=== PATIENT | female | born 1955 | race Caucasian/White ===

== ENCOUNTER 2018-12-04 18:38 | Inpatient (IN) | payer OTHER ==
--- OUTSIDE RECORDS SUMMARY | 2018-12-04 18:40 | XMS REPORT ---
:1955 Author Organization [facility] Address [address] [place] [address] Care Team Providers Name Role Phone MARCKHOI Lee Unavailable Unavailable Problems This patient has no known problems. Allergies, Adverse Reactions, Alerts This patient has no known allergies or adverse reactions. Medications This patient has no known medications. Results Test Description Test Time Test Comments Text Results Atomic Results Result Comments URINE CULTURE 2017-06-29 11:48:00 Test Item Value Reference Range Comments Isolate 1 (test code=ISO1) Escherichia coli CONFIRMATORY TEST FOR THIS ORGANISM INDICATES UNUSUAL RESISTANCE. EXTENDEDSPECTRUM BETA-LACTAMASE PRODUCTION. INFECTIOUS DISEASE CONSULT SUGGESTED piperacillin/tazobactam (test ug/mL code=tzp) cefazolin (test code=cz) ug/mL ceftazidime (test code=agustin) ug/mL ceftriaxone1 (test code=ctr) ug/mL cefepime (test code=fep) ug/mL aztreonam (test code=azm) ug/mL ertapenem (test code=etp) ug/mL meropenem (test code=mem) ug/mL gentamicin (test code=gm) ug/mL tobramycin (test code=tob) ug/mL levofloxacin (test code=lev) ug/mL nitrofurantoin (test code=ftn) ug/mL trimethoprim/sulfamethoxazole ug/mL (test code=sxt) URINALYSIS WITH [id number] 13:54:00 Test Item Value Reference Range Comments COLOR (test code=COLU) ORANGE YELLOW CLARITY (test code=CLA) CLOUDY CLEAR GLUCOSE UR (test code=UA GLUCOSE) NEGATIVE NEGATIVE BILI UR (test code=BILE) NEGATIVE NEGATIVE KETONES UR (test code=CRISTEL) NEGATIVE NEGATIVE SP GRAVITY (test code=SPGR) 1.014 1.005-1.030 PH UR (test code=PH) 7.0 4.5-8.0 PROTEIN UR (test code=PU) TRACE NEGATIVE UROBIL UR (test code=UROQ) 1.0 EU/dL 0.2-1.0 NITRITE UR (test code=NITRITE) POSITIVE NEGATIVE BLOOD UR (test code=UA BLOOD) NEGATIVE NEGATIVE LEUK ES UR (test code=LEUK) 2+ NEGATIVE WBC UR (test code=UWBC) 15 /HPF 0-5 RBC UR (test code=URBC) 0 /HPF 0-2 EPITH UR (test code=UEPC) FEW /LPF FEW BACTERIA UR (test code=UBACT) FEW /HPF NONE CAST UR (test code=CAST) /LPF NONE CRYSTAL UR (test code=CRYU) / LPF NONE MUCUS UR (test code=MUC) / HPF NONE AMORPH UR (test code=SIDDHARTHA) / HPF NONE TRICH UR (test code=UTRICH) /HPF NONE YEAST UR (test code=UY) /HPF NONE SPERM UR (test code=USPERM) /HPF NONE
--- OUTSIDE RECORDS SUMMARY | 2018-12-04 18:41 | XMS REPORT ---
:1955 Author Organization [employer] Care Team Providers Name Role Phone Bryson Johnson Provider Role Unavailable Allergies, Adverse Reactions, Alerts Substance Reaction Event Type penicillin Info Not Available Drug Allergy Codeine Sulfate Info Not Available Drug Allergy Problems Problem Type Condition Code Onset Dates Condition Status Assessment Primary osteoarthritis, unspecified M19.91 Active site Assessment Rheumatoid arthritis involving M06.9 Active multiple sites, unspecified rheumatoid factor presence Assessment Insomnia G47.00 Active Problem Chronic back pain M54.9 Active Assessment Overactive bladder N32.81 Active Problem Obstructive sleep apnea G47.33 Active Assessment GERD (gastroesophageal reflux K21.9 Active disease) Problem Lung nodule R91.1 Active Problem Allergic rhinitis, seasonal J30.2 Active Problem Restless leg syndrome G25.81 Active Problem Recurrent UTI N39.0 Active Problem Rheumatoid arthritis involving M06.9 Active multiple sites, unspecified rheumatoid factor presence Assessment Hyperlipidemia E78.5 Active Assessment Depression F32.9 Active Problem Incontinence in female R32 Active Assessment COPD (chronic obstructive pulmonary J44.9 Active disease) Problem Nicotine dependence F17.200 Active Problem H/O TIA (transient ischemic attack) Z86.73 Active and stroke Problem Overactive bladder N32.81 Active Problem Primary osteoarthritis, unspecified M19.91 Active site Problem Depression F32.9 Active Problem Insomnia G47.00 Active Assessment Benign essential HTN I10 Active Problem Osteopenia M85.80 Active Problem COPD (chronic obstructive pulmonary J44.9 Active disease) Problem Hyperlipidemia E78.5 Active Problem GERD (gastroesophageal reflux K21.9 Active disease) Problem Benign essential HTN I10 Active Medications Medication Code Code Instructions Start End Status Dosage System Date Date VESIcare [facility] 66664722026 10 MG Orally March Inactive 1 tablet Once a day 2017 Probiotic [facility] 40097697055 - Orally Active not defined Nasonex [facility] 77904872750 50 MCG/ACT Active 2 sprays Nasally Once a in each day nostril Estrace [facility] 99890997671 0.1 MG/GM December Active as Vaginal twice 2017 directed weekly Folic Acid [facility] 75278450678 1 MG Orally Active 1 tablet Once a day Breo Ellipta [facility] 40221261642 100-25 MCG/INH Active 1 puff Inhalation Once a day Keppra [facility] 26605190936 500 MG Orally Active 1 tablet Twice a day Methotrexate [facility] 67571781234 2.5 MG Orally Active not defined Citalopram [facility] 81722982907 40MG Active TAKE ONE Hydrobromide TABLET BY MOUTH ONCE DAILY Zyprexa [facility] 10213395566 10 MG Orally Active 1 tablet Once a day Citalopram [facility] 98672985776 40MG Active TAKE ONE Hydrobromide TABLET BY MOUTH ONCE DAILY Simvastatin [facility] 68582676197 40 MG Orally Active 1 tablet Once a day in the evening Klor-Con M20 [facility] 00113070127 20 MEQ Orally Active 1 tablet Once a day with food Aggrenox [facility] 41406717668 25-200 MG Active 1 capsule Orally Twice a day Myrbetriq [facility] 63521049107 25MG Active TAKE ONE TABLET BY MOUTH ONCE DAILY Combivent [facility] 94234721936 20MCG /100 MCG Active 1 puff Respimat Oral Inhalation 4 times daily, not to exceed 6 in 24 hrs Belsomra [facility] 80157518288 10 MG Orally Active 1 tablet Once a day at bedtime as needed Claritin [facility] 32601080196 10 MG Orally Active 1 tablet Once a day Multivitamins [facility] 04140512107 - Orally Active not defined Dexilant [facility] 24690228336 60MG [address] Active TAKE 1 CAPSULE BY MOUTH ONCE DAILY Results No Known Results Summary Purpose eClinicalWorks Submission
--- OUTSIDE RECORDS SUMMARY | 2018-12-04 18:41 | XMS REPORT ---
:1955 Author Organization [employer] Care Team Providers Name Role Phone CarlZuri Provider Role Unavailable Allergies, Adverse Reactions, Alerts Substance Reaction Event Type penicillin Info Not Available Drug Allergy Codeine Sulfate Info Not Available Drug Allergy Problems Problem Type Condition Code Onset Dates Condition Status Problem Lung nodule R91.1 Active Problem Allergic rhinitis, seasonal J30.2 Active Problem Restless leg syndrome G25.81 Active Problem Recurrent UTI N39.0 Active Assessment Incontinence in female R32 Active Problem Rheumatoid arthritis involving M06.9 Active multiple sites, unspecified rheumatoid factor presence Problem Incontinence in female R32 Active Problem Nicotine dependence F17.200 Active Problem H/O TIA (transient ischemic attack) Z86.73 Active and stroke Problem Overactive bladder N32.81 Active Problem Primary osteoarthritis, unspecified M19.91 Active site Problem Depression F32.9 Active Problem Insomnia G47.00 Active Assessment Recurrent UTI N39.0 Active Problem Osteopenia M85.80 Active Problem COPD (chronic obstructive pulmonary J44.9 Active disease) Problem Hyperlipidemia E78.5 Active Problem GERD (gastroesophageal reflux K21.9 Active disease) Problem Chronic back pain M54.9 Active Problem Benign essential HTN I10 Active Problem Obstructive sleep apnea G47.33 Active Medications Medication Code Code Instructions Start End Status Dosage System Date Date Multivitamins [facility] 23426097785 - Orally Active not defined Simvastatin ND 60333752929 40 MG Orally Active 1 tablet in Once a day the evening Estrace ND 24401117735 0.1 MG/GM December Active as directed Vaginal twice 2017 weekly Folic Acid ND 47289091832 1 MG Orally Active 1 tablet Once a day Aggrenox ND 59817076763 25-200 MG Active 1 capsule Orally Twice a day Belsomra ND 23324177112 10 MG Orally Active 1 tablet at Once a day bedtime as needed Klor-Con M20 [facility] 34529722382 20 MEQ Orally Active 1 tablet Once a day with food Dexilant [facility] 04873442392 60MG [address] Active TAKE ONE CAPSULE BY MOUTH ONCE DAILY VESIcare [facility] 30772229054 10 MG Orally Active 1 tablet Once a day Breo Ellipta [facility] 02920804870 100-25 MCG/INH Active 1 puff Inhalation Once a day Methotrexate [facility] 05136666680 2.5 MG Orally Active not defined Keppra [facility] 46751699821 500 MG Orally Active 1 tablet Twice a day Probiotic [facility] 76858848175 - Orally Active not defined Combivent [facility] 74553832592 20MCG /100 MCG Active 1 puff Respimat Oral Inhalation 4 times daily, not to exceed 6 in 24 hrs Citalopram [facility] 51622074419 40MG Active TAKE ONE Hydrobromide TABLET BY MOUTH ONCE DAILY Nasonex [facility] 16225978446 50 MCG/ACT Active 2 sprays in Nasally Once a each day nostril Claritin [facility] 45926641041 10 MG Orally Active 1 tablet Once a day Zyprexa [facility] 28648823138 10 MG Orally Active 1 tablet Once a day Results Name Result Date Reference Range Unit Abnormality Flag URINALYSIS AUTO W/O SCOPE (99682) ----KELLEN neg 20180123 ----NIT neg 20180123 ----PROTEIN neg 20180123 ----pH 6.0 20180123 ----GLUCOSE neg 20180123 ----KETONES neg 20180123 ----SPECIFIC GRAVITY <=1.005 20180123 ----BLO neg 20180123 PVR ----PVR 20 20180123 Summary Purpose eClinicalWorks Submission
--- OUTSIDE RECORDS SUMMARY | 2018-12-04 18:41 | XMS REPORT ---
:1955 Author Organization [employer] Care Team Providers Name Role Phone Alex Bryson Provider Role Unavailable Allergies No Known Allergies Problems Problem Type Condition Code Onset Dates Condition Status Problem Lung nodule R91.1 Active Problem Allergic rhinitis, seasonal J30.2 Active Problem Restless leg syndrome G25.81 Active Problem Recurrent UTI N39.0 Active Assessment Depression F32.9 Active Problem Rheumatoid arthritis involving M06.9 Active multiple sites, unspecified rheumatoid factor presence Assessment COPD (chronic obstructive pulmonary J44.9 Active disease) Problem Incontinence in female R32 Active Problem Nicotine dependence F17.200 Active Problem H/O TIA (transient ischemic attack) Z86.73 Active and stroke Problem Overactive bladder N32.81 Active Problem Primary osteoarthritis, unspecified M19.91 Active site Problem Depression F32.9 Active Problem Insomnia G47.00 Active Problem Osteopenia M85.80 Active Problem COPD (chronic obstructive pulmonary J44.9 Active disease) Problem Hyperlipidemia E78.5 Active Problem GERD (gastroesophageal reflux K21.9 Active disease) Problem Chronic back pain M54.9 Active Problem Benign essential HTN I10 Active Problem Obstructive sleep apnea G47.33 Active Medications Medication Code Code Instructions Start End Status Dosage System Date Date Citalopram [facility] 38877520516 40MG orally once Active TAKE ONE Hydrobromide daily TABLET BY MOUTH ONCE DAILY Zyprexa [facility] 35450438275 10 MG Orally Active 1 tablet Once a day Myrbetriq ND 33040639980 25MG orally once Active TAKE ONE daily TABLET BY MOUTH ONCE DAILY Breo Ellipta ND 53700859149 100-25 MCG/INH Active 1 puff Inhalation Once a day Klor-Con M20 ND 62193423273 20 MEQ Orally Active 1 tablet Once a day with food Results No Known Results Summary Purpose eClinicalWorks Submission
--- OUTSIDE RECORDS SUMMARY | 2018-12-04 18:41 | XMS REPORT ---
:1955 Author Organization [employer] Care Team Providers Name Role Phone Bryson Johnson Provider Role Unavailable Allergies No Known Allergies Problems Problem Type Condition Code Onset Dates Condition Status Assessment Recurrent UTI N39.0 Active Assessment Primary osteoarthritis, unspecified M19.91 Active site Assessment Rheumatoid arthritis involving M06.9 Active multiple sites, unspecified rheumatoid factor presence Problem Hyperlipidemia E78.5 Active Assessment Insomnia G47.00 Active Problem Chronic back pain M54.9 Active Assessment GERD (gastroesophageal reflux K21.9 Active disease) Problem Obstructive sleep apnea G47.33 Active Problem Restless leg syndrome G25.81 Active Problem Lung nodule R91.1 Active Problem Overactive bladder N32.81 Active Problem Primary osteoarthritis, unspecified M19.91 Active site Assessment Hyperlipidemia E78.5 Active Assessment Depression F32.9 Active Problem Recurrent UTI N39.0 Active Assessment COPD (chronic obstructive pulmonary J44.9 Active disease) Problem H/O TIA (transient ischemic attack) Z86.73 Active and stroke Problem Allergic rhinitis, seasonal J30.2 Active Problem Rheumatoid arthritis involving M06.9 Active multiple sites, unspecified rheumatoid factor presence Problem Nicotine dependence F17.200 Active Problem Osteopenia M85.80 Active Problem Depression F32.9 Active Assessment Benign essential HTN I10 Active Assessment Overactive bladder N32.81 Active Problem Benign essential HTN I10 Active Problem COPD (chronic obstructive pulmonary J44.9 Active disease) Problem Insomnia G47.00 Active Problem GERD (gastroesophageal reflux K21.9 Active disease) Medications Medication Code Code Instructions Start End Status Dosage System Date Date Aggrenox [facility] 45968248677 25-200 MG Active 1 capsule Orally Twice a day Breo Ellipta [facility] 28171826829 100-25 MCG/INH Active 1 puff Inhalation Once a day Keppra [facility] 41075207590 500 MG Orally Active 1 tablet Twice a day Zyprexa [facility] 41632086132 10 MG Orally Active 1 tablet Once a day VESIcare [facility] 30714880098 10 MG Orally Active 1 tablet Once a day Claritin [facility] 93682098085 10 MG Orally Active 1 tablet Once a day Multivitamins [facility] 93524050043 - Orally Active not defined Probiotic [facility] 16785453501 - Orally Active not defined Methotrexate [facility] 43517284716 2.5 MG Orally Active not defined Folic Acid [facility] 10268227977 1 MG Orally Active 1 tablet Once a day Klor-Con M20 [facility] 93400668117 20 MEQ Orally Active 1 tablet Once a day with food Nasonex [facility] 78471447676 50 MCG/ACT Active 2 sprays Nasally Once a in each day nostril Belsomra [facility] 29929136984 10 MG Orally Active 1 tablet Once a day at bedtime as needed Combivent [facility] 40671314853 20MCG /100 MCG Active 1 puff Respimat Oral Inhalation 4 times daily, not to exceed 6 in 24 hrs Simvastatin [facility] 27888568228 40 MG Orally Active 1 tablet Once a day in the evening Citalopram [facility] 50478848754 40MG Active TAKE ONE Hydrobromide TABLET BY MOUTH ONCE DAILY Results No Known Results Summary Purpose eClinicalWorks Submission
--- OUTSIDE RECORDS SUMMARY | 2018-12-04 18:41 | XMS REPORT ---
:1955 Author Organization [employer] Care Team Providers Name Role Phone Zuri Henry Provider Role Unavailable Allergies No Known Allergies Problems Problem Type Condition Code Onset Dates Condition Status Problem Lung nodule R91.1 Active Problem Allergic rhinitis, seasonal J30.2 Active Problem Restless leg syndrome G25.81 Active Problem Recurrent UTI N39.0 Active Assessment Recurrent UTI N39.0 Active Problem Rheumatoid arthritis involving M06.9 Active multiple sites, unspecified rheumatoid factor presence Assessment Incontinence in female R32 Active Problem Incontinence in female R32 Active Problem [...] sleep apnea G47.33 Active Medications Medication Code System Code Instructions Start Date End Date Status Dosage Multivitamins NDC 0 Active not defined Results Name Result Date Reference Range Unit Abnormality Flag URINALYSIS AUTO W/O SCOPE (11829) ----KELLEN neg [id number] ----NIT neg [id number] ----PROTEIN neg [id number] ----pH 6.0 20180501 ----BLO neg [id number] ----GLUCOSE neg [id number] ----BILIRUBIN neg [id number] ----KETONES neg [id number] ----SPECIFIC GRAVITY <=1.005 20180501 Summary Purpose eClinicalWorks Submission
--- OUTSIDE RECORDS SUMMARY | 2018-12-04 18:41 | XMS REPORT ---
:1955 Author Organization [employer] Care Team Providers Name Role Phone Carl Zuri Provider Role Unavailable Allergies, Adverse Reactions, Alerts [...] multiple sites, unspecified rheumatoid factor presence Assessment Yeast dermatitis B37.2 Active Problem Incontinence in female R32 Active [...] Medications Medication Code Code Instructions Start End Date Status Dosage System Date Nasonex [facility] 34033937671 50 MCG/ACT Active 2 sprays Nasally Once a in each day nostril Klor-Con M20 [facility] 34805276076 20 MEQ Orally Active 1 tablet Once a day with food Belsomra [facility] 08295175654 10 MG Orally Active 1 tablet Once a day at bedtime as needed Methotrexate ND 49277295202 2.5 MG Orally Active not defined Keppra [facility] 51185834134 500 MG Orally Active 1 tablet Twice a day VESIcare ND 91184232342 10 MG Orally Active 1 tablet Once a day Multivitamins [facility] 15055654801 - Orally Active not defined Estrace [facility] 08866883134 0.1 MG/GM December Active as Vaginal twice 2017 directed weekly Zyprexa [facility] 36830503642 10 MG Orally Active 1 tablet Once a day Breo Ellipta [facility] 00483238595 100-25 MCG/INH Active 1 puff Inhalation Once a day Combivent [facility] 93961622590 20MCG /100 MCG Active 1 puff Respimat Oral Inhalation 4 times daily, not to exceed 6 in 24 hrs Probiotic [facility] 79136381447 - Orally Active not defined Aggrenox [facility] 78556596222 25-200 MG Active 1 capsule Orally Twice a day Folic Acid [facility] 21283544085 1 MG Orally Active 1 tablet Once a day Bactrim DS [facility] 47570563145 800-160 MG December Active 1 tablet Orally Twice a 2017 day Claritin [facility] 15982912924 10 MG Orally Active 1 tablet Once a day Simvastatin [facility] 17190373635 40 MG Orally Active 1 tablet Once a day in the evening Citalopram [facility] 70153916325 40MG Active TAKE ONE Hydrobromide TABLET BY MOUTH ONCE DAILY Results Name Result Date Reference Range Unit Abnormality Flag URINALYSIS AUTO W/O SCOPE (33912) ----KELLEN 2+ 20171227 ----NIT neg 20171227 ----PROTEIN neg 20171227 ----pH 7.0 20171227 ----GLUCOSE neg 20171227 ----KETONES neg 20171227 ----SPECIFIC GRAVITY 1.010 20171227 ----BLO trace 20171227 PVR ----PVR 260 [id number] Summary Purpose eClinicalWorks Submission
--- OUTSIDE RECORDS SUMMARY | 2018-12-04 18:42 | XMS REPORT ---
:1955 Author Organization [employer] Care Team Providers Name Role Phone Bryson Johnson Provider Role Unavailable Allergies No Known Allergies Problems Problem Type Condition Code Onset Dates Condition Status Problem Restless leg syndrome G25.81 Active Problem H/O TIA (transient ischemic attack) Z86.73 Active and stroke Problem Allergic rhinitis, seasonal J30.2 Active Problem Incontinence in female R32 Active Problem Recurrent UTI N39.0 Active Problem Odynophagia R13.10 Active Problem Primary osteoarthritis, unspecified M19.91 Active site Problem Nicotine dependence F17.200 Active Problem Rheumatoid arthritis involving M06.9 Active multiple sites, unspecified rheumatoid factor presence Problem Overactive bladder N32.81 Active Problem Insomnia G47.00 Active Problem GERD (gastroesophageal reflux K21.9 Active disease) Problem Osteopenia M85.80 Active Problem Depression F32.9 Active Problem Hyperlipidemia E78.5 Active Problem Chronic back pain M54.9 Active Problem Benign essential HTN I10 Active Problem Obstructive sleep apnea G47.33 Active Problem COPD (chronic obstructive pulmonary J44.9 Active disease) Problem Lung nodule R91.1 Active Medications No Known Medications Results No Known Results Summary Purpose eClinicalWorks Submission
--- OUTSIDE RECORDS SUMMARY | 2018-12-04 18:42 | XMS REPORT ---
:1955 Author Organization e[employer]Works Care Team Providers Name Role Phone Alex Bryson Provider Role Unavailable Allergies No Known Allergies Problems Problem Type Condition Code Onset Dates Condition Status Assessment Screening for osteoporosis Z13.820 Active Assessment Nicotine dependence F17.200 Active Assessment Primary osteoarthritis, unspecified M19.91 Active site Assessment Rheumatoid arthritis involving M06.9 Active multiple sites, unspecified rheumatoid factor presence Assessment Insomnia G47.00 Active Assessment Overactive bladder N32.81 Active Problem Chronic back pain M54.9 Active Assessment GERD (gastroesophageal reflux K21.9 Active disease) Problem Obstructive sleep apnea G47.33 Active Assessment COPD (chronic obstructive pulmonary J44.9 Active disease) Problem Lung nodule R91.1 Active Problem Allergic rhinitis, seasonal J30.2 Active Problem Restless leg syndrome G25.81 Active Problem Recurrent UTI N39.0 Active Problem Rheumatoid arthritis involving M06.9 Active multiple sites, unspecified rheumatoid factor presence Assessment Benign essential HTN I10 Active Assessment Hyperlipidemia E78.5 Active Problem Incontinence in female R32 Active Assessment Depression F32.9 Active Problem Nicotine dependence F17.200 Active Problem [...] Start End Date Status Dosage System Date Zyprexa [facility] 77388375910 10 MG Orally Active 1 tablet Once a day Probiotic [facility] 19513847281 - Orally Active not defined Keppra [facility] 63323311261 500 MG Orally Active 1 tablet Twice a day Dexilant [place] 46591268296 60MG DR Active TAKE 1 CAPSULE BY MOUTH ONCE DAILY Estrace [facility] 13240288630 0.1 MG/GM December Active as Vaginal twice 2017 directed weekly Combivent [facility] 85213369165 20MCG /100 MCG Active 1 puff Respimat Oral Inhalation 4 times daily, not to exceed 6 in 24 hrs Dexilant [facility] 80189823136 60 MG Active TAKE 1 CAPSULE BY MOUTH ONCE DAILY Multivitamins [facility] 70181796162 - Orally Active not defined Breo Ellipta [facility] 85886113281 100-25 MCG/INH Active 1 puff Inhalation Once a day Myrbetriq [facility] 47560108837 25MG Orally January Active take one Once a day 2018 tablet by mouth once daily Folic Acid [facility] 92588733049 1 MG Orally Active 1 tablet Once a day Methotrexate [facility] 48410646216 2.5 MG Orally Active not defined Simvastatin [facility] 53633013940 40 MG Orally Active 1 tablet Once a day in the evening Citalopram [facility] 73578805611 40MG orally Active TAKE ONE Hydrobromide once daily TABLET BY MOUTH ONCE DAILY Aggrenox [facility] 65242500856 25-200 MG Active 1 capsule Orally Twice a day Belsomra [facility] 06632635103 10 MG Orally Active 1 tablet Once a day at bedtime as needed Klor-Con M20 [facility] 07018368308 20 MEQ Orally Active 1 tablet Once a day with food Citalopram [facility] 69871489955 40MG Active TAKE ONE Hydrobromide TABLET BY MOUTH ONCE DAILY Claritin [facility] 13702704648 10 MG Orally Active 1 tablet Once a day Nasonex [facility] 91744728088 50 MCG/ACT Active 2 sprays Nasally Once a in each day nostril Myrbetriq [facility] 06236276930 25MG orally Active TAKE ONE once daily TABLET BY MOUTH ONCE DAILY Results No Known Results Summary Purpose eClinicalWorks Submission
--- OUTSIDE RECORDS SUMMARY | 2018-12-04 18:42 | XMS REPORT ---
:1955 Author Organization [employer] Care Team Providers Name Role Phone Alex Bryson Provider Role Unavailable Allergies No Known Allergies Problems Problem Type Condition Code Onset Dates Condition Status Problem Allergic rhinitis, seasonal J30.2 Active Problem Nicotine dependence F17.200 Active Problem H/O TIA (transient ischemic attack) Z86.73 Active and stroke Problem Osteoporosis, unspecified M81.0 Active osteoporosis type, unspecified pathological fracture presence Problem Osteopenia M85.80 Active Problem Incontinence in female R32 Active Problem Odynophagia R13.10 Active Problem Overactive bladder N32.81 Active Problem Primary osteoarthritis, unspecified M19.91 Active site Problem Recurrent UTI N39.0 Active Problem Rheumatoid arthritis involving M06.9 Active multiple sites, unspecified rheumatoid factor presence Problem GERD (gastroesophageal reflux K21.9 Active disease) Problem Benign essential HTN I10 Active Problem Depression F32.9 Active Problem Insomnia G47.00 Active Problem Chronic back pain M54.9 Active Problem Obstructive sleep apnea G47.33 Active Problem COPD (chronic obstructive pulmonary J44.9 Active disease) Problem Lung nodule R91.1 Active Problem Hyperlipidemia E78.5 Active Problem Restless leg syndrome G25.81 Active Medications Medication Code Code Instructions Start End Status Dosage System Date Date Chlorthalidone [facility] 57469950620 25 MG Orally Nov 11, Active 0.5 tablet Once a day 2019 in the morning Results No Known Results Summary Purpose [employer] Submission
--- OUTSIDE RECORDS SUMMARY | 2018-12-04 18:42 | XMS REPORT ---
:1955 Author Organization [employer] Care Team Providers Name Role Phone Zuri Henry Provider Role Unavailable Allergies, Adverse Reactions, Alerts [...] Problem Incontinence in female R32 Active Assessment Recurrent UTI N39.0 Active Problem Odynophagia R13.10 Active Problem Overactive [...] Active disease) Problem Lung nodule R91.1 Active Assessment Incontinence in female R32 Active Problem Hyperlipidemia E78.5 Active Problem Restless leg syndrome G25.81 Active Medications Medication Code Code Instructions Start End Date Status Dosage System Date [facility] 50618381165 10 MG Orally Active 1 tablet Once a day at bedtime as needed Multivitamins ND 89264293245 - Orally Active not defined Estrace ND 05470392502 0.1 MG/GM December Active as Vaginal twice 2017 directed weekly Klor-Con M20 [facility] 46488925465 20 MEQ Orally Active 1 tablet Once a day with food Calcium + D3 ND 63814902822 600-800 MG-UNIT Oct 14, Oct 09, Active 1 tablet Orally Twice a 2019 2020 with a day meal Aggrenox ND 50800443787 25-200 MG Active 1 capsule Orally Twice a day Citalopram [facility] 60013925641 40MG Active TAKE ONE Hydrobromide TABLET BY MOUTH ONCE DAILY Nasonex [facility] 95763442515 50 MCG/ACT Active 2 sprays Nasally Once a in each day nostril Combivent [facility] 41294586530 20MCG /100 MCG Active 1 puff Respimat Oral Inhalation 4 times daily, not to exceed 6 in 24 hrs Simvastatin [facility] 71190726422 40 MG Orally Active 1 tablet Once a day in the evening Folic Acid [facility] 15208332029 1 MG Orally Active 1 tablet Once a day Myrbetriq [facility] 75665387241 25MG Orally April 12, Active take one Once a day 2018 tablet by mouth once daily Zyprexa [facility] 99602373487 10 MG Orally Active 1 tablet Once a day Keppra [facility] 61412747213 500 MG Orally Active 1 tablet Twice a day Alendronate [facility] 86102140237 70 MG Orally Aug 01January Active 1 tablet Sodium Once weekly 2017 Breo Ellipta [facility] 24655401545 100-25 MCG/INH Active 1 puff Inhalation Once a day Claritin [facility] 50011223029 10 MG Orally Active 1 tablet Once a day Probiotic [facility] 77024334922 - Orally Active not defined Dexilant [facility] 78596596361 60 MG Active TAKE 1 CAPSULE BY MOUTH ONCE DAILY Results No Known Results Summary Purpose [employer]ClinicalWorks Submission
--- OUTSIDE RECORDS SUMMARY | 2018-12-04 18:42 | XMS REPORT ---
:1955 [facility] Team Providers Name Role Phone Bryson Johnson Provider Role Unavailable Allergies No Known Allergies Problems Problem Type Condition Code Onset Dates Condition Status Assessment Osteoporosis, unspecified M81.0 Active osteoporosis type, unspecified pathological fracture presence Assessment Primary osteoarthritis, unspecified M19.91 Active site Assessment Nicotine dependence F17.200 Active Assessment Rheumatoid arthritis involving M06.9 Active multiple sites, unspecified rheumatoid factor presence Assessment Insomnia G47.00 Active Assessment Overactive bladder N32.81 Active Assessment GERD (gastroesophageal reflux K21.9 Active disease) Assessment COPD (chronic obstructive pulmonary J44.9 Active disease) Problem Lung nodule R91.1 Active Assessment Depression F32.9 Active Problem Restless leg syndrome G25.81 Active Assessment Hyperlipidemia E78.5 Active Problem Allergic rhinitis, seasonal J30.2 Active Problem Nicotine dependence F17.200 Active Problem H/O TIA (transient ischemic attack) Z86.73 Active and stroke Problem Osteoporosis, unspecified M81.0 Active osteoporosis type, unspecified pathological fracture presence Problem Incontinence in female R32 Active Problem Osteopenia M85.80 Active Problem Odynophagia R13.10 Active Assessment Benign essential HTN I10 Active Problem Overactive bladder N32.81 Active Problem [...] J44.9 Active disease) Problem Hyperlipidemia E78.5 Active Medications Medication Code Code Instructions Start End Status Dosage System Date Date Aggrenox [facility] 73936673930 25-200 MG Active 1 capsule Orally Twice a day Alendronate [facility] 37639405537 70 MG Orally Aug 01January Active 1 tablet Sodium Once weekly 2017 Keppra [facility] 20036245180 500 MG Orally Active 1 tablet Twice a day Klor-Con M20 [facility] 59915097512 20 MEQ Orally Active 1 tablet Once a day with food Myrbetriq ND 10374112697 25MG Orally April Active take one Once a day , tablet by 2019 mouth once daily Claritin ND 63699320993 10 MG Orally Active 1 tablet Once a day Calcium + D3 [facility] 46128007471 600-800 MG-UNIT Oct 14, Oct 09, Active 1 tablet Orally Twice a 2018 2019 with a day meal Citalopram [facility] 55334494877 40MG Active TAKE ONE Hydrobromide TABLET BY MOUTH ONCE DAILY Simvastatin ND 62955089412 40 MG Orally Active 1 tablet Once a day in the evening Belsomra [facility] 27906515815 10 MG Orally Active 1 tablet Once a day at bedtime as needed Zyprexa [facility] 74476539765 10 MG Orally Active 1 tablet Once a day Combivent [facility] 15724384188 20MCG /100 MCG Active 1 puff Respimat Oral Inhalation 4 times daily, not to exceed 6 in 24 hrs Estrace [facility] 33328383469 0.1 MG/GM December Active as Vaginal twice 23, directed weekly 2017 Folic Acid [facility] 61641076534 1 MG Orally Active 1 tablet Once a day Methotrexate ND 92618000135 2.5 MG Orally Inactive not defined Nasonex [facility] 54345771499 50 MCG/ACT Active 2 sprays Nasally Once a in each day nostril Dexilant [facility] 13689405127 60 MG Active TAKE 1 CAPSULE BY MOUTH ONCE DAILY Probiotic [facility] 44686610066 - Orally Active not defined Multivitamins [facility] 29515907013 - Orally Active not defined Breo Ellipta [facility] 04425467169 100-25 MCG/INH Active 1 puff Inhalation Once a day Results No Known Results Summary Purpose eClinicalWorks Submission
--- NOTE | 2018-12-04 21:04 | RAD REPORT ---
EXAM DESCRIPTION: US - Extrem Venous W Compress Micah - 12/04/2018 8:46 pm CLINICAL HISTORY: Leg pain and swell COMPARISON: None. TECHNIQUE: Real-time sonographic evaluation of the bilateral lower extremity common femoral, superfi cial femoral, popliteal and posterior tibial veins was performed. FINDINGS: Normal compressibility, flow augmentation, phasic flow and spontaneous flow are identified in the left and right lower extremity common femoral, superficial femoral, popliteal and posterior t ibial veins. No intraluminal filling defects seen. IMPRESSION: No DVT in either lower extremity.
--- NOTE | 2018-12-04 21:08 | RAD REPORT ---
EXAM DESCRIPTION: RAD - Chest Single View - 12/04/2018 8:52 pm CLINICAL HISTORY: COPD, shortness of breath COMPARISON: October 2017 TECHNIQUE: AP portable chest image was obtained 7 hours . FINDINGS: No acute lung parenchymal process. Interstitial markings are similar to comparison. Heart and vasculature are normal. No measurable pleural effusion and no pneumothorax. No acute bone finding s seen. Old trauma changes noted to the anterior right third and fourth ribs. No acute aortic finding s suspected. IMPRESSION: No acute cardiopulmonary process. No suspicious change from comparison.
[2018-12-04] MEDS ORDERED: MORPHINE 2 MG/ML SYR ONE ×2 (21:30→23:26)
[2018-12-04] MEDS ORDERED: ONDANSETRON 4 MG/2 ML VIAL ONE (21:30)
[2018-12-04 22:12] LABS: Absolute Lymphocytes (CBC) 1.4 K/uL (0.7-4.9); Absolute Monocytes 1.4 K/uL (0.1-1.3); Absolute Neutrophil 15.1 K/uL (1.8-8.0); Basophils % 0.4 % (0-1.3); Eosinophils % 0.2 % (0-4.4); Hematocrit 39.7 % (36.0-45.0); MPV 8.7 fL (7.6-11.3); Monocytes % 7.5 % (3.3-12.3); RBC Red Blood Cell Count 3.92 M/uL (3.86-4.86)
[2018-12-04 22:13] LABS: Protime INR 1.04
[2018-12-04 22:40] LABS: ALT/SGPT 32 U/L (12-78); AST/SGOT 109 U/L (15-37); Albumin 1.9 g/dL (3.4-5.0); Alkaline Phosphatase 151 U/L (45-117); BUN Blood Urea Nitrogen 13 mg/dL (7-18); Bicarbonate 34 mmol/L (21-32); Bilirubin Direct 0.9 mg/dL (0-0.2); Bilirubin Total 1.4 mg/dL (0.2-1.0); Glucose Level 72 mg/dL (74-106); NT PRO-BNP 3052 pg/mL (<125); Protein, Total 5.5 g/dL (6.4-8.2); Sodium Level 123 mmol/L (136-145); Troponin (Emerg Dept Use Only) 0.12 ng/mL (0.0-0.045)
[2018-12-04 22:42] LABS: Potassium 2.2 mmol/L (3.5-5.1)
[2018-12-04] MEDS ORDERED: POTASSIUM 25 MEQ EFFERV TAB ONE (23:26)
[2018-12-04] MEDS ORDERED: NA CHLORIDE 0.9% 500 ML ONE (23:26)
[2018-12-04 23:35] LABS: ALT/SGPT 30 U/L (12-78); AST/SGOT 102 U/L (15-37); Albumin 1.7 g/dL (3.4-5.0); Alkaline Phosphatase 143 U/L (45-117); BUN Blood Urea Nitrogen 13 mg/dL (7-18); Bicarbonate 35 mmol/L (21-32); Bilirubin Total 1.2 mg/dL (0.2-1.0); Glucose Level 76 mg/dL (74-106); Protein, Total 5.2 g/dL (6.4-8.2); Sodium Level 125 mmol/L (136-145)
[2018-12-04 23:41] LABS: Potassium 2.2 mmol/L (3.5-5.1)
--- NOTE | 2018-12-05 01:06 | EDPHYS ---
Physician Documentation [facility] Name: Jennifer Dietrich Age: 63 yrs Sex: Female : 1955 Arrival Date: 12/04/2018 Time: 18:47 Bed 30 Private MD: ED Physician Jason Rosales HPI: 12/04 23:43 This 63 yrs old Female presents to ER via EMS with complaints of Diarrhea. wa 23:43 The patient presents to the emergency department with diarrhea, several episodes, wa on-going x 1 week. c/o neck pain today. also LE pain. denies abd pain or SOB. admits to leg swelling. per son, pt has been generally weak for about 1 week. denies cough or SOB. Onset: The symptoms/episode began/occurred 1 week(s) ago. Possible causes: unknown, saw MALKA Lucero on 11/24/18. states told tests negative. The symptoms are aggravated by nothing. The symptoms are alleviated by nothing. Associated signs and symptoms: Pertinent positives: diarrhea, Pertinent negatives: abdominal pain, dysuria, fever, GI bleeding, hematuria, nausea, vomiting. Severity of symptoms: At their worst the symptoms were moderate in the emergency department the symptoms are unchanged. The patient has experienced similar episodes in the past. The patient has been recently seen by a physician:. 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 - Social history:: Smoking status: Patient uses tobacco products, smokes one-half pack cigarettes per day. - Ebola Screening: : Patient negative for fever greater than or equal to 101.5 degrees Fahrenheit, and additional compatible Ebola Virus Disease symptoms Patient denies exposure to infectious person Patient denies travel to an Ebola-affected area in the 21 days before illness onset. - Family history:: not pertinent. - Hospitalizations: : No recent hospitalization is reported. ROS: 23:47 Constitutional: Negative for fever, chills, and weight loss, Eyes: Negative for injury, wa pain, redness, and discharge, ENT: Negative for injury, pain, and discharge, Cardiovascular: Negative for chest pain, palpitations, and edema, Respiratory: Negative for shortness of breath, cough, wheezing, and pleuritic chest pain, Back: Negative for injury and pain, : Negative for injury, bleeding, discharge, and swelling, Skin: Negative for injury, rash, and discoloration, Neuro: Negative for headache, weakness, numbness, tingling, and seizure, Psych: Negative for depression, anxiety, suicide ideation, homicidal ideation, and hallucinations. 23:47 Neck: Positive for pain with movement, pain at rest. 23:47 Abdomen/GI: Positive for diarrhea, Negative for abdominal pain, vomiting. 23:47 MS/extremity: Positive for pain, swelling, tenderness, of the both legs. Exam: 23:48 Constitutional: This is a well developed, well nourished patient who is awake, alert, wa and in no acute distress. Head/Face: Normocephalic, atraumatic. Eyes: Pupils equal round and reactive to light, extra-ocular motions intact. Lids and lashes normal. Conjunctiva and sclera are non-icteric and not injected. Cornea within normal limits. Periorbital areas with no swelling, redness, or edema. ENT: Nares patent. No nasal discharge, no septal abnormalities noted. Tympanic membranes are normal and external auditory canals are clear. Oropharynx with no redness, swelling, or masses, exudates, or evidence of obstruction, uvula midline. Mucous membranes moist. Chest/axilla: Normal chest wall appearance and motion. Nontender with no deformity. No lesions are appreciated. Cardiovascular: Regular rate and rhythm with a normal S1 and S2. No gallops, murmurs, or rubs. Normal PMI, no JVD. No pulse deficits. Respiratory: Lungs have equal breath sounds bilaterally, clear to auscultation and percussion. No rales, rhonchi or wheezes noted. No increased work of breathing, no retractions or nasal flaring. Abdomen/GI: Soft, non-tender, with normal bowel sounds. No distension or tympany. No guarding or rebound. No evidence of tenderness throughout. Back: No spinal tenderness. No costovertebral tenderness. Full range of motion. Skin: Warm, dry with normal turgor. Normal color with no rashes, no lesions, and no evidence of cellulitis. Neuro: Awake and alert, GCS 15, oriented to person, place, time, and situation. Cranial nerves II-XII grossly intact. Motor strength 5/5 in all extremities. Sensory grossly intact. Cerebellar exam normal. Normal gait. Psych: Awake, alert, with orientation to person, place and time. Behavior, mood, and affect are within normal limits. 23:48 Neck: External neck: tenderness, that is moderate, diffusely. 23:48 Abdomen/GI: Inspection: abdomen appears normal, Bowel sounds: normal, Palpation: abdomen is soft and non-tender, in all quadrants. 23:48 Musculoskeletal/extremity: Extremities: 2+ pitting edema. diffusely tender to palp. Vital Signs: 18:56 BP 112 / 57; Pulse 99; Resp 21; Temp 99(O); Weight 68.04 kg (R); rv 19:50 BP 107 / 74; Pulse 96; Resp 19; Pulse Ox 95% on R/A; ca1 20:45 BP 92 / 59; Pulse 97; Resp 19; Pulse Ox 95% on R/A; ca1 21:50 BP 100 / 64; Pulse 98; Resp 19; Pulse Ox 95% on R/A; ca1 22:55 BP 103 / 67; Pulse 94; Resp 19; Pulse Ox 95% on R/A; ca1 / 00:05 BP 102 / 65; Pulse 93; Resp 18; Pulse Ox 95% on R/A; ca1 00:30 BP 108 / 75; Pulse 95; Resp 19 S; Pulse Ox 96% on R/A; rv 01:00 BP 104 / 80; Pulse 89; Resp 21; Pulse Ox 95% on R/A; rv 02:00 BP 115 / 68; Pulse 96; Resp 23 S; Pulse Ox 96% on R/A; rv MDM: 12/04 19:19 Patient medically screened. tn 23:50 Differential diagnosis: will CT c-spine. r/o DVT. r/o c-diff. work up. reassess. tn 12/05 00:55 Data reviewed: vital signs, nurses notes, lab test result(s), EKG, radiologic studies. tn Test interpretation: by ED physician or midlevel provider: EKG interp by me. HR 96. non-specific ST-T changes. prolonged QT. sinus. nml axis. 00:56 Test interpretation: by ED physician or midlevel provider: abnml labs include: tn hyponatremia. hypochloremia. hypokalemia. hypocalcemia. hypoalbuminemia. elevated wbc 18.0. elevated troponin 0.12. elevated BNP 3052. . 00:59 Test interpretation: by ED physician or midlevel provider: CXR: negative. doppler tn bilateral LE: no DVT. . ED course: severely abnml labs. possible 3rd spacing. etiology unknown. diarrhea? will admit for further care. stool studies pending. 01:02 Response to treatment: the patient's symptoms have mildly improved after treatment. tn Physician consultation: Denis Ballesteros MD. Admission orders: after a detailed discussion of the patient's condition and case, the admit orders are written by ar. 01:02 ED course: po kcl given. will admit. abx given empirically. will await stool studies. tn 12/04 20:03 Order name: Basic Metabolic Panel; Complete Time: 22:53 tn 12/04 20:03 Order name: CBC with Diff; Complete Time: 22:54 tn 12/04 20:03 Order name: LFT's; Complete Time: 22:54 tn 12/04 20:03 Order name: Magnesium; Complete Time: 22:54 tn 12/04 20:03 Order name: NT PRO-BNP; Complete Time: 22:54 tn 12/04 20:03 Order name: PT-INR; Complete Time: 22:54 tn 12/04 20:03 Order name: Troponin (emerg Dept Use Only); Complete Time: 22:54 tn 12/04 20:05 Order name: Stool Culture tn 12/04 20:05 Order name: Ova And Parasites tn 12/04 20:05 Order name: Fecal Leukocyte Stain tn 12/04 20:05 Order name: CDIFF tn 12/04 20:05 Order name: Stool Culture [facility] 12/04 20:05 Order name: Ova and Parasites [facility] 12/04 22:57 Order name: CMP; Complete Time: 00:37 tn 12/05 01:06 Order name: Urine Microscopic Only tn 12/05 01:36 Order name: NT PRO-BNP [facility] 12/05 01:36 Order name: Thyroid Stimulating Hormone EDFL 12/05 01:36 Order name: Urinalysis EDFL 12/05 01:36 Order name: CBC with Automated Diff [facility] 12/05 01:36 Order name: CBC with Automated Diff EDFL 12/05 01:36 Order name: CBC with Automated Diff EDMS 12/05 01:36 Order name: Comprehensive Metabolic Panel EDMS 12/05 01:37 Order name: Comprehensive Metabolic Panel EDMS 12/05 01:37 Order name: Comprehensive Metabolic Panel EDMS 12/05 01:37 Order name: Magnesium EDMS 12/05 01:37 Order name: Magnesium EDMS 12/05 01:37 Order name: Magnesium EDMS 12/05 01:37 Order name: Phosphorus EDMS 12/05 01:37 Order name: Phosphorus EDMS 12/04 20:02 Order name: CT C Spine 12/04 20:03 Order name: XRAY Chest (1 view); Complete Time: 21:39 12/04 20:03 Order name: EKG; Complete Time: 20:04 12/04 20:03 Order name: Cardiac monitoring; Complete Time: 20:50 12/04 20:03 Order name: EKG - Nurse/Tech; Complete Time: 21:01 tn 12/04 20:03 Order name: IV Saline Lock; Complete Time: 20:49 tn 12/04 20:03 Order name: Labs collected and sent; Complete Time: 20:49 12/04 20:03 Order name: O2 Sat Monitoring; Complete Time: 20:49 tn 12/04 20:04 Order name: US Extremity Venous W Compression Micah; Complete Time: 22:54 tn 12/04 20:58 Order name: Misc. Order: re-collect all labs please; Complete Time: 21:28 [facility] 12/05 01:06 Order name: Urine Dipstick-Ancillary (obtain specimen); Complete Time: 02:25 tn 12/05 01:36 Order name: Regular EDMS 12/05 01:37 Order name: Phosphorus EDMS 12/05 01:37 Order name: Troponin I EDMS 12/05 01:37 Order name: Troponin I EDMS 12/05 01:43 Order name: Glucose, Ancillary Testing EDMS Administered Medications: 12/04 20:55 Drug: Zofran 4 mg Route: IVP; Site: left antecubital; ca1 23:36 Follow up: Response: No adverse reaction; Nausea is decreased ca1 20:55 Drug: morphine 2 mg Route: IVP; Site: left antecubital; ca1 23:36 Follow up: Response: No adverse reaction; Pain is unchanged, physician notified ca1 23:05 Drug: Potassium Effervescent Tablet 50 mEq Route: PO; ca1 12/05 01:36 Follow up: Response: No adverse reaction rv 12/04 23:05 Drug: NS 0.9% 500 ml Route: IV; Rate: bolus; Site: left antecubital; ca1 12/05 02:21 Follow up: IV Status: Completed infusion rv 12/04 23:07 Drug: morphine 2 mg Route: IVP; Site: left antecubital; ca1 12/05 01:36 Follow up: Response: Pain is decreased rv 01:15 Drug: LevaQUIN 500 mg Volume: 100 ml; Route: IVPB; Infused Over: 60 mins; Site: left rv antecubital; 02:22 Follow up: IV Status: Infusion continued upon admission rv Disposition: 12/05/18 01:05 Hospitalization ordered by Denis Ballesteros for Inpatient Admission. Preliminary diagnosis are Acute Diarrhea, Lower Extremity edema, hypokalemia, hyponatremia, hypochloremia, hypocalcemia. - Bed requested for Telemetry/MedSurg (Inpatient). - Status is Inpatient Admission. rv - Condition is Fair. - Problem is new. - Symptoms have improved. UTI on Admission? No Signatures: Dispatcher [employer] EDFL Kaity Nayak RN RN Jason Rosales MD MD wa [place], MyKena mw2 Matt Cabral RN RN AcAlessia nelson RN RN ca1 Corrections: (The following items were deleted from the chart) 12/04 20:06 20:05 Occult Blood+PA.LAB.BRZ ordered. [facility] 12/05 01:14 01:05 Hospitalization Ordered by Denis Ballesteros MD for Inpatient Admission. Preliminary mw diagnosis is Acute Diarrhea; Lower Extremity edema; hypokalemia; hyponatremia; hypochloremia; hypocalcemia. Bed requested for Telemetry/MedSurg (Inpatient). Status is Inpatient Admission. Condition is Fair. Problem is new. Symptoms have improved. UTI on Admission? No. homero 02:25 01:14 12/05/2018 01:05 Hospitalization Ordered by Denis Ballesteros MD for Inpatient rv Admission. Preliminary diagnosis is Acute Diarrhea; Lower Extremity edema; hypokalemia; hyponatremia; hypochloremia; hypocalcemia. Bed requested for Telemetry/MedSurg (Inpatient). Status is Inpatient Admission. Condition is Fair. Problem is new. Symptoms have improved. UTI on Admission? No. mw
--- NOTE | 2018-12-05 01:06 | ER ---
Nurse's Notes [facility] Name: Jennifer Dietrich Age: 63 yrs Sex: Female : 1955 Arrival Date: 12/04/2018 Time: 18:47 Bed 30 Private MD: Diagnosis: Acute Diarrhea;Lower Extremity edema;hypokalemia;hyponatremia;hypochloremia;hypocalcemia Presentation: 12/04 18:52 Presenting complaint: EMS states: PATIENT COMPLAINS OF NECK PAIN. HER SON TOLD US THAT rv SHE'S BEEN WEAK FOR A WEEK NOW AND DECREASED IN APPETITE. SHE ALSO HAVE A LOOSE STOOL. Transition of care: patient was not received from another setting of care. Onset of symptoms was December 04, 2018 at 18:00. 18:52 Method Of Arrival: EMS: [facility] rv 18:52 Acuity: EULALIO 3 rv 19:00 Risk Assessment: Do you want to hurt yourself or someone else? Patient reports no ca1 desire to harm self or others. 19:00 Initial Sepsis Screen: Does the patient meet any 2 criteria? No. Patient's initial ca1 sepsis screen is negative. Does the patient have a suspected source of infection? Yes: Skin breakdown/wound. Care prior to arrival: IV initiated. 20 GA, in the left antecubital area. Triage Assessment: 18:55 General: Appears in no apparent distress. uncomfortable, Behavior is calm, cooperative. rv Pain: Complains of pain in NECK. EENT: No signs and/or symptoms were reported regarding the EENT system. Neuro: Level of Consciousness is awake, alert, obeys commands, Oriented to person, place, time, situation. Cardiovascular: Capillary refill < 3 seconds. Respiratory: Airway is patent. GI: No signs and/or symptoms were reported involving the gastrointestinal system. : No signs and/or symptoms were reported regarding the genitourinary system. Derm: Bruising that is dark purple, on UPPER EXTREMITIES. 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 - Social history:: Smoking status: Patient uses tobacco products, smokes one-half pack cigarettes per day. - Ebola Screening: : Patient negative for fever greater than or equal to 101.5 degrees Fahrenheit, and additional compatible Ebola Virus Disease symptoms Patient denies exposure to infectious person Patient denies travel to an Ebola-affected area in the 21 days before illness onset. - Family history:: not pertinent. - Hospitalizations: : No recent hospitalization is reported. Screenin:00 Abuse screen: Denies threats or abuse. Denies injuries from another. Nutritional ca1 screening: No deficits noted. Tuberculosis screening: No symptoms or risk factors identified. Fall Risk No fall in past 12 months (0 pts). IV access (20 points). Ambulatory Aid- Crutches/Cane/Walker (15 pts). Assessment: 19:00 General: Appears in no apparent distress. uncomfortable, ill, unkempt, Behavior is ca1 calm, cooperative, appropriate for age. Pain: Complains of pain in left sternocleidomastoid Pain currently is 10 out of 10 on a pain scale. Neuro: Level of Consciousness is awake, alert, obeys commands, Oriented to person, place, time, situation. Cardiovascular: Heart tones S1 S2 present Capillary refill < 3 seconds Patient's skin is warm and dry. Respiratory: Airway is patent Respiratory effort is even, unlabored, Respiratory pattern is regular, symmetrical, Breath sounds are clear bilaterally. GI: Abdomen is flat, non-distended, Bowel sounds present X 4 quads. Abd is soft and non tender X 4 quads. Reports diarrhea, for several weeks. : No signs and/or symptoms were reported regarding the genitourinary system. EENT: No signs and/or symptoms were reported regarding the EENT system. Derm: Skin is fragile, is thin, with poor turgor Skin is pink, warm \T\ dry. Bruising that is dark purple, on right arm. Musculoskeletal: Capillary refill < 3 seconds, Swelling present in right foot and left foot. 20:00 Reassessment: Patient appears in no apparent distress at this time. Patient and/or ca1 family updated on plan of care and expected duration. Pain level reassessed. Patient is alert, oriented x 3, equal unlabored respirations, skin warm/dry/pink. 21:00 Reassessment: Patient appears in no apparent distress at this time. Patient and/or ca1 family updated on plan of care and expected duration. Pain level reassessed. Patient is alert, oriented x 3, equal unlabored respirations, skin warm/dry/pink. Collected stool specimen. Changed patient's diapers and bed sheets. Pt tolerated well. 22:00 Reassessment: Patient appears in no apparent distress at this time. Patient and/or ca1 family updated on plan of care and expected duration. Pain level reassessed. Patient is alert, oriented x 3, equal unlabored respirations, skin warm/dry/pink. 23:00 Reassessment: Patient appears in no apparent distress at this time. Patient and/or ca1 family updated on plan of care and expected duration. Pain level reassessed. Patient is alert, oriented x 3, equal unlabored respirations, skin warm/dry/pink. 12/05 00:05 Reassessment: Patient appears in no apparent distress at this time. Patient and/or ca1 family updated on plan of care and expected duration. Pain level reassessed. Patient is alert, oriented x 3, equal unlabored respirations, skin warm/dry/pink. Vital Signs: 12/04 18:56 BP 112 / 57; Pulse 99; Resp 21; Temp 99(O); Weight 68.04 kg (R); rv 19:50 BP 107 / 74; Pulse 96; Resp 19; Pulse Ox 95% on R/A; ca1 20:45 BP 92 / 59; Pulse 97; Resp 19; Pulse Ox 95% on R/A; ca1 21:50 BP 100 / 64; Pulse 98; Resp 19; Pulse Ox 95% on R/A; ca1 22:55 BP 103 / 67; Pulse 94; Resp 19; Pulse Ox 95% on R/A; ca1 03 00:05 BP 102 / 65; Pulse 93; Resp 18; Pulse Ox 95% on R/A; ca1 00:30 BP 108 / 75; Pulse 95; Resp 19 S; Pulse Ox 96% on R/A; rv 01:00 BP 104 / 80; Pulse 89; Resp 21; Pulse Ox 95% on R/A; rv 02:00 BP 115 / 68; Pulse 96; Resp 23 S; Pulse Ox 96% on R/A; rv ED Course: 12/04 18:47 Patient arrived in ED. rv 18:54 Triage completed. rv 18:55 Arm band placed on right wrist. ca1 19:00 Patient has correct armband on for positive identification. Placed in gown. Bed in low ca1 position. Call light in reach. Side rails up X2. potline monitor on. Pulse ox on. NIBP on. Warm blanket given. 19:00 Maintain EMS IV. Dressing intact. Good blood return noted. Site clean \T\ dry. Gauge \T\ ca 1 site: g 20 at LAC. 19:19 Jason Rsoales MD is Attending Physician. wa 20:30 Radiology exam delayed due to US in room doing an exam at this time. vm2 20:31 Sunshine Gutierrez, RN is Primary Nurse. aj1 20:45 US Extremity Venous W Compression Micah In Process Unspecified. EDMS 20:[address] vm2 20:53 XRAY Chest (1 view) In Process Unspecified. EDMS 21:12 CT C Spine In Process Unspecified. EDMS 21:12 CT completed. Patient tolerated procedure well. Patient moved back from CT. vm2 22:42 Notified ED physician of a critical lab result(s). potassium 2.2, cl 80, ca 6.8. fc 22:48 Primary Nurse role handed off by Sunshine Gutierrez, RN ca1 22:48 Alessia Byrnes, ANDRES is Primary Nurse. ca1 23:36 Ova and Parasites Sent. ca1 12/05 01:04 Denis Ballesteros MD is Hospitalizing Provider. wa 02:24 No provider procedures requiring assistance completed. Patient admitted, IV remains in rv place. intact. 02:26 Urine Microscopic Only Sent. rv Administered Medications: 12/04 20:55 Drug: Zofran 4 mg Route: IVP; Site: left antecubital; ca1 23:36 Follow up: Response: No adverse reaction; Nausea is decreased ca1 20:55 Drug: morphine 2 mg Route: IVP; Site: left antecubital; ca1 23:36 Follow up: Response: No adverse reaction; Pain is unchanged, physician notified ca1 23:05 Drug: Potassium Effervescent Tablet 50 mEq Route: PO; ca1 12/05 01:36 Follow up: Response: No adverse reaction rv 12/04 23:05 Drug: NS 0.9% 500 ml Route: IV; Rate: bolus; Site: left antecubital; ca1 12/05 02:21 Follow up: IV Status: Completed infusion rv 12/04 23:07 Drug: morphine 2 mg Route: IVP; Site: left antecubital; ca1 12/05 01:36 Follow up: Response: Pain is decreased rv 01:15 Drug: LevaQUIN 500 mg Volume: 100 ml; Route: IVPB; Infused Over: 60 mins; Site: left rv antecubital; 02:22 Follow up: IV Status: Infusion continued upon admission rv Outcome: 01:05 Decision to Hospitalize by Provider. nv 02:24 Admitted to Tele accompanied by tech, via stretcher, room 4173, with chart, Report rv called to DYA CAMPOS 02:24 Condition: stable 02:24 Instructed on the need for admit, Demonstrated understanding of instructions. 02:25 Patient left the ED. rv Signatures: Dispatcher [employer] EDMS Sunshine Gutierrez RN RN 1 Danna Cabrera RN RN Noemy Rosa [facility] Jason Rosales MD MD wa Vicente, Ronaldo, RN RN rv Alessia Byrnes RN RN ca1 Corrections: (The following items were deleted from the chart) 12/04 20:31 20:09 Patient moved to [place] [id number] 23:00 22:50 BP 103 / 67; Pulse 94bpm; Resp 19bpm; Pulse Ox 95% RA; ca1 ca1 12/05 00:48 12/04 23:00 Reassessment: Patient appears in no apparent distress at this time. Patient ca1 and/or family updated on plan of care and expected duration. Pain level reassessed. Patient is alert, oriented x 3, equal unlabored respirations, skin warm/dry/pink. ca1
[2018-12-05] MEDS ORDERED: Levofloxacin500mg IV 500 MG/100 ML BAG IV ONE (01:26)
[2018-12-05] MEDS ORDERED: ONDANSETRON 4 MG/2 ML VIAL IV PRN (01:30)
[2018-12-05] MEDS ORDERED: POTASSIUM 25 MEQ EFFERV TAB PO ONE (01:30)
[2018-12-05 03:01] LABS: Urine Bacteria LOADED /HPF (<20)
[2018-12-05 03:02] LABS: Urine RBC <5 /HPF (NONE SEEN)
[2018-12-05 03:03] LABS: Urine Culture Reflex Order REFLEXED
[2018-12-05 03:04] LABS: Urine Blood 1+ (NEG); Urine Glucose NEGATIVE (NEG); Urine Protein NEGATIVE (NEG); Urine Specific Gravity 1.015 (1.005-1.030)
[2018-12-05] MEDS: KCL 20 MEQ/100 mL IVPB 20 MEQ/100 ML BAG IV SCH ×3 (03:17→06:00)
[2018-12-05] MEDS: NA CHLORIDE 0.9% 1,000 ML IV SCH ×3 (03:17→21:26)
[2018-12-05 04:48] VITALS: BMI 25.0
[2018-12-05] MEDS: MORPHINE 2 MG/ML SYR IV PRN ×3 (05:35→21:23)
[2018-12-05 06:20] LABS: Absolute Monocytes 1.4 K/uL (0.1-1.3); Absolute Neutrophil 11.8 K/uL (1.8-8.0); Basophils % 0.2 % (0-1.3); Eosinophils % 0.2 % (0-4.4); Hematocrit 33.4 % (36.0-45.0); Lymphocytes % 13.3 % (15.3-44.8); MPV 8.9 fL (7.6-11.3); RBC Red Blood Cell Count 3.41 M/uL (3.86-4.86)
[2018-12-05 06:49] LABS: Thyroid Stimulating Hormone 1.08 uIU/mL (0.360-3.740)
--- NOTE | 2018-12-05 06:52 | EKG ---
Test Date: 2018-12-04 Test Time: 20:56:19 Deli Department Manager: RAÚL MEASUREMENT RESULTS: Intervals: Rate: 96 ID: [id number] QRSD: 86 QT: 462 QTc: 583 [place]: P: 78 ID: [id number] QRS: 66 T: 72 INTERPRETIVE STATEMENTS: Normal sinus rhythm Right atrial enlargement Nonspecific T wave abnormality Prolonged QT Abnormal ECG Compared to ECG 11/01/2017 12:58:41 Atrial abnormality now present T-wave abnormality now present ST (T wave) deviation no longer present Possible ischemia no longer present Electronically Signed On 12-05-18 06:50:50 LABORATORY CLERK by Bartolome Wilder
[2018-12-05 06:57] LABS: ALT/SGPT 31 U/L (12-78); AST/SGOT 104 U/L (15-37); Albumin 1.5 g/dL (3.4-5.0); Alkaline Phosphatase 140 U/L (45-117); BUN Blood Urea Nitrogen 9 mg/dL (7-18); Bicarbonate 39 mmol/L (21-32); Bilirubin Total 0.9 mg/dL (0.2-1.0); Glucose Level 83 mg/dL (74-106); Magnesium 1.8 mg/dL (1.8-2.4); Phosphorus 1.2 mg/dL (2.5-4.9); Potassium 4.1 mmol/L (3.5-5.1); Protein, Total 4.7 g/dL (6.4-8.2); Sodium Level 125 mmol/L (136-145)
--- NOTE | 2018-12-05 07:25 | P.HP ---
Certification for Inpatient Patient admitted to: Inpatient With expected LOS: >2 Midnights Patient will require the following post-hospital care: None Practitioner: I am a practitioner with admitting privileges, knowledge of patient current condition, hospital course, and medical plan of care. Services: Services provided to patient in accordance with Admission requirements found in Title 42 Section 412.3 of the Code of Federal Regulations Patient History Date of Service: 12/05/18 Reason for admission: Malnourished/severe dehydration History of Present Illness: Patient is a 63-year-old female who came to the hospital with severe dehydration. She has been having diarrhea on and off for 3 weeks. She also has been nauseous and not really eating much at all. Her nutritional indices look to be significantly decreased. She has multiple electrolyte abnormalities interact albumin is very low. She has a leukocytosis as well. She does remember if she has been taking any antibiotics. She says she is really not able to think clearly because over poor nutrition. She will be admitted to the hospital and will start her on IV fluids and replace her electrolytes. Reassess later this afternoon. Allergies codeine [Codeine] Allergy (Verified 04/21/12 07:17) UNKNOWN Penicillins Allergy (Verified 04/21/12 07:17) UNKNOWN tramadol Adverse Reaction (Verified 12/05/18 03:36) Hives/Rash Home Medications: Amitriptyline [Elavil*] 75 mg PO BEDTIME 11/01/17 Citalopram Hydrobromide [Citalopram HBr] 40 mg PO DAILY 11/01/17 Fluticasone/Vilanterol [Breo Ellipta 100-25 Mcg INH] 100 mcg IH DAILY 11/01/17 Levetiracetam [Keppra] 750 mg PO BID 11/01/17 OLANZapine [Zyprexa] 15 mg PO BEDTIME 11/01/17 Alendronate Sodium [Fosamax] 70 mg PO DIRECTED 12/05/18 Calcium Carbonate/Vitamin D3 [Calcium 600-Vit D3 800 Tablet] 1 tab PO DAILY 10/25 Cbd Oil 99%+ 250mg/30ml 3 puff IN QID PRN 12/05/18 Chlorthalidone 12.5 mg PO DAILY 12/05/18 Cholecalciferol (Vitamin D3) [Vitamin D3] 5,000 unit PO DAILY 12/05/18 Clopidogrel Bisulfate [Plavix*] 1 tab PO DAILY 12/05/18 Dexlansoprazole [Dexilant] 60 mg PO DAILY 12/05/18 Dicyclomine HCl 20 mg PO TID 12/05/18 Duloxetine HCl 30 mg PO DAILY 12/05/18 Ibuprofen 400 mg PO TID PRN 12/05/18 Mirabegron [Myrbetriq] 25 mg PO DAILY 12/05/18 Ondansetron HCl 1 tab PO Q6HP PRN 12/05/18 Ropinirole HCl 4 mg PO 1400 12/05/18 Ropinirole HCl 4 mg PO 1800 12/05/18 Ropinirole HCl 6 mg PO DAILY 12/05/18 - Past Medical/Surgical History Has patient received pneumonia vaccine in the past: Yes Diabetic: No -: Hypertension -: COPD -: Tobacco abuse -: Carotid stenosis -: Depression -: Insomnia -: Seizure disorder -: cva -: Cholecystectomy -: Partial hysterectomy -: Tubal ligation -: back fusion Psychosocial/ Personal History: She is . She has 5 children. She is disabled. - Family History Mother Medical History: Lung disease, Cancer Father Medical History: Heart disease - Social History Smoking Status: Current every day smoker Alcohol use: Yes CD- Drugs: No Caffeine use: Yes Place of Residence: Home Review of Systems 10-point ROS is otherwise unremarkable Physical Examination - Vital Signs Temperature: 97.3 F Blood Pressure: 104/62 Pulse: 93 Respirations: 18 Pulse Ox (%): 92 - Physical Exam General: Alert, In no apparent distress, Oriented x3 HEENT: Atraumatic, PERRLA, Mucous membr. moist/pink, EOMI, Sclerae nonicteric Neck: Supple, 2+ carotid pulse no bruit, No LAD, Without JVD or thyroid abnormality Respiratory: Clear to auscultation bilaterally, Normal air movement Cardiovascular: Regular rate/rhythm, Normal S1 S2, No murmurs Gastrointestinal: Normal bowel sounds, Soft and benign, Non-distended, No tenderness Musculoskeletal: No clubbing, No swelling, No tenderness Integumentary: No rashes Neurological: Normal gait, Normal speech, Normal strength at 5/5 x4 extr, Normal tone, Sensation intact, Cranial nerves 3-12 intact, Normal affect Lymphatics: No axilla or inguinal lymphadenopathy - Studies Laboratory Data (last 24 hrs) 12/04/18 23:11: Sodium 125 L, Potassium 2.2 L*, BUN 13, Creatinine 0.47 L, Glucose 76, Total Bilirubin 1.2 H, AST 102 H, ALT 30, Alkaline Phosphatase 143 H 12/04/18 21:59: PT 12.2, INR 1.04 12/04/18 21:59: WBC 18.0 H, Hgb 13.4, Hct 39.7, Plt Count 273 12/04/18 21:59: Sodium 123 L, Potassium 2.2 L*, BUN 13, Creatinine 0.52 L, Glucose 72 L, Magnesium 2.0, Total Bilirubin 1.4 H, AST 109 H, ALT 32, Alkaline Phosphatase 151 H Assessment & Plan - Problems (Diagnosis) (1) Diarrhea Current Visit: No Status: Acute Qualifiers: (2) Nausea and vomiting Current Visit: No Status: Acute Qualifiers: (3) Pre-syncope Current Visit: No Status: Acute (4) COPD (chronic obstructive pulmonary disease) Current Visit: No Status: Chronic (5) Carotid stenosis Current Visit: No Status: Chronic Qualifiers: (6) Depression Current Visit: No Status: Chronic Qualifiers: (7) Hypertension Current Visit: No Status: Chronic Qualifiers: (8) Tobacco abuse Current Visit: No Status: Chronic (9) Hypokalemia Current Visit: Yes Status: Acute (10) Hyponatremia Current Visit: Yes Status: Acute (11) Hypoalbuminemia due to protein-calorie malnutrition Current Visit: Yes Status: Acute - Plan Plan: 1. Supplement electrolytes 2. IV hydration 3. Await stool studies 4. Monitor diet and may need calorie count as well 5. Reassess later this afternoon 6. If persistent diarrhea Alexis will give Imodium. Stool studies pending as mentioned above 7. GI and DVT prophylaxis Discharge Plan: Home Plan to discharge in: Greater than 2 days - Advance Directives Does patient have a Living Will: Yes Does patient have a Durable POA for Healthcare: Yes - Code Status/Comfort Care Code Status Assessed: Yes Code Status: Full Code Critical Care: Yes Time Spent Managing PTS Care (In Minutes): 50
[2018-12-05] MEDS ORDERED: SODIUM PHOSPHATE 30 MM in NA CHLORIDE 0.9% 500 ML IV ONE (08:00)
[2018-12-05] MEDS: CITALOPRAM 10 MG TABLET PO SCH (09:20)
[2018-12-05] MEDS: HYDROCORTISONE SUC 100 MG INJ IV SCH ×2 (09:21→21:19)
[2018-12-05] MEDS: levETIRAcetam 500 MG TAB PO SCH ×2 (09:21→21:18)
[2018-12-05] MEDS: ENOXAPARIN 40 MG/0.4 ML SQ SCH (09:21)
[2018-12-05 11:30] LABS: BUN Blood Urea Nitrogen 8 mg/dL (7-18); Bicarbonate 37 mmol/L (21-32); Glucose Level 86 mg/dL (74-106); Magnesium 1.7 mg/dL (1.8-2.4); Phosphorus 2.5 mg/dL (2.5-4.9); Potassium 3.5 mmol/L (3.5-5.1); Sodium Level 126 mmol/L (136-145)
[2018-12-05] MEDS ORDERED: POTASSIUM CL SA 10 MEQ TAB PO ONE (11:53)
--- NOTE | 2018-12-05 13:12 | RAD REPORT ---
EXAM DESCRIPTION: CT - C Spine Wo Con - 12/04/2018 9:55 pm CLINICAL HISTORY: Neck pain. COMPARISON: None. TECHNIQUE: CT scan of the cervical spine without IV contrast. This exam was performed according to our departmental dose-optimization program, which includes automated exposure control, adjustment of the mA and/or kV according to patient size and/or use of iterative reconstruction technique. FINDINGS: No acute cervical fracture or prevertebral soft tissue swelling is seen. The cervical alig nment is preserved. The disc spaces and facet joints are intact. No advanced canal stenosis is identi fied. IMPRESSION: No acute fracture of the cervical spine. Electronically signed by: Ari Donohue MD 12/04/2018 9:19 PM ENDOSCOPIC TECHNICIAN Due to temporary technical issues with the PACS/Fluency reporting system, reports are being signed by the in house radiologist as a courtesy to ensure prompt reporting. The interpreting radiologist is f ully responsible for the content of the report.
[2018-12-05] MEDS ORDERED: MAGNESIUM SULFATE 1 gm IVPB 1 GM/100 ML BAG IV ONE (14:00)
[2018-12-05] MEDS ORDERED: ROPINIROLE HCL 1 MG TAB PO SCH ×2 (14:00→18:00)
[2018-12-05] MEDS: ROPINIROLE HCL 2 MG TAB PO SCH (17:18)
[2018-12-05] MEDS: OLANZapine 10 MG TABLET PO SCH (21:18)
[2018-12-05] MEDS: AMITRIPTYLINE 25 MG TAB PO SCH (21:18)
[2018-12-05] MEDS: ENSURE HIGH PROTEIN 237 ML CAN PO SCH (21:29)
[2018-12-05] MEDS: ALPRAZOLAM 0.25 MG TABLET PO PRN (22:48)
[2018-12-06] MEDS: PANTOPRAZOLE 40MG TABLET PO SCH (05:32)
[2018-12-06] MEDS: MORPHINE 2 MG/ML SYR IV PRN ×4 (05:46→20:51)
[2018-12-06 05:56] LABS: Absolute Monocytes 0.8 K/uL (0.1-1.3); Absolute Neutrophil 8.7 K/uL (1.8-8.0); Basophils % 0.3 % (0-1.3); Hematocrit 33.5 % (36.0-45.0); Lymphocytes % 9.7 % (15.3-44.8); MPV 8.7 fL (7.6-11.3); Monocytes % 7.5 % (3.3-12.3); RBC Red Blood Cell Count 3.32 M/uL (3.86-4.86)
[2018-12-06 06:11] LABS: ALT/SGPT 35 U/L (12-78); AST/SGOT 81 U/L (15-37); Albumin 1.7 g/dL (3.4-5.0); Alkaline Phosphatase 133 U/L (45-117); BUN Blood Urea Nitrogen 4 mg/dL (7-18); Bicarbonate 36 mmol/L (21-32); Bilirubin Total 0.5 mg/dL (0.2-1.0); Glucose Level 93 mg/dL (74-106); Magnesium 1.9 mg/dL (1.8-2.4); Phosphorus 2.5 mg/dL (2.5-4.9); Potassium 3.4 mmol/L (3.5-5.1); Protein, Total 4.9 g/dL (6.4-8.2); Sodium Level 130 mmol/L (136-145)
[2018-12-06] MEDS ORDERED: ALENDRONATE 70 MG TAB PO SCH (06:30)
[2018-12-06] MEDS ORDERED: POTASSIUM CL SA 10 MEQ TAB PO ONE ×2 (06:33→17:59)
[2018-12-06] MEDS ORDERED: POTASS/SODIUM PHOSPHATE 1 PKT POWD.PACK PO SCH (07:00)
[2018-12-06] MEDS: POTASS/SODIUM PHOSPHATE 1 PKT POWD.PACK PO SCH ×3 (07:01→10:58)
[2018-12-06] MEDS: NA CHLORIDE 0.9% 1,000 ML IV SCH ×3 (08:45→23:59)
[2018-12-06] MEDS: DULOXETINE 30 MG CAP PO SCH (08:45)
[2018-12-06] MEDS: HYDROCORTISONE SUC 100 MG INJ IV SCH ×2 (08:45→20:52)
[2018-12-06] MEDS: levETIRAcetam 500 MG TAB PO SCH ×2 (08:45→20:52)
[2018-12-06] MEDS: CLOPIDOGREL 75 MG TABLET PO SCH (08:46)
[2018-12-06] MEDS: ENOXAPARIN 40 MG/0.4 ML SQ SCH (08:46)
[2018-12-06] MEDS: VITAMIN D 5,000 UNIT CAP PO SCH (08:46)
[2018-12-06] MEDS: CITALOPRAM 10 MG TABLET PO SCH (08:46)
[2018-12-06] MEDS: CALCIUM CARB 500MG/VIT D 200 IU TAB PO SCH (08:46)
[2018-12-06] MEDS: CHLORTHALIDONE 25 MG TAB PO SCH (08:47)
[2018-12-06] MEDS: ENSURE HIGH PROTEIN 237 ML CAN PO SCH ×2 (08:47→20:54)
[2018-12-06] MEDS: MIRABEGRON 25 MG PO SCH (08:48)
[2018-12-06] MEDS: VILANTEROL IH SCH (08:48)
[2018-12-06] MEDS: UMECLIDINIUM IH SCH (08:48)
[2018-12-06] MEDS: ROPINIROLE HCL 2 MG TAB PO SCH ×3 (08:48→17:08)
[2018-12-06] MEDS: FLUTICASONE IH SCH (08:48)
[2018-12-06] MEDS ORDERED: ROPINIROLE HCL 1 MG TAB PO SCH (09:00)
[2018-12-06] MEDS: LOPERAMIDE HCL 2 MG CAPSULE PO PRN ×2 (14:47→20:53)
--- NOTE | 2018-12-06 17:40 | P.PN ---
Subjective Date of Service: 12/06/18 Chief Complaint: Malnourished/severe dehydration Subjective: Improving Patient seen and examined at bedside. No family at bedside. Chart reviewed and case discussed with nursing staff. Reports improvement. Still having some watery diarrhea, nonbloody. 1 episode this morning so far. Abdominal pain resolved. No acute events noted overnight Review of Systems 10-point ROS is otherwise unremarkable Physical Examination - Vital Signs Temperature: 98.0 F Blood Pressure: 111/74 Pulse: 85 Respirations: 18 Pulse Ox (%): 96 - Physical Exam General: Alert, In no apparent distress, Oriented x3, Other (Ill appearing) HEENT: Atraumatic, PERRLA, EOMI Neck: Supple, JVD not distended Respiratory: Clear to auscultation bilaterally, Normal air movement Cardiovascular: Regular rate/rhythm, Normal S1 S2 Gastrointestinal: Normal bowel sounds, No tenderness Musculoskeletal: No tenderness Integumentary: Other (Bruises from IV line/blood draw was noted on right arm) Neurological: Normal speech, Normal tone, Normal affect Lymphatics: No axilla or inguinal lymphadenopathy - Studies Microbiology Data (last 24 hrs): 12/04/18 21:35 Stool Clostridium difficile Toxin Assay - Final 12/04/18 21:35 Stool Fecal Leukocyte Stain - Final Assessment And Plan - Current Problems (Diagnosis) (1) Metabolic alkalosis Current Visit: Yes Status: Acute Comment: Hypokalemic, hypochloremic (2) Hypoalbuminemia due to protein-calorie malnutrition Current Visit: Yes Status: Acute (3) Hyponatremia Current Visit: Yes Status: Acute (4) Diarrhea Current Visit: No Status: Acute Qualifiers: (5) Fatigue Current Visit: No Status: Acute Qualifiers: Fatigue type: unspecified Qualified Code(s): R53.83 - Other fatigue (6) Hypokalemia Current Visit: No Status: Acute (7) Nausea and vomiting Current Visit: No Status: Acute Qualifiers: (8) Carotid stenosis Current Visit: No Status: Chronic Qualifiers: (9) Depression Current Visit: No Status: Chronic Qualifiers: (10) Hypertension Current Visit: No Status: Chronic Qualifiers: (11) Tobacco abuse Current Visit: No Status: Chronic - Plan This is a 63-year-old female with: Diarrhea/nausea/vomiting. C. diff studies negative. Pending cultures If diarrhea continues to get worse, will provide Imodium Hyponatremia Hypokalemic hypochloremic metabolic alkalosis Hypomagnesemia Continue supplementation of electrolytes per protocol. Continue IV hydration Urinary tract infection Preliminary cultures positive for gram-negative rods. Will start Rocephin, pending urine cultures Debility/generalized weakness Physical therapy consulted Patient inquiring regarding skilled/rehab. Will consult social work Carotid stenosis Patient on Plavix for carotid stenosis. We will go ahead and restart home medications as tolerated Chronic obstructive pulmonary disease Essential hypertension They will go ahead and restart home medications Depression Stable. Denies any homicidal/suicidal ideations at this time. Continue home medications Hypoalbuminemia due to malnutrition Can provide with high protein shakes. May need dietary/nutrition consult Tobacco abuse Counseled DVT prophylaxis: Plavix GI prophylaxis: None Diet: Regular Disposition: Pending symptomatic improvement.
[2018-12-06] MEDS: OLANZapine 10 MG TABLET PO SCH (20:51)
[2018-12-06] MEDS: AMITRIPTYLINE 25 MG TAB PO SCH (20:53)
[2018-12-07] MEDS: NA CHLORIDE 0.9% 1,000 ML IV SCH ×2 (04:00→14:15)
[2018-12-07] MEDS: PANTOPRAZOLE 40MG TABLET PO SCH (05:14)
[2018-12-07] MEDS: MORPHINE 2 MG/ML SYR IV PRN ×2 (05:23→11:27)
[2018-12-07 06:17] LABS: BUN Blood Urea Nitrogen 3 mg/dL (7-18); Bicarbonate 36 mmol/L (21-32); Glucose Level 94 mg/dL (74-106); Potassium 3.8 mmol/L (3.5-5.1); Sodium Level 137 mmol/L (136-145)
[2018-12-07] MEDS: POTASS/SODIUM PHOSPHATE 1 PKT POWD.PACK PO SCH ×3 (06:49→09:57)
[2018-12-07] MEDS ORDERED: POTASSIUM CL SA 10 MEQ TAB PO ONE (07:00)
[2018-12-07] MEDS: levETIRAcetam 500 MG TAB PO SCH ×2 (08:48→21:53)
[2018-12-07] MEDS: CITALOPRAM 10 MG TABLET PO SCH (08:49)
[2018-12-07] MEDS: CHLORTHALIDONE 25 MG TAB PO SCH (08:49)
[2018-12-07] MEDS: HYDROCORTISONE SUC 100 MG INJ IV SCH ×2 (08:49→21:53)
[2018-12-07] MEDS: VITAMIN D 5,000 UNIT CAP PO SCH (08:49)
[2018-12-07] MEDS: DULOXETINE 30 MG CAP PO SCH (08:49)
[2018-12-07] MEDS: CLOPIDOGREL 75 MG TABLET PO SCH (08:49)
[2018-12-07] MEDS: CALCIUM CARB 500MG/VIT D 200 IU TAB PO SCH (08:49)
[2018-12-07] MEDS: ENSURE HIGH PROTEIN 237 ML CAN PO SCH ×2 (08:50→21:55)
[2018-12-07] MEDS: FLUTICASONE IH SCH (08:50)
[2018-12-07] MEDS: VILANTEROL IH SCH (08:50)
[2018-12-07] MEDS: UMECLIDINIUM IH SCH (08:50)
[2018-12-07] MEDS: ROPINIROLE HCL 2 MG TAB PO SCH ×3 (08:50→17:04)
[2018-12-07] MEDS: MIRABEGRON 25 MG PO SCH (08:50)
--- NOTE | 2018-12-07 12:42 | P.PN ---
Subjective Date of Service: 12/07/18 Chief Complaint: Malnourished/severe dehydration Subjective: No C/O voiced, Improving Patient seen and examined at bedside. No family at bedside. Chart reviewed and case discussed with nursing staff. Reports improvement. No episodes of diarrhea this morning Abdominal pain resolved. No acute events noted overnight Review of Systems 10-point ROS is otherwise unremarkable Physical Examination - Vital Signs Temperature: 97.9 F Blood Pressure: 133/64 Pulse: 79 Respirations: 16 Pulse Ox (%): 98 - Physical Exam General: Alert, In no apparent distress, Oriented x3 HEENT: Atraumatic, PERRLA, EOMI Neck: Supple, JVD not distended Respiratory: Clear to auscultation bilaterally, Normal air movement Cardiovascular: Regular rate/rhythm, Normal S1 S2 Gastrointestinal: Normal bowel sounds, No tenderness Musculoskeletal: No tenderness Integumentary: No rashes Neurological: Normal speech, Normal tone, Normal affect Lymphatics: No axilla or inguinal lymphadenopathy - Studies Microbiology Data (last 24 hrs): 12/04/18 21:35 Stool Culture & Sensitivity - Final 12/05/18 02:10 Clean Catch Urine Harrod Count - Final >100,000 CFU/ML. 12/05/18 02:10 Clean Catch Urine - Final Escherichia Coli Esbl Assessment And Plan - Current Problems (Diagnosis) (1) Metabolic alkalosis Current Visit: Yes Status: Acute Comment: Hypokalemic, hypochloremic (2) Hypoalbuminemia due to protein-calorie malnutrition Current Visit: Yes Status: Acute (3) Hyponatremia Current Visit: Yes Status: Acute (4) Diarrhea Current Visit: No Status: Acute Qualifiers: (5) Fatigue Current Visit: No Status: Acute Qualifiers: Fatigue type: unspecified Qualified Code(s): R53.83 - Other fatigue (6) Hypokalemia Current Visit: No Status: Acute (7) Nausea and vomiting Current Visit: No Status: Acute Qualifiers: (8) Carotid stenosis Current Visit: No Status: Chronic Qualifiers: (9) Depression Current Visit: No Status: Chronic Qualifiers: (10) Hypertension Current Visit: No Status: Chronic Qualifiers: (11) Tobacco abuse Current Visit: No Status: Chronic (12) ESBL (extended spectrum beta-lactamase) producing bacteria infection Current Visit: Yes Status: Acute (13) UTI (urinary tract infection) Current Visit: Yes Status: Acute Qualifiers: Urinary tract infection type: acute cystitis Hematuria presence: without hematuria Qualified Code(s): N30.00 - Acute cystitis without hematuria - Plan This is a 63-year-old female with: Diarrhea/nausea/vomiting. C. diff studies negative. Pending cultures Diarrhea resolved with Imodium. Hyponatremia, resolved Hypokalemic hypochloremic metabolic alkalosis, improved Hypomagnesemia, resolved Continue supplementation of electrolytes per protocol. Continue IV hydration Urinary tract infection with extended spectrum beta lactamase resistant E. Coli Discontinue Rocephin. Start meropenem 1 g PICC line placement Social work consult for set up for IV antibiotics long-term Debility/generalized weakness Physical therapy consulted Carotid stenosis Patient on Plavix for carotid stenosis. We will go ahead and restart home medications as tolerated Chronic obstructive pulmonary disease Essential hypertension They will go ahead and restart home medications Depression Stable. Denies any homicidal/suicidal ideations at this time. Continue home medications Hypoalbuminemia due to malnutrition Can provide with high protein shakes. May need dietary/nutrition consult Tobacco abuse Counseled DVT prophylaxis: Plavix GI prophylaxis: None Diet: Regular Disposition: Pending symptomatic improvement. PICC line placement, IV antibiotics set up
[2018-12-07] MEDS ORDERED: Meropenem 1000 MG/VIAL IV SCH (17:00)
[2018-12-07] MEDS: Meropenem 1,000 MG in NA CHLORIDE 0.9% 100 ML IV SCH (17:03)
--- NOTE | 2018-12-07 19:48 | RAD REPORT ---
EXAM DESCRIPTION: RAD - Chest Single View - 12/07/2018 7:07 pm CLINICAL HISTORY: PICC line placement COMPARISON: December 04 FINDINGS: Portable chest was obtained following placement of a right upper extremity PICC line. The catheter tip is in the mid SVC.
[2018-12-07] MEDS: AMITRIPTYLINE 25 MG TAB PO SCH (21:53)
[2018-12-07] MEDS: OLANZapine 10 MG TABLET PO SCH (21:54)
[2018-12-07] MEDS ORDERED: WATER FOR INJ,STERILE 10 ML ONE (22:21)
[2018-12-08] MEDS: Meropenem 1,000 MG in NA CHLORIDE 0.9% 100 ML IV SCH ×3 (00:52→17:25)
[2018-12-08] MEDS: NA CHLORIDE 0.9% 1,000 ML IV SCH (00:52)
[2018-12-08] MEDS: MORPHINE 2 MG/ML SYR IV PRN (00:53)
[2018-12-08] MEDS: PANTOPRAZOLE 40MG TABLET PO SCH (05:57)
[2018-12-08 06:52] LABS: BUN Blood Urea Nitrogen 3 mg/dL (7-18); Bicarbonate 31 mmol/L (21-32); Glucose Level 92 mg/dL (74-106); Phosphorus 2.4 mg/dL (2.5-4.9); Sodium Level 140 mmol/L (136-145)
--- NOTE | 2018-12-08 07:31 | P.PN ---
Date of Service: 12/08/18 Lab reported a calcium of 6.9. Using the albumin from day before yesterday of 1.7, the corrected calcium is 8.7. At this time will not supplement. May need to check ionized calcium if this is a concern clinically.
[2018-12-08] MEDS: HYDROCORTISONE SUC 100 MG INJ IV SCH (09:00)
[2018-12-08] MEDS: CALCIUM CARB 500MG/VIT D 200 IU TAB PO SCH ×2 (09:00→21:55)
[2018-12-08] MEDS ORDERED: KCL 20 MEQ/100 mL IVPB 20 MEQ/100 ML BAG IV SCH (10:00)
[2018-12-08] MEDS: POTASS/SODIUM PHOSPHATE 1 PKT POWD.PACK PO SCH ×3 (10:14→14:54)
[2018-12-08] MEDS: CHLORTHALIDONE 25 MG TAB PO SCH (10:18)
[2018-12-08] MEDS: UMECLIDINIUM IH SCH (10:23)
[2018-12-08] MEDS: FLUTICASONE IH SCH (10:23)
[2018-12-08] MEDS: VILANTEROL IH SCH (10:23)
[2018-12-08] MEDS: MIRABEGRON 25 MG PO SCH (10:25)
[2018-12-08] MEDS: ROPINIROLE HCL 2 MG TAB PO SCH ×3 (10:25→17:29)
[2018-12-08] MEDS: VITAMIN D 5,000 UNIT CAP PO SCH (10:26)
[2018-12-08] MEDS: levETIRAcetam 500 MG TAB PO SCH ×2 (10:28→21:55)
[2018-12-08] MEDS: DULOXETINE 30 MG CAP PO SCH (10:28)
[2018-12-08] MEDS: CLOPIDOGREL 75 MG TABLET PO SCH (10:28)
[2018-12-08] MEDS: CITALOPRAM 10 MG TABLET PO SCH (10:29)
[2018-12-08] MEDS: ENSURE HIGH PROTEIN 237 ML CAN PO SCH ×2 (12:28→21:56)
[2018-12-08] MEDS: HYDROCODONE/APAP 7.5/325 MG TAB PO PRN (12:29)
--- NOTE | 2018-12-08 16:44 | P.PN ---
Subjective Date of Service: 12/08/18 Primary Care Provider: Unknown Chief Complaint: Malnourished/severe dehydration Subjective: Improving (No more diarrhea. Abdominal pain resolved.) Physical Examination - Vital Signs Temperature: 99.2 F Blood Pressure: 122/74 Pulse: 66 Respirations: 18 Pulse Ox (%): 96 - Physical Exam General: Alert, In no apparent distress, Oriented x3, Cooperative HEENT: Atraumatic Neck: Supple Respiratory: Clear to auscultation bilaterally, Normal air movement Cardiovascular: Normal pulses, Regular rate/rhythm Gastrointestinal: Normal bowel sounds, Soft and benign, Non-distended, No tenderness, No masses, No rebound, No guarding Musculoskeletal: No erythema, No tenderness, No warmth Integumentary: No erythema, No warmth, No cyanosis Neurological: Normal speech, Normal strength at 5/5 x4 extr, Normal tone, Normal affect - Studies Medications List Reviewed: Yes Assessment & Plan Discharge Plan: Other (assisted facility) Plan to discharge in: 24 Hours Physician Review Additional Text: Impression: UTI, urine culture positive for E coli Diarrhea, nausea and vomiting complicated with hyponatremia, hypokalemia and metabolic alkalosis Depression Hypertension Tobacco abuse Carotid stenosis Seizure disorder COPD Plan: UTI, urine culture positive for E coli: Patient now with a PICC line in place. Continue IV meropenem. Plan of care discussed. Patient agrees with skilled placement for 7 days. Social work to help in this process. Anticipate discharge to skilled facility to continue IV antibiotic therapy in the next 24- 48 hr. Diarrhea, nausea and vomiting complicated with hyponatremia, hypokalemia and metabolic alkalosis: This has significantly improved. Encourage ambulation. Continue physical therapy. Continue oral intake. C diff negative Depression: Continue home medication. Hypertension: Continue medication. Tobacco abuse: Tobacco cessation addressed in detail. Patient may require nicotine patch. Carotid stenosis: Continue medication. Seizure disorder: Continue medication. COPD: Continue with medication. Maintain sats above 90%. Wean off oxygen Time Spent Managing Pts Care (In Minutes): 55
[2018-12-08] MEDS: FUROSEMIDE 40 MG TABLET PO SCH (17:28)
[2018-12-08] MEDS: ENOXAPARIN 30 MG/0.3 ML SQ SCH (17:28)
[2018-12-08] MEDS: KCL 20 MEQ/100 mL IVPB 20 MEQ/100 ML BAG IV SCH ×2 (19:04→21:55)
[2018-12-08] MEDS: OLANZapine 10 MG TABLET PO SCH (21:54)
[2018-12-08] MEDS: AMITRIPTYLINE 25 MG TAB PO SCH (21:55)
[2018-12-08] MEDS: ALPRAZOLAM 0.25 MG TABLET PO PRN (21:55)
[2018-12-09] MEDS: Meropenem 1,000 MG in NA CHLORIDE 0.9% 100 ML IV SCH ×3 (01:55→16:02)
[2018-12-09] MEDS ORDERED: NA CHLORIDE 0.9% 100 ML ONE (02:01)
[2018-12-09] MEDS: PANTOPRAZOLE 40MG TABLET PO SCH (06:00)
[2018-12-09 06:33] LABS: BUN Blood Urea Nitrogen 3 mg/dL (7-18); Bicarbonate 36 mmol/L (21-32); Glucose Level 71 mg/dL (74-106); Phosphorus 4.2 mg/dL (2.5-4.9); Potassium 3.2 mmol/L (3.5-5.1); Sodium Level 138 mmol/L (136-145)
[2018-12-09] MEDS: KCL 20 MEQ/100 mL IVPB 20 MEQ/100 ML BAG IV SCH ×2 (08:44→13:00)
[2018-12-09] MEDS: MIRABEGRON 25 MG PO SCH (08:44)
[2018-12-09] MEDS: ROPINIROLE HCL 2 MG TAB PO SCH ×3 (08:44→17:26)
[2018-12-09] MEDS: levETIRAcetam 500 MG TAB PO SCH ×2 (08:45→20:59)
[2018-12-09] MEDS: FUROSEMIDE 40 MG TABLET PO SCH ×2 (08:45→17:00)
[2018-12-09] MEDS: CITALOPRAM 10 MG TABLET PO SCH (08:45)
[2018-12-09] MEDS: CLOPIDOGREL 75 MG TABLET PO SCH (08:45)
[2018-12-09] MEDS: DULOXETINE 30 MG CAP PO SCH (08:45)
[2018-12-09] MEDS: VITAMIN D 5,000 UNIT CAP PO SCH (08:45)
[2018-12-09] MEDS: CALCIUM CARB 500MG/VIT D 200 IU TAB PO SCH ×2 (08:45→20:58)
[2018-12-09] MEDS: VILANTEROL IH SCH (08:46)
[2018-12-09] MEDS: UMECLIDINIUM IH SCH (08:46)
[2018-12-09] MEDS: FLUTICASONE IH SCH (08:46)
[2018-12-09] MEDS: ENSURE HIGH PROTEIN 237 ML CAN PO SCH ×2 (09:00→21:00)
--- NOTE | 2018-12-09 13:23 | P.DS ---
Admission Date: 12/05/18 Discharge Date: 12/09/18 Primary Care Provider: Unknown Disposition: TRANSFER TO SNF - MEDICAL Reason for Admission: Malnourished/severe dehydration Consultations: none Procedures: CT scan: COMPARISON: October 2017 TECHNIQUE: AP portable chest image was obtained 2047 hours . FINDINGS: No acute lung parenchymal process. Interstitial markings are similar to comparison. Heart and vasculature are normal. No measurable pleural effusion and no pneumothorax. No acute bone findings seen. Old trauma changes noted to the anterior right third and fourth ribs. No acute aortic findings suspected. IMPRESSION: No acute cardiopulmonary process. No suspicious change from comparison. Venous doppler: COMPARISON: None. TECHNIQUE: Real-time sonographic evaluation of the bilateral lower extremity common femoral, superficial femoral, popliteal and posterior tibial veins was performed. FINDINGS: Normal compressibility, flow augmentation, phasic flow and spontaneous flow are identified in the left and right lower extremity common femoral, superficial femoral, popliteal and posterior tibial veins. No intraluminal filling defects seen. IMPRESSION: No DVT in either lower extremity. Medical Problem List: UTI with urine culture positive for E coli-ESBL Diarrhea, nausea and vomiting complicated with hyponatremia, hypokalemia and metabolic alkalosis Bipolar disorder Hypertension Tobacco abuse Carotid stenosis Seizure disorder COPD Moderate protein malnutrition Urinary incontinence GERD Brief History of Present Illness: 63-year-old female presented to ER with nausea, vomiting and diarrhea. Patient is severely dehydrated. Patient admitted for further treatment and evaluation. Hospital Course: Patient presented with diarrhea, nausea and vomiting complicated with hyponatremia, hypokalemia and metabolic alkalosis. Patient was given IV fluids. Diarrhea resolved. C. diff culture negative. Electrolytes improved. Patient found to have a UTI. Urine culture positive for E. coli-ESBL. Patient required IV antibiotic therapy-meropenem. PICC line was placed. Patient agreed to skilled placement for 7 days treatment. At discharge patient be transferred to skilled facility to continue IV meropenem 1000 mg IV twice daily for a total 7 days. Recommend to recheck lab-BMP in 1 week to monitor progress. Recommend to recheck urine culture in 1 week to monitor resolution at that time if negative PICC line and antibiotics can be stopped. Patient with Bipolar disorder. Patient continue with her medications-Elavil 75 mg at bedtime, Celexa 40 mg daily, Cymbalta 30 mg daily, and Zyprexa 10 mg at bedtime. Patient with hypertension. Patient proceed on chlorthalidone. Blood pressures remained stable off medication. Will discontinue chlorthalidone due to hypokalemia. Recommend to monitor blood pressure closely. Recommend to maintain blood pressures below 140/90. If BPs remain elevated patient may require medication. This can be further addressed at the [facility]. Patient with carotid stenosis. Patient continue with Plavix 75 mg daily. Patient with seizure disorder. Patient will continue with her medication Keppra 750 mg 1 pill twice daily. Patient also takes Requip 6 mg every day, 4 mg every 1400,1800. Patient with COPD. Patient will continue with Breo 1 puff daily. Patient may continue with pro air 2 puffs 3 times a day as needed for shortness of breath. Patient with urinary incontinence. Patient will continue with Myrbetriq 25 mg daily.. Patient with moderate protein malnutrition. Patient will continue with Ensure twice daily. Encourage oral intake noted. Vital Signs/Physical Exam: Temp Pulse Resp BP Pulse Ox 97.2 F 103 H 20 96/55 L 97 12/09/18 12:00 12/09/18 12:00 12/09/18 12:00 12/09/18 12:00 12/09/18 12:00 General: Alert, In no apparent distress, Oriented x3, Cooperative HEENT: Atraumatic Neck: Supple Respiratory: Clear to auscultation bilaterally, Normal air movement Cardiovascular: Normal pulses, Regular rate/rhythm Gastrointestinal: Normal bowel sounds, Soft and benign, Non-distended, No masses , No rebound, No guarding Musculoskeletal: No erythema, No tenderness, No warmth Integumentary: No tenderness/swelling, No erythema, No warmth, No cyanosis Neurological: Normal speech, Normal strength at 5/5 x4 extr, Normal affect Laboratory Data at Discharge: WBC 10.5 K/uL (4.3-10.9) D 12/06/18 05:16 Hgb 11.7 g/dL (12.0-15.0) L 12/06/18 05:16 Hct 33.5 % (36.0-45.0) L 12/06/18 05:16 Plt Count 290 K/uL (152-406) 12/06/18 05:16 PT 12.2 SECONDS (9.5-12.5) 12/04/18 21:59 INR 1.04 12/04/18 21:59 Sodium 138 mmol/L (136-145) 12/09/18 06:01 Potassium 3.2 mmol/L (3.5-5.1) L 12/09/18 06:01 BUN 3 mg/dL (7-18) L 12/09/18 06:01 Creatinine 0.30 mg/dL (0.55-1.3) L 12/09/18 06:01 Glucose 71 mg/dL (74-106) L 12/09/18 06:01 Phosphorus 4.2 mg/dL (2.5-4.9) D 12/09/18 06:01 Magnesium 1.9 mg/dL (1.8-2.4) 12/06/18 05:16 Total Bilirubin 0.5 mg/dL (0.2-1.0) 12/06/18 05:16 AST 81 U/L (15-37) H 12/06/18 05:16 ALT 35 U/L (12-78) 12/06/18 05:16 Alkaline Phosphatase 133 U/L (45-117) H 12/06/18 05:16 Troponin I 0.07 ng/mL (0.0-0.045) H 12/05/18 13:40 Home Medications: Amitriptyline [Elavil*] 75 mg PO BEDTIME 11/01/17 Citalopram Hydrobromide [Citalopram HBr] 40 mg PO DAILY 11/01/17 Fluticasone/Vilanterol [Breo Ellipta 100-25 Mcg INH] 100 mcg IH DAILY 11/01/17 Levetiracetam [Keppra] 750 mg PO BID 11/01/17 OLANZapine [Zyprexa] 15 mg PO BEDTIME 11/01/17 Alendronate Sodium [Fosamax] 70 mg PO DIRECTED 12/05/18 Calcium Carbonate/Vitamin D3 [Calcium 600-Vit D3 800 Tablet] 1 tab PO DAILY 10/25 Cbd Oil 99%+ 250mg/30ml 3 puff IN QID PRN 12/05/18 Cholecalciferol (Vitamin D3) [Vitamin D3] 5,000 unit PO DAILY 12/05/18 Clopidogrel Bisulfate [Plavix*] 1 tab PO DAILY 12/05/18 Dexlansoprazole [Dexilant] 60 mg PO DAILY 12/05/18 Dicyclomine HCl 20 mg PO TID 12/05/18 Duloxetine HCl 30 mg PO DAILY 12/05/18 Mirabegron [Myrbetriq] 25 mg PO DAILY 12/05/18 Ondansetron HCl 1 tab PO Q6HP PRN 12/05/18 Ropinirole HCl 4 mg PO 1400 12/05/18 Ropinirole HCl 4 mg PO 1800 12/05/18 Ropinirole HCl 6 mg PO DAILY 12/05/18 Ensure High Protein 237 ml PO BID #60 can 12/09/18 New Medications: Ensure High Protein 237 ml PO BID #60 can Patient Discharge Instructions: 1. Patient will go to skilled facility continue IV antibiotic therapy. 2. Patient presented with diarrhea, nausea and vomiting complicated with hyponatremia, hypokalemia and metabolic alkalosis. Patient was given IV fluids. Diarrhea resolved. C. diff culture negative. Electrolytes improved. Patient found to have a UTI. Urine culture positive for E. coli-ESBL. Patient required IV antibiotic therapy-meropenem. PICC line was placed. Patient agreed to skilled placement for 7 days treatment. At discharge patient be transferred to skilled facility to continue IV meropenem 1000 mg IV twice daily for a total 7 days. Recommend to recheck lab-BMP in 1 week to monitor progress. Recommend to recheck urine culture in 1 week to monitor resolution at that time if negative PICC line and antibiotics can be stopped. 3. Patient with Bipolar disorder. Patient continue with her medications-Elavil 75 mg at bedtime, Celexa 40 mg daily, Cymbalta 30 mg daily, and Zyprexa 10 mg at bedtime. 4. Patient with hypertension. Patient proceed on chlorthalidone. Blood pressures remained stable off medication. Will discontinue chlorthalidone due to hypokalemia. Recommend to monitor blood pressure closely. Recommend to maintain blood pressures below 140/90. If BPs remain elevated patient may require medication. This can be further addressed at the [facility]. 5. Patient with carotid stenosis. Patient continue with Plavix 75 mg daily. 6. Patient with seizure disorder. Patient will continue with her medication Keppra 750 mg 1 pill twice daily. 7. Patient also takes Requip 6 mg every day, 4 mg every 1400,1800. 8. Patient with COPD. Patient will continue with Breo 1 puff daily. Patient may continue with pro air 2 puffs 3 times a day as needed for shortness of breath. 9. Patient with urinary incontinence. Patient will continue with Myrbetriq 25 mg daily.. 10. Patient with moderate protein malnutrition. Patient will continue with Ensure twice daily. Encourage oral intake noted. Diet: AHA Activity: Fall precautions Time spent managing pt's care (in minutes): 55
[2018-12-09] MEDS ORDERED: NA CHLORIDE 0.9% 250 ML IV ONE (13:48)
[2018-12-09] MEDS: NACHLORIDE 0.45% 1,000 ML with POTASSIUM CL 10 MEQ IV SCH ×2 (16:02)
[2018-12-09] MEDS: ENOXAPARIN 30 MG/0.3 ML SQ SCH (16:02)
[2018-12-09] MEDS: HYDROCODONE/APAP 7.5/325 MG TAB PO PRN (17:33)
[2018-12-09] MEDS: AMITRIPTYLINE 25 MG TAB PO SCH (20:58)
[2018-12-09] MEDS: OLANZapine 10 MG TABLET PO SCH (20:59)
[2018-12-10] MEDS: Meropenem 1,000 MG in NA CHLORIDE 0.9% 100 ML IV SCH ×3 (00:37→17:50)
[2018-12-10] MEDS: NACHLORIDE 0.45% 1,000 ML with POTASSIUM CL 10 MEQ IV SCH ×2 (00:41)
[2018-12-10] MEDS ORDERED: POTASSIUM 25 MEQ EFFERV TAB PO ONE (01:01)
[2018-12-10 05:30] LABS: BUN Blood Urea Nitrogen 5 mg/dL (7-18); Bicarbonate 36 mmol/L (21-32); Glucose Level 65 mg/dL (74-106); Potassium 4.4 mmol/L (3.5-5.1); Sodium Level 135 mmol/L (136-145)
[2018-12-10] MEDS: PANTOPRAZOLE 40MG TABLET PO SCH (05:42)
[2018-12-10 05:52] LABS: Magnesium 1.2 mg/dL (1.8-2.4)
[2018-12-10] MEDS ORDERED: Magnesium Sulfate 2gm IVPB 2 G/50 ML BAG IV ONE (05:54)
--- NOTE | 2018-12-10 08:43 | ECHO ---
HEIGHT: 5 ft 5 in WEIGHT: 150 lb 0 oz DATE OF STUDY: 12/09/[address]: Elvis Boston DO 2-DIMENSIONAL: YES M.MODE: YES DOPPLER: YES COLOR FLOW: YES TDS: YES PORTABLE: NO DEFINITY: NO BUBBLE STUDY: NO DIAGNOSIS: CONGESTIVE HEART FAILURE EVALUATION CARDIAC HISTORY: CATHERIZATION: NO SURGERY: NO PROSTHETIC VALVE: NO PACEMAKER: NO MEASUREMENTS (cm) DIASTOLIC (NORMALS) SYSTOLIC (NORMALS) IVSd 1.0 (0.6-1.2) LA Diam 3.0 (1.9-4.0) LVEF 65-69% LVIDd 3.6 (3.5-5.7) LVIDs 2.7 (2.0-3.5) %FS 25% LVPWd 1.1 (0.6-1.2) Ao Diam 2.5 (2.0-3.7) 2 DIMENSIONAL ASSESSMENT: RIGHT ATRIUM: NORMAL LEFT ATRIUM: NORMAL RIGHT VENTRICLE: NORMAL LEFT VENTRICLE: NORMAL TRICUSPID VALVE: NORMAL MITRAL VALVE: NORMAL PULMONIC VALVE: NORMAL AORTIC VALVE: NORMAL PERICARDIAL EFFUSION: NONE AORTIC ROOT: NORMAL LEFT VENTRICULAR WALL MOTION: NORMAL. DOPPLER/COLOR FLOW: NORMAL. COMMENTS: TECHNICALLY DIFFICULT STUDY. NORMAL LEFT VENTRICULAR SIZE AND FUNCTION. NO WALL MOTION ABNORMALITY. NO EFFUSION. TECHNOLOGIST: FUNMILAYO ROBISON
[2018-12-10 08:59] VITALS: O2SAT 94
[2018-12-10] MEDS: ROPINIROLE HCL 2 MG TAB PO SCH ×2 (10:15→14:50)
[2018-12-10] MEDS: VILANTEROL IH SCH (10:16)
[2018-12-10] MEDS: MIRABEGRON 25 MG PO SCH (10:16)
[2018-12-10] MEDS: FLUTICASONE IH SCH (10:16)
[2018-12-10] MEDS: UMECLIDINIUM IH SCH (10:16)
[2018-12-10] MEDS: levETIRAcetam 500 MG TAB PO SCH ×2 (10:17→21:36)
[2018-12-10] MEDS: FUROSEMIDE 40 MG TABLET PO SCH (10:18)
[2018-12-10] MEDS: ENSURE HIGH PROTEIN 237 ML CAN PO SCH ×2 (10:18→21:00)
[2018-12-10] MEDS: CITALOPRAM 10 MG TABLET PO SCH (10:18)
[2018-12-10] MEDS: VITAMIN D 5,000 UNIT CAP PO SCH (10:19)
[2018-12-10] MEDS: DULOXETINE 30 MG CAP PO SCH (10:19)
[2018-12-10] MEDS: CLOPIDOGREL 75 MG TABLET PO SCH (10:20)
[2018-12-10] MEDS: CALCIUM CARB 500MG/VIT D 200 IU TAB PO SCH ×2 (10:20→21:37)
[2018-12-10] MEDS ORDERED: NA CHLORIDE 0.9% 250 ML IV ONE ×3 (12:12→13:31)
[2018-12-10] MEDS: ACETAMINOPHEN 500 MG TAB PO PRN ×2 (13:41→21:36)
[2018-12-10] MEDS ORDERED: MAGNESIUM SULFATE 1 gm IVPB 1 GM/100 ML BAG IV ONE (15:00)
[2018-12-10] MEDS: ENOXAPARIN 30 MG/0.3 ML SQ SCH (17:50)
[2018-12-10] MEDS ORDERED: ROPINIROLE HCL 1 MG TAB PO SCH (18:00)
[2018-12-10] MEDS: OLANZapine 10 MG TABLET PO SCH (21:36)
[2018-12-10] MEDS: AMITRIPTYLINE 25 MG TAB PO SCH (21:36)
[2018-12-10 23:46] VITALS: BP 126/58; TEMP 98.3
[2018-12-11] MEDS ORDERED: ROPINIROLE HCL 1 MG TAB PO SCH ×2 (09:00→14:00)
== END 2018-12-11 00:25 | DRG 690 ==
LOC: ER 18:38 → ERHOLD 12-05 02:20 → 4TH 12-05 02:23
PROVIDERS: ADMIT Hospitalist; ATTEND Family Medicine
PROC: 02HV33Z Insertion of Infusion Device into Superior Vena Cava, Percutaneous Approach (ICD-10-PCS; principal; 2018-12-07)
PROC: B548ZZA Ultrasonography of Superior Vena Cava, Guidance (ICD-10-PCS; 2018-12-07)
DX: N30.00 Acute cystitis without hematuria (principal); E87.1 Hypo-osmolality and hyponatremia; E87.3 Alkalosis; E44.0 Moderate protein-calorie malnutrition; B96.20 Unspecified Escherichia coli [E. coli] as the cause of diseases classified elsewhere; Z16.12 Extended spectrum beta lactamase (ESBL) resistance; E86.0 Dehydration; E87.6 Hypokalemia; F31.9 Bipolar disorder, unspecified; F17.210 Nicotine dependence, cigarettes, uncomplicated; I65.29 Occlusion and stenosis of unspecified carotid artery; G40.909 Epilepsy, unspecified, not intractable, without status epilepticus; J44.9 Chronic obstructive pulmonary disease, unspecified; I10 Essential (primary) hypertension; R32 Unspecified urinary incontinence; K21.9 Gastro-esophageal reflux disease without esophagitis; Z88.5 Allergy status to narcotic agent; Z88.0 Allergy status to penicillin; E87.8 Other disorders of electrolyte and fluid balance, not elsewhere classified; E83.51 Hypocalcemia
CPT/HCPCS: 36415; 71045; 72125; 80048; 80053; 80076; 81003; 81015; 82330; 82962; 83735; 83880; 84100; 84132; 84443; 84484; 85025; 85610; 87045; 87046; 87077; 87086; 87088; 87177; 87186; 87209; 87493; 89055; 93005; 93306; 93970; 96361; 96365; 96375; 97116; 97163; 97530; 99285; J1650; J1720; J2270; J2405; J3475; J7030

== ENCOUNTER 2019-08-08 10:57 | Emergency (ER) | payer OTHER ==
[2019-08-08] MEDS ORDERED: LEVALBUTEROL 1.25 MG/3 ML NEB ONE (11:52)
--- NOTE | 2019-08-08 13:31 | ER ---
Nurse's Notes [facility] Name: Jennifer Dietrich Age: 63 yrs Sex: Female : 1955 Arrival Date: 08/08/2019 Time: 10:59 Bed 18 Private MD: Diagnosis: Acute upper respiratory infection, unspecified;Acute pharyngitis Presentation: 08/08 11:33 Presenting complaint: Patient states: felt hot last night, throat is scratchy, dry iw cough and productive cough, body aches, symptoms started last night. Transition of care: patient was not received from another setting of care. Onset of symptoms was August 07, 2019. Risk Assessment: Do you want to hurt yourself or someone else? Patient reports no desire to harm self or others. Initial Sepsis Screen: Does the patient meet any 2 criteria? No. Patient's initial sepsis screen is negative. Does the patient have a suspected source of infection? No. Patient's initial sepsis screen is negative. Care prior to arrival: None. 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 - Social history:: Smoking status: Patient uses tobacco products, smokes one-half pack cigarettes per day. - Ebola Screening: : Patient negative for fever greater than or equal to 101.5 degrees Fahrenheit, and additional compatible Ebola Virus Disease symptoms Patient denies exposure to infectious person Patient denies travel to an Ebola-affected area in the 21 days before illness onset No symptoms or risks identified at this time. Screenin:59 Abuse screen: Denies threats or abuse. Nutritional screening: No deficits noted. em Tuberculosis screening: No symptoms or risk factors identified. Fall Risk None identified. Assessment: 11:50 General: Appears in no apparent distress. uncomfortable, Behavior is calm, cooperative, em Denies fever. Pain: Denies pain. Neuro: Level of Consciousness is awake, alert, obeys commands, Oriented to person, place, time, situation, Appropriate for age Reports generalized weakness . Cardiovascular: Capillary refill < 3 seconds Patient's skin is warm and dry. Respiratory: Reports shortness of breath on exertion cough that is non-productive, pain with cough Airway is patent Respiratory effort is even, unlabored, Breath sounds with wheezes bilaterally. Onset: The symptoms/episode began/occurred 2 days. GI: Abdomen is flat, Patient currently denies nausea, vomiting. EENT: Nares are clear Oral mucosa is moist. Throat is clear is pink. Derm: Skin is intact, is healthy with good turgor, Skin is pink, warm \T\ dry. Musculoskeletal: Capillary refill < 3 seconds, Range of motion: intact in all extremities. 12:56 Reassessment: Patient appears in no apparent distress at this time. Patient and/or em family updated on plan of care and expected duration. Pain level reassessed. Patient is alert, oriented x 3, equal unlabored respirations, skin warm/dry/pink. pending chest x-ray. Vital Signs: 11:40 BP 182 / 84; Pulse 92; Resp 18; Temp 98.1(O); Pulse Ox 96% on R/A; Weight 79.83 kg; iw Height 5 ft. 5 in. (165.10 cm); Pain 7/10; 12:56 BP 143 / 56; Pulse 95; Resp 22; Pulse Ox 93% on R/A; em 11:40 Body Mass Index 29.29 (79.83 kg, 165.10 cm) iw ED Course: 10:59 Patient arrived in ED. as 11:21 João Veliz PA is PHCP. [facility] 11:21 Malick Patel MD is Attending Physician. [facility] 11:22 João Hooker LVN is Primary Nurse. em 11:36 Triage completed. iw 11:39 Arm band placed on. iw 11:55 Flu and/or RSV swab sent to lab. Strep swab sent to lab. em 11:56 Patient has correct armband on for positive identification. Placed in gown. Bed in low mh5 position. Call light in reach. Side rails up X 1. Warm blanket given. Pulse ox on. NIBP on. 12:47 Chest Pa And Lat (2 Views) XRAY In Process Unspecified. EDMS 13:39 No provider procedures requiring assistance completed. Patient did not have IV access em during this emergency room visit. Administered Medications: 11:57 Drug: Xopenex (3) 1.25 mg Route: Inhalation; em 12:15 Follow up: Response: No adverse reaction; Marked relief of symptoms; Wheezing diminishedem Outcome: 13:31 Discharge ordered by . jmm 13:39 Discharged to home ambulatory. em 13:39 Condition: good 13:39 Discharge instructions given to patient, Instructed on discharge instructions, follow up and referral plans. medication usage, Demonstrated understanding of instructions, follow-up care, medications, Prescriptions given X 3. 13:48 Patient left the ED. em Signatures: Dispatcher [employer] EDMS João Veliz PA PA jmm Munoz, Edgar, LAMINATE FLOOR INSTALLER LAMINATE FLOOR INSTALLER Marsha Giordano Irene, RN RN Ni Talbot [facility]
--- NOTE | 2019-08-08 13:31 | EDPHYS ---
Physician Documentation [facility] Name: Jennifer Dietrich Age: 63 yrs Sex: Female : 1955 Arrival Date: 08/08/2019 Time: 10:59 Bed 18 Private MD: ED Physician Malick Patel HPI: 08/08 11:48 This 63 yrs old Female presents to ER via Ambulatory with complaints of Sore jmm Throat, Weakness. 11:48 The patient presents with sore throat. Onset: The symptoms/episode began/occurred jmm gradually, 1 day(s) ago. Modifying factors: The symptoms are alleviated by nothing, the symptoms are aggravated by nothing. Associated signs and symptoms: Pertinent positives: cough, fever. This is a 63 year old female with a history of COPD, htn that presents to the ED with complaints of sore throat cough, congestion beginning yesterday. . 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 - Social history:: Smoking status: Patient uses tobacco products, smokes one-half pack cigarettes per day. - Ebola Screening: : Patient negative for fever greater than or equal to 101.5 degrees Fahrenheit, and additional compatible Ebola Virus Disease symptoms Patient denies exposure to infectious person Patient denies travel to an Ebola-affected area in the 21 days before illness onset No symptoms or risks identified at this time. ROS: 11:48 Constitutional: Positive for body aches, fever. jmm 11:48 ENT: Positive for sore throat. 11:48 Respiratory: Positive for cough. 11:48 All other systems are negative. Exam: 11:48 Constitutional: This is a well developed, well nourished patient who is awake, alert, jmm and in no acute distress. Head/Face: atraumatic. Eyes: EOMI, no conjunctival erythema appreciated 11:48 Neck: Trachea midline, Supple Chest/axilla: Normal chest wall appearance and motion. Cardiovascular: Regular rate and rhythm. No edema appreciated Respiratory: Normal respirations, no respiratory distress appreciated Abdomen/GI: Non distended, soft Back: Normal ROM Skin: General appearance color normal MS/ Extremity: Moves all extremities, no obvious deformities appreciated, no edema noted to the lower extremities Neuro: Awake and alert, normal gait Psych: Behavior is normal, Mood is normal, Patient is cooperative and pleasant 11:48 ENT: TM's: erythema, that is mild, bilaterally, Posterior pharynx: erythema, that is mild. Vital Signs: 11:40 BP 182 / 84; Pulse 92; Resp 18; Temp 98.1(O); Pulse Ox 96% on R/A; Weight 79.83 kg; iw Height 5 ft. 5 in. (165.10 cm); Pain 7/10; 12:56 BP 143 / 56; Pulse 95; Resp 22; Pulse Ox 93% on R/A; em 11:40 Body Mass Index 29.29 (79.83 kg, 165.10 cm) iw MDM: 11:48 Patient medically screened. [facility] 13:29 Data reviewed: vital signs, nurses notes. Counseling: I had a detailed discussion with [facility] the patient and/or guardian regarding: the historical points, exam findings, and any diagnostic results supporting the discharge/admit diagnosis, lab results, radiology results, the need for outpatient follow up, to return to the emergency department if symptoms worsen or persist or if there are any questions or concerns that arise at home. ED course: Patient is alert and non toxic in appearance in the ED. Patient advised to follow up with pcp and otherwise given strict return precautions. Patient understood and agrees with the plan of care. . 08/08 11:50 Order name: Flu; Complete Time: 12:24 [facility] 08/08 11:50 Order name: Strep; Complete Time: 12:24 [facility] 08/08 12:14 Order name: Chest Pa And Lat (2 Views) XRAY [facility] 08/08 12:18 Order name: Throat Culture [facility] Administered Medications: 11:57 Drug: Xopenex (3) 1.25 mg Route: Inhalation; em 12:15 Follow up: Response: No adverse reaction; Marked relief of symptoms; Wheezing diminishedem Disposition: 15:29 Co-signature as Attending Physician, Malick Patel MD. rn Disposition: 08/08/19 13:31 Discharged to Home. Impression: Acute upper respiratory infection, unspecified, Acute pharyngitis. - Condition is Stable. - Discharge Instructions: Upper Respiratory Infection, Adult. - Prescriptions for Prednisone 20 mg Oral Tablet - take 3 tablet by ORAL route once daily for 5 days; 15 tablet. Zithromax Z- Lafonso 250 mg Oral Tablet - take 1 tablet by ORAL route as directed for 5 days Day 1 - take two (2) tablets one time. Day 2, 3, 4 , 5 take one (1) tablet once daily.; 6 tablet. Albuterol Sulfate 90 mcg/actuation - inhale 1-2 puff by INHALATION route every 4-6 hours; 1 Inhaler. - Medication Reconciliation Form, Thank You Letter, Antibiotic Education, Prescription Opioid Use form. - Follow up: Private Physician; When: 2 - 3 days; Reason: Recheck today's complaints, Continuance of care, Re-evaluation by your physician. Signatures: Dispatcher [employer] EDMS João Veliz PA PA [facility] João Hooker, BATCH PLANT OPERATOR BATCH PLANT OPERATOR em Misti Cabezas RN RN iw Nieto, Roman, MD MD barn hand: (The following items were deleted from the chart) 13:48 13:31 08/08/2019 13:31 Discharged to Home. Impression: Acute upper respiratory em infection, unspecified; Acute pharyngitis. Condition is Stable. Forms are Medication Reconciliation Form, Thank You Letter, Antibiotic Education, Prescription Opioid Use. Follow up: Private Physician; When: 2 - 3 days; Reason: Recheck today's complaints, Continuance of care, Re-evaluation by your physician. [facility]
[2019-08-08 13:54] VITALS: TEMP 98.1
[2019-08-08 13:55] VITALS: BP 143/56; O2SAT 93
--- NOTE | 2019-08-08 15:32 | RAD REPORT ---
EXAM DESCRIPTION: Davy Salinas (2 Views)08/08/2019 12:46 pm CLINICAL HISTORY: Cough COMPARISON: December 2018 FINDINGS: The lungs appear clear of acute infiltrate. The heart is normal size IMPRESSION: No acute abnormalities displayed
== END 2019-08-08 13:48 | disposition home or self-care (01) ==
LOC: ER 10:57
DX: J06.9 Acute upper respiratory infection, unspecified (principal); J02.9 Acute pharyngitis, unspecified; Z88.6 Allergy status to analgesic agent; Z88.0 Allergy status to penicillin; I10 Essential (primary) hypertension; J44.9 Chronic obstructive pulmonary disease, unspecified; Z86.73 Personal history of transient ischemic attack (TIA), and cerebral infarction without residual deficits; F17.210 Nicotine dependence, cigarettes, uncomplicated
CPT/HCPCS: 71046; 87070; 87081; 87804; 99284

== ENCOUNTER 2020-01-15 13:28 | Inpatient (IN) | payer OTHER ==
--- OUTSIDE RECORDS SUMMARY | 2020-01-15 13:33 | XMS REPORT ---
:1955 Author Organization [facility] t Address [address] [place] [address] Care Team Providers Name Role Phone OEI Unavailable Unavailable Payers Payer Name Policy Type Policy Number Effective Date Expiration D ate Problems This patient has no known problems. Allergies, Adverse Reactions, Alerts Allergy Name Allergy Status Severity Reaction(s) Onset Inactive Treat ing Comments Type Date Date Clinician Penicillins DA Active MO 2019-11 00:00:0 0 codeine DA Active SV 2019-11 00:00:0 0 hydrocodone DA Active 2019-11 00:00:0 0 Medications This patient has no known medications. Encounters Start End Encounter Admission Attending Care Care Encounter Date/Time Date/Time Type Type Clinicians Facility Department ID 2019-01-28 2019-01-28 Outpatient [facility] [id number] 08:34:00 08:34:00 Results Test Description Test Time Test Comments Text Results Atomic Results Result Comments GLUCOSE BEDSIDE TESTING 2019-12-07 12:40:00 Test Item Value Reference Range Comments GLUCOSE BEDSIDE TESTING (test code = GLUBED) 76 mg/dL 70- 110 GLUCOSE BEDSIDE [id number] 07:47:00 Test Item Value Reference Range Comments GLUCOSE BEDSIDE TESTING (test code = GLUBED) 91 mg/dL 70- 110 GLUCOSE BEDSIDE [id number] 20:53:00 Test Item Value Reference Range Comments GLUCOSE BEDSIDE TESTING (test code = GLUBED) 106 mg/dL 70- 110 GLUCOSE BEDSIDE [id number] 16:40:00 Test Item Value Reference Range Comments GLUCOSE BEDSIDE TESTING (test code = GLUBED) 122 mg/dL 70- 110 GLUCOSE BEDSIDE [id number] 12:16:00 Test Item Value Reference Range Comments GLUCOSE BEDSIDE TESTING (test code = GLUBED) 77 mg/dL 70- 110 GLUCOSE BEDSIDE [id number] 08:08:00 Test Item Value Reference Range Comments GLUCOSE BEDSIDE TESTING (test code = GLUBED) 88 mg/dL 70- 110 CBC W/AUTO [id number] 06:44:00 Test Item Value Reference Range Comments WHITE BLOOD CELL (test code = WBC) 8.0 K/mm3 3.5-11.0 RED BLOOD CELL (test code = RBC) 4.55 M/mm3 4.70-6.10 HEMOGLOBIN (test code = HGB) 13.9 G/DL 10.4-14.9 HEMATOCRIT (test code = HCT) 41.2 % 31.5-44.1 MEAN CELL VOLUME (test code = MCV) 90.5 Fl 84.5-98.6 MEAN CELL HGB (test code = MCH) 30.5 pg 27.0-34.2 MEAN CELL HGB CONCETRATION (test code = MCHC) 33.7 G/DL 31 .5-34.0 RED CELL DISTRIBUTION WIDTH (test code = RDW) 13.8 SD 11 .5-14.5 PLATELET COUNT (test code = PLT) 288.0 K/mm3 150-450 MEAN PLATELET VOLUME (test code = MPV) 8.80 fL 7.0-10.5 NEUTROPHIL % (test code = NT%) 62.3 % 40-76 LYMPHOCYTE % (test code = LY%) 22.5 % 20.5-51.1 MONOCYTE % (test code = MO%) 13.2 % 1.7-9.3 EOSINOPHIL % (test code = EO%) 1.5 % 0.0-6.0 BASOPHIL % (test code = BA%) 0.5 % 0.0-2.0 NEUTROPHIL # (test code = NT#) 4.97 K/mm3 1.8-7.6 LYMPHOCYTE # (test code = LY#) 1.8 K/mm3 0.6-3.2 MONOCYTE # (test code = MO#) 1.1 K/mm3 0.3-1.1 EOSINOPHIL # (test code = EO#) 0.1 K/mm3 0.0-0.4 BASOPHIL # (test code = BA#) 0.0 K/mm3 0.0-0.1 MANUAL DIFF REQUIRED (test code = MDIFF) NO DIFF/SCN CRITERI A COMPREHENSIVE METABOLIC [id number] 06:29:00 Test Item Value Reference Range Comments SODIUM (test code = NA) 132 mmol/L 134-147 POTASSIUM (test code = K) 3.8 mmol/L 3.4-5.0 CHLORIDE (test code = CL) 101 mmol/L 100-108 CARBON DIOXIDE (test code = CO2) 27 mmol/L 21-32 ANION GAP (test code = GAP) 4.0 GAP calc 4.0-15.0 GLUCOSE (test code = GLU) 85 MG/DL 70-110 BLOOD UREA NITROGEN (test code = 7 MG/DL 7-18 BUN) GLOMERULAR FILTRATION RATE (test >=60 max estimate estGFR >60 code = GFR) CREATININE (test code = CREAT) 0.5 MG/DL 0.6-1.0 TOTAL PROTEIN (test code = PROT) 6.2 G/DL 6.4-8.2 ALBUMIN (test code = ALB) 2.8 G/DL 3.4-5.0 GLOBULIN (test code = GLOB) 3.4 GM/dL ALBUMIN/GLOBULIN RATIO (test code = 0.8 RATIO 1.2-2.2 A/G) CALCIUM (test code = CA) 8.5 MG/DL 8.5-10.1 BILIRUBIN TOTAL (test code = BILT) 0.90 MG/DL 0.2-1.2 SGOT/AST (test code = AST) 18 Unit/L 15-37 SGPT/ALT (test code = ALT) 21 Unit/L 12-78 ALKALINE PHOSPHATASE TOTAL (test 96 Unit/L 45-117 code = ALKP) [id number] 06:29:00 Test Item Value Reference Range Comments MAGNESIUM (test code = MAG) 2.0 MG/DL 1.8-2.4 COMPREHENSIVE METABOLIC [id number] 06:23:00 Test Item Value Reference Range Comments SODIUM (test code = NA) 132 mmol/L 134-147 POTASSIUM (test code = K) 3.8 mmol/L 3.4-5.0 CHLORIDE (test code = CL) 101 mmol/L 100-108 CARBON DIOXIDE (test code = CO2) 27 mmol/L 21-32 ANION GAP (test code = GAP) 4.0 GAP calc 4.0-15.0 GLUCOSE (test code = GLU) 85 MG/DL 70-110 BLOOD UREA NITROGEN (test code = BUN) 7 MG/DL 7-18 GLOMERULAR FILTRATION RATE (test code = GFR) estGFR >60 CREATININE (test code = CREAT) MG/DL 0.6-1.0 TOTAL PROTEIN (test code = PROT) G/DL 6.4-8.2 ALBUMIN (test code = ALB) G/DL 3.4-5.0 GLOBULIN (test code = GLOB) GM/dL ALBUMIN/GLOBULIN RATIO (test code = A/G) RATIO 1.2-2.2 CALCIUM (test code = CA) 8.5 MG/DL 8.5-10.1 BILIRUBIN TOTAL (test code = BILT) MG/DL 0.2-1.2 SGOT/AST (test code = AST) Unit/L 15-37 SGPT/ALT (test code = ALT) Unit/L 12-78 ALKALINE PHOSPHATASE TOTAL (test code = ALKP) Unit/L 45 -117 [id number] 06:23:00 Test Item Value Reference Range Comments MAGNESIUM (test code = MAG) MG/DL 1.8-2.4 GLUCOSE BEDSIDE [id number] 21:47:00 Test Item Value Reference Range Comments GLUCOSE BEDSIDE TESTING (test code = GLUBED) 96 mg/dL 70- 110 - MRI BRAIN W/O [id number] 17:12:00 FAX: Mariela Carvajal MD Camps: PM St: ADM FAX: Gilles Santos [phone] Name: WAYNE BLANCO [facility] : 1955 Age/S: 64/F [address] Unit #: [id number] Loc: [address] [place] [address] Phys: Gilles Ch MD Acct: [id number] Dis Date: Status: ADM IN PHONE #: [phone] Exam Date: 12/05/2019 2133 FAX #: Reason: stroke EXAMS: CPT: [id number] MRI BRAIN W/O CONTRAST 25885 CLINICAL IN FORMATION: Stroke evaluation. TIA.. Dictation Location: B2 COMPARISON: No prior similar study. Technique: Sagittal, axial and coronal scans were done with T1, T2, FLAIR, gradient , and diffusion weighted imaging. FINDINGS: There is no hydrocephalus, atrophy, midline shift or mass effect. No abnormal extra-axial fluid collection is identified. Diffusion sequence shows subacute ischemia in the left occipital lobe adjacentto but not definitely involving the calcarine region. There is also a small amount of ischemialeft posterior temporal lobe. No hemorrhage or significant brain edema. No midline shift or mass effect. Punctate area of ischemia in the right occipital lobe is noted. The orbits, paranasal sinuses and skull base appear unremarkable. Moderate deep white matter microvascular changes in the centrum semiovale, subcortical regions and brainstem. The sella turcica appears deepened and widened with the pituitary tissue flattened against the sellar floor. Flow-voids are seen in the arteries at the base of the brain and in the dural venous sinuses. IMPRESSION: 1. Acute/subacute ischemia left temporal/occipital lobe in the posterior cerebral artery distribution. Although not directly involving the calcarine region, there is potential for right homonymous hemianopsia to be correlated with clinical findings. 2. Small area of recent ischemia right occipital lobe. 3. No hemorrhage in either area. 4. Mild deep white matter microvascular changes. 5. Deepened and widened sella turcic a may be seen with chronically raised intracranial pressure. Correlation with funduscopic examination may be helpful. 6. Telephone report to [facility] at 5:00 PM 12/05/2019. FOR INTERNAL CODING PURPOSES ONLY RESULT CODE: CVR PAGE 1 Signed Report (CONTINUED) FAX: Mariela Carvajal MD Camps: PM St: ADM FAX: Gilles Santos [phone] Name: WAYNE BLANCO [facility] : 1955 Age/S: 64/[address] Unit #: [id number] Loc: [address] [place] [address] Phys: Gilles Ch MD Acct: [id number] Dis Date: Status: ADM IN PHONE #: [phone] Exam Date: 12/05/2019 1542 FAX #: Reason: stroke EXAMS: CPT:[id number] MRI BRAIN W/O CONTRAST 05279 <Continued> at 1712 Reported and signed by: Lokesh Blake M.D. CC: Mariela Montague MD; Gilles Ch MD Technologist: RT Westley(R)(MR) Transcribed Date/Time/By: 12/05/2019 (171) :[email or web address] Orig Print D/T: S: 12/05/2019 (6174) PAGE 2 Signed ReportGLUCOSE BEDSIDE [id number] 16:47:00 Test Item Value Reference Range Comments GLUCOSE BEDSIDE TESTING (test code = GLUBED) 92 mg/dL 70- 110 GLUCOSE BEDSIDE [id number] 11:40:00 Test Item Value Reference Range Comments GLUCOSE BEDSIDE TESTING (test code = GLUBED) 103 mg/dL 70- 110 GLUCOSE BEDSIDE [id number] 07:58:00 Test Item Value Reference Range Comments GLUCOSE BEDSIDE TESTING (test code = GLUBED) 84 mg/dL 70- 110 GLYCOSYLATED HEMOGLOBIN [id number] 05:46:00 Test Item Value Reference Range Comments GLYCOSYLATED HEMOGLOBIN (HA1C) (test code = 5.3 % A1C 0.0- 5.7 GLYHGB) ESTIMATED AVERAGE GLUCOSE (test code = EAG) 105 MG/DLest COMPREHENSIVE METABOLIC [id number] 05:44:00 Test Item Value Reference Range Comments SODIUM (test code = NA) 131 mmol/L 134-147 POTASSIUM (test code = K) 3.5 mmol/L 3.4-5.0 CHLORIDE (test code = CL) 100 mmol/L 100-108 CARBON DIOXIDE (test code = CO2) 25 mmol/L 21-32 ANION GAP (test code = GAP) 6.0 GAP calc 4.0-15.0 GLUCOSE (test code = GLU) 80 MG/DL 70-110 BLOOD UREA NITROGEN (test code = 6 MG/DL 7-18 BUN) GLOMERULAR FILTRATION RATE (test >=60 max estimate estGFR >60 code = GFR) CREATININE (test code = CREAT) 0.5 MG/DL 0.6-1.0 TOTAL PROTEIN (test code = PROT) 6.2 G/DL 6.4-8.2 ALBUMIN (test code = ALB) 2.9 G/DL 3.4-5.0 GLOBULIN (test code = GLOB) 3.3 GM/dL ALBUMIN/GLOBULIN RATIO (test code = 0.9 RATIO 1.2-2.2 A/G) CALCIUM (test code = CA) 8.5 MG/DL 8.5-10.1 BILIRUBIN TOTAL (test code = BILT) 0.50 MG/DL 0.2-1.2 SGOT/AST (test code = AST) 12 Unit/L 15-37 SGPT/ALT (test code = ALT) 22 Unit/L 12-78 ALKALINE PHOSPHATASE TOTAL (test 98 Unit/L 45-117 code = ALKP) LIPID PROFILE (CORONARY RISK)2019-12-05 05:44:00 Test Item Value Reference Range Comments TRIGLYCERIDES (test code = TRIG) 76 MG/DL 0-150 CHOLESTEROL (test code = CHOL) 141 MG/DL 133-200 CHOLESTEROL/HDL RATIO (test code = CHOLHDL) 3.20 RATIO >0 HDL CHOLESTEROL (test code = HDL) 44 MG/DL 40-59 NON-HDL CHOLESTEROL (test code = NHDL) 97 mg/dL <130 LIPOPROTEIN LDL (test code = LDL) 85 MG/DL 0-129 LDL/HDL (test code = LDL/HDL) 1.93 Ratio 1.48-3.22 Avg COMPREHENSIVE METABOLIC [id number] 05:38:00 Test Item Value Reference Range Comments SODIUM (test code = NA) 131 mmol/L 134-147 POTASSIUM (test code = K) 3.5 mmol/L 3.4-5.0 CHLORIDE (test code = CL) 100 mmol/L 100-108 CARBON DIOXIDE (test code = CO2) 25 mmol/L 21-32 ANION GAP (test code = GAP) 6.0 GAP calc 4.0-15.0 GLUCOSE (test code = GLU) 80 MG/DL 70-110 BLOOD UREA NITROGEN (test code = BUN) 6 MG/DL 7-18 GLOMERULAR FILTRATION RATE (test code = GFR) estGFR >60 CREATININE (test code = CREAT) MG/DL 0.6-1.0 TOTAL PROTEIN (test code = PROT) G/DL 6.4-8.2 ALBUMIN (test code = ALB) G/DL 3.4-5.0 GLOBULIN (test code = GLOB) GM/dL ALBUMIN/GLOBULIN RATIO (test code = A/G) RATIO 1.2-2.2 CALCIUM (test code = CA) 8.5 MG/DL 8.5-10.1 BILIRUBIN TOTAL (test code = BILT) MG/DL 0.2-1.2 SGOT/AST (test code = AST) Unit/L 15-37 SGPT/ALT (test code = ALT) Unit/L 12-78 ALKALINE PHOSPHATASE TOTAL (test code = ALKP) Unit/L 45 -117 LIPID PROFILE (CORONARY RISK)2019-12-05 05:38:00 Test Item Value Reference Range Comments TRIGLYCERIDES (test code = TRIG) MG/DL 0-150 CHOLESTEROL (test code = CHOL) MG/DL 133-200 CHOLESTEROL/HDL RATIO (test code = CHOLHDL) RATIO >0 HDL CHOLESTEROL (test code = HDL) MG/DL 40-59 NON-HDL CHOLESTEROL (test code = NHDL) mg/dL <130 LIPOPROTEIN LDL (test code = LDL) MG/DL 0-129 LDL/HDL (test code = LDL/HDL) Ratio 1.48-3.22 Avg GLUCOSE BEDSIDE [id number] 21:36:00 Test Item Value Reference Range Comments GLUCOSE BEDSIDE TESTING (test code = GLUBED) 92 mg/dL 70- 110 GLUCOSE BEDSIDE [id number] 16:53:00 Test Item Value Reference Range Comments GLUCOSE BEDSIDE TESTING (test code = GLUBED) 100 mg/dL 70- 110 GLUCOSE BEDSIDE [id number] 13:53:00 Test Item Value Reference Range Comments GLUCOSE BEDSIDE TESTING (test code = GLUBED) 116 mg/dL 70- 110 - CT ANGIO [id number] 12:27:00 Name: WAYNE BLANCO : 1955 Age/S: 64 / F [id number] Unit #: [id number] Loc: [place] [address] Phys: Rima Coronel MD Acct: [id number] Dis Date: Status: ADM IN PHONE #: [phone] Exam Date: 12/04/2019 1041 FAX #: Reason: RUFF, expressive aphasia EXAMS: CPT: [id number] CT ANGIO HEAD [address]83 CLINICAL INFORMATION: Headaches. Expressive aphasia. TIA. Dictation location: R 16COMPARISON: No comparison. Technique: Axial scans were done during intravenous contrast administration and viewed in bone and soft tissue windows. Axial and coronal maximum in tensity projection reconstructions were made by computer. Image optimization and dose reduction techniques were used. DLP 1202 mGy-cm. FINDINGS: Anterior circulation: The left common carotid artery is clear from origin to bifurcation. The internal carotid appears nearly completely occluded at its origin estimated at 99%. There is threadlike cephalad flow to the skull base and through the petrous component. Flow widens somewhat in the cavernous component although remains minimal. The supraclinoid is small compared to the right although patent. Bifurcation and the anterior and middle cerebral runoff appears maintained although less robust than compared to the right side. The anterior communicator arteryis moderate-sized and otherwise unremarkable. The right common carotid artery ispatent from origin through bifurcation which is heavily calcified and shows a 50-60% proximal carotid luminal stenosis. The vessel shows a moderate kink with 50% proximal narrowing and distal narrowing thereafter the vessel shows moderate tortuosity cephalad with another kink and a 40-50% stenosis. At the skull base the vessel is patent through the petrous and cavernous sections with supraclinoid, bifurcation, and the anterior and middle cerebral runoff neida ntained. Posterior circulation: Posterior communicating artery is questionably visualized on the right and not definitely seen on the left. The right vertebral artery is dominant. Both are clear through the formation of the basilar with bilateral distal tortuosity in the upper neck. Intradural sections, basilar artery and the basilar bifurcation and posterior cerebral runoff appears maintained IMPRESSION: IMPRESSION: 1. Severe critical stenosis of the left internal carotid artery at PAGE 1 Signed Report (CONTINUED) Name: WAYNE BLANCO [facility] : 1955 Age/S: 64 / F [address] Unit #: [id number] Loc: [place] [address] Phys: Rima Coronel MD Acct: [id number] Dis Date: Status: ADM IN PHONE #: [phone] Exam Date: 12/04/2019 1041 FAX #: Reason: RUFF, expressive aphasia EXAMS: CPT: [id number] CT ANGIO HEAD 15111 <Continued> its origin estimated at 99%. Threadlike flow is seen beyond this point. The left internal carotid recovery is some flow through the anterior communicating artery although the anterior and middle cerebral runoff is less robust 1 compared to the right side. 2. Posterior communicating artery is questionably visualized on the right and not apparent on the left. 3. Right cervical carotid showskinking and 40-50% stenosis. at 1227 Reported and signedby: Lokesh Blake M.D. CC: Rima Coronel MD Technologist:Sherif Porter, RT(R)(CT); Jayy CTDI: DLP: Trnscb Date/Time: 12/04/2019 (1227) [email or web address] Orig Print D/T: S: 12/04/2019 (1230) PAGE 2 Signed Report- CT ANGIO [id number] 12:27:00 Name: WAYNE BLANCO [facility] : 1955 Age/S: 64 / F [address] Unit #: [id number] Loc: [place] [address] Phys: Rima Coronel MD Acct: [id number] Dis Date: Status: ADM IN PHONE #: [phone] Exam Date: 12/04/2019 1044 FAX #: Reason: RUFF, expressive aphasia EXAMS: CPT: [id number] CT ANGIO NECK [address] CLINICAL INFORMATION: Headaches. Expressive aphasia. TIA. Dictation location: R 16COMPARISON: No comparison. Technique: Axial scans were done during intravenous contrast administration and viewed in bone and soft tissue windows. Axial and coronal maximum in tensity projection reconstructions were made by computer. Image optimization and dose reduction techniques were used. DLP 1202 mGy-cm. FINDINGS: Anterior circulation: The left common carotid artery is clear from origin to bifurcation. The internal carotid appears nearly completely occluded at its origin estimated at 99%. There is threadlike cephalad flow to the skull base and through the petrous component. Flow widens somewhat in the cavernous component although remains minimal. The supraclinoid is small compared to the right although patent. Bifurcation and the anterior and middle cerebral runoff appears maintained although less robust than compared to the right side. The anterior communicator arteryis moderate-sized and otherwise unremarkable. The right common carotid artery ispatent from origin through bifurcation which is heavily calcified and shows a 50-60% proximal carotid luminal stenosis. The vessel shows a moderate kink with 50% proximal narrowing and distal narrowing thereafter the vessel shows moderate tortuosity cephalad with another kink and a 40-50% stenosis. At the skull base the vessel is patent through the petrous and cavernous sections with supraclinoid, bifurcation, and the anterior and middle cerebral runoff neida ntained. Posterior circulation: Posterior communicating artery is questionably visualized on the right and not definitely seen on the left. The right vertebral artery is dominant. Both are clear through the formation of the basilar with bilateral distal tortuosity in the upper neck. Intradural sections, basilar artery and the basilar bifurcation and posterior cerebral runoff appears maintained IMPRESSION: IMPRESSION: 1. Severe critical stenosis of the left internal carotid artery at PAGE 1 Signed Report (CONTINUED) Name: [place] : 1955 Age/S: 64 / F [address] Unit #: [id number] Loc: [place] [address] Phys: Rima Coronel MD Acct: [id number] Dis Date: Status: ADM IN PHONE #: [phone] Exam Date: 12/04/2019 1044 FAX #: Reason: RUFF, expressive aphasia EXAMS: CPT: [id number] CT ANGIO NECK [address]449 <Continued> its origin estimated at 99%. Threadlike flow is seen beyond this point. The left internal carotid recovery is some flow through the anterior communicating artery although the anterior and middle cerebral runoff is less robust 1 compared to the right side. 2. Posterior communicating artery is questionably visualized on the right and not apparent on the left. 3. Right cervical carotid showskinking and 40-50% stenosis. at 1227 Reported and signedby: Lokesh Blake M.D. CC: Rima Coronel MD Technologist:Sherif Porter RT(R)(CT); Jayy CTDI: DLP: Trnscb Date/Time: 12/04/2019 (1227) [email or web address] Orig Print D/T: S: 12/04/2019 (7739) PAGE 2 Signed ReportURINE CULTURE 2017-06-29 11:48:00 Test Item Value Reference Range Comments Isolate 1 (test code = Escherichia coli CONFIRMA TORY TEST FOR THIS ISO1) ORGANISM INDICAT ES UNUSUAL RESISTANCE. EXTENDEDSPECTRUM BETA-LACTAMASE P RODUCTION. INFECTIOUS DISEA SE CONSULT SUGGESTED piperacillin/tazobactam ug/mL (test code = tzp) cefazolin (test code = ug/mL cz) ceftazidime (test code = ug/mL agustin) ceftriaxone1 (test code = ug/mL ctr) cefepime (test code = ug/mL fep) aztreonam (test code = ug/mL azm) ertapenem (test code = ug/mL etp) meropenem (test code = ug/mL mem) gentamicin (test code = ug/mL gm) tobramycin (test code = ug/mL tob) levofloxacin (test code = ug/mL lev) nitrofurantoin (test code ug/mL = ftn) trimethoprim/sulfamethoxa ug/mL zole (test code = sxt) URINALYSIS WITH [id number] 13:54:00 Test Item Value Reference Range Comments COLOR (test code = COLU) ORANGE YELLOW CLARITY (test code = CLA) CLOUDY CLEAR GLUCOSE UR (test code = UA GLUCOSE) NEGATIVE NEGATIVE BILI UR (test code = BILE) NEGATIVE NEGATIVE KETONES UR (test code = CRISTEL) NEGATIVE NEGATIVE SP GRAVITY (test code = SPGR) 1.014 1.005-1.030 PH UR (test code = PH) 7.0 4.5-8.0 PROTEIN UR (test code = PU) TRACE NEGATIVE UROBIL UR (test code = UROQ) 1.0 EU/dL 0.2-1.0 NITRITE UR (test code = NITRITE) POSITIVE NEGATIVE BLOOD UR (test code = UA BLOOD) NEGATIVE NEGATIVE LEUK ES UR (test code = LEUK) 2+ NEGATIVE WBC UR (test code = UWBC) 15 /HPF 0-5 RBC UR (test code = URBC) 0 /HPF 0-2 EPITH UR (test code = UEPC) FEW /LPF FEW BACTERIA UR (test code = UBACT) FEW /HPF NONE CAST UR (test code = CAST) /LPF NONE CRYSTAL UR (test code = CRYU) / LPF NONE MUCUS UR (test code = MUC) / HPF NONE AMORPH UR (test code = SIDDHARTHA) / HPF NONE TRICH UR (test code = UTRICH) /HPF NONE YEAST UR (test code = UY) /HPF NONE SPERM UR (test code = USPERM) /HPF NONE
--- OUTSIDE RECORDS SUMMARY | 2020-01-15 13:33 | XMS REPORT ---
:1955 Author Organization [employer] Care Team Providers Name Role Phone Bryson Johnson Provider Role Unavailable Allergies No Known Allergies Problems Problem Type Condition Code Onset Dates Condition Statu s Assessment Chronic back pain M54.9 Active Problem Benign essential HTN I10 Active Problem COPD (chronic obstructive pulmonary J44.9 Active disease) Problem Rheumatoid arthritis involving M06.9 Active multiple sites, unspecified rheumatoid factor presence Problem Primary osteoarthritis, unspecified M19.91 Active site Problem Hyperlipidemia E78.5 Active Problem Overactive bladder N32.81 Active Problem Incontinence in female R32 Activ e Problem Recurrent UTI N39.0 Active Problem Depression with anxiety F41.8 Acti ve Problem Hypomagnesemia E83.42 Active Problem Insomnia G47.00 Active Problem Depression F32.9 Active Problem Type 2 diabetes mellitus without E11.9 Active complication, without long-term current use of insulin Problem Osteopenia M85.80 Active Problem Odynophagia R13.10 Active Problem Osteoporosis, unspecified M81.0 Ac tive osteoporosis type, unspecified pathological fracture presence Problem Parkinson disease G20 Active Problem Malnutrition, unspecified type E46 Active Problem Obstructive sleep apnea G47.33 Acti ve Problem Lung nodule R91.1 Active Problem GERD (gastroesophageal reflux K21.9 Active disease) Problem Chronic back pain M54.9 Active Problem H/O TIA (transient ischemic attack) Z86.73 Active and stroke Problem Nicotine dependence F17.200 Active Problem Restless leg syndrome G25.81 Active Problem Allergic rhinitis, seasonal J30.2 Active Medications No Known Medications Results No Known Results Summary Purpose eClinicalAlephD Submission
--- OUTSIDE RECORDS SUMMARY | 2020-01-15 13:34 | XMS REPORT ---
:1955 Author Organization [employer] Care Team Providers Name Role Phone Bryson Johnson Provider Role Unavailable Allergies No Known Allergies Problems Problem Type Condition Code Onset Dates Condition Statu s Problem Benign essential HTN I10 Active Problem [...]
--- OUTSIDE RECORDS SUMMARY | 2020-01-15 13:34 | XMS REPORT ---
[...] Problem Allergic rhinitis, seasonal J30.2 Active Medications Medication Code Code Instructions Start End Status Dosage System Date Date Duloxetine HCl [facility] 65063394004 30 MG Orally Active 1 capsule Once a day Zyprexa ND 90285826389 10 MG Orally Active 1 table t Once a day Results No Known Results Summary Purpose eClinicalWorks Submission
--- OUTSIDE RECORDS SUMMARY | 2020-01-15 13:34 | XMS REPORT ---
[...] Status Dosage System Date Date Duloxetine HCl [facility] 27312424508 30 MG Orally Active 1 capsule Once a day Results No Known Results Summary Purpose eClinicalWorks Submission
--- OUTSIDE RECORDS SUMMARY | 2020-01-15 13:35 | XMS REPORT ---
:1955 Author Organization [employer]Works Care Team Providers Name Role Phone Danitza Johnsonh Provider Role Unavailable Allergies, Adverse Reactions, Alerts Substance Reaction Event Type penicillin Info Not Available Drug Allergy Codeine Sulfate Info Not Available Drug Allergy Problems Problem Type Condition Code Onset Dates Condition Statu s Assessment COPD (chronic obstructive pulmonary J44.9 Active disease) Assessment GERD (gastroesophageal reflux K21.9 Active disease) Assessment Hyperlipidemia E78.5 Active Assessment Depression F32.9 Active Assessment Parkinson disease G20 Active Assessment Malnutrition, unspecified type E46 Active Assessment Benign essential HTN I10 Active Problem Benign essential HTN I10 Active [...] Insomnia G47.00 Active Problem Depression F32.9 Active Assessment Hypomagnesemia E83.42 Active Problem Type 2 diabetes mellitus without E11.9 Active complication, without long-term current use of insulin Problem Osteopenia M85.80 Active Problem Odynophagia R13.10 Active Problem Osteoporosis, unspecified M81.0 Ac tive osteoporosis type, unspecified pathological fracture presence Problem Parkinson disease G20 Active Problem Malnutrition, unspecified type E46 Active Assessment Insomnia G47.00 Active Problem Obstructive sleep apnea G47.33 Acti ve Assessment Overactive bladder N32.81 Active Problem Lung nodule R91.1 Active Assessment Primary osteoarthritis, unspecified M19.91 Active site Problem GERD (gastroesophageal reflux K21.9 Active disease) Assessment Rheumatoid arthritis involving M06.9 Active multiple sites, unspecified rheumatoid factor presence Problem Chronic back pain M54.9 Active Assessment Osteoporosis, unspecified M81.0 Ac tive osteoporosis type, unspecified pathological fracture presence Problem H/O TIA (transient ischemic attack) Z86.73 Active and stroke Assessment Nicotine dependence F17.200 Active Problem Nicotine dependence F17.200 Active Problem Restless leg syndrome G25.81 Active Problem Allergic rhinitis, seasonal J30.2 Active Medications Medication Code Code Instructions Start End Date Status Dosage System Date Simvastatin [facility] 69943942612 40 MG Orally Active 1 t ablet in Once a day the evening Magnesium [facility] 94687455894 300 MG Orally Active 1 ca psule Once a day with a meal Aggrenox [facility] 75045395206 25-200 MG Active 1 capsule Orally Twice a day Folic Acid [facility] 28718090414 1 MG Orally Active 1 tab let Once a day Ropinirole HCl [facility] 54240929588 2 MG Oral Active GULSHAN E 3 TABLETS BY MOUTH IN THE MORNING THEN TAKE 2 TABLETS BY MOUTH MIDDAY THEN TAKE 2 TABLETS BY MOUTH IN THE EVENING Citalopram [facility] 57486183820 40MG Active TAKE ONE Hydrobromide TABLET BY MOUTH ONCE DAILY Estrace [facility] 20580055667 0.1 MG/GM December Active as directe d Vaginal twice 2017 weekly Myrbetriq [facility] 52167699962 25MG Orally Active take o ne Once a day tablet by mouth once daily Zyprexa [facility] 50133698792 10 MG Orally Active 1 table t Once a day Trimethoprim ND 28533908535 100 mg Orally January Active 1 tablet Once a day 2019 Belsomra [facility] 02323540223 15 MG Orally Active 1 tabl et at Once a day bedtime as needed Duloxetine HCl [facility] 23477407573 30 MG Orally Active 1 capsule Once a day Citalopram [facility] 46756394541 40MG orally Active TAKE ONE Hydrobromide once daily TABLET B Y MOUTH ONCE DAILY Dexilant [facility] 96387606097 60 MG Active TAKE 1 CAPSULE BY MOUTH ONCE DAILY Klor-Con M20 [facility] 53022011076 20 MEQ Orally Active 1 tablet Once a day with food Calcium + D3 [facility] 28409362419 600-800 MG-UNIT Active 1 tablet Orally Twice a with a me Trelegy Ellipta [facility] 25713077513 100-62.5-25 Active 1 puff MCG/INH Inhalation Once a day Premarin [facility] 63319463778 0.625 MG/GM Active as dire cted Vaginal twice weekly Clonazepam [facility] 12554705473 0.5 MG Oral Active (Sche dule IV Drug) TAKE 1 TABLET BY MOUTH TWICE DAILY NEEDED FOR ANXIETY Alendronate [facility] 22012555653 70 MG Orally Active 1 t ablet Sodium Once weekly Keppra [facility] 06006007207 500 MG Orally Active 1 tabl et Twice a day Results No Known Results Summary Purpose [employer]ClinicalWorks Submission
--- OUTSIDE RECORDS SUMMARY | 2020-01-15 13:40 | XMS REPORT ---
:1955 Author Organization [employer] Care Team Providers Name Role Phone Danitza Johnsonh Provider Role Unavailable Allergies, Adverse Reactions, Alerts Substance Reaction Event Type penicillin Info Not Available Drug Allergy Codeine Sulfate Info Not Available Drug Allergy Problems Problem Type Condition Code Onset Dates Condition Statu s Assessment Primary osteoarthritis, unspecified M19.91 Active site Assessment Rheumatoid arthritis involving M06.9 Active multiple sites, unspecified rheumatoid factor presence Assessment Right hip pain M25.551 Active Problem Benign essential HTN I10 Active [...] Start End Date Status Dosage System Date Folic Acid [facility] 57790421569 1 MG Orally Active 1 tab let Once a day Aggrenox [facility] 77897725903 25-200 MG Active 1 capsule Orally Twice a day Trelegy Ellipta [facility] 18783192120 100-62.5-25 Active 1 puff MCG/INH Inhalation Once a day Gabapentin ND 11500036601 300 MG Orally Active 1 c apsule Once a day Dexilant [facility] 41733028416 60 MG Active TAKE 1 CAPSULE BY MOUTH ONCE DAILY Alendronate [facility] 52646661714 70 MG Orally Active 1 t ablet Sodium Once weekly Klor-Con M20 [facility] 04180092303 20 MEQ Orally Active 1 tablet Once a day with food Clonazepam [facility] 80094596641 1 MG Oral Once Active (S chedule a day IV Drug) TAKE 1 TABLET BY MOUTH TWICE DAILY NEEDED FOR ANXIETY Simvastatin [facility] 07838437760 40 MG Orally Active 1 t ablet Once a day in the evening Olanzapine [facility] 56454631455 10 MG Active TAKE 1 TABLET BY MOUTH ONCE DAILY FOR 90 DAYS Magnesium [facility] 22961484436 300 MG Orally Active 1 ca psule Once a day with a meal Trimethoprim [facility] 07899738862 100 mg Orally Karen Active 1 tablet Once a day 2019 Calcium + D3 [facility] 58642052005 600-800 MG-UNIT Active 1 tablet Orally Twice a with a day meal Ropinirole HCl [facility] 97781523568 2 MG Oral Active GULSHAN E 3 TABLETS BY MOUTH IN THE MORNING THEN TAKE 2 TABLETS BY MOUTH MIDDAY THEN TAKE 2 TABLETS BY MOUTH IN THE EVENING Duloxetine HCl [facility] 00640722684 30 MG Orally Active 1 capsule Once a day Levetiracetam [facility] 20610338155 500 MG Orally Active 1 tablet Twice a day Belsomra [facility] 77000390864 15 MG Orally Active 1 tabl et Once a day at bedtime as needed Zyprexa [facility] 83734190695 10 MG Orally Active 1 table t Once a day Citalopram [facility] 27326200783 40MG orally Active TAKE ONE Hydrobromide once daily TABLET B Y MOUTH ONCE DAILY Results No Known Results Summary Purpose [employer]ClinicalWorks Submission
--- OUTSIDE RECORDS SUMMARY | 2020-01-15 13:41 | XMS REPORT ---
:1955 Author Organization [employer]Works Care Team Providers Name Role Phone Danitza Johnsonh Provider Role Unavailable Allergies, Adverse Reactions, Alerts Substance Reaction Event Type penicillin Info Not Available Drug Allergy Codeine Sulfate Info Not Available Drug Allergy Problems Problem Type Condition Code Onset Dates Condition Statu s Assessment Stenosis of left carotid artery I65.22 Active Assessment Benign essential HTN I10 Active Assessment Cerebrovascular accident (CVA) due I63.432 Active to embolism of left posterior cerebral artery Assessment Hemiplegia of right dominant side I69.951 Active as late effect of cerebrovascular disease, unspecified cerebrovascular disease type, unspecified hemiplegia type Assessment Hypomagnesemia E83.42 Active Problem Benign essential HTN I10 Active Assessment Osteoporosis, unspecified M81.0 Ac tive osteoporosis type, unspecified pathological fracture presence Problem COPD (chronic obstructive pulmonary J44.9 Active disease) Problem Hyperlipidemia E78.5 Active Problem Osteopenia M85.80 Active Problem Depression F32.9 Active Problem Recurrent UTI N39.0 Active Problem Incontinence in female R32 Activ e Problem Insomnia G47.00 Active Problem Osteoporosis, unspecified M81.0 Ac tive osteoporosis type, unspecified pathological fracture presence Problem Malnutrition, unspecified type E46 Active Problem Odynophagia R13.10 Active Problem Hemiplegia of right dominant side I69.951 Active as late effect of cerebrovascular disease, unspecified cerebrovascular disease type, unspecified hemiplegia type Problem Cerebrovascular accident (CVA) due I63.432 Active to embolism of left posterior cerebral artery Problem Obstructive sleep apnea G47.33 Acti ve Problem Chronic back pain M54.9 Active Assessment Overactive bladder N32.81 Active Problem Stenosis of left carotid artery I65.22 Active Problem GERD (gastroesophageal reflux K21.9 Active disease) Assessment Insomnia G47.00 Active Problem Hypomagnesemia E83.42 Active Assessment Rheumatoid arthritis involving M06.9 Active multiple sites, unspecified rheumatoid factor presence Problem Parkinson disease G20 Active Assessment Primary osteoarthritis, unspecified M19.91 Active site Problem Type 2 diabetes mellitus without E11.9 Active complication, without long-term current use of insulin Assessment Nicotine dependence F17.200 Active Problem Depression with anxiety F41.8 Acti ve Assessment Parkinson disease G20 Active Problem Allergic rhinitis, seasonal J30.2 Active Assessment Malnutrition, unspecified type E46 Active Problem Nicotine dependence F17.200 Active Assessment Depression F32.9 Active Problem Lung nodule R91.1 Active Assessment Hyperlipidemia E78.5 Active Problem Restless leg syndrome G25.81 Active Assessment GERD (gastroesophageal reflux K21.9 Active disease) Problem Primary osteoarthritis, unspecified M19.91 Active site Assessment COPD (chronic obstructive pulmonary J44.9 Active disease) Problem Overactive bladder N32.81 Active Problem H/O TIA (transient ischemic attack) Z86.73 Active and stroke Problem Rheumatoid arthritis involving M06.9 Active multiple sites, unspecified rheumatoid factor presence Medications Medication Code Code Instructions Start End Date Status Dosage System Date Ropinirole HCl [facility] 94698599048 2 MG Oral Active GULSHAN E 3 TABLETS BY MOUTH IN THE MORNING THEN TAKE 2 TABLETS BY MOUTH MIDDAY THEN TAKE 2 TABLETS BY MOUTH IN THE EVENING Clonazepam [facility] 97486527961 0.5 MG Oral Active (Sche dule IV Drug) TAKE 1 TABLET BY MOUTH TWICE DAILY NEEDED FOR ANXIETY Myrbetriq [facility] 14709973930 25MG Orally Active take o ne Once a day tablet by mouth once daily Alendronate [facility] 35248862982 70 MG Orally Active 1 t ablet Sodium Once weekly Citalopram [facility] 96922952124 40MG Orally Active 1 tab let Hydrobromide Once a day Dicyclomine HCl [facility] 31847210911 20 MG Orally Active 1 tablet Three times a day Spironolactone-H [facility] 41689011555 25-25 MG Orally Act daren 1 tablet CTZ Once a day Trelegy Ellipta [facility] 25164976213 100-62.5-25 Active 1 puff MCG/INH Inhalation Once a day Simvastatin ND 00595921360 40 MG Orally Active 1 t ablet Once a day in the evening Duloxetine HCl [facility] 73415517643 30 MG Orally Active 1 capsule Once a day Dexilant [facility] 26835338163 60 MG Active TAKE 1 CAPSULE BY MOUTH ONCE DAILY Olanzapine ND 90738360113 10 MG Orally Active TAKE 1 Once a day TABLET BY MOUTH ONCE DAILY FOR 90 DAYS Solifenacin [facility] 87326848893 5 MG Orally Active 1 ta blet Succinate Once a day Myrbetriq [facility] 24900866601 50 MG Orally Active 1 tab let Once a day Citalopram [facility] 36913546306 40MG Active TAKE ONE Hydrobromide TABLET BY MOUTH ONCE DAILY Zyprexa [facility] 93757494868 10 MG Orally Active 1 table t Once a day Levetiracetam [facility] 29244339012 500 MG Orally Active 1 1/2 Twice a day tablet Calcium + D3 [facility] 20022340390 600-800 MG-UNIT Active 1 tablet Orally Twice a with a day meal Klor-Con M20 [facility] 34407169660 20 MEQ Orally Active 1 tablet Once a day with food Folic Acid [facility] 94761532109 1 MG Orally Active 1 tab let Once a day Aggrenox [facility] 17653645724 25-200 MG Active 1 capsule Orally Twice a day Trimethoprim [facility] 75237942367 100 mg Orally Karen Active 1 tablet Once a day 2019 Magnesium [facility] 46182584657 300 MG Orally Active 1 ca psule Once a day with a meal Belsomra [facility] 75545231261 15 MG Orally Active 1 tabl et Once a day at bedtime as needed Gabapentin [facility] 56652801633 300 MG Orally Active 1 c apsule Once a day Results No Known Results Summary Purpose eClinicalWorks Submission
--- OUTSIDE RECORDS SUMMARY | 2020-01-15 13:41 | XMS REPORT ---
:1955 Author Organization eClinicalWorks Care Team Providers Name Role Phone Bryson Johnson Provider Role Unavailable Allergies No Known Allergies Problems Problem Type Condition Code Onset Dates Condition Statu s Assessment Stenosis of left carotid artery I65.22 Active Assessment Parkinson disease G20 Active Problem Benign essential HTN I10 Active [...] ve Problem Chronic back pain M54.9 Active Problem Stenosis of left carotid artery I65.22 Active Problem GERD (gastroesophageal reflux K21.9 Active disease) Problem Hypomagnesemia E83.42 Active Problem Parkinson disease G20 Active Problem Type 2 diabetes mellitus without E11.9 Active complication, without long-term current use of insulin Problem Depression with anxiety F41.8 Acti ve Problem Allergic rhinitis, seasonal J30.2 Active Problem Nicotine dependence F17.200 Active Problem Lung nodule R91.1 Active Problem Restless leg syndrome G25.81 Active Problem Primary osteoarthritis, unspecified M19.91 Active site Problem Overactive bladder N32.81 Active Problem H/O TIA (transient ischemic attack) Z86.73 Active and stroke Problem Rheumatoid arthritis involving M06.9 Active multiple sites, unspecified rheumatoid factor presence Medications No Known Medications Results No Known Results Summary Purpose [employer] Submission
--- OUTSIDE RECORDS SUMMARY | 2020-01-15 13:41 | XMS REPORT ---
:1955 Author Organization eClinicalWorks Care Team Providers Name Role Phone Bryson Johnson Provider Role Unavailable Allergies No Known Allergies Problems Problem Type Condition Code Onset Dates Condition Statu s Assessment Hyperlipidemia E78.5 Active Problem Benign essential HTN I10 Active [...] Start End Date Status Dosage System Date Dicyclomine HCl ND 36114061814 20 MG Orally Active 1 tablet Three times a day Myrbetriq ND 06824944174 25MG Orally Active take o ne Once a day tablet by mouth once daily Dexilant [facility] 96224386800 60 MG Active TAKE 1 CAPSULE BY MOUTH ONCE DAILY Spironolactone-H [facility] 32740932435 25-25 MG Orally Act daren 1 tablet CTZ Once a day Zyprexa [facility] 47917250106 10 MG Orally Active 1 table t Once a day Magnesium [facility] 03964540932 300 MG Orally Active 1 ca psule Once a day with a meal Trimethoprim [facility] 78984821005 100 mg Orally Karen Active 1 tablet Once a day 2019 Myrbetriq [facility] 32499731472 50 MG Orally Active 1 tab let Once a day Olanzapine ND 78832674860 10 MG Orally Active TAKE 1 Once a day TABLET BY MOUTH ONCE DAILY FOR 90 DAYS Klor-Con M20 [facility] 97670771532 20 MEQ Orally Active 1 tablet Once a day with food Trelegy Ellipta [facility] 57848034421 100-62.5-25 Active 1 puff MCG/INH Inhalation Once a day Citalopram [facility] 31700592949 40MG Active TAKE ONE Hydrobromide TABLET BY MOUTH ONCE DAILY Aggrenox [facility] 36323819952 25-200 MG Active 1 capsule Orally Twice a day Folic Acid [facility] 09860922549 1 MG Orally Active 1 tab let Once a day Solifenacin [facility] 43860757452 5 MG Orally Active 1 ta blet Succinate Once a day Simvastatin [facility] 88477479864 40 MG Orally Active 1 t ablet Once a day in the evening Citalopram [facility] 66183161834 40MG Orally Active 1 tab let Hydrobromide Once a day Gabapentin [facility] 97199865820 300 MG Orally Active 1 c apsule Once a day Levetiracetam [facility] 17804940368 500 MG Orally Active 1 1/2 Twice a day tablet Ropinirole HCl [facility] 98456481024 2 MG Oral Active GULSHAN E 3 TABLETS BY MOUTH IN THE MORNING THEN TAKE 2 TABLETS BY MOUTH MIDDAY THEN TAKE 2 TABLETS BY MOUTH IN THE EVENING Alendronate [facility] 36702376242 70 MG Orally Active 1 t ablet Sodium Once weekly Belsomra [facility] 05312578390 15 MG Orally Active 1 tabl et Once a day at bedtime as needed Clonazepam [facility] 64761557153 0.5 MG Oral Active (Sche dule IV Drug) TAKE 1 TABLET BY MOUTH TWICE DAILY NEEDED FOR ANXIETY Calcium + D3 [facility] 12358493277 600-800 MG-UNIT Active 1 tablet Orally Twice a with a day meal Duloxetine HCl [facility] 36263683006 30 MG Orally Active 1 capsule Once a day Results No Known Results Summary Purpose eClinicalWorks Submission
--- OUTSIDE RECORDS SUMMARY | 2020-01-15 13:42 | XMS REPORT | Summary of Care ---
:1955 Author Organization [facility] Address [address] [place] [address] Care Team Providers Name Role Phone Will Johnson Primary Care Provider Reason for Visit Reason Comments Follow-up cysto/Botox (Routine) Status Reason Specialty Diagnoses / Procedures Referred By Vasyl harterred To Contact Contact Authorized URO-UROLOGY / Diagnoses Botox 200 Units Radha Castrejon Farhan, Bilal, Urology Procedures CONSULT/REFERRAL UROLOGY ND CYSTOURETHROSCOPY INJ CHEMODENERVATION BLADDER PROCEDURE MD [place] [address] [place] [address] [address] [place] [address] [place] [address] Phone: Fax: Encounter Details Date Type Department Care Team Description 12/23/2019 Office Visit [facility] Urology- Micah Castrejon MD Urinary incontinence, mixed (Primary Dx) ; [facility] [address] [facility] Neurogenic bladder [address] [place] [address] [phone] Allergies Active Allergy Reactions Severity Noted Date Comments Codeine Swelling, Rash 06/05/2017 Penicillins Anaphylaxis, Rash 06/05/2017 Tramadol Nausea and/or Vomiting 08/05/2018 documented as of this encounter (statuses as of 12/23/2019) Medications Medication Sig Dispensed Refills Start Date End Date Status alendronate 70 mg 0 08/01/2018 A ctive tablet citalopram 40 mg citalopram 40 mg 0 Active tablet tablet FLUARIX QUAD 0 06/12/2018 Active 4184-6866, PF, 60 mcg (15 mcg x 4)/0.5 mL syringe albuterol-ipratropium Combivent Respimat 0 Active (COMBIVENT RESPIMAT) 20 mcg-100 20-100 mcg/actuation mcg/actuation inhaler solution for inhalation TRELEGY ELLIPTA 0 07/30/2018 Act daren 100-62.5-25 mcg DsDv DEXILANT 60 mg 0 07/09/2018 Acti ve capsule suvorexant (BELSOMRA) Belsomra 10 mg 0 Active 10 mg Tab tablet amitriptyline 50 mg 0 07/11/2018 Active tablet diclofenac 50 mg Take 1 tablet by 90 tablet 0 01/16/2019 Active tablet mouth 3 (three) times daily. rOPINIRole 2 mg TAKE 3 TABLETS BY 210 tablet 3 08/04/2019 Active tablet MOUTH IN THE MORNING, THEN TAKE 2 TABLETS BY MOUTH MIDDAY, THEN TAKE 2 TABLETS BY MOUTH IN THE EVENING aspirin-dipyridamole Take 1 capsule by 60 capsule 1 08/28/2019 Active 25-200 mg per 12 hr mouth 2 (two) capsule times daily. clonazePAM 1 mg Take 1 tablet by 90 tablet 0 10/12/2019 Active tablet mouth 3 (three) times daily. solifenacin 5 mg Take 1 tablet by 30 tablet 0 11/09/2019 Active tabletIndications: mouth daily. Urgency incontinence LEVETIRACETAM 500 mg TAKE 1 & 1/2 (ONE 90 tablet 0 11/23/2019 Active tablet & ONE-HALF) TABLETS BY MOUTH TWICE DAILY mirabegron Myrbetriq 50 mg 0 Act daren (MYRBETRIQ) 50 mg tablet,extended tablet release Hospital, Clinic, or Ordered Dose Route Frequency Start Date End D ate Status Other Facility Administered Medication clostridium 200 Units IM ONCE 12/23/2019 12/23/2019 Ended botulinum toxin (BOTOX) injection 200 UnitsIndications: Neurogenic bladder lidocaine 2% 2 % Infiltration ONCE 12/23/2019 12/23/2019 En ded (XYLOCAINE) 15 mL in NaCl 0.9% (NS) 35 mL documented as of this encounter (statuses as of 12/23/2019) Active Problems No known active problemsdocumented as of this encounter (statuses as of 12/23/2019) Social History Tobacco Use Types Packs/Day Years Used Date Current Every Day Smoker Smokeless Tobacco: Never Used Comments: no smoker x 4 weeks Alcohol Use Drinks/Week oz/Week Comments Yes 1 Standard drinks or equivalent 1.0 Sex Assigned at Date Recorded Not on file Job Start Date Occupation Industry Not on file Not on file Not on file Travel History Travel Start Travel End No recent travel history available. documented as of this encounter Last Filed Vital Signs Vital Sign Reading Time Taken Comments Blood Pressure 176/99 12/23/2019 3:13 PM CDT Pulse 84 12/23/2019 3:13 PM CDT Temperature 36.7 C (98 F) 12/23/2019 3:13 PM CDT Respiratory Rate 18 12/23/2019 3:13 PM CDT Oxygen Saturation 96% 12/23/2019 3:13 PM CDT Inhaled Oxygen Concentration - - Weight 87.9 kg (193 lb 11.2 oz) 12/23/2019 3:13 PM CDT Height 165.1 cm (5' 5") 12/23/2019 3:13 PM CDT Body Mass Index 32.23 12/23/2019 3:13 PM CDT documented in this encounter Progress Notes Radha Castrejon MD - 12/23/2019 2:30 PM CDT Radha Castrejon MD Street 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 REASON FOR REFERRAL/CHIEF COMPLAINT: Mixed urinary incontinence HISTORY OF PRESENT ILLNESS: This is a 64 year old female who was referred to the urology clinic for evaluation of mixed urinary incontinence. The patient has been complaining from DEEJAY for years. UUI>LOPEZ. Has seen Dr. Wilson at [facility] who evaluated her with cystoscopy and CMG which showed multiple DO with leaks, startedat 130 ml. PVR before UDS was 120 ml. Negative stress test. Pdet@max 30 cmH2O. PVR 390 ml. Cysto negative for stone, tumor. She used 1-3 pads per days. She tried vesicare, myrbetriq but failed. A detailed urologic review of systems reveals daytime frequency every 1 hours, has moderate urgency, nocturia x 2-3. The patient reports stress urinary incontinence, moderate urge urinary incontinence, nocturnal incontinence, and requires protection in the form of 1-3 pads / pantyliners. The patient deneis difficulty emptying, the need to strain to void, and a complete sense of emptying. The urinary stream is good. The patient denies a history of catheterization. The patient deneis dysuria and gross hematuria. The patient reports a daily fluid intake of water 6 bottles of 16 oz, tea 4 of 32oz, . The patient reports a history of kidney stones and has surgerymany years ago. She reports normal bowel movements . A gynecologic review of systems reveals: G6, P5 female with normal vaginal deliveries and CS for twin. She deneis a history of obstetric complications. She is not sexually active and has dryness. She has hx of robotic supracervical hysterectomy The patient has hx of major stroke and carotid artery stenosis per patient with right side weakness. 12/23/2019: the patient underwent indtradetrusor Botox injection 200 U. PAST MEDICAL HISTORY: No past medical history on file. PAST SURGICAL HISTORY: No past surgical history on file. MEDICATIONS: Current Outpatient Medications: mirabegron (MYRBETRIQ) 50 mg tablet, Myrbetriq 50 mg tablet,extended release, Disp: , Rfl: LEVETIRACETAM 500 mg tablet, TAKE 1 & 1/2 (ONE & ONE-HALF) TABLETS BY MOUTH TWICE DAILY, Disp: 90 tablet, Rfl: 0 solifenacin 5 mg tablet, Take 1 tablet by mouth daily., Disp: 30 tablet, Rfl: 0 clonazePAM 1 mg tablet, Take 1 tablet by mouth 3 (three) times daily., Disp: 90 tablet, Rfl: 0 aspirin-dipyridamole 25-200 mg per 12 hr capsule, Take 1 capsule by mouth 2 (two) times daily.,Disp: 60 capsule, Rfl: 1 rOPINIRole 2 mg tablet, TAKE 3 TABLETS BY MOUTH IN THE MORNING, THEN TAKE 2 TABLETS BY MOUTH MIDDAY, THEN TAKE 2 TABLETS BY MOUTH IN THE EVENING, Disp: 210 tablet, Rfl: 3 diclofenac 50 mg tablet, Take 1 tablet by mouth 3 (three) times daily., Disp: 90 tablet, Rfl: 0 albuterol-ipratropium (COMBIVENT RESPIMAT) 20-100 mcg/actuation inhaler, Combivent Respimat 20 mcg-100 mcg/actuation solution for inhalation, Disp: , Rfl: alendronate 70 mg tablet, , Disp: , Rfl: amitriptyline 50 mg tablet, , Disp: , Rfl: citalopram 40 mg tablet, citalopram 40 mg tablet, Disp: , Rfl: DEXILANT 60 mg capsule, , Disp: , Rfl: FLUARIX QUAD [id number], PF, 60 mcg (15 mcg x 4)/0.5 mL syringe, , Disp: , Rfl: suvorexant (BELSOMRA) 10 mg Tab, Belsomra 10 mg tablet, Disp: , Rfl: TRELEGY ELLIPTA 100-62.5-25 mcg DsDv, , Disp: , Rfl: Current Facility-Administered Medications: clostridium botulinum toxin (BOTOX) injection 200 Units, 200 Units, Intramuscular, ONCE, Radha Castrejon MD Facility-Administered Medications Ordered in Other Visits: lidocaine 2% (XYLOCAINE) 15 mL in NaCl 0.9% (NS) 35 mL, , Infiltration, ONCE, Radha Castrejon MD ALLERGIES: Allergies Allergen Reactions Codeine Swelling and Rash Pcn [Penicillins] Anaphylaxis and Rash Tramadol Nausea and/or Vomiting FAMILY HISTORY: No family history on file. SOCIAL HISTORY: Social History Socioeconomic History Marital status: Spouse name: Not on file Number of children: Not on file Years of education: Not on file Highest education level: Not on file Occupational History Not on file Social Needs Financial resource strain: Not on file Food insecurity: Worry: Not on file Inability: Not on file Transportation needs: Medical: Not on file Non-medical: Not on file Tobacco Use Smoking status: Current Every Day Smoker Smokeless tobacco: Never Used Tobacco comment: no smoker x 4 weeks Substance and Sexual Activity Alcohol use: Yes Alcohol/week: 1.0 standard drinks Types: 1 Standard drinks or equivalent per week Drug use: No Sexual activity: Not on file Lifestyle Physical activity: Days per week: Not on file Minutes per session: Not on file Stress: Not on file Relationships Social connections: Talks on phone: Not on file Gets together: Not on file Attends church service: Not on file Active member of club or organization: Not on file Attends meetings of clubs or organizations: Not on file Relationship status: Not on file Intimate partner violence: Fear of current or ex partner: Not on file Emotionally abused: Not on file Physically abused: Not on file Forced sexual activity: Not on file Other Topics Concern Not on file Social History Narrative Not on file REVIEW OF SYSTEMS: General: Denies chills, fatigue, fever, hot flashes or weight changes ENT: Denies headaches, nasal congestion, nasal discharge or sore throat Hematological: denies bleeding problems or blood clots Endocrine: denies hot flashes or temperature intolerance Respiratory: denies cough, shortness of breath, or wheezing Cardiovascular: denies chest pain or dyspnea on exertion Gastrointestinal: denies abdominal pain, constipation, diarrhea or nausea/vomiting Genito-Urinary: per HPI Musculoskeletal: denies joint pain, joint stiffness, joint swelling, muscle pain or muscular weakness Neurological: denies dizziness, headaches, numbness/tingling or visual changes Skin: denies rashes, moles or other lesions. PHYSICAL EXAMINATION: BP (!) 176/99 (BP Location: Left arm, Patient Position: Sitting, BP CUFF SIZE: Adult Large) | Pulse84 | Temp 36.7 C (98 F) (Oral) | Resp 18 | Ht 5' 5" (1.651 m) | Wt 193 lb 11.2 oz (87.9 kg)| SpO2 96% | BMI 32.23 kg/m General: Well Developed. No apparent distress. Eyes: Normal conjunctiva. ENT: No external lesions. Neck is supple. No masses. Resp: Normal respiratory effort. CV: No LE edema. GI: Abdomen soft nontender nondistended. Musculoskeletal: Normal gait and station. Normal range of motion. Skin: No rash, lesions, ulcers. Psych: Normal judgement/ insight. Awake and oriented x 3. Genitalia: deferred for the next visit. LABS: Reviewed PVR [address] Rachel: Showed multiple DO with leaks, started at 130 ml. PVR before UDS was 120 ml. Negative stress test. Pdet@max 30 cmH2O. PVR 390 ml. Cysto negative for stone, tumor CT scan: 1. No evidence of renal stone, ureteral stone. 2. Dilated right renal pelvis and mild dilation of the right renal calyces without any obstructing stone. There is abnormal appearance to the renal pelvis. I would recommend further evaluation with CT urogram. 3. Diverticulosis of the colon 4. A 5 mm groundglass nodule in the right lower lobe. Follow-up recommended in 6 months. 5. Old compression fracture of L1 vertebral body with retropulsion of the posterior-superior vertebral body into the spinal canal ASSESSMENT AND PLAN: This is a 64 year old female who was referred to the urology clinic for evaluation of mixed urinary incontinence. Hx of stroke DEEJAY: UUI>LOPEZ: unhappy and bothered using diapers 1-3, failed medical therapy Hx of nephrolithiasis Plan: - Counseled about urinary retention and if unable to urinate > 6 hours to start self CIC - Hold the vesicare 10 mg - RTC in 6 weeks Radha Castrejon MD Radha lew MD - 12/23/2019 2:30 PM CDTProcedure Note Preoperative Diagnosis: OAB Postoperative Diagnosis: Same Procedure Performed: Indtradetrusor Botox Injection Attending Physician: Radha Castrejon MD Drains: None Complications: None Specimens: None Indications For Procedure: This is a 64 year old female who was referred to the urology clinic for evaluation of mixed urinary incontinence. The patient has been complaining from DEEJAY for years. UUI>LOPEZ. Has seen Dr. Wilson at [facility] who evaluated her with cystoscopy and CMG which showed multiple DO with leaks, started at 130 ml. PVR before UDS was 120 ml. Negative stress test. Pdet@max 30 cmH2O. PVR 390 ml. Cysto negative for stone, tumor. She used 1-3 pads per days. She tried vesicare, myrbetriq but failed. A detailed urologic review of systems reveals daytime frequency every 1 hours, has moderate urgency, nocturia x 2-3. The patient reports stress urinary incontinence, moderate urge urinary incontinence, nocturnal incontinence, and requires protection in the form of 1-3 pads / pantyliners. The patient deneis difficulty emptying, the need to strain to void, and a complete sense of emptying. The urinary stream is good. The patient denies a history of catheterization. The patient deneis dysuria and gross hematuria. The patient reports a daily fluid intake of water 6bottles of 16 oz, tea 4 of 32oz, . The patient reports a history of kidney stones and has surgery many years ago. She reports normal bowel movements . A gynecologic review of systems reveals: G6, P5 female with normal vaginal deliveries and CS for twin. She deneis a history of obstetric complications. She is not sexually active and has dryness. She has hx of robotic supracervical hysterectomy The patient has hx of major stroke and carotid artery stenosis per patient with right side weakness. The risks, benefits, and alternatives to transplant stent removal were discussed including bleeding,infection, dysuria, and damage to adjacent structures. she elected to proceed Procedure In Detail: After informed consent, the patient was administered perioperative prophylacticantibiotics. The patient's external genitalia were prepped and draped in the usual fashion. Prior tobeginning our procedure, a preoperative timeout was performed to verify the patient identity, procedure to be performed, and laterality. Once complete, we began the case. The patient was placed on the table in the modified lithotomy position and the gentalia were preppedand draped in a usual manner, 50 cc of lidocaine 2% were placed in the bladder. 200 units of Botox were reconstituted in 10 mL of normal saline. 16-Malawian high definition flexible cystoscope was used to enter the bladder. Bladder was visualized and found to be free of tumors or stones or foreign bodies. There was no evidence of inflammatory changes. The ureteral orifices were identified as well as the bladder neck. Bladder neck injection, anterior wall injection, bladder trigone, and posterior wall were injected. Each injection was 0.5 mL and 1 cm apart. The bladder was drained and the cystoscope was removed. The patient tolerated the procedure well. Radha Castrejon MD documented in this encounter Plan of Treatment Health Maintenance Due Date Last Done Comments HEPATITIS C (HCV) SCREEN 1955 PNEUMOCOCCAL 0-64 YEARS COMBINED SERIES (1 of - 1963 PPSV23) DTaP,Tdap,and Td Vaccines (1 - Tdap) 1968 PAP SMEAR 1978 Breast Cancer Screening (MAMMOGRAM) 1997 COLONOSCOPY 2007 Zoster Recombinant Vaccine (SHINGRIX) (1 of 2) 2007 LUNG CANCER SCREEN: Recommended for age 55-80 with 30 + 08/22/20 12 pack year history INFLUENZA VACCINE (#1) 2019 documented as of this encounter Results Not on filedocumented in this encounter Visit Diagnoses Diagnosis Urinary incontinence, mixed - Primary Mixed incontinence urge and stress (male )(female) Neurogenic bladder Neurogenic bladder, NOS documented in this encounter Administered Medications Medication Order MAR Action Action Date Dose Rate Site clostridium botulinum Given 12/23/2019 4:49 PM 200 Units See Comment toxin (BOTOX) injection CDT 200 Units 200 Units, Intramuscular, ONCE, 1 dose, Sat12/23/19 at 1530, Routine, mathematics faculty member approving Restricted medication: RADHA CASTREJON lidocaine 2% (XYLOCAINE) 15 mL in NaCl 0.9% Given 12/23/2019 4: 50 PM CDT 2 % (NS) 35 mL 2 %, Infiltration, ONCE, 1 dose, Sat12/23/19 at 1700, Routine documented in this encounter Insurance Payer Benefit Plan / Subscriber ID Effective Phone Address [facility] Group [facility] [id number] 2019-Pres [facility] - HEALTHCARE ent Adv HM O MANAGED DUAL COMPLETE MEDICARE HMO [facility] MEDICAID OF xxxxxxxxx 2017-Pres [phone] ca[address] [place] ent [id number] [place] [address] documented as of this encounter
--- OUTSIDE RECORDS SUMMARY | 2020-01-15 13:42 | XMS REPORT | Summary of Care ---
:1955 Author Organization [facility] - Health Address [address] [place] [address] Care Team Providers Name Role Phone Will Johnson Primary Care Provider Encounter Details Date Type Department Care Team Description 12/17/2019 Orders Only [facility] Doctor Unassigned, No [address] [facility] [place] [address] [address] [place] [address] Allergies Active Allergy Reactions Severity Noted Date Comments Codeine Swelling, Rash 06/05/2017 Penicillins Anaphylaxis, Rash 06/05/2017 Tramadol Nausea and/or Vomiting 08/05/2018 documented as of this encounter (statuses as of 12/21/2019) Medications Medication Sig Dispensed Refills Start Date End Date Status alendronate 70 mg 0 08/01/2018 A ctive tablet citalopram 40 mg citalopram 40 mg 0 Active tablet tablet FLUARIX QUAD 0 06/12/2018 Active [id number], PF, 60 mcg (15 mcg x 4)/0.5 [...] & ONE-HALF) TABLETS BY MOUTH TWICE DAILY documented as of this encounter (statuses as of 12/21/2019) Active Problems No known active problemsdocumented as of this encounter (statuses as of 12/21/2019) Social History Tobacco Use Types Packs/Day Years [...] of this encounter Last Filed Vital Signs Not on filedocumented in this encounter Plan of Treatment Date Type Specialty Care Team Description 12/23/2019 Office Visit Urology Damion Castrejon M D [address] [facility] [address] [place], [place] [id number] Health Maintenance Due Date Last Done Comments HEPATITIS C (HCV) SCREEN 1955 PNEUMOCOCCAL 0-64 YEARS COMBINED SERIES (1 of 1 - 1963 PPSV23) DTaP,Tdap,and Td Vaccines (1 - Tdap) 1968 PAP SMEAR 1978 Breast Cancer Screening (MAMMOGRAM) 1997 COLONOSCOPY 2007 Zoster Recombinant Vaccine (SHINGRIX) (1 of 2) 2007 LUNG CANCER SCREEN: Recommended for age 55-80 with 30 + 08/22/20 12 pack year history INFLUENZA VACCINE (#1) 2019 documented as of this encounter Procedures Procedure Name Priority Date/Time Associated Diagnosis Comme nts REFERRAL- Routine 12/17/2019 12:01 AM CDT REQUEST/RESPONSE documented in this encounter Results Not on filedocumented in this encounter Insurance Payer Benefit Plan / Subscriber ID Effective Phone Address T ype Group Dates [facility] [id number] 2019-Pres [facility] - HEALTHCARE ent Adv HM O MANAGED DUAL COMPLETE MEDICARE HMO [facility] MEDICAID OF xxxxxxxxx 2017-Pres [phone] ca[address] [place] ent [id number] [place] [address] documented as of this encounter
--- OUTSIDE RECORDS SUMMARY | 2020-01-15 13:42 | XMS REPORT | Summary of Care ---
:1955 Author Organization [facility] Address [address] [place] [address] Care Team Providers Name Role Phone Will Jhonson Primary Care Provider Reason for Visit Reason Comments Rx Concern/Question Encounter Details Date Type Department Care Team Description 12/17/2019 Telephone [facility] Urology- Micah Castrejon MD Rx Concern/Question [facility] [address] [facility] [address] [facility] [address] [place] [address] [phone] Allergies Active Allergy Reactions Severity Noted Date Comments Codeine Swelling, Rash 06/05/2017 Penicillins Anaphylaxis, Rash 06/05/2017 Tramadol Nausea and/or Vomiting 08/05/2018 documented as of this encounter (statuses as of 12/17/2019) Medications Medication Sig Dispensed Refills Start Date End Date Status alendronate 70 mg 0 08/01/2018 A ctive tablet citalopram 40 mg citalopram 40 mg 0 Active tablet tablet FLUARIX QUAD 0 06/12/2018 Active 7300-3113, PF, 60 mcg (15 mcg x 4)/0.5 [...] as of this encounter (statuses as of 12/17/2019) Active Problems No known active problemsdocumented as of this encounter (statuses as of 12/17/2019) Social History Tobacco Use Types Packs/Day Years [...] Treatment Date Type Specialty Care Team Description 12/18/2019 Office Visit Neurology Frank Frederick MD [address] [place], [place] [address]d. [place], [place] [address] 12/23/2019 Office Visit Urology Damion Castrejon M D [address] [facility] [address] [place] [address] [phone] Health Maintenance Due Date Last Done Comments [...] / Subscriber ID Effective Phone Address T e Group Dates [facility] [id number] 2019-Pres [facility] - HEALTHCARE ent Adv HM O MANAGED DUAL COMPLETE MEDICARE O [facility] MEDICAID OF xxxxxxxxx 2017-Pres [phone] [facility] ent [phone] [place] [address] documented as of this encounter
--- OUTSIDE RECORDS SUMMARY | 2020-01-15 13:42 | XMS REPORT | Summary of Care ---
:1955 Author Organization [facility] Address [address] [place] [address] Care Team Providers Name Role Phone Will Johnson Primary Care Provider Reason for Visit Reason Comments Follow-up cysto/Botox (Routine) Status Reason Specialty Diagnoses / Procedures Referred By Vasyl harterred To Contact Contact Authorized URO-UROLOGY / Diagnoses Botox 200 Units Radha Castrejon Farhan, Bilal, Urology Procedures CONSULT/REFERRAL UROLOGY [place] CYSTOURETHROSCOPY INJ CHEMODENERVATION BLADDER PROCEDURE MD [facility] [address] [place] [address] [place] [address] [address] [place] [address] [place] [address] Phone: Fax: Encounter Details Date Type Department Care Team Description 12/23/2019 Office Visit [facility] Urology- Micah Castrejon MD Urinary incontinence, mixed (Primary Dx) ; [facility] 22[address] [facility] Neurogenic bladder [address] [place] [address] [place] [address] [phone] Allergies Active Allergy Reactions Severity Noted Date Comments Codeine Swelling, Rash 06/05/2017 Penicillins Anaphylaxis, Rash 06/05/2017 Tramadol Nausea and/or Vomiting 08/05/2018 documented as of this encounter (statuses as of 12/23/2019) Medications Medication Sig Dispensed Refills Start Date End Date Status alendronate 70 mg 0 08/01/2018 A ctive tablet citalopram 40 mg citalopram 40 mg 0 Active tablet tablet FLUARIX QUAD 0 06/12/2018 Active 0912-1165, PF, 60 mcg (15 mcg x 4)/0.5 [...] 12/23/2019 2:30 PM CDT Radha Castrejon MD Hospital Television Rental Clerk of Urology Senior Media Buyer of Female Urology, Voiding Dysfunction and Pelvic Reconstruction [facility] Division of Urology Referring Provider: No referring provider defined for this encounter. REASON FOR REFERRAL/CHIEF COMPLAINT: Mixed urinary incontinence HISTORY OF PRESENT ILLNESS: This is a 64 year old female who was referred to the urology clinic for evaluation of mixed urinary incontinence. The patient has been complaining from DEEJAY for years. UUI>LOPEZ. Has seen Dr. Wilson at [place] who evaluated her with cystoscopy and CMG [...] capsule, , Disp: , Rfl: FLUARIX QUAD [id number], PF, 60 mcg (15 mcg x 4)/0.5 [...] file Gets together: Not on file Attends restorationism service: Not on file Active member of [...] years. UUI>LOPEZ. Has seen Dr. Wilson at [place] who evaluated her with cystoscopy and CMG [...] reconstituted in 10 mL of normal saline. 16-Afghan high definition flexible cystoscope was used to [...] ONCE, 1 dose, Sat12/23/19 at 1530, Routine, space studies faculty member approving Restricted medication: RADHA CASTREJON lidocaine 2% (XYLOCAINE) 15 mL in NaCl 0.9% Given 12/23/2019 4: 50 PM CDT 2 % (NS) 35 mL 2 %, Infiltration, ONCE, 1 dose, Sat12/23/19 at 1700, Routine documented in this encounter Insurance Payer Benefit Plan / Subscriber ID Effective Phone Address [facility] [id number] 2019-Pres Medica [facility] - HEALTHCARE ent Adv HM O MANAGED DUAL COMPLETE MEDICARE HMO [facility] MEDICAID OF xxxxxxxxx 2017-Pres [phone] Medi caid [place] ent [id number] [place] [address] documented as of this encounter
--- OUTSIDE RECORDS SUMMARY | 2020-01-15 13:42 | XMS REPORT | Summary of Care ---
:1955 Author Organization [facility] Address [address] [place] [address] Care Team Providers Name Role Phone Will Johnson Primary Care Provider Reason for Visit Reason Comments Follow-up cysto/Botox (Routine) Status Reason Specialty Diagnoses / Procedures Referred By Vasyl harterred To Contact Contact Authorized URO-UROLOGY / Diagnoses Botox 200 Units Radha Castrejon Farhan, Bilal, Urology Procedures CONSULT/REFERRAL UROLOGY [place] CYSTOURETHROSCOPY INJ CHEMODENERVATION BLADDER PROCEDURE MD CHADWICK [address] [place] [address] [place] [address] [address] [place] [address] [place] [address] Phone: Fax: Encounter Details Date Type Department Care Team Description 12/23/2019 Office Visit [facility] Urology- Micah Castrejon MD Urinary incontinence, mixed (Primary Dx) ; [facility] 22[address] [facility] Neurogenic bladder [address] [place] [address] [phone] Allergies Active Allergy Reactions Severity Noted Date Comments Codeine Swelling, Rash 06/05/2017 Penicillins Anaphylaxis, Rash 06/05/2017 Tramadol Nausea and/or Vomiting 08/05/2018 documented as of this encounter (statuses as of 12/23/2019) Medications Medication Sig Dispensed Refills Start Date End Date Status alendronate 70 mg 0 08/01/2018 A ctive tablet citalopram 40 mg citalopram 40 mg 0 Active tablet tablet FLUARIX QUAD 0 06/12/2018 Active 4515-5056, PF, 60 mcg (15 mcg x 4)/0.5 [...] 12/23/2019 2:30 PM CDT Radha Castrejon MD Insurance Licensing Supervisor of Urology Brim Plater of Female Urology, Voiding Dysfunction and Pelvic Reconstruction [facility] Division of Urology Referring Provider: No referring provider defined for this encounter. REASON FOR REFERRAL/CHIEF COMPLAINT: Mixed urinary incontinence HISTORY OF PRESENT ILLNESS: This is a 64 year old female who was referred to the urology clinic for evaluation of mixed urinary incontinence. The patient has been complaining from DEEJAY for years. UUI>LOPEZ. Has seen Dr. Wilson at [place] who evaluated her with cystoscopy and CMG [...] capsule, , Disp: , Rfl: FLUARIX QUAD [id number], PF, 60 mcg (15 mcg x 4)/0.5 [...] file Gets together: Not on file Attends yazidism service: Not on file Active member of [...] years. UUI>LOPEZ. Has seen Dr. Wilson at [place] who evaluated her with cystoscopy and CMG [...] reconstituted in 10 mL of normal saline. 16-Austrian high definition flexible cystoscope was used to [...] ONCE, 1 dose, Sat12/23/19 at 1530, Routine, count team member approving Restricted medication: RADHA CASTREJON lidocaine 2% (XYLOCAINE) 15 mL in NaCl 0.9% Given 12/23/2019 4: 50 PM CDT 2 % (NS) 35 mL 2 %, Infiltration, ONCE, 1 dose, Sat12/23/19 at 1700, Routine documented in this encounter Insurance Payer Benefit Plan / Subscriber ID Effective Phone Address T [facility] Group [facility] [id number] 2019-Pres Medica [facility] - HEALTHCARE ent Adv HM O MANAGED DUAL COMPLETE MEDICARE HMO [facility] MEDICAID OF xxxxxxxxx 2017-Pres [phone] [address] Medi caid [place] ent [id number] [place] [address] documented as of this encounter
--- OUTSIDE RECORDS SUMMARY | 2020-01-15 13:43 | XMS REPORT | Summary of Care ---
:1955 Author Organization [facility] Address [address] [place] [address] Care Team Providers Name Role Phone Will Johnson Primary Care Provider Reason for Visit Reason Comments Follow-up cysto/Botox (Routine) Status Reason Specialty Diagnoses / Procedures Referred By Vasyl harterred To Contact Contact Authorized URO-UROLOGY / Diagnoses Botox 200 Units Radha Castrejon Farhan, Bilal, Urology Procedures CONSULT/REFERRAL UROLOGY [place] CYSTOURETHROSCOPY INJ CHEMODENERVATION BLADDER PROCEDURE MD CHADWICK [address] [place] [address] [place] [address] [address] [place] [address] [place] [address] Phone: Fax: Encounter Details Date Type Department Care Team Description 12/23/2019 Office Visit [facility] Urology- Micah Castrejon MD Urinary incontinence, mixed (Primary Dx) ; [facility] [address] [facility] Neurogenic bladder [address] [place] [address] [phone] Allergies Active Allergy Reactions Severity Noted Date Comments Codeine Swelling, Rash 06/05/2017 Penicillins Anaphylaxis, Rash 06/05/2017 Tramadol Nausea and/or Vomiting 08/05/2018 documented as of this encounter (statuses as of 12/23/2019) Medications Medication Sig Dispensed Refills Start Date End Date Status alendronate 70 mg 0 08/01/2018 A ctive tablet citalopram 40 mg citalopram 40 mg 0 Active tablet tablet FLUARIX QUAD 0 06/12/2018 Active 5110-7547, PF, 60 mcg (15 mcg x 4)/0.5 [...] 12/23/2019 2:30 PM CDT Radha Castrejon MD Category Analyst of Urology Door Assembler of Female Urology, Voiding Dysfunction and Pelvic Reconstruction [facility] Division of Urology Referring Provider: No referring provider defined for this encounter. REASON FOR REFERRAL/CHIEF COMPLAINT: Mixed urinary incontinence HISTORY OF PRESENT ILLNESS: This is a 64 year old female who was referred to the urology clinic for evaluation of mixed urinary incontinence. The patient has been complaining from DEEJAY for years. UUI>LOPEZ. Has seen Dr. Wilson at [place] who evaluated her with cystoscopy and CMG [...] capsule, , Disp: , Rfl: FLUARIX QUAD 2402-2874, PF, 60 mcg (15 mcg x 4)/0.5 [...] file Gets together: Not on file Attends scientology service: Not on file Active member of [...] years. UUI>LOPEZ. Has seen Dr. Wilson at [place] who evaluated her with cystoscopy and CMG [...] reconstituted in 10 mL of normal saline. 16-Jamaican high definition flexible cystoscope was used to [...] ONCE, 1 dose, Sat12/23/19 at 1530, Routine, tank crewmember approving Restricted medication: RADHA CASTREJON lidocaine 2% (XYLOCAINE) 15 mL in NaCl 0.9% Given 12/23/2019 4: 50 PM CDT 2 % (NS) 35 mL 2 %, Infiltration, ONCE, 1 dose, Sat12/23/19 at 1700, Routine documented in this encounter Insurance Payer Benefit Plan / Subscriber ID Effective Phone Address [facility] [id number] 2019-Pres Medica [facility] - HEALTHCARE ent Adv HM O MANAGED DUAL COMPLETE MEDICARE HMO [facility] MEDICAID OF xxxxxxxxx 2017-Pres [phone] [address] Medi caid [place] ent [id number] [place] [address] documented as of this encounter
--- OUTSIDE RECORDS SUMMARY | 2020-01-15 13:43 | XMS REPORT | Summary of Care ---
:1955 Author Organization [facility] Address [address] [place] [address] Care Team Providers Name Role Phone Will Johnson Primary Care Provider Reason for Visit Reason Comments Follow-up cysto/Botox (Routine) Status Reason Specialty Diagnoses / Procedures Referred By Vasyl harterred To Contact Contact Authorized URO-UROLOGY / Diagnoses Botox 200 Units Radha Castrejon Farhan, Bilal, Urology Procedures CONSULT/REFERRAL UROLOGY [place] CYSTOURETHROSCOPY INJ CHEMODENERVATION BLADDER PROCEDURE MD CHADWICK [address] [place] [address] [place] [address] [address] [place] [address] [place] [address] Phone: Fax: Encounter Details Date Type Department Care Team Description 12/23/2019 Office Visit [facility] Urology- Micah Castrejon MD Urinary incontinence, mixed (Primary Dx) ; [facility] 2280 [facility] Neurogenic bladder [address] [place] [address] [place] [address] [phone] Allergies Active Allergy Reactions Severity Noted Date Comments Codeine Swelling, Rash 06/05/2017 Penicillins Anaphylaxis, Rash 06/05/2017 Tramadol Nausea and/or Vomiting 08/05/2018 documented as of this encounter (statuses as of 12/23/2019) Medications Medication Sig Dispensed Refills Start Date End Date Status alendronate 70 mg 0 08/01/2018 A ctive tablet citalopram 40 mg citalopram 40 mg 0 Active tablet tablet FLUARIX QUAD 0 06/12/2018 Active 2103-5455, PF, 60 mcg (15 mcg x 4)/0.5 [...] 50 mg tablet,extended tablet release Hospital, Clinic, Ordered Dose Route Frequency Start Date End Date Status or Other Facility Administered Medication clostridium 200 Units IM ONCE 12/23/2019 Ended botulinum toxin 0 (BOTOX) injection 200 UnitsIndications: Neurogenic bladder lidocaine 2% 2 % Infiltration ONCE 12/23/2019 Dis continued (XYLOCAINE) 15 mL 0 in NaCl 0.9% (NS) 35 mL documented [...] 12/23/2019 2:30 PM CDT Radha Castrejon MD Director Of Sports Medicine of Urology Engineering Mgr of Female Urology, Voiding Dysfunction and Pelvic Reconstruction [facility] Division of Urology Referring Provider: No referring provider defined for this encounter. REASON FOR REFERRAL/CHIEF COMPLAINT: Mixed urinary incontinence HISTORY OF PRESENT ILLNESS: This is a 64 year old female who was referred to the urology clinic for evaluation of mixed urinary incontinence. The patient has been complaining from DEEJAY for years. UUI>LOPEZ. Has seen Dr. Wilson at [place] who evaluated her with cystoscopy and CMG [...] capsule, , Disp: , Rfl: FLUARIX QUAD 7013-4349, PF, 60 mcg (15 mcg x 4)/0.5 [...] file Gets together: Not on file Attends orthodox service: Not on file Active member of [...] years. UUI>LOPEZ. Has seen Dr. Wilson at [place] who evaluated her with cystoscopy and CMG [...] reconstituted in 10 mL of normal saline. 16-Iraqi high definition flexible cystoscope was used to [...] documented in this encounter Plan of Treatment Date Type Specialty Care Team Description 02/03/2020 Office Visit Urology Radha Castrejon M D 22[address] [facility] [address] [place], [place] [id number] Health Maintenance Due Date Last Done Comments [...] ONCE, 1 dose, Sat12/23/19 at 1530, Routine, menhaden fishing crew member approving Restricted medication: RADHA CASTREJON lidocaine 2% (XYLOCAINE) 15 mL in NaCl 0.9% Given 12/23/2019 4: 50 PM CDT 2 % (NS) 35 mL 2 %, Infiltration, ONCE, 1 dose, Sat12/23/19 at 1700, Routine documented in this encounter Insurance Payer Benefit Plan / Subscriber ID Effective Phone Address T e Group [facility] [id number] 2019-Pres [facility] - HEALTHCARE ent Adv HM O MANAGED DUAL COMPLETE MEDICARE O [facility] MEDICAID OF xxxxxxxxx 2017-Pres [phone] [address] Medi caid [place] ent [id number] [place] [address] documented as of this encounter
--- OUTSIDE RECORDS SUMMARY | 2020-01-15 13:44 | XMS REPORT | Summary of Care ---
:1955 Author Organization [facility] Address [address] [place] [address] Care Team Providers Name Role Phone Will Johnson Primary Care Provider Reason for Visit Reason Comments Follow-up cysto/Botox (Routine) Status Reason Specialty Diagnoses / Procedures Referred By Vasyl harterred To Contact Contact Authorized URO-UROLOGY / Diagnoses Botox 200 Units Radha Castrejon Farhan, Bilal, Urology Procedures CONSULT/REFERRAL UROLOGY [place] CYSTOURETHROSCOPY INJ CHEMODENERVATION BLADDER PROCEDURE MD CHADWICK [address] [place] [address] [place] [address] [address] [place] [address] [place] [address] Phone: Fax: Encounter Details Date Type Department Care Team Description 12/23/2019 Office Visit [facility] Urology- Micah Castrejon MD Urinary incontinence, mixed (Primary Dx) ; [facility] 2280 [facility] Neurogenic bladder [address] [place] [address] [place] [address] [phone] Allergies Active Allergy Reactions Severity Noted Date Comments Codeine Swelling, Rash 06/05/2017 Penicillins Anaphylaxis, Rash 06/05/2017 Tramadol Nausea and/or Vomiting 08/05/2018 documented as of this encounter (statuses as of 12/23/2019) Medications Medication Sig Dispensed Refills Start Date End Date Status alendronate 70 mg 0 08/01/2018 A ctive tablet citalopram 40 mg citalopram 40 mg 0 Active tablet tablet FLUARIX QUAD 0 06/12/2018 Active 7326-7284, PF, 60 mcg (15 mcg x 4)/0.5 [...] CDT documented in this encounter Progress Notes Lani Scott RN - 12/23/2019 2:[address] Castrejon's orders set up supplies: cysto pack, cysto tubing, butt pad, lidocaine urojet, 17 degree flexible scope. The risks, benefits and alternatives were discussed. The patient verbalized Understanding of the procedure and wishes to proceed. Informed consent obtained by physician and it is on file. Patient has been identified by name and and will be undergoing a cystoscopy. Timeout performed by Lani Scott RN at 3:25pm prior to prep and draping. The patient tolerated the procedure well and there were no complications. Assisted Dr. Radha Castrejon in Cystoscopy Procedure. Patient tolerated procedure well. Scope was immediately pre-cleaned and taken to SPD at 5:45pm Radha lew MD - 12/23/2019 2:30 PM CDT Radha Castrejon MD Fast Food Attendant of Urology It Administrative Assistant of Female Urology, Voiding Dysfunction and Pelvic Reconstruction [facility] | Division of Urology Referring Provider: No referring provider defined for this encounter. REASON FOR REFERRAL/CHIEF COMPLAINT: Mixed urinary incontinence HISTORY OF PRESENT ILLNESS: This is a 64 year old female who was referred to the urology clinic for evaluation of mixed urinary incontinence. The patient has been complaining from DEEJAY for years. UUI>LOPEZ. Has seen Dr. Wilson at [place] who evaluated her with cystoscopy and CMG [...] capsule, , Disp: , Rfl: FLUARIX QUAD [id number], PF, 60 mcg (15 mcg x 4)/0.5 [...] file Gets together: Not on file Attends roman catholic service: Not on file Active member of [...] years. UUI>LOPEZ. Has seen Dr. Wilson at [place] who evaluated her with cystoscopy and CMG [...] reconstituted in 10 mL of normal saline. 16-Ukrainian high definition flexible cystoscope was used to [...] Visit Urology Radha Castrejon M D 2280 [facility] [address] [place] [address] [phone] Health Maintenance Due Date Last Done Comments [...] ONCE, 1 dose, Sat12/23/19 at 1530, Routine, environmental studies faculty member approving Restricted medication: RADHA CASTREJON lidocaine 2% (XYLOCAINE) 15 mL in NaCl 0.9% Given 12/23/2019 4: 50 PM CDT 2 % (NS) 35 mL 2 %, Infiltration, ONCE, 1 dose, Sat12/23/19 at 1700, Routine documented in this encounter Insurance Payer Benefit Plan / Subscriber ID Effective Phone Address T ype Group Dates [facility] [id number] 2019-Pres Medica re HEALTHCARE - HEALTHCARE ent Adv HM O MANAGED DUAL COMPLETE MEDICARE O [facility] MEDICAID OF xxxxxxxxx 2017-Pres [phone] [address] Medi caid [place] ent [id number] [place] [address] documented as of this encounter
--- OUTSIDE RECORDS SUMMARY | 2020-01-15 13:44 | XMS REPORT ---
:1955 Author Organization [employer] Care Team Providers Name Role Phone Bryson Johnson Provider Role Unavailable Allergies No Known Allergies Problems Problem Type Condition Code Onset Dates Condition Statu s Assessment Stenosis of left carotid artery I65.22 Active Problem Benign essential HTN I10 Active [...]
--- OUTSIDE RECORDS SUMMARY | 2020-01-15 13:44 | XMS REPORT | Summary of Care ---
:1955 Author Organization [facility] Address [address] [place] [address] Care Team Providers Name Role Phone Will Johnson Primary Care Provider Reason for Visit Reason Comments Follow-up cysto/Botox (Routine) Status Reason Specialty Diagnoses / Procedures Referred By Vasyl harterred To Contact Contact Authorized URO-UROLOGY / Diagnoses Botox 200 Units Radha Castrejon Farhan, Bilal, Urology Procedures CONSULT/REFERRAL UROLOGY [place] CYSTOURETHROSCOPY INJ CHEMODENERVATION BLADDER PROCEDURE MD CHADWICK [address] [place] [address] [place] [address] [address] [place] [address] [place] [address] Phone: Fax: Encounter Details Date Type Department Care Team Description 12/23/2019 Office Visit [facility] Urology- Micah Castrejon MD Urinary incontinence, mixed (Primary Dx) ; [facility] 2280 [facility] Neurogenic bladder [address] [place] [address] [place] [address] [phone] Allergies Active Allergy Reactions Severity Noted Date Comments Codeine Swelling, Rash 06/05/2017 Penicillins Anaphylaxis, Rash 06/05/2017 Tramadol Nausea and/or Vomiting 08/05/2018 documented as of this encounter (statuses as of 12/24/2019) Medications Medication Sig Dispensed Refills Start Date End Date Status alendronate 70 mg 0 08/01/2018 A ctive tablet citalopram 40 mg citalopram 40 mg 0 Active tablet tablet FLUARIX QUAD 0 06/12/2018 Active 1635-8671, PF, 60 mcg (15 mcg x 4)/0.5 [...] as of this encounter (statuses as of 12/24/2019) Active Problems No known active problemsdocumented as of this encounter (statuses as of 12/24/2019) Social History Tobacco Use Types Packs/Day Years [...] Lani Scott RN - 12/23/2019 2:30 PM CDTLATE ENTRY FROM OFFICE VISIT 12/23/2019: Received verbal order from provider to teach patient self cathing. Instructed to self cath every 6 hours if not urinated. Repeated back with verbalized understanding. Patient provided with preferred teaching of demonstration on intermittent self catheterization. Shows readiness to learn. Verbal and written instruction provided. Individual is able to read and verbalizes understanding of teaching provided and accurately returns demonstration of skill. Provided patient with supplies and will order more to be sent to patient. Lani Menard RN - 12/23/2019 2:[address] [...] and taken to SPD at 5:45pm Radha Costello MD - 12/23/2019 2:30 PM CDT Radha Castrejon MD Group Director of Urology Attending Pathologist of Female Urology, Voiding Dysfunction and Pelvic Reconstruction [facility] Division of Urology Referring Provider: No referring provider defined for this encounter. REASON FOR REFERRAL/CHIEF COMPLAINT: Mixed urinary incontinence HISTORY OF PRESENT ILLNESS: This is a 64 year old female who was referred to the urology clinic for evaluation of mixed urinary incontinence. The patient has been complaining from DEEJAY for years. UUI>LOPEZ. Has seen Dr. Wilson at [place] who evaluated her with cystoscopy and CMG [...] capsule, , Disp: , Rfl: FLUARIX QUAD [id number], PF, 60 mcg (15 mcg x 4)/0.5 [...] file Gets together: Not on file Attends sikh service: Not on file Active member of [...] years. UUI>LOPEZ. Has seen Dr. Wilson at [place] who evaluated her with cystoscopy and CMG [...] reconstituted in 10 mL of normal saline. 16-Divehi high definition flexible cystoscope was used to [...] Visit Urology Radha Castrejon M D [address] [facility] [address] [place], [place] [id number] Health Maintenance Due Date Last Done Comments [...] ONCE, 1 dose, Sat12/23/19 at 1530, Routine, maintenance team member approving Restricted medication: ADANRADHA HAWTHORNE lidocaine 2% (XYLOCAINE) 15 mL in NaCl 0.9% Given 12/23/2019 4: 50 PM CDT 2 % (NS) 35 mL 2 %, Infiltration, ONCE, 1 dose, Sat12/23/19 at 1700, Routine documented in this encounter Insurance Payer Benefit Plan / Subscriber ID Effective Phone Address T e Group Dates [facility] [id number] 2019-Pres [facility] - HEALTHCARE ent Adv HM O MANAGED DUAL COMPLETE MEDICARE HMO [facility] MEDICAID OF xxxxxxxxx 2017-Pres [phone] [address] Medi caid [place] ent [id number] [place] [address] documented as of this encounter
--- OUTSIDE RECORDS SUMMARY | 2020-01-15 13:45 | XMS REPORT | Summary of Care ---
:1955 Author Organization [facility] - Health Address [address] [place] [address] Care Team Providers Name Role Phone Will Johnson Primary Care Provider Encounter Details Date Type Department Care Team Description 12/25/2019 Orders Only [facility] Doctor Unassigned, No [address] [facility] [place] [address] [address] [place] [address] Allergies Active Allergy Reactions Severity Noted Date Comments Codeine Swelling, Rash 06/05/2017 Penicillins Anaphylaxis, Rash 06/05/2017 Tramadol Nausea and/or Vomiting 08/05/2018 documented as of this encounter (statuses as of 12/28/2019) Medications Medication Sig Dispensed Refills Start Date End Date Status alendronate 70 mg 0 08/01/2018 A ctive tablet citalopram 40 mg citalopram 40 mg 0 Active tablet tablet FLUARIX QUAD 0 06/12/2018 Active 7976-3351, PF, 60 mcg (15 mcg x 4)/0.5 [...] daren (MYRBETRIQ) 50 mg tablet,extended tablet release documented as of this encounter (statuses as of 12/28/2019) Active Problems No known active problemsdocumented as of this encounter (statuses as of 12/28/2019) Social History Tobacco Use Types Packs/Day Years [...] Care Team Description 02/03/2020 Office Visit Urology Damion Castrejon M D [address] [facility] [address] [place] [address] [phone] Health Maintenance Due Date Last Done Comments [...] Name Priority Date/Time Associated Diagnosis Comme nts DME/SUPPLY JUSTIFICATION Routine 12/25/2019 12:01 AM CDT documented in this encounter Results Not on filedocumented in this encounter Insurance Payer Benefit Plan / Subscriber ID Effective Phone Address T e Group Dates [facility] [id number] 2019-Pres Med[facility] HEALTHCARE - HEALTHCARE ent Adv HM O MANAGED DUAL COMPLETE MEDICARE HMO [employer] MEDICAID OF xxxxxxxxx 2017-Pres [phone] [address] [facility] ent [id number] [place] [address] documented as of this encounter
--- OUTSIDE RECORDS SUMMARY | 2020-01-15 13:45 | XMS REPORT | Summary of Care ---
:1955 Author Organization [facility] Address [address] [place] [address] Care Team Providers Name Role Phone Will Johnson Primary Care Provider Reason for Visit Reason Comments Follow-up hfu, stroke Encounter Details Date Type Department Care Team Description 12/18/2019 Office Visit [facility] Frank Frederick Paralysis edward mijares (Primary Dx); Neurology-Neema Maya MD Cerebrovascular disease; [address] [place] [address] Cerebrovas cular accident (CVA) due to thrombosis of left carotid artery [address], [address] [facility] [phone] Allergies Active Allergy Reactions Severity Noted Date Comments Codeine Swelling, Rash 06/05/2017 Penicillins Anaphylaxis, Rash 06/05/2017 Tramadol Nausea and/or Vomiting 08/05/2018 documented as of this encounter (statuses as of 12/28/2019) Medications Medication Sig Dispensed Refills Start Date End Date Status alendronate 70 mg 0 08/01/2018 A ctive tablet citalopram 40 mg citalopram 40 mg 0 Active tablet tablet FLUARIX QUAD 0 06/12/2018 Active 4511-7550, PF, 60 mcg (15 mcg x 4)/0.5 [...] Sign Reading Time Taken Comments Blood Pressure 141/75 12/18/2019 11:49 AM CDT Pulse 90 12/18/2019 11:49 AM CDT Temperature 36.2 C (97.1 F) 12/18/2019 11:49 AM CDT Respiratory Rate 16 12/18/2019 11:49 AM CDT Oxygen Saturation - - Inhaled Oxygen Concentration - - Weight 87.1 kg (192 lb 2 oz) 12/18/2019 11:49 AM CDT Height 165.1 cm (5' 5") 12/18/2019 11:49 AM CDT Body Mass Index 31.97 12/18/2019 11:49 AM CDT documented in this encounter Progress Notes Frank Frederick MD - 12/18/2019 11:20 AM CDT HISTORY OF PRESENT ILLNESS: Jennifer Dietrich is a 64 year old female. Chief complaint: Cerebrovascular disease, parkinsonism,recent stroke. History: The patient was recently hospitalized at an outside institution. She was said to have had astroke. Unfortunately we do not have any of the records from this hospitalization. The symptoms had started off with "a bad headache", and she is status-post a stroke in the past and this also is a wayit had started. She feels like her right side had gotten weaker, there was facial droop, family member with her said that she was not able to be understood. She has mostly recovered except for a littlebit of the weakness on the right side. She did say that her blood pressure medication had been changed. She continues on the Requip dosage, taking 3 of those pills 3 times per day. Testing had been done including carotid ultrasound. She does have a history of a blocked carotid artery which we have known of. This was of the left side. She did not know if there were any other problems with hyponatremia, she has had this issue in the past. Once during the examination I did notice a rhythmical tremor ofjust the left lower extremity. Tests: Testing review from received paperwork. The patient had an acute/subacute ischemia in the left temporal/occipital lobe in the posterior cerebral artery distribution. There was also a small area of recent ischemia of the right occipital lobe. MRA study had revealed severe critical left internal carotid artery stenosis at 99%. Vascular surgery had been consulted but no surgery was recommended. Patient also had had hypertensive urgency. Past Medical History: anemia , bronchial asthma , hypertension , kidney stones , sinus infections, stroke, cerebrovascular diseae. Allergies: Penicillin and Codeine. Family History: Maternal grandfather had a heart and lung disease, mother with lung cancer and father with congestive heart failure. Surgeries: Knee surgery on right, tubal ligation and . 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 She is and she sometimes will drink alcohol. Current Outpatient Medications: mirabegron (MYRBETRIQ) 50 mg tablet, Myrbetriq 50 mg tablet,extended release, Disp: , Rfl: LEVETIRACETAM 500 mg tablet, TAKE 1 & 1/2 (ONE & ONE-HALF) TABLETS BY MOUTH TWICE DAILY, Disp: 90 tablet, Rfl: 0 solifenacin 5 mg tablet, Take 1 tablet by mouth daily., Disp: 30 tablet, Rfl: 0 rOPINIRole 2 mg tablet, TAKE 3 TABLETS BY MOUTH IN THE MORNING, THEN TAKE 2 TABLETS BY MOUTH MIDDAY, THEN TAKE 2 TABLETS BY MOUTH IN THE EVENING, Disp: 210 tablet, Rfl: 3 clonazePAM 1 mg tablet, Take 1 tablet by mouth 3 (three) times daily., Disp: 90 tablet, Rfl: 0 aspirin-dipyridamole 25-200 mg per 12 hr capsule, Take 1 capsule by mouth 2 (two) times daily.,Disp: 60 capsule, Rfl: 1 diclofenac 50 mg tablet, Take 1 tablet [...] capsule, , Disp: , Rfl: FLUARIX QUAD 9247-2459, PF, 60 mcg (15 mcg x 4)/0.5 mL syringe, , Disp: , Rfl: suvorexant (BELSOMRA) 10 mg Tab, Belsomra 10 mg tablet, Disp: , Rfl: TRELEGY ELLIPTA 100-62.5-25 mcg DsDv, , Disp: , Rfl: No family history on file. Social History Socioeconomic History Marital status: Spouse [...] file Gets together: Not on file Attends spiritism service: Not on file Active member of [...] file Social History Narrative Not on file Vital signs: BP (!) 141/75 | Pulse 90 | Temp 36.2 C (97.1 F) (Oral) | Resp 16 | Ht 5' 5" (1.651 m) | Wt 192 lb 2 oz (87.1 kg) | BMI 31.97 kg/m General findings: EOMI/VFFTC/PERRL, no facial asymmetry, CV regular rhythm/rate without murmur, no lung wheeze or rhonchi. The patient is alert and oriented times 3. Cooperative and pleasant during the examination. No new arm or leg weakness present. No new muscle tone changes, either. She is able to get out of a chair and ambulate easier. There was not any muscle tone changes either involving the legs. She was not dragging one leg or the other. No significant tremor noted during this visit. No new reflex asymmetries which are one plus, and light and sharp touch sensation is intact. there was no extinction, either. Once or twice a rhythmical tremor had been noted involving just the left distal lower extremity. Some right carotid bruit also was audible. ASSESSMENT AND RECOMMENDATIONS: ICD-10-CM ICD-9-CM 1. Paralysis agitans G20 332.0 2. Cerebrovascular disease I67.9 437.9 3. Cerebrovascular accident (CVA) due to thrombosis of left carotid artery I63.032 433.11 Impression: She has continued on Aggrenox as her antiplatelet therapy, and also she did not have anyother medication changes made. I am not sure if she's going to need some more detailed imaging studies of the intracerebral vasculature to see if she might need stent placement. Vascular surgery had already seen the patient, and they had declined to do any other testing such as arteriography, and I think that is reasonable. Will continue to see patient and follow-up, I had also discussed with her whether or not the Aggrenox should be changed but she reminded me that when she had been on Plavix that she had excessive bruising. Additionally she is also going to try to stop smoking completely. Creation of the note was aided by utilizing a cut/paste operation of text from a Microsoft Word template created with [employer]. The text was dictated into the template via [employer]. documented in this encounter Plan of Treatment Date Type Specialty Care Team Description 02/03/2020 Office Visit Urology Damion Castrejon M D [address] [facility] [address] [place] [address] [phone] Health Maintenance Due Date Last Done Comments [...] filedocumented in this encounter Visit Diagnoses Diagnosis Paralysis agitans - Primary Cerebrovascular disease Cerebrovascular disease, unspecified Cerebrovascular accident (CVA) due to th rombosis of left carotid artery documented in this encounter Insurance Payer Benefit Plan / Subscriber ID Effective Phone Address T ype Group Dates [facility] [id number] 2019-Pres [facility] HEALTHC[facility] - HEALTHCARE ent Adv HM O MANAGED DUAL COMPLETE MEDICARE O TMHP MEDICAID OF xxxxxxxxx 2017-Pres [phone] Medi caid [place] ent [id number] [place] [address] documented as of this encounter
--- OUTSIDE RECORDS SUMMARY | 2020-01-15 13:45 | XMS REPORT | Summary of Care ---
:1955 Author Organization [facility] Address [address] [place] [address] Care Team Providers Name Role Phone Will Johnson Primary Care Provider Reason for Visit Reason Comments Follow-up hfu, stroke Encounter Details Date Type Department Care Team Description 12/18/2019 Office Visit [facility] Frank Frederick Paralysis edward mijares (Primary Dx); Neurology-Neeam Maya MD Cerebrovascular disease; [address] [place] [address] Cerebrovas cular accident (CVA) due to thrombosis of left carotid artery [address], [address] [place] [phone] Allergies Active Allergy Reactions Severity Noted Date Comments Codeine Swelling, Rash 06/05/2017 Penicillins Anaphylaxis, Rash 06/05/2017 Tramadol Nausea and/or Vomiting 08/05/2018 documented as of this encounter (statuses as of 12/28/2019) Medications Medication Sig Dispensed Refills Start Date End Date Status alendronate 70 mg 0 08/01/2018 A ctive tablet citalopram 40 mg citalopram 40 mg 0 Active tablet tablet FLUARIX QUAD 0 06/12/2018 Active 9113-2616, PF, 60 mcg (15 mcg x 4)/0.5 [...] . 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 She is and [...] capsule, , Disp: , Rfl: FLUARIX QUAD 3196-3234, PF, 60 mcg (15 mcg x 4)/0.5 [...] file Gets together: Not on file Attends baptism service: Not on file Active member of [...] from a Microsoft Word template created with [employer]. The text was dictated into the template via [employer] Naturally Speaking. documented in this encounter Plan of Treatment Date Type Specialty Care Team Description 02/03/2020 Office Visit Urology Damion Castrejon M D [address] [facility] [address] [place] [address] [phone] Health Maintenance Due Date Last Done Comments [...] Effective Phone Address T ype Group Dates [facility] [id number] 2019-Pres Med[facility] HEALTHCARE - HEALTHCARE ent Adv HM O MANAGED DUAL COMPLETE MEDICARE O TMHP MEDICAID OF xxxxxxxxx 2017-Pres [phone] Medi caid [place] ent [id number] [place] [address] documented as of this encounter
--- OUTSIDE RECORDS SUMMARY | 2020-01-15 13:46 | XMS REPORT | Summary of Care ---
:1955 Author Organization [facility] Address [address] [place] [address] Care Team Providers Name Role Phone Will Johnson Primary Care Provider Reason for Visit Reason Comments Refill Request Encounter Details Date Type Department Care Team Description 12/31/2019 Refill [facility] Frank Frederick MD Refill Request Neurology-[address] [address] [address] [place] [address] [facility] [phone] Allergies Active Allergy Reactions Severity Noted Date Comments Codeine Swelling, Rash 06/05/2017 Penicillins Anaphylaxis, Rash 06/05/2017 Tramadol Nausea and/or Vomiting 08/05/2018 documented as of this encounter (statuses as of 01/01/2020) Medications Medication Sig Dispensed Refills Start Date End Date Status alendronate 70 mg 0 08/01/2018 A ctive tablet citalopram 40 mg citalopram 40 0 Active tablet mg tablet FLUARIX QUAD 0 06/12/2018 Active 3694-0500, PF, 60 mcg (15 mcg x 4)/0.5 mL syringe albuterol-ipratropi Combivent 0 Active um (COMBIVENT Respimat 20 RESPIMAT) 20-100 mcg-100 mcg/actuation mcg/actuation inhaler solution for inhalation TRELEGY ELLIPTA 0 07/30/2018 Act daren 100-62.5-25 mcg DsDv DEXILANT 60 mg 0 07/09/2018 Acti ve capsule suvorexant Belsomra 10 mg 0 Acti ve (BELSOMRA) 10 mg tablet Tab amitriptyline 50 mg 0 07/11/2018 Active tablet diclofenac 50 mg Take 1 tablet 90 tablet 0 01/16/2019 Active tablet by mouth 3 (three) times daily. rOPINIRole 2 mg TAKE 3 TABLETS 210 tablet 3 08/04/2019 Active tablet BY MOUTH IN THE MORNING, THEN TAKE 2 TABLETS BY MOUTH MIDDAY, THEN TAKE 2 TABLETS BY MOUTH IN THE EVENING clonazePAM 1 mg Take 1 tablet 90 tablet 0 10/12/2019 Active tablet by mouth 3 (three) times daily. solifenacin 5 mg Take 1 tablet 30 tablet 0 11/09/2019 Active tabletIndications: by mouth daily. Urgency incontinence mirabegron Myrbetriq 50 mg 0 Act daren (MYRBETRIQ) 50 mg tablet,extended tablet release ASPIRIN-DIPYRIDAMOL Take 1 capsule 60 capsule 2 01/01/2020 Active E 25-200 mg per 12 by mouth twice hr capsule daily LEVETIRACETAM 500 TAKE 1 & 1/2 90 tablet 2 01/01/2020 Active mg tablet (ONE & ONE-HALF) TABLETS BY MOUTH TWICE DAILY aspirin-dipyridamol Take 1 capsule 60 capsule 1 08/28/2019 Discontinued e 25-200 mg per 12 by mouth 2 0 hr capsule (two) times daily. LEVETIRACETAM 500 TAKE 1 & 1/2 90 tablet 0 11/23/2019 01/01/20 2 Discontinued mg tablet (ONE & 0 ONE-HALF) TABLETS BY MOUTH TWICE DAILY documented as of this encounter (statuses as of 01/01/2020) Active Problems No known active problemsdocumented as of this encounter (statuses as of 01/01/2020) Social History Tobacco Use Types Packs/Day Years [...] Visit Urology Damion Castrejon M D [address] [facility] [address] [place] [address] [phone] Health Maintenance Due Date Last Done Comments [...] Effective Phone Address T e Group Dates [facility] [id number] 2019-Pres [facility] HEALTHCARE - HEALTHCARE ent Adv HM O MANAGED DUAL COMPLETE MEDICARE HMO [facility] MEDICAID OF xxxxxxxxx 2017-Pres [phone] [facility] ent [id number] [place] [address] documented as of this encounter
--- OUTSIDE RECORDS SUMMARY | 2020-01-15 13:46 | XMS REPORT | Summary of Care ---
:1955 Author Organization [facility] Address [address] [place] [address] Care Team Providers Name Role Phone Will Johnson Primary Care Provider Reason for Referral (Routine) Status Reason Specialty Diagnoses / Referred By Referred To Procedures Contact Contact New Request Neurological Diagnoses Cerebrovascular disease Cerebrovascular accident (CVA) due to thrombosis of left carotid artery Cerebrovascular disease or lesion Frank Frederick, Surgery Procedures CONSULT/REFERRAL NEUROLOGY MD Eusebia Maya MD [address] [place] [address]. [facility] , [address] [place] [address] Phone: Fax: Reason for Visit Reason Comments Referral/consult Encounter Details Date Type Department Care Team Description 12/29/[address] [facility] Frank Frederick, Referr al/consult Neurology-Neema CHADWICK [address] [place] [address], [address] [place] [address]. [address] [place] [phone] Allergies Active Allergy Reactions Severity Noted Date Comments Codeine Swelling, Rash 06/05/2017 Penicillins Anaphylaxis, Rash 06/05/2017 Tramadol Nausea and/or Vomiting 08/05/2018 documented as of this encounter (statuses as of 01/01/2020) Medications Medication Sig Dispensed Refills Start Date End Date Status alendronate 70 mg 0 08/01/2018 A ctive tablet citalopram 40 mg citalopram 40 0 Active tablet mg tablet FLUARIX QUAD 0 06/12/2018 Active 9706-4980, PF, 60 mcg (15 mcg x 4)/0.5 [...] daren (MYRBETRIQ) 50 mg tablet,extended tablet release aspirin-dipyridamol Take 1 capsule 60 capsule 1 [...] Visit Urology Damion Castrejon M D [address] [facility] [address] [place] [address] [phone] Health Maintenance Due Date Last Done Comments [...] filedocumented in this encounter Visit Diagnoses Diagnosis Cerebrovascular disease - Primary Cerebrovascular disease, unspecified Cerebrovascular accident (CVA) due to th rombosis of left carotid artery Cerebrovascular disease or lesion Cerebrovascular disease, unspecified documented in this encounter Insurance Payer Benefit Plan / Subscriber ID Effective Phone Address T ype Group Dates [facility] [id number] 2019-Pres [facility] HE[facility] - HEALTHCARE ent Adv HM O MANAGED DUAL COMPLETE MEDICARE HMO [facility] MEDICAID OF xxxxxxxxx 2017-Pres [phone]i [facility] ent [id number] [place] [address] documented as of this encounter
--- NOTE | 2020-01-15 14:08 | RAD REPORT ---
EXAM DESCRIPTION: RAD - Chest Single View - 01/15/2020 2:01 pm CLINICAL HISTORY: dizziness Chest pain. COMPARISON: Chest Pa And Lat (2 Views) dated 08/08/2019; Chest Single View dated 12/07/2018; Chest Sing le View dated 12/04/2018; Chest Single View dated 11/01/2017 FINDINGS: Portable technique limits examination quality. The lungs are mildly emphysematous but grossly clear. The heart is upper limit of normal in size. No displaced fractures. IMPRESSION: No acute intrathoracic process suspected.
[2020-01-15] MEDS ORDERED: NA CHLORIDE 0.9% 1,000 ML ONE (14:18)
[2020-01-15 14:33] LABS: Absolute Lymphocytes (CBC) 2.1 K/uL (0.7-4.9); Basophils % 0.7 % (0-1.3); Hematocrit 37.9 % (36.0-45.0); Lymphocytes % 24.2 % (15.3-44.8); MPV 6.8 fL (7.6-11.3); RBC Red Blood Cell Count 4.19 M/uL (3.86-4.86)
--- NOTE | 2020-01-15 14:33 | EKG ---
Test Date: 2020-01-15 Test Time: 13:54:08 Railroad Car Inspector: VILLA MEASUREMENT RESULTS: Intervals: Rate: 75 VA: 170 QRSD: 86 QT: 414 QTc: 462 [place]: P: 66 VA: 170 QRS: 55 T: 68 INTERPRETIVE STATEMENTS: Normal sinus rhythm Normal ECG Compared to ECG 12/04/2018 20:56:19 Atrial abnormality no longer present T-wave abnormality no longer present Prolonged QT interval no longer present Electronically Signed On 01-15-20 14:32:42 CDT by Bartolome Wilder
[2020-01-15 14:34] LABS: Protime INR 0.91
[2020-01-15 14:49] LABS: ALT/SGPT 18 U/L (12-78); AST/SGOT 13 U/L (15-37); Albumin 3.3 g/dL (3.4-5.0); Alkaline Phosphatase 82 U/L (45-117); BUN Blood Urea Nitrogen 5 mg/dL (7-18); Bicarbonate 30 mmol/L (21-32); Bilirubin Direct 0.1 mg/dL (0-0.2); Bilirubin Total 0.3 mg/dL (0.2-1.0); Glucose Level 94 mg/dL (74-106); Magnesium 1.9 mg/dL (1.8-2.4); NT PRO-BNP 286 pg/mL (<125); Phosphorus 3.1 mg/dL (2.5-4.9); Potassium 3.4 mmol/L (3.5-5.1); Protein, Total 6.5 g/dL (6.4-8.2); Sodium Level 123 mmol/L (136-145); Troponin (Emerg Dept Use Only) < 0.02 ng/mL (0.0-0.045)
[2020-01-15 14:57] LABS: Folic Acid, (Folate) 8.6 ng/mL (3.1-17.5); Thyroid Stimulating Hormone 0.828 uIU/mL (0.360-3.740)
--- NOTE | 2020-01-15 15:58 | ER ---
Nurse's Notes [facility] Name: Jennifer Dietrich Age: 64 yrs Sex: Female : 1955 Arrival Date: 01/15/2020 Time: 13:31 Bed 5 Private MD: Bryson Johnson Diagnosis: Hypo-osmolality and hyponatremia;Dizziness and giddiness Presentation: 01/14 13:36 Chief complaint: Patient states: "Dr. Johnson said to come here because my sodium and my aa5 chloride are extremely low". pt c/o headache and cramping all over x 1 month ago, reports dizziness x 2 weeks ago. Pt reports she had the blood draw approximately 1 week ago. 13:36 Onset of symptoms was January 15, 2020. aa5 13:36 Acuity: EULALIO 3 aa5 13:36 Method Of Arrival: Ambulatory aa5 13:49 Coronavirus screen: Proceed with normal triage. Patient denies a cough. Patient denies jl7 shortness of breath or difficulty breathing. Patient denies measured and/or subjective temperature greater than 100.4F prior to today's visit. Patient denies travel on a cruise ship or to a country the [facility] currently lists as an affected area. Patient denies contact with known and/or suspected case of COVID-19. Ebola Screen: No symptoms or risks identified at this time. Initial Sepsis Screen: Does the patient meet any 2 criteria? No. Patient's initial sepsis screen is negative. Does the patient have a suspected source of infection? No. Patient's initial sepsis screen is negative. Risk Assessment: Do you want to hurt yourself or someone else? Patient reports no desire to harm self or others. Triage Assessment: 13:40 General: Appears in no apparent distress. uncomfortable, Behavior is calm, cooperative, jl7 appropriate for age. Pain: Complains of pain in RUFF Pain currently is 5 out of 10 on a pain scale. Pain: Complains of pain in back Pain currently is 9 out of 10 on a pain scale. Pain began years ago. Is continuous. Pain: Complains of pain in all over Quality of pain is described as crampy. EENT: Oral mucosa is dry. Neuro: Level of Consciousness is awake, alert, obeys commands, Oriented to person, place, time, situation, Reports dizziness. Cardiovascular: Patient's skin is warm and dry. Respiratory: Airway is patent Respiratory effort is even, unlabored, Respiratory pattern is regular, symmetrical. GI: No signs and/or symptoms were reported involving the gastrointestinal system. : No signs and/or symptoms were reported regarding the genitourinary system. Derm: Skin is pink, warm \\T\\ dry. Musculoskeletal: No signs and/or symptoms reported regarding the musculoskeletal system. 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 - Social history:: Smoking status: Patient reports the use of cigarette tobacco products, smokes one-half pack cigarettes per day. Screenin:54 Abuse screen: Denies threats or abuse. Denies injuries from another. Nutritional jl7 screening: No deficits noted. Tuberculosis screening: No symptoms or risk factors identified. 18:03 Fall Risk No secondary diagnosis (0 pts). IV access (20 points). Ambulatory Aid- vc Crutches/Cane/Walker (15 pts). Mental Status- Overestimates/Forgets Limitations (15 pts.). Total Loyd Fall Scale indicates High Risk Score (45 or more points). Assessment: 13:55 General: See triage assessment. jl7 14:24 Neuro: Level of Consciousness is awake, alert, obeys commands, Oriented to person, ls4 Inspector [employer] Products are equal bilaterally Moves all extremities. Gait is unsteady, uses walker . Reports. Cardiovascular: Reports lightheadedness, Denies chest pain, diaphoresis, nausea, palpitations, shortness of breath, syncope, vomiting, Capillary refill < 3 seconds Clubbing of nail beds is present Patient's skin is warm and dry. Rhythm is. Respiratory: Reports cough that is non-productive, dry, since CHRONIC, PT STATES SHE HAS COPD. GI: Abdomen is round obese, Bowel sounds present X 4 quads. Abd is soft and non tender X 4 quads. : No deficits noted. No signs and/or symptoms were reported regarding the genitourinary system. Derm: Skin is fragile, is thin, BRUISED AND DISCOLORED. Skin is dry, Skin is mottled, Skin temperature is warm. Musculoskeletal: No signs and/or symptoms reported regarding the musculoskeletal system. 15:44 Reassessment: Patient appears in no apparent distress at this time. Patient and/or ls4 family updated on plan of care and expected duration. Pain level reassessed. Patient is alert, oriented x 3, equal unlabored respirations, skin warm/dry/pink. 16:44 Reassessment: Patient appears in no apparent distress at this time. Patient and/or ls4 family updated on plan of care and expected duration. Pain level reassessed. Patient is alert, oriented x 3, equal unlabored respirations, skin warm/dry/pink. 19:53 Reassessment: report called to Julia CAMPOS for room 218. bb Vital Signs: 13:49 BP 124 / 67; Pulse 80; Resp 17; Temp 98.3; Pulse Ox 100% ; Weight 89.36 kg; Height 5 jl7 ft. 5 in. (165.10 cm); Pain 9/10; 14:22 BP 133 / 74; Pulse 69; Resp 14; Temp 98.5(TE); Pulse Ox 100% on R/A; mh5 15:40 BP 147 / 89; Pulse 82; Resp 15; Temp 98.1(TE); Pulse Ox 94% on R/A; mh5 18:00 BP 137 / 78; Pulse 87; Resp 18; Pulse Ox 98% ; vc 19:00 BP 117 / 70; Pulse 77; Resp 17; Temp 97.9(O); Pulse Ox 100% ; vc 13:49 Body Mass Index 32.78 (89.36 kg, 165.10 cm) jl7 ED Course: 13:31 Patient arrived in ED. am2 13:32 Bryson Johnson DO is Private Physician. am2 13:36 Arm band placed on Patient placed in an exam room, on a stretcher. aa5 13:41 [facility]ozina [facility]il[facility]C [facility] snw 13:41 Vicente Muñoz MD is Attending Physician. snw 13:42 Triage completed. aa5 13:49 Luigi Jarrett, RN is Primary Nurse. jl7 13:54 Patient has correct armband on for positive identification. Placed in gown. Bed in low jl7 position. Call light in reach. Side rails up X2. electronic device monitor on. Pulse ox on. NIBP on. Warm blanket given. 13:57 EKG done, by earth moving technician. reviewed by Vicente Muñoz MD. at1 14:00 X-ray completed. Portable x-ray completed in exam room. Patient tolerated procedure mh1 well. 14:02 XRAY Chest (1 view) In Process Unspecified. EDMS 14:03 Report given to ANDRES Dudley. jl7 14:21 Patient has correct armband on for positive identification. Bed in low position. Call 5 light in reach. Side rails up X 1. Warm blanket given. electronic device monitor on. Pulse ox on. NIBP on. 14:21 Initial lab(s) drawn, by ia, sent to lab. Inserted saline lock: 22 gauge in left mh5 antecubital area, using aseptic technique. Blood collected. 14:23 [facility] [place] Test Sent. 5 14:23 Folic Acid,Serum (folate) Sent. 5 14:24 TSH Sent. mh5 14:24 Osmolality, Serum Sent. mh5 14:24 Phosphorus Sent. mh5 14:24 Basic Metabolic Panel Sent. mh5 14:24 CBC with Diff Sent. mh5 14:24 LFT's Sent. mh5 14:24 Magnesium Sent. mh5 14:24 NT PRO-BNP Sent. mh5 14:25 PT-INR Sent. mh5 14:25 Troponin (emerg Dept Use Only) Sent. mh5 14:28 No provider procedures requiring assistance completed. ls4 15:56 Primary Nurse role handed off by Luigi Jarrett RN jl7 15:56 Bryson Johnson DO is Hospitalizing Provider. snw 16:44 Octavia Rdz, ANDRES is Primary Nurse. ls4 20:35 Patient admitted, IV remains in place. vc Administered Medications: Discontinued: NS 0.9% 1000 ml IV at 125 ml/hr continuous 14:16 Drug: NS 0.9% 1000 ml Route: IV; Rate: 125 ml/hr; Site: left antecubital; ls4 Outcome: 15:57 Decision to Hospitalize by Provider. snw 20:35 Admitted to Med/surg accompanied by nurse, accompanied by tech, room 218, with chart. vc 20:35 Condition: good 20:35 Instructed on the need for admit. 20:38 Patient left the ED. mw2 Signatures: Dispatcher [employer] EDMS Rozina Tilley, SPRINKLER HELPER-C SPRINKLER HELPER-Csnw Kaity Avendano 1 Cynthia Gamble, RN RN bb Ara Ambriz RN RN aa5 Loretta Calderón, 8th grade teacher EKG Tat1 Ni Talbot 5 Luigi Jarrett RN RN 7 Loretta De León am2 Genaro aKur mw2 Octavia Rdz RN RN ls4 Paulette Grant RN RN vc Corrections: (The following items were deleted from the chart) 19:35 19:30 BP 99 / 71; Pulse 72bpm; Resp 17bpm; Pulse Ox 100%; Temp 97.9F Oral; vc vc
--- NOTE | 2020-01-15 15:58 | EDPHYS ---
Physician Documentation [facility] Name: Jennifer Dietrich Age: 64 yrs Sex: Female : 1955 Arrival Date: 01/15/2020 Time: 13:31 Bed 5 Private MD: [facility] ED Physician Vicente Muñoz HPI: 01/14 14:09 This 64 yrs old Female presents to ER via Ambulatory with complaints of Low snw sodium, Dizziness. 14:09 Onset: The symptoms/episode began/occurred gradually. Associated signs and symptoms: snw Pertinent positives: headache. Modifying factors: The patient symptoms are alleviated by nothing, the patient symptoms are aggravated by nothing. The patient has experienced similar episodes in the past. The patient has been recently seen by a physician: the patient's primary care provider, Dr. Johnson bloodwork showed very low Na and Cl so pt directed to ED. 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 - Social history:: Smoking status: Patient reports the use of cigarette tobacco products, smokes one-half pack cigarettes per day. ROS: 14:07 Eyes: Negative for injury, pain, redness, and discharge, ENT: Negative for injury, snw pain, and discharge, Neck: Negative for injury, pain, and swelling, Cardiovascular: Negative for chest pain, palpitations, and edema, Respiratory: Negative for shortness of breath, cough, wheezing, and pleuritic chest pain, Abdomen/GI: Negative for abdominal pain, nausea, vomiting, diarrhea, and constipation, Back: Negative for injury and pain, : Negative for injury, bleeding, discharge, and swelling, MS/Extremity: Negative for injury and deformity, Skin: Negative for injury, rash, and discoloration. 14:07 Constitutional: Positive for dizziness/fatigue. 14:07 Neuro: Positive for dizziness, headache. Exam: 14:06 Constitutional: This is a well developed, well nourished patient who is awake, alert, snw and in no acute distress. Head/Face: Normocephalic, atraumatic. Eyes: Pupils equal round and reactive to light, extra-ocular motions intact. Lids and lashes normal. Conjunctiva and sclera are non-icteric and not injected. Cornea within normal limits. Periorbital areas with no swelling, redness, or edema. ENT: Nares patent. No nasal discharge, no septal abnormalities noted. Tympanic membranes are normal and external auditory canals are clear. Oropharynx with mild redness, chelitis, swelling, or masses, exudates, or evidence of obstruction, uvula midline. Mucous membranes moist. Neck: Trachea midline, no thyromegaly or masses palpated, and no cervical lymphadenopathy. Supple, full range of motion without nuchal rigidity, or vertebral point tenderness. No Meningismus. Chest/axilla: Normal chest wall appearance and motion. Nontender with no deformity. No lesions are appreciated. Cardiovascular: Regular rate and rhythm with a normal S1 and S2. No gallops, murmurs, or rubs. Normal PMI, no JVD. No pulse deficits. Respiratory: Lungs have equal breath sounds bilaterally, clear to auscultation and percussion. No rales, rhonchi or wheezes noted. No increased work of breathing, no retractions or nasal flaring. Abdomen/GI: Soft, non-tender, with normal bowel sounds. No distension or tympany. No guarding or rebound. No evidence of tenderness throughout. Back: No spinal tenderness. No costovertebral tenderness. Full range of motion. MS/ Extremity: Pulses equal, no cyanosis. Neurovascular intact. Full, normal range of motion. 14:06 Skin: Appearance: Color: bronzed, Temperature: normal temperature. 14:06 Neuro: Orientation: is normal, Mentation: is normal, Memory: is normal, Sensation: is normal, Babinski testing is normal, seizure activity, is not displayed by the patient. Vital Signs: 13:49 BP 124 / 67; Pulse 80; Resp 17; Temp 98.3; Pulse Ox 100% ; Weight 89.36 kg; Height 5 jl7 ft. 5 in. (165.10 cm); Pain 9/10; 14:22 BP 133 / 74; Pulse 69; Resp 14; Temp 98.5(TE); Pulse Ox 100% on R/A; mh5 15:40 BP 147 / 89; Pulse 82; Resp 15; Temp 98.1(TE); Pulse Ox 94% on R/A; mh5 18:00 BP 137 / 78; Pulse 87; Resp 18; Pulse Ox 98% ; vc 19:00 BP 117 / 70; Pulse 77; Resp 17; Temp 97.9(O); Pulse Ox 100% ; vc 13:49 Body Mass Index 32.78 (89.36 kg, 165.10 cm) jl7 MDM: 13:43 Patient medically screened. snw 15:44 Data reviewed: vital signs, nurses notes. Data interpreted: Pulse oximetry: on room air snw is 94 %. Interpretation: acceptable. 15:51 Counseling: I had a detailed discussion with the patient and/or guardian regarding: the snw historical points, exam findings, and any diagnostic results supporting the discharge/admit diagnosis, lab results, radiology results, the need for further work-up and treatment in the hospital. Physician consultation: Ramon Davenport was called at 15:52, was contacted at 15:52, regarding admission, to the telemetry unit. 01/14 13:43 Order name: Basic Metabolic Panel; Complete Time: 14:52 snw 01/14 13:43 Order name: CBC with Diff; Complete Time: 14:34 snw 01/14 13:43 Order name: LFT's; Complete Time: 14:52 snw 01/14 13:43 Order name: Magnesium; Complete Time: 14:52 snw 01/14 13:43 Order name: NT PRO-BNP; Complete Time: 14:52 snw 01/14 13:43 Order name: PT-INR; Complete Time: 14:47 snw 01/14 13:43 Order name: Troponin (emerg Dept Use Only); Complete Time: 14:52 snw 01/14 13:43 Order name: Phosphorus; Complete Time: 14:52 snw 01/14 13:43 Order name: Osmolality, Serum; Complete Time: 14:54 snw 01/14 13:50 Order name: TSH; Complete Time: 14:59 snw 01/14 13:50 Order name: Folic Acid,Serum (folate); Complete Time: 14:59 snw 01/14 13:51 Order name: Misc. Lab Test; Complete Time: 15:45 snw 01/14 13:51 Order name: Urine Sodium Random; Complete Time: 16:49 snw 01/14 16:13 Order name: Urine Osmolality; Complete Time: 17:04 dh3 01/14 13:43 Order name: XRAY Chest (1 view); Complete Time: 14:11 snw 01/14 13:43 Order name: EKG; Complete Time: 13:43 snw 01/14 13:43 Order name: Cardiac monitoring; Complete Time: 13:55 snw 01/14 13:43 Order name: EKG - Nurse/Tech; Complete Time: 14:09 snw 01/14 13:43 Order name: IV Saline Lock; Complete Time: 14:09 snw 01/14 13:43 Order name: Labs collected and sent; Complete Time: 14:09 snw 01/14 13:43 Order name: O2 Per Protocol; Complete Time: 13:55 snw 01/14 13:43 Order name: O2 Sat Monitoring; Complete Time: 13:55 snw 01/14 16:38 Order name: Urine Dipstick--Ancillary (enter results); Complete Time: 16:49 eb Administered Medications: Discontinued: NS 0.9% 1000 ml IV at 125 ml/hr continuous 14:16 Drug: NS 0.9% 1000 ml Route: IV; Rate: 125 ml/hr; Site: left antecubital; ls4 Disposition: 01/15 10:49 Co-signature as Attending Physician, Vicente Muñoz MD I agree with the assessment and kdr plan of care. Disposition: 01/15/20 15:57 Hospitalization ordered by Bryson Johnson for Inpatient Admission. Preliminary diagnosis are Hypo-osmolality and hyponatremia, Dizziness and giddiness. - Bed requested for Telemetry/MedSurg (Inpatient). - Status is Inpatient Admission. mw2 - Condition is Stable. - Problem is an acute exacerbation. - Symptoms are unchanged. Signatures: Dispatcher [employer] EDMS Emily Shin RN ANDRES Vicente Muñoz MD MD [facility] Rozina Tilley, LITERACY TUTOR-C LITERACY TUTOR-Csnw Luigi Jarrett, RN RN jl7 Genaro Kaur mw2 Octavia Rdz RN RN ls4 Corrections: (The following items were deleted from the chart) 01/14 14:08 14:06 Constitutional: This is a well developed, well nourished patient who is awake, snw alert, and in no acute distress. Head/Face: Normocephalic, atraumatic. Eyes: Pupils equal round and reactive to light, extra-ocular motions intact. Lids and lashes normal. Conjunctiva and sclera are non-icteric and not injected. Cornea within normal limits. Periorbital areas with no swelling, redness, or edema. ENT: Nares patent. No nasal discharge, no septal abnormalities noted. Tympanic membranes are normal and external auditory canals are clear. Oropharynx with no redness, swelling, or masses, exudates, or evidence of obstruction, uvula midline. Mucous membranes moist. Neck: Trachea midline, no thyromegaly or masses palpated, and no cervical lymphadenopathy. Supple, full range of motion without nuchal rigidity, or vertebral point tenderness. No Meningismus. Chest/axilla: Normal chest wall appearance and motion. Nontender with no deformity. No lesions are appreciated. Cardiovascular: Regular rate and rhythm with a normal S1 and S2. No gallops, murmurs, or rubs. Normal PMI, no JVD. No pulse deficits. Respiratory: Lungs have equal breath sounds bilaterally, clear to auscultation and percussion. No rales, rhonchi or wheezes noted. No increased work of breathing, no retractions or nasal flaring. Abdomen/GI: Soft, non-tender, with normal bowel sounds. No distension or tympany. No guarding or rebound. No evidence of tenderness throughout. Back: No spinal tenderness. No costovertebral tenderness. Full range of motion. MS/ Extremity: Pulses equal, no cyanosis. Neurovascular intact. Full, normal range of motion. snw 18:32 15:57 Hospitalization Ordered by Bryson Johnson DO for Inpatient Admission. Preliminary dw diagnosis is Hypo-osmolality and hyponatremia; Dizziness and giddiness. Bed requested for Telemetry/MedSurg (Inpatient). Status is Inpatient Admission. Condition is Stable. Problem is an acute exacerbation. Symptoms are unchanged. snw 20:38 18:32 01/15/2020 15:57 Hospitalization Ordered by Bryson Johnson DO for Inpatient mw2 Admission. Preliminary diagnosis is Hypo-osmolality and hyponatremia; Dizziness and giddiness. Bed requested for Telemetry/MedSurg (Inpatient). Status is Inpatient Admission. Condition is Stable. Problem is an acute exacerbation. Symptoms are unchanged. dw
[2020-01-15 16:41] LABS: Urine Blood NEGATIVE (NEG); Urine Glucose NEGATIVE (NEG); Urine Protein NEGATIVE (NEG)
--- NOTE | 2020-01-15 17:21 | P.HP ---
Certification for Inpatient Patient admitted to: Inpatient With expected LOS: >2 Midnights Practitioner: I am a practitioner with admitting privileges, knowledge of patient current condition, hospital course, and medical plan of care. Services: Services provided to patient in accordance with Admission requirements found in Title 42 Section 412.3 of the Code of Federal Regulations Patient History Date of Service: 01/16/20 Reason for admission: Hyponatremia History of Present Illness: 64-year-old woman with a history of hypertension, COPD, seizure disorder, recent CVA, was directed to the emergency department by her PCP to be evaluated for hyponatremia. Patient states that she has been experiencing headache and dizziness and muscle cramps. She is on multiple psychotropic medications. Her sodium in the ED is 123, low chloride level and low BUN levels suggesting hemodilution. UA is negative for UTI. Patient denies any diarrhea or nausea or vomiting or polyuria. She endorsed prior history of urinary incontinence and recently received Botox injection. She also completed Bactrim therapy after the urology procedure. Patient is admitted for further management. Allergies codeine [Codeine] Allergy (Verified 01/16/20 01:15) UNKNOWN Penicillins Allergy (Verified 01/16/20 01:15) UNKNOWN Home Medications: Alendronate [Fosamax*] 1 tab PO SEECOM 01/16/20 Amlodipine [Norvasc*] 5 mg PO DAILY #30 tab 01/16/20 Citalopram Hydrobromide [Celexa] 1 tab PO DAILY 01/16/20 Dexlansoprazole [Dexilant] 60 mg PO DAILY 01/16/20 Dipyridamole/Aspirin [Aggrenox 25 mg-200 mg Cap*] 1 cap PO BID 01/16/20 Duloxetine [Cymbalta *] 30 mg PO DAILY 01/16/20 Fluticasone/Umeclidin/Vilanter [Trelegy Ellipta 100-62.5-25] 1 puff IH DAILY 01/16/20 Gabapentin 1 tab PO BID 01/16/20 Ipratropium/Albuterol Sulfate [Combivent Respimat 20-100 Mcg] 1 puff IH QID 01/16/20 OLANZapine [Zyprexa] 1 tab PO DAILY 01/16/20 Ropinirole HCl 1 tab PO SEECOM 01/16/20 Simvastatin 1 tab PO BEDTIME 01/16/20 Spironolactone 25 mg PO DAILY #30 tablet 01/16/20 Suvorexant [Belsomra] 1 tab PO BEDTIME 01/16/20 clonazePAM [Clonazepam] 1 tab PO TID 01/16/20 levETIRAcetam [Keppra*] 1.5 tab PO BID 01/16/20 - Past Medical/Surgical History Diabetic: No -: Hypertension -: COPD -: Tobacco abuse -: Carotid stenosis -: Depression -: Insomnia -: Seizure disorder -: cva -: Cholecystectomy -: Partial hysterectomy -: Tubal ligation -: back fusion Psychosocial/ Personal History: She is . She has 5 children. She is disabled. - Family History Mother -: Lung disease, Cancer Father -: Heart disease - Social History Alcohol use: Yes CD- Drugs: No Caffeine use: Yes Review of Systems Other: Except as documented, all other systems reviewed and negative. Physical Examination - Physical Exam General: Alert, In no apparent distress, Oriented x3 HEENT: PERRLA, Mucous membr. moist/pink, EOMI, Sclerae nonicteric Neck: Supple, No Thyromegaly Respiratory: Clear to auscultation bilaterally, Normal air movement Cardiovascular: No edema, Regular rate/rhythm, Normal S1 S2 Capillary refill: <2 Seconds Gastrointestinal: Normal bowel sounds, Soft and benign, Non-distended, No tenderness Musculoskeletal: No swelling, No erythema Integumentary: No rashes Neurological: Normal speech, Normal strength at 5/5 x4 extr, Cranial nerves 3-12 intact - Studies Laboratory Data (last 24 hrs) 01/15/20 14:15: PT 10.7, INR 0.91 01/15/20 14:15: WBC 8.8, Hgb 12.6, Hct 37.9, Plt Count 374 01/15/20 14:15: Sodium 123 L, Potassium 3.4 L, BUN 5 L, Creatinine 0.55, Glucose 94, Phosphorus 3.1, Magnesium 1.9, Total Bilirubin 0.3, AST 13 L, ALT 18, Alkaline Phosphatase 82 Assessment and Plan - Problems (Diagnosis) (1) Hyponatremia Status: Acute (2) Hypochloremia Status: Acute (3) Hypertension Status: Chronic Qualifiers: (4) Insomnia Status: Chronic Qualifiers: Insomnia type: unspecified Qualified Code(s): G47.00 - Insomnia, unspecified (5) Seizure disorder Status: Chronic - Plan Patient has hyponatremia with neurologic symptoms. Hyponatremia appears to be hemodilution with SIADH high probability. Admit patient to the medical floor Trial of IV normal saline Free water restriction to 1500 ml/day Serial BMP Q12 hours. Avoid over-correction of sodium. Noted patient was recently completed Bactrim which could induce SIADH. She is also on SSRI. Validate and reconcile home medications, limit psychotropic medications as possible. - Advance Directives Does patient have a Living Will: No Does patient have a Durable POA for Healthcare: Yes - Code Status/Comfort Care Code Status Assessed: Yes Code Status: Full Code
[2020-01-15] MEDS ORDERED: ACETAMINOPHEN 500 MG TAB PO PRN (17:57)
[2020-01-15] MEDS ORDERED: ONDANSETRON 4 MG/2 ML VIAL IV PRN (17:57)
[2020-01-15 21:35] VITALS: BMI 32.8
[2020-01-15] MEDS: NA CHLORIDE 0.9% 1,000 ML IV SCH (21:48)
[2020-01-15] MEDS: ENOXAPARIN 40 MG/0.4 ML SQ SCH (21:48)
[2020-01-16] MEDS ORDERED: ALPRAZOLAM 0.25 MG TABLET PO ONE (00:58)
[2020-01-16] MEDS ORDERED: TEMAZEPAM 15 MG CAP PO PRN (00:58)
[2020-01-16] MEDS: TRAMADOL HCL 50 MG TAB PO PRN ×2 (01:39→11:22)
[2020-01-16] MEDS: GABAPENTIN 300 MG CAP PO SCH ×2 (01:39→07:36)
[2020-01-16] MEDS: NA CHLORIDE 0.9% 1,000 ML IV SCH ×2 (06:30→14:00)
[2020-01-16 06:34] LABS: Basophils % 0.8 % (0-1.3); Hematocrit 38.5 % (36.0-45.0); Lymphocytes % 25.9 % (15.3-44.8)
[2020-01-16] MEDS: ENOXAPARIN 40 MG/0.4 ML SQ SCH (07:37)
[2020-01-16 07:51] LABS: BUN Blood Urea Nitrogen 6 mg/dL (7-18); Bicarbonate 29 mmol/L (21-32); Glucose Level 88 mg/dL (74-106); Magnesium 2.1 mg/dL (1.8-2.4); Phosphorus 3.5 mg/dL (2.5-4.9); Potassium 3.6 mmol/L (3.5-5.1); Sodium Level 133 mmol/L (136-145)
[2020-01-16] MEDS ORDERED: POTASSIUM CL SA 10 MEQ TAB PO ONE (08:25)
--- NOTE | 2020-01-16 12:54 | P.DS ---
Admission Date: 01/15/20 Discharge Date: 01/16/20 Disposition: ROUTINE DISCHARGE Discharge Condition: GOOD Reason for Admission: Hyponatremia Consultations: none Procedures: None - Problems (1) Hyponatremia Current Visit: No Status: Acute (2) Hypochloremia Current Visit: Yes Status: Acute (3) Hypertension Current Visit: No Status: Chronic Qualifiers: (4) Insomnia Current Visit: No Status: Chronic Qualifiers: Insomnia type: unspecified Qualified Code(s): G47.00 - Insomnia, unspecified (5) Seizure disorder Current Visit: No Status: Chronic Brief History of Present Illness: 64-year-old woman with a history of hypertension, COPD, seizure disorder, recent CVA was directed to the emergency department by her PCP to be evaluated for hyponatremia. Patient stated that she has been experiencing headache and dizziness and muscle cramps. She is on multiple psychotropic medications. Her sodium in the ED is 123, corresponding low chloride and low BUN levels suggesting hemodilution. UA is negative for UTI. Patient denied any diarrhea or nausea or vomiting or polyuria. She endorsed prior history of urinary incontinence and recently received Botox injection. She was also placed on prophylactic Bactrim after the urologic procedure. Patient was admitted for further management. Hospital Course: Patient was admitted to the medical treated with IV NS and free water restriction. Her sodium level improved significantly with these measures. Patient was asymptomatic during the hospital stay. Noted she is on multiple medications that can induce SIADH. This includes her antidepressants, recent use of Bactrim, and hydrochlorothiazide. Hydrochlorothiazide is discontinued on discharge. This is replaced with amlodipine. Free water restriction to 1500 ml daily is recommended on discharge. Patient is deemed clinically stable for discharge. Vital Signs/Physical Exam: Temp Pulse Resp BP Pulse Ox 98.4 F 67 16 165/72 H 93 01/16/20 12:00 01/16/20 12:00 01/16/20 12:22 01/16/20 12:00 01/16/20 12:22 General: Alert, In no apparent distress, Oriented x3 HEENT: Mucous membr. moist/pink Neck: Supple Respiratory: Clear to auscultation bilaterally, Normal air movement Cardiovascular: No edema, Regular rate/rhythm, Normal S1 S2 Gastrointestinal: Normal bowel sounds, Soft and benign, Non-distended, No tenderness Musculoskeletal: No swelling, No erythema Integumentary: No rashes Neurological: Other (Nonfocal) Laboratory Data at Discharge: WBC 7.8 K/uL (4.3-10.9) 01/16/20 05:21 Hgb 12.9 g/dL (12.0-15.0) 01/16/20 05:21 Hct 38.5 % (36.0-45.0) 01/16/20 05:21 Plt Count 384 K/uL (152-406) 01/16/20 05:21 PT 10.7 SECONDS (9.5-12.5) 01/15/20 14:15 INR 0.91 01/15/20 14:15 Sodium 133 mmol/L (136-145) L 01/16/20 05:21 Potassium 3.6 mmol/L (3.5-5.1) 01/16/20 05:21 BUN 6 mg/dL (7-18) L 01/16/20 05:21 Creatinine 0.53 mg/dL (0.55-1.3) L 01/16/20 05:21 Glucose 88 mg/dL (74-106) 01/16/20 05:21 Phosphorus 3.5 mg/dL (2.5-4.9) 01/16/20 05:21 Magnesium 2.1 mg/dL (1.8-2.4) 01/16/20 05:21 Total Bilirubin 0.3 mg/dL (0.2-1.0) 01/15/20 14:15 AST 13 U/L (15-37) L 01/15/20 14:15 ALT 18 U/L (12-78) 01/15/20 14:15 Alkaline Phosphatase 82 U/L (45-117) 01/15/20 14:15 Home Medications: Alendronate [Fosamax*] 1 tab PO SEECOM 01/16/20 Amlodipine [Norvasc*] 5 mg PO DAILY #30 tab 01/16/20 Citalopram Hydrobromide [Celexa] 1 tab PO DAILY 01/16/20 Dexlansoprazole [Dexilant] 60 mg PO DAILY 01/16/20 Dipyridamole/Aspirin [Aggrenox 25 mg-200 mg Cap*] 1 cap PO BID 01/16/20 Duloxetine [Cymbalta *] 30 mg PO DAILY 01/16/20 Fluticasone/Umeclidin/Vilanter [Trelegy Ellipta 100-62.5-25] 1 puff IH DAILY 01/16/20 Gabapentin 1 tab PO BID 01/16/20 Ipratropium/Albuterol Sulfate [Combivent Respimat 20-100 Mcg] 1 puff IH QID 01/16/20 OLANZapine [Zyprexa] 1 tab PO DAILY 01/16/20 Ropinirole HCl 1 tab PO SEECOM 01/16/20 Simvastatin 1 tab PO BEDTIME 01/16/20 Spironolactone 25 mg PO DAILY #30 tablet 01/16/20 Suvorexant [Belsomra] 1 tab PO BEDTIME 01/16/20 clonazePAM [Clonazepam] 1 tab PO TID 01/16/20 levETIRAcetam [Keppra*] 1.5 tab PO BID 01/16/20 New Medications: Amlodipine [Norvasc*] 5 mg PO DAILY #30 tab Spironolactone 25 mg PO DAILY #30 tablet Patient Discharge Instructions: Recommend free water restriction to 1500 ml/day. Diet: AHA Activity: Ad steph Followup: Bryson Johnson DO [Primary Care Provider] - 1 Week Time spent managing pt's care (in minutes): 35
[2020-01-16] MEDS ORDERED: HYDRALAZINE HCL 20 MG/ML VIAL IV ONE (13:00)
[2020-01-16 13:38] VITALS: BP 185/84; TEMP 98.7
[2020-01-16 14:37] VITALS: O2SAT 94
== END 2020-01-16 14:44 | disposition home or self-care (01) | DRG 641 ==
LOC: ER 13:28 → ERHOLD 17:27 → 3RD-ICU 19:56 → 2ND 20:20
PROVIDERS: ADMIT Internal Medicine; ATTEND Internal Medicine
DX: E87.1 Hypo-osmolality and hyponatremia (principal); E87.8 Other disorders of electrolyte and fluid balance, not elsewhere classified; I10 Essential (primary) hypertension; G47.00 Insomnia, unspecified; J44.9 Chronic obstructive pulmonary disease, unspecified; F17.210 Nicotine dependence, cigarettes, uncomplicated; G20 Parkinson's disease; Z86.73 Personal history of transient ischemic attack (TIA), and cerebral infarction without residual deficits; Z79.82 Long term (current) use of aspirin; Z79.899 Other long term (current) drug therapy; Z88.5 Allergy status to narcotic agent; Z88.0 Allergy status to penicillin; Z90.49 Acquired absence of other specified parts of digestive tract; Z90.711 Acquired absence of uterus with remaining cervical stump; Z98.51 Tubal ligation status
CPT/HCPCS: 36415; 71045; 80048; 80076; 81003; 82024; 82746; 83735; 83880; 83930; 83935; 84100; 84300; 84443; 84484; 85025; 85610; 93005; 94760; 99285; J0360; J1650; J7030

== ENCOUNTER 2020-04-07 06:27 | Day surgery (SDC) | payer OTHER ==
--- NOTE | 2020-04-06 14:26 | RAD REPORT ---
EXAM DESCRIPTION: RAD - Chest Pa And Lat (2 Views) - 04/06/2020 2:18 pm CLINICAL HISTORY: pre op, pending angiogram and catheterization COMPARISON: AP chest January 15, 2020, two view chest August 08, 2019 TECHNIQUE: Frontal and lateral views of the chest were obtained. FINDINGS: The lungs are clear of a peripheral mass or consolidation. Interstitial opacification is p resent matching comparison. No active lung parenchymal process identifiable. Flattening of the diaphr agm is a stable finding. Heart size is normal and central vasculature is within normal limits. No pleural effusion or pneumothorax seen. No acute bony finding noted. No aortic abnormality. IMPRESSION: No acute cardiopulmonary process. No significant change when comparing back to August 2019.
[2020-04-06 14:33] LABS: Basophils % 0.8 % (0-1.3); Hematocrit 41.7 % (36.0-45.0); Lymphocytes % 19.7 % (15.3-44.8); MPV 7.3 fL (7.6-11.3); RBC Red Blood Cell Count 4.34 M/uL (3.86-4.86)
[2020-04-06 14:35] LABS: Protime INR 0.99
[2020-04-06 14:53] LABS: Bicarbonate 30 mmol/L (21-32); Glucose Level 85 mg/dL (74-106); Potassium 3.8 mmol/L (3.5-5.1); Sodium Level 137 mmol/L (136-145)
[2020-04-06 15:06] LABS: BUN Blood Urea Nitrogen < 1 mg/dL (7-18)
--- OUTSIDE RECORDS SUMMARY | 2020-04-07 06:30 | XMS REPORT | Continuity of Care Document ---
:1955 Author Organization [employer] Care Team Providers Name Role Phone TripAdvisor Unavailable Un available Problems Problem Status Onset Classification Date Comments Sourc e Date Reported Urinary Active 12/24/2019 [facility] incontinence, mixed Health Neurogenic bladder Active 03/22/2020 [facility] Health Paralysis agitans Active 12/28/2019 [facility] Cerebrovascular Active 01/01/2020 [facility] B disease Health Cerebrovascular Active 01/01/2020 [facility] B accident (CVA) due H ealth to thrombosis of left carotid artery Cerebrovascular Active 01/01/2020 [facility] B disease or lesion He alth Urgency Active 11/09/2019 [facility] incontinence Health Chronic ischemic Active 03/24/2020 [facility] left MCA stroke Heal th Arterial occlusive Active 03/24/2020 [facility] disease Health Essential Active 03/24/2020 [facility] hypertension Health Hyperlipidemia, Active 03/24/2020 [facility] B unspecified Health hyperlipidemia type Chronic obstructive Active 03/24/2020 [facility] pulmonary disease, H ealth unspecified COPD type Conversion disorder Active 03/24/2020 [facility] Health Tremors of nervous Active 03/24/2020 [facility] system Health Abnormal finding of Active 03/24/2020 [facility] blood chemistry, Hea lth unspecified Medications Medication Details Route Status Patient Ordering Order Source Instructions Provider Date mirabegron 50 mg Take 1 Oral Active [facility] tablet tablet by 2020 Health mouth daily. SOLIFENACIN 5 mg TAKE 1 Active [facility] tablet TABLET BY 2020 Health MOUTH EVERY DAY. rOPINIRole 2 mg TAKE 3 Active [facility] tablet TABLETS BY 2020 Health MOUTH EVERY MORNING, 2 TABLETS BY MOUTH AT MIDDAY AND 2 TABLETS BY MOUTH EVERY EVENING ASPIRIN-DIPYRIDA TAKE 1 Active [facility]-200 mg CAPSULE BY 2019 Health per 12 hr MOUTH TWICE capsule DAILY mirabegron Myrbetriq No Longer [facility] (MYRBETRIQ) 50 50 mg Active 2020 [facility] mg tablet tablet,exte nded release solifenacin 5 mg Take 1 Oral Inactive 05/05/ [facility] tablet tablet by [facility] [employer] mouth daily. ASPIRIN-DIPYRIDA Take 1 No Longer 12/31/ [facility] MOLE 25-200 mg capsule by Active [facility] [employer] per 12 hr mouth twice capsule daily LEVETIRACETAM TAKE 1 & Active 12/31/ [facility] 500 mg tablet 1/2 (ONE & 2019 [facility] ONE-HALF) TABLETS BY MOUTH TWICE DAILY lidocaine 2% Infiltration Inactive [facility] (XYLOCAINE) 15 2019 [facility] mL in NaCl 0.9% (NS) 35 mL clostridium Intramuscular Inactive botulinum toxin 2019 [facility] (BOTOX) injection 200 Units LEVETIRACETAM TAKE 1 & No Longer 11/23/ [facility] 500 mg tablet 1/2 (ONE & Active 2019 [facility] ONE-HALF) TABLETS BY MOUTH TWICE DAILY ALPRAZolam Take 1 Oral Active [facility] (XANAX) 0.25 mg tablet by [address] [place] [address] tablet mouth once now for 1 dose. 1 hour prior the Botox injection Nitrofurantoin&N Take 1 Oral Active [facility] it. Macrocryst capsule by [facility] [employer] (MACROBID) 100 mouth 2 mg capsule (two) times daily for 5 days. Start 2 days prior the Botox solifenacin 5 mg Take 1 Oral No Longer 11/09/ [facility] tablet tablet by Active [facility] [employer] mouth daily. trospium 20 mg Take 1 Oral No Longer 10/20/ [facility] tablet tablet by Active [facility] [employer] mouth daily. clonazePAM 1 mg Take 1 Oral Active 10/12/ [facility] tablet tablet by [facility] [employer] mouth 3 (three) times daily. aspirin-dipyrida Take 1 Oral No Longer 08/28/ [facility] mole 25-200 mg capsule by Active [facility] [employer] per 12 hr mouth 2 capsule (two) times daily. levETIRAcetam TAKE 1 & No Longer 08/28/ [facility] 500 mg tablet 1/2 (ONE & Active 2018 [employer] ONE-HALF) TABLETS BY MOUTH TWICE DAILY rOPINIRole 2 mg TAKE 3 No Longer 08/04/ [facility] tablet TABLETS BY Active [facility] [employer] MOUTH IN THE MORNING, THEN TAKE 2 TABLETS BY MOUTH MIDDAY, THEN TAKE 2 TABLETS BY MOUTH IN THE EVENING aspirin-dipyrida Take 1 Oral Active 06/09/ [facility] mole 25-200 mg capsule by [facility] [employer] per 12 hr mouth 2 capsule (two) times daily. LEVETIRACETAM TAKE 1 & Active 05/26/ [facility] 500 mg tablet 1/2 (ONE & 2018 Health ONE-HALF) TABLETS BY MOUTH TWICE DAILY LEVETIRACETAM TAKE 1 & No Longer 04/13/ [facility] 500 mg tablet 1/2 (ONE & Active 2018 [facility] ONE-HALF) TABLETS BY MOUTH TWICE DAILY clonazePAM 0.5 1 PO BID as Active 03/23/ [facility] mg tablet need for 2019 [facility] anxiety related anti-mandi son drug. aspirin-dipyrida Take 1 Oral No Longer 03/05/ [facility] mole 25-200 mg capsule by Active 2019 [facility] per 12 hr mouth 2 capsule (two) times daily. ROPINIROLE 2 mg TAKE 3 Active 02/19/ [facility] tablet TABLETS BY 2019 Health MOUTH IN THE MORNING, THEN TAKE 2 TABLETS BY MOUTH MIDDAY, THEN TAKE 2 TABLETS BY MOUTH IN THE EVENING diclofenac 50 mg Take 1 Oral Active 01/16/ [facility] tablet tablet by 2019 [facility] mouth 3 (three) times daily. alendronate 70 Take 70 mg Oral Active 08/01/ [facility] mg tablet by mouth 2018 [facility] weekly. TRELEGY ELLIPTA Active 07/30/ [facility] 100-62.5-25 mcg 2018 [facility] DsDv amitriptyline 50 Take 50 mg Oral Active 07/11/ [facility] mg tablet by mouth at 2018 [facility] bedtime. DEXILANT 60 mg Active 07/09/ [facility] capsule 2018 [facility] FLUARIX QUAD Active 06/12/ [facility] [id number], PF, 2018 [facility] 60 mcg (15 mcg x 4)/0.5 mL syringe levoFLOXacin 750 Take 1 Oral No Longer 06/05/ [facility] mg tablet tablet by Active 2017 [facility] mouth every 24 (twenty-fou r) hours. ondansetron Take 1 Oral No Longer 06/05/ [facility] (ZOFRAN ODT) 4 tablet by Active 2017 [facility] mg mouth every disintegrating 8 (eight) tablet hours as needed for Nausea and Vomiting (N/V). citalopram 40 mg Take 40 mg Oral Active [facility] tablet by mouth at [facility] bedtime. albuterol-ipratr Combivent Active [facility] opium (COMBIVENT Respimat 20 Hea lth RESPIMAT) 20-100 mcg-100 mcg/actuation mcg/actuati inhaler on solution for inhalation suvorexant Take 1 Oral Active [facility] (BELSOMRA) 10 mg tablet by Healt h Tab mouth daily. mirabegron Myrbetriq Active [facility] (MYRBETRIQ) 50 50 mg Health mg tablet tablet,exte nded release mirabegron 50 mg Take 1 Oral Active [facility] tablet tablet by [facility] mouth daily. Allergies, Adverse Reactions, Alerts Substance Category Reaction Severity Reaction Status Date Comments S ource type Reported Tramadol Nausea Propensity Active [facility] and/or to adverse 8 Healt h Vomiting reactions Immunizations No Data Provided for This Section Results No Data Provided for This Section Pathology Reports No Data Provided for This Section Diagnostic Reports Report Value Date Source CT ABDOMEN PELVIS WO 1. No evidence of renal ston e, ureteral stone.2. Dilated right renal pelvis and mild dilation of the right renal calyceswithout any obstructing stone. There is abnormal appearance to the renalpelvis. I 11/06/2019 [facility] CONTRAST would recommend further eval uation with CT urogram.3. Diverticulosis of the colon4. A 5 mm groundglass nodule in the right lower lobe. Follow-up recommendedin 6 months.5. Old compression fracture of L1 vertebral body with retropul delphine of theposterior-superior vertebral body into the spinal canal EXAM: CT SCAN OF THE ABDOMEN AND PELVIS WITHOUT CONTRAST-RENAL STONEPROTOCOL HISTORY: Urinary tract stone, known, no complications or risk factors; TECHNIQUE:3 mm axial images are obtained from diaphragmatic domes tosymphysis pubis without oral or intravenous contrast. Sagittal and coronalreformation is ca rried out. COMPARISON: None Radiation Dose: DLP of 507 mGy-cm. FINDINGS: A small 5 mm groundglass nodule is present in the right middle lobe lateralbasal segment (2: 2). Areas of atelectasis are seen i n the lung bases. Nopleural effusion is present. Heart size is normal. Liver is normal in size. No definite focal masses are present within theliver. Gallbladder is normal. No bile duct dilation is note d. Pancreas isnormal. No rebeka freddy dilation is seen. Spleen is normal in size. Adrenal glands are normal. No nodularity of the adrenal glands is noted. Kidneys are normal in size and shape. No renal stone is noted. Slightprominence o f the right renal pelvis is noted. There is abrupt cut offnoted within the right renal pelvis. No definite obstructing stone ispresent. Abdominal aorta is normal in size. Den se atherosclerotic calcifica tions areseen in the aorta as well as its branches. No free fluid or free air isseen in the abdomen. No enlarged lymph nodes are seen in theretroperitoneum or in the mesenter y. A few nonspecific retrope ritoneallymph nodes are noted, not enlarged by CT criteria. There is no evidence of bowel obstruction. Moderate amount of stool isnoted in the colon. Appendix is normal. Scat tered diverticula are seen i nthe descending and sigmoid colon. The uterus is removed. Urinary bladder is grossly normal. Phleboliths areseen in the pelvis. No free fluid is identified in the pelvis. No suspicious abnormality of th e bones is seen. Changes of degenerativejoint disease are seen in both hip joints. Old compression fracture of C3imlymjnot body is seen with retropulsion of the posterior-sup eriorvertebral body into the spinal canal. [facility], Radiant Results Inft User - 11/06/2019 12:38 PM CSTEXAM: CT SCAN OF THE ABDOMEN AND PELVIS WITHOUT CONTRAST- RENAL STONE PROTOCOL HISTORY: Urinary tract stone, known, no complic ations or risk factors; TECHNIQUE:3 mm axial images are obtained from di aphragmatic domes to symphysis pubis without oral or intravenous cont rast. Sagittal and coronal reformation is carried out. COMPARISON: None Radiation Dose: DLP of 507 mGy-cm. FINDINGS: A small 5 mm groundglass nodule is present in th e right middle lobe lateral basal segment (2: 2). Areas of atelectasis are s een in the lung bases. No pleural effusion is present. Heart size is maxine l. Liver is normal in size. No definite focal sarwat s are present within the liver. Gallbladder is normal. No bile duct dilat ion is noted. Pancreas is normal. No ductal dilation is seen. Spleen is no rmal in size. Adrenal glands are normal. No nodularity of the adrenal glands is noted. Kidneys are normal in size and shape. No renal s tone is noted. Slight prominence of the right renal pelvis is noted. T here is abrupt cut off noted within the right renal pelvis. No definite obstructing stone is present. Abdominal aorta is normal in size. Dense atheros clerotic calcifications are seen in the aorta as well as its branches. No fr ee fluid or free air is seen in the abdomen. No enlarged lymph nodes are seen in the retroperitoneum or in the mesentery. A few nonsp ecific retroperitoneal lymph nodes are noted, not enlarged by CT criter ia. There is no evidence of bowel obstruction. Moder ate amount of stool is noted in the colon. Appendix is normal. Scattere d diverticula are seen in the descending and sigmoid colon. The uterus is removed. Urinary bladder is grossl y normal. Phleboliths are seen in the pelvis. No free fluid is identified in the pelvis. No suspicious abnormality of the bones is seen. Changes of degenerative joint disease are seen in both hip joints. Old c ompression fracture of L1 vertebral body is seen with retropulsion of the posterior-superior vertebral body into the spinal canal. IMPRESSION 1. No evidence of renal stone, ureteral stone. 2. Dilated right renal pelvis and mild dilation of the right renal calyces without any obstructing stone. There is abnormal appearance to the renal pelvis. I would recommend further evaluation wit h CT urogram. 3. Diverticulosis of the colon 4. A 5 mm groundglass nodule in the right lower lobe. Follow-up recommended in 6 months. 5. Old compression fracture of L1 vertebral body with retropulsion of the posterior-superior vertebral body into the spina l canal Consultation Notes No Data Provided for This Section Discharge Summaries No Data Provided for This Section History and Physicals No Data Provided for This Section Vital Signs Vital Sign Value Date Comments Source Systolic (mm Hg) 153 03/24/2020 [facility] Health Diastolic (mm Hg) 84 03/24/2020 [facility] Healt h Heart Rate 76 03/24/2020 [facility] Health Temperature Oral (F) 37.11 Ruthann 03/24/2020 [facility] He alth Height 165.1 cm 03/24/2020 [facility] Health Weight 88.089 03/24/2020 [facility] Health Systolic (mm Hg) 143 03/22/2020 [facility] Health Diastolic (mm Hg) 81 03/22/2020 [facility] Healt h Heart Rate 84 03/22/2020 [facility] Health Height 165.1 cm 03/22/2020 [facility] Health Weight 87.952 03/22/2020 [facility] Health Systolic (mm Hg) 150 02/09/2020 [facility] Health Diastolic (mm Hg) 71 02/09/2020 [facility] Healt h Heart Rate 94 02/09/2020 [facility] Health Temperature Oral (F) 36.67 Ruthann 02/09/2020 [facility] He alth Respitory Rate 18 02/09/2020 [facility] Health Height 165.1 cm 02/09/2020 [facility] Health Weight 87.091 02/09/2020 [facility] Health Systolic (mm Hg) 176 12/23/2019 [facility] Health Diastolic (mm Hg) 99 12/23/2019 [facility] Healt h Heart Rate 84 12/23/2019 [facility] Health Temperature Oral (F) 36.67 Ruthann 12/23/2019 [facility] He alth Respitory Rate 18 12/23/2019 [facility] Health Height 165.1 cm 12/23/2019 [facility] Health Weight 87.862 12/23/2019 [facility] Health Systolic (mm Hg) 141 12/18/2019 [facility] Health Diastolic (mm Hg) 75 12/18/2019 [facility] Healt h Heart Rate 90 12/18/2019 [facility] Health Temperature Oral (F) 36.17 Ruthann 12/18/2019 [facility] He alth Respitory Rate 16 12/18/2019 [facility] Health Height 165.1 cm 12/18/2019 [facility] Health Weight 87.147 12/18/2019 [facility] Health Systolic (mm Hg) 123 11/10/2019 [facility] Health Diastolic (mm Hg) 77 11/10/2019 [facility] Healt h Heart Rate 88 11/10/2019 [facility] Health Respitory Rate 16 11/10/2019 [facility] Health Height 165.1 cm 11/10/2019 [facility] Health Weight 89.767 11/10/2019 [facility] Health Systolic (mm Hg) 150 10/20/2019 [facility] Health Diastolic (mm Hg) 69 10/20/2019 [facility] Healt h Heart Rate 75 10/20/2019 [facility] Health Respitory Rate 18 10/20/2019 [facility] Health Height 165.1 cm 10/20/2019 [facility] Health Weight 88.497 10/20/2019 [facility] Health Encounters Location Location Encounter Encounter Reason Attending ADM DC Stat us Source Details Type Number For Provider Date Date Visit [facility] Health Refill [id number] Frank 05/25 [facility] B Aria Frederick MD /2018 [facility] Refill [id number] Frank 06/09 [facility] B Aria Frederick MD /2018 [facility] Orders Only [id number] No Doctor 10/06 [facility] Unassigned /2018 [facility] Orders Only [id number] No Doctor 10/20 [facility] Unassigned Health [facility] Health Office Visit [id number] Bilal 10/20 10/21 [facility] UrologyCarlos Castrejon MD /2019 [facility] [id number] Bilal 11/06 11/07 [facility] Dhaval Castrejon MD /2019 [facility] Computed Tomography [facility] Health Refill [id number] Frank 11/08 [facility] B NeurologyMichael Frederick MD /2019 [facility] Office Visit [id number] Bilal 11/10 11/10 [facility] Urologchemo Castrejon MD /2019 [facility] Health Refill [id number] Frank 11/23 [facility] B NeurologyMichael Frederick MD /2019 [facility] Telephone [id number] Bilal 12/16 [facility] UrologyCarlos Castrejon MD /2019 [facility] Orders Only [id number] No Doctor 12/16 [facility] Unassigned /2019 Health [facility] Health Office Visit [id number] Frank 12/17 12/17 [facility] NeurologyMichael Frederick MD /2019 [facility] Office Visit [id number] Bilal 12/22 12/23 [facility] Urologchemo Castrejon MD /2019 [facility] Orders Only [id number] No Doctor 12/24 [facility] Unassigned /2019 Health [facility] Health Telephone [id number] Frank 12/28 [facility] NeurologyMichael Frederick MD /2019 [facility] Refill [id number] Frank 12/30 [facility] B NeurologyMichael Frederick MD /2019 [facility] Telemedicine [id number] Bilal 02/02 02/02 [facility] Urology- Visit Cash CHADWICK /2019 [facility] Office Visit [id number] Bilal 02/08 02/08 [facility] UrologyCarlos Castrejon MD /2019 [facility] Health Refill [id number] Frank 02/11 [facility] B NeurologyMichael Frederick MD /2019 [facility] Health Refill [id number] Frank 02/12 [facility] B NeurologyMichael Frederick MD /2019 [facility] Health Telephone [id number] Judi Molina 03/16 [facility] Intervention PA-C Heal al Radiology [facility] Health Refill [id number] Damion 03/17 [facility] B UrologyCarlos Castrejon MD [facility] Orders Only [id number] No Doctor 03/22 [facility] Unassigned Health [facility] Health Office Visit [id number] Bildeanna 03/22 03/22 [facility] Urologchemo Castrejon MD /2019 [facility] Health Office Visit [id number] [place] 03/24 03/24 [facility] Neurology, Sushil CHADWICK /2019 [facility] Procedures Procedure Code Date Perfomer Comments Source ASSIGNMENT OF BENEFITS [id number] 03/22/2020 [facility] Unassigned DME/SUPPLY 52692 12/25/[address] [facility] JUSTIFICATION Unassigned REFERRAL- [id number] 12/17/[address] [facility] REQUEST/RESPONSE [place] [id number] 11/07/2019 [facility] CONTRAST NO SHOW OR MISSED [id number] 10/20/2019 [facility] alth APPOINTMENT POLICY Unassigned [place] [id number] 10/06/2019 [facility] CONSULT/REFERRAL FROM Unassigned NON-[facility] Assessment and Plan No Data Provided for This Section Plan of Care Plan of Care Date Source Depression Screening 02/08/2021 [facility] INFLUENZA VACCINE (Season Ended) 2020 [facility] He alth Upcoming EncountersDateTypeSpecialtyCare TeamDescription [facility] 05/05/2020 Office Visit Damion Escalera MD[address] [facility] [address], [place] [phone] (Fax) Scheduled OrdersNameTypePriorityAssociated DiagnosesOrder Sc hedule MR BRAIN WO CONTRAST IMAGING Routine Chronic ischemic left MCA strokeArterial occlusive diseaseEssential hypertensionHyperlipidemia, unspecified hyperlipidemia typeChronic obstructive pulmonary disease, unspecified COPD typeTremors of nervous system Expected: 03/24/2020, Expires: 03/24/[address]21 CT ANGIOGRAM HEAD IMAGING Routine Chronic ischemic left MCA strokeArterial occlusive diseaseEssential hypertensionHyperlipidemia, unspecified hyperlipidemia typeChronic obstructive pulmonary disease, unspecified COPD typeTremors of nervous system Expected: 03/24/2020, Expires: 03/24/2021 CT ANGIOGRAM NECK IMAGING Routine Chronic ischemic left MCA strokeArterial occlusive diseaseEssential hypertensionHyperlipidemia, unspecified hyperlipidemia typeChronic obstructive pulmonary disease, unspecified COPD typeTremors of nervous system Expected: 03/24/2020, Expires: 03/24/2021 LIPID PANEL (24475)(TOTAL CHOLESTEROL, TRIGLYCERIDES, HDL) LAB Routine Chronic ischemic left MCA strokeArterial occlusive diseaseEssential hypertensionHyperlipidemia, unspecified hyperlipidemia typeChronic obstructive pulmonary disease, unspecified COPD typeTremors of nervous system Expected: 03/24/2020, Expires: 03/24/2021 GLYCOSYLATED HEMOGLOBIN (A1C) LAB Routine Abnormal finding of blood chemistry, uns pecified Chronic ischemic left MCA strokeArterial occlusive diseaseEssential hypertensionHyperlipidemia, unspecified hyperlipidemia typeChronic obstructive pulmon derek disease, unspecified COPD typeTremors of nervous system Expected: 03/24/2020, Expires: 03/24/2021 BASIC METABOLIC PANEL (NA, K, CL, CO2, GLUCOSE, BUN, CREATIN INE, CA) LAB Routine Chronic ischemic left MCA strokeArterial occlusive diseaseEssential hypertensionHyperlipidemia, unspecified hyperlipidemia typeChronic obstructive pulmonary disease, unspecified COPD typeTremors of nervous system Expected: 03/24/2020, Expires: 03/24/2021 Health MaintenanceDue DateLast DoneComments HEPATITIS C (HCV) SCREEN 1955 PNEUMOCOCCAL 0-64 YEARS COMBINED SERIES (1 of 1 - PPSV23) 1963 DTaP,Tdap,and Td Vaccines (1 - Tdap) 1968 PAP SMEAR 1978 Breast Cancer Screening (MAMMOGRAM) 1997 COLONOSCOPY 2007 Zoster Recombinant Vaccine (SHINGRIX) (1 of 2) 2007 LUNG CANCER SCREEN: Recommended for age 55-80 with 30 + pack year history 2012 INFLUENZA VACCINE (Season Ended) 2020 Depression Screening 02/08/2021 02/09/2020 documented as of this encounter MR BRAIN WO CONTRAST 03/24/2020 [facility] Health IMAGING Routine Chronic ischemic left MCA strokeArterial occlusive diseaseEssential hypertensionHyperlipidemia, unspecified hyperlipidemia typeChronic obstructive pulmonary disease, unspecified COPD typeTremors of nervous system Expected: 03/24/2020, Expires: 03/24/2021 CT ANGIOGRAM HEAD 03/24/2020 [facility] Health IMAGING Routine Chronic ischemic left MCA strokeArterial occlusive diseaseEssential hypertensionHyperlipidemia, unspecified hyperlipidemia typeChronic obstructive pulmonary disease, unspecified COPD typeTremors of nervous system Expected: 03/24/2020, Expires: 03/24/2021 CT ANGIOGRAM NECK 03/24/2020 [facility] Health IMAGING Routine Chronic ischemic left MCA strokeArterial occlusive diseaseEssential hypertensionHyperlipidemia, unspecified hyperlipidemia typeChronic obstructive pulmonary disease, unspecified COPD typeTremors of nervous system Expected: 03/24/2020, Expires: 03/24/2021 LIPID PANEL (06316)(TOTAL CHOLESTEROL, TRIGLYCERIDES, HDL) 0 03/24/2020 [facility] Health LAB Routine Chronic ischemic left MCA strokeArterial occlusive diseaseEssential hypertensionHyperlipidemia, unspecified hyperlipidemia typeChronic obstructive pulmonary disease, unspecified COPD typeTremors of nervous system Expected: 03/24/2020, Expires: 03/24/2021 GLYCOSYLATED HEMOGLOBIN (A1C) 03/24/2020 [facility] Healt h LAB Routine Abnormal finding of blood chemistry, uns pecified Chronic ischemic left MCA strokeArterial occlusive diseaseEssential hypertensionHyperlipidemia, unspecified hyperlipidemia typeChronic obstructive pulmon derek disease, unspecified COPD typeTremors of nervous system Expected: 03/24/2020, Expires: 03/24/2021 BASIC METABOLIC PANEL (NA, K, CL, CO2, GLUCOSE, BUN, CREATIN INE, CA) 03/24/2020 [facility] Health LAB Routine Chronic ischemic left MCA strokeArterial occlusive diseaseEssential hypertensionHyperlipidemia, unspecified hyperlipidemia typeChronic obstructive pulmonary disease, unspecified COPD typeTremors of nervous system Expected: 03/24/2020, Expires: 03/24/2021 Upcoming EncountersDateTypeSpecialtyCare TeamDescription [facility] 03/24/2020 Office Visit Neurology Eusebia Ling MD[address] [place], [place] [phone] (Fax) 05/05/2020 Office Visit Urology Damion Castrejon MD2280 [facility] [address] [place] [address] [phone] (Fax) Health MaintenanceDue DateLast DoneComments HEPATITIS C (HCV) SCREEN 1955 PNEUMOCOCCAL 0-64 YEARS COMBINED SERIES (1 of 1 - PPSV23) 1963 DTaP,Tdap,and Td Vaccines (1 - Tdap) 1968 PAP SMEAR 1978 Breast Cancer Screening (MAMMOGRAM) 1997 COLONOSCOPY 2007 Zoster Recombinant Vaccine (SHINGRIX) (1 of 2) 2007 LUNG CANCER SCREEN: Recommended for age 55-80 with 30 + pack year history 2012 INFLUENZA VACCINE (Season Ended) 2020 Depression Screening 02/08/2021 02/09/2020 documented as of this encounter Upcoming EncountersDateTypeSpecialtyCare TeamDescription [facility] 03/24/2020 Office Visit Neurology Eusebia Ling MD[address] [place], [place] [phone] (Fax) Health MaintenanceDue DateLast DoneComments HEPATITIS C (HCV) SCREEN 1955 PNEUMOCOCCAL 0-64 YEARS COMBINED SERIES (1 of 1 - PPSV23) 1963 DTaP,Tdap,and Td Vaccines (1 - Tdap) 1968 PAP SMEAR 1978 Breast Cancer Screening (MAMMOGRAM) 1997 COLONOSCOPY 2007 Zoster Recombinant Vaccine (SHINGRIX) (1 of 2) 2007 LUNG CANCER SCREEN: Recommended for age 55-80 with 30 + pack year history 2012 INFLUENZA VACCINE (Season Ended) 2020 Depression Screening 02/08/2021 02/09/2020 documented as of this encounter Upcoming EncountersDateTypeSpecialtyCare TeamDescription 08/2020 [facility] 03/22/2020 Office Visit UrologDamion Larose MD2280 [facility] [address] [place] [address] [phone] (Fax) Health MaintenanceDue DateLast DoneComments HEPATITIS C (HCV) SCREEN 1955 PNEUMOCOCCAL 0-64 YEARS COMBINED SERIES (1 of 1 - PPSV23) 1963 DTaP,Tdap,and Td Vaccines (1 - Tdap) 1968 PAP SMEAR 1978 Breast Cancer Screening (MAMMOGRAM) 1997 COLONOSCOPY 2007 Zoster Recombinant Vaccine (SHINGRIX) (1 of 2) 2007 LUNG CANCER SCREEN: Recommended for age 55-80 with 30 + pack year history 2012 INFLUENZA VACCINE (Season Ended) 2020 Depression Screening 02/08/2021 02/09/2020 documented as of this encounter Upcoming EncountersDateTypeSpecialtyCare TeamDescription 07/2020 [facility] 03/22/2020 Office Visit UrologDamion Larose MD2280 [facility] [address] [place] [address] [phone] (Fax) Health MaintenanceDue DateLast DoneComments HEPATITIS C (HCV) SCREEN 1955 PNEUMOCOCCAL 0-64 YEARS COMBINED SERIES (1 of 1 - PPSV23) 1963 DTaP,Tdap,and Td Vaccines (1 - Tdap) 1968 PAP SMEAR 1978 Breast Cancer Screening (MAMMOGRAM) 1997 COLONOSCOPY 2007 Zoster Recombinant Vaccine (SHINGRIX) (1 of 2) 2007 LUNG CANCER SCREEN: Recommended for age 55-80 with 30 + pack year history 2012 INFLUENZA VACCINE (Season Ended) 2020 Depression Screening 02/08/2021 02/09/2020 documented as of this encounter Upcoming EncountersDateTypeSpecialtyCare TeamDescription 08/2020 [facility] 03/22/2020 Office Visit Damion Escalera MD2280 [facility] [address] [place] [address] [phone] (Fax) Health MaintenanceDue DateLast DoneComments HEPATITIS C (HCV) SCREEN 1955 PNEUMOCOCCAL 0-64 YEARS COMBINED SERIES (1 of 1 - PPSV23) 1963 DTaP,Tdap,and Td Vaccines (1 - Tdap) 1968 PAP SMEAR 1978 Breast Cancer Screening (MAMMOGRAM) 1997 COLONOSCOPY 2007 Zoster Recombinant Vaccine (SHINGRIX) (1 of 2) 2007 LUNG CANCER SCREEN: Recommended for age 55-80 with 30 + pack year history 2012 INFLUENZA VACCINE (Season Ended) 2020 documented as of this encounter Upcoming EncountersDateTypeSpecialtyCare TeamDescription 05/2020 [facility] 03/22/2020 Office Visit Urology Damion Castrejon MD2280 [facility] [address] [place] [address] [phone] (Fax) Health MaintenanceDue DateLast DoneComments HEPATITIS C (HCV) SCREEN 1955 PNEUMOCOCCAL 0-64 YEARS COMBINED SERIES (1 of 1 - PPSV23) 1963 DTaP,Tdap,and Td Vaccines (1 - Tdap) 1968 PAP SMEAR 1978 Breast Cancer Screening (MAMMOGRAM) 1997 COLONOSCOPY 2007 Zoster Recombinant Vaccine (SHINGRIX) (1 of 2) 2007 LUNG CANCER SCREEN: Recommended for age 55-80 with 30 + pack year history 2012 INFLUENZA VACCINE (Season Ended) 2020 documented as of this encounter Upcoming EncountersDateTypeSpecialtyCare TeamDescription 02/2020 [facility] 03/22/2020 Office Visit Damion Escalera MD2280 [facility] [address] [place] [address] [phone] (Fax) Health MaintenanceDue DateLast DoneComments HEPATITIS C (HCV) SCREEN 1955 PNEUMOCOCCAL 0-64 YEARS COMBINED SERIES (1 of 1 - PPSV23) 1963 DTaP,Tdap,and Td Vaccines (1 - Tdap) 1968 PAP SMEAR 1978 Breast Cancer Screening (MAMMOGRAM) 1997 COLONOSCOPY 2007 Zoster Recombinant Vaccine (SHINGRIX) (1 of 2) 2007 LUNG CANCER SCREEN: Recommended for age 55-80 with 30 + pack year history 2012 INFLUENZA VACCINE (Season Ended) 2020 documented as of this encounter Upcoming EncountersDateTypeSpecialtyCare TeamDescription 02/2020 [facility] 03/22/2020 Office Visit Damion Escalera MD[address] [place] [address] [place] [address] [phone] (Fax) Health MaintenanceDue DateLast DoneComments HEPATITIS C (HCV) SCREEN 1955 PNEUMOCOCCAL 0-64 YEARS COMBINED SERIES (1 of 1 - PPSV23) 1963 DTaP,Tdap,and Td Vaccines (1 - Tdap) 1968 PAP SMEAR 1978 Breast Cancer Screening (MAMMOGRAM) 1997 COLONOSCOPY 2007 Zoster Recombinant Vaccine (SHINGRIX) (1 of 2) 2007 LUNG CANCER SCREEN: Recommended for age 55-80 with 30 + pack year history 2012 INFLUENZA VACCINE (Season Ended) 2020 documented as of this encounter Upcoming EncountersDateTypeSpecialtyCare TeamDescription [facility] 02/03/2020 Office Visit Damion Escalera MD[address] [place] [address] [place] [address] [phone] (Fax) Health MaintenanceDu DateLast DoneComments HEPATITIS C (HCV) SCREEN 1955 PNEUMOCOCCAL 0-64 YEARS COMBINED SERIES (1 of 1 - PPSV23) 1963 DTaP,Tdap,and Td Vaccines (1 - Tdap) 1968 PAP SMEAR 1978 Breast Cancer Screening (MAMMOGRAM) 1997 COLONOSCOPY 2007 Zoster Recombinant Vaccine (SHINGRIX) (1 of 2) 2007 LUNG CANCER SCREEN: Recommended for age 55-80 with 30 + pack year history 2012 INFLUENZA VACCINE (#1) 2019 documented as of this encounter Upcoming EncountersDateTypeSpecialtyCare TeamDescription [facility] 02/03/2020 Office Visit Damion Escalera MD[address] [place] [address] [place] [address] [phone] (Fax) Health MaintenanceDue DateLast DoneComments HEPATITIS C (HCV) SCREEN 1955 PNEUMOCOCCAL 0-64 YEARS COMBINED SERIES (1 of 1 - PPSV23) 1963 DTaP,Tdap,and Td Vaccines (1 - Tdap) 1968 PAP SMEAR 1978 Breast Cancer Screening (MAMMOGRAM) 1997 COLONOSCOPY 2007 Zoster Recombinant Vaccine (SHINGRIX) (1 of 2) 2007 LUNG CANCER SCREEN: Recommended for age 55-80 with 30 + pack year history 2012 INFLUENZA VACCINE (#1) 2019 documented as of this encounter Upcoming EncountersDateTypeSpecialtyCare TeamDescription [facility] 02/03/2020 Office Visit UrologDamion Larose MD2280 [facility] [address] [place] [address] [phone] (Fax) Health MaintenanceDue DateLast DoneComments HEPATITIS C (HCV) SCREEN 1955 PNEUMOCOCCAL 0-64 YEARS COMBINED SERIES (1 of 1 - PPSV23) 1963 DTaP,Tdap,and Td Vaccines (1 - Tdap) 1968 PAP SMEAR 1978 Breast Cancer Screening (MAMMOGRAM) 1997 COLONOSCOPY 2007 Zoster Recombinant Vaccine (SHINGRIX) (1 of 2) 2007 LUNG CANCER SCREEN: Recommended for age 55-80 with 30 + pack year history 2012 INFLUENZA VACCINE (#1) 2019 documented as of this encounter Upcoming EncountersDateTypeSpecialtyCare TeamDescription [facility] 02/03/2020 Office Visit Damion Escalera MD2280 [facility] [address] [place] [address] [phone] (Fax) [facility] MaintenanceDu DateLast DoneComments HEPATITIS C (HCV) SCREEN 1955 PNEUMOCOCCAL 0-64 YEARS COMBINED SERIES (1 of 1 - PPSV23) 1963 DTaP,Tdap,and Td Vaccines (1 - Tdap) 1968 PAP SMEAR 1978 Breast Cancer Screening (MAMMOGRAM) 1997 COLONOSCOPY 2007 Zoster Recombinant Vaccine (SHINGRIX) (1 of 2) 2007 LUNG CANCER SCREEN: Recommended for age 55-80 with 30 + pack year history 2012 INFLUENZA VACCINE (#1) 2019 documented as of this encounter Upcoming EncountersDateTypeSpecialtyCare TeamDescription [facility] 02/03/2020 Office Visit Urology Damion Castrejon MD[address] [place] [address] [place] [address] [phone] (Fax) Health MaintenanceDue DateLast DoneComments HEPATITIS C (HCV) SCREEN 1955 PNEUMOCOCCAL 0-64 YEARS COMBINED SERIES (1 of 1 - PPSV23) 1963 DTaP,Tdap,and Td Vaccines (1 - Tdap) 1968 PAP SMEAR 1978 Breast Cancer Screening (MAMMOGRAM) 1997 COLONOSCOPY 2007 Zoster Recombinant Vaccine (SHINGRIX) (1 of 2) 2007 LUNG CANCER SCREEN: Recommended for age 55-80 with 30 + pack year history 2012 INFLUENZA VACCINE (#1) 2019 documented as of this encounter Upcoming EncountersDateTypeSpecialtyCare TeamDescription [facility] 02/03/2020 Office Visit Damion Escalera MD[address] [place] [address] [place] [address] [phone] (Fax) Health MaintenanceDue DateLast DoneComments HEPATITIS C (HCV) SCREEN 1955 PNEUMOCOCCAL 0-64 YEARS COMBINED SERIES (1 of 1 - PPSV23) 1963 DTaP,Tdap,and Td Vaccines (1 - Tdap) 1968 PAP SMEAR 1978 Breast Cancer Screening (MAMMOGRAM) 1997 COLONOSCOPY 2007 Zoster Recombinant Vaccine (SHINGRIX) (1 of 2) 2007 LUNG CANCER SCREEN: Recommended for age 55-80 with 30 + pack year history 2012 INFLUENZA VACCINE (#1) 2019 documented as of this encounter Upcoming EncountersDateTypeSpecialtyCare TeamDescription [facility] 12/23/2019 Office Visit Urology Damion Castrejon MD2280 [facility] [address] [place] [address] [phone] (Fax) Health MaintenanceDue DateLast DoneComments HEPATITIS C (HCV) SCREEN 1955 PNEUMOCOCCAL 0-64 YEARS COMBINED SERIES (1 of 1 - PPSV23) 1963 DTaP,Tdap,and Td Vaccines (1 - Tdap) 1968 PAP SMEAR 1978 Breast Cancer Screening (MAMMOGRAM) 1997 COLONOSCOPY 2007 Zoster Recombinant Vaccine (SHINGRIX) (1 of 2) 2007 LUNG CANCER SCREEN: Recommended for age 55-80 with 30 + pack year history 2012 INFLUENZA VACCINE (#1) 2019 documented as of this encounter Upcoming EncountersDateTypeSpecialtyCare TeamDescription [facility] 02/03/2020 Office Visit Damion Escalera MD2280 [facility] [address] [place] [address] [phone] (Fax) Health MaintenanceDu DateLast DoneComments HEPATITIS C (HCV) SCREEN 1955 PNEUMOCOCCAL 0-64 YEARS COMBINED SERIES (1 of 1 - PPSV23) 1963 DTaP,Tdap,and Td Vaccines (1 - Tdap) 1968 PAP SMEAR 1978 Breast Cancer Screening (MAMMOGRAM) 1997 COLONOSCOPY 2007 Zoster Recombinant Vaccine (SHINGRIX) (1 of 2) 2007 LUNG CANCER SCREEN: Recommended for age 55-80 with 30 + pack year history 2012 INFLUENZA VACCINE (#1) 2019 documented as of this encounter Upcoming EncountersDateTypeSpecialtyCare TeamDescription 09/2020 [facility] 12/18/2019 Office Visit Neurology Frank Frederick MD[address] [place] [address] [phone] (Fax) 12/23/2019 Office Visit Damion Escalera MD2280 [facility] [address] [place] [address] [phone] (Fax) Health [facility] DateLast DoneComments HEPATITIS C (HCV) SCREEN 1955 PNEUMOCOCCAL 0-64 YEARS COMBINED SERIES (1 of 1 - PPSV23) 1963 DTaP,Tdap,and Td Vaccines (1 - Tdap) 1968 PAP SMEAR 1978 Breast Cancer Screening (MAMMOGRAM) 1997 COLONOSCOPY 2007 Zoster Recombinant Vaccine (SHINGRIX) (1 of 2) 2007 LUNG CANCER SCREEN: Recommended for age 55-80 with 30 + pack year history 2012 INFLUENZA VACCINE (#1) 2019 documented as of this encounter Upcoming EncountersDateTypeSpecialtyCare TeamDescription [facility] 12/23/2019 Office Visit Damion Escalera MD2280 [facility] [address] [place] [address] [phone] (Fax) [facility] DateLast DoneComments HEPATITIS C (HCV) SCREEN 1955 PNEUMOCOCCAL 0-64 YEARS COMBINED SERIES (1 of 1 - PPSV23) 1963 DTaP,Tdap,and Td Vaccines (1 - Tdap) 1968 PAP SMEAR 1978 Breast Cancer Screening (MAMMOGRAM) 1997 COLONOSCOPY 2007 Zoster Recombinant Vaccine (SHINGRIX) (1 of 2) 2007 LUNG CANCER SCREEN: Recommended for age 55-80 with 30 + pack year history 2012 INFLUENZA VACCINE (#1) 2019 documented as of this encounter Upcoming EncountersDateTypeSpecialtyCare TeamDescription [facility] 12/23/2019 Office Visit Damion Escalera MD2280 [facility] [address] [place] [address] [phone] (Fax) Health MaintenanceDue DateLast DoneComments HEPATITIS C (HCV) SCREEN 1955 PNEUMOCOCCAL 0-64 YEARS COMBINED SERIES (1 of 1 - PPSV23) 1963 DTaP,Tdap,and Td Vaccines (1 - Tdap) 1968 PAP SMEAR 1978 Breast Cancer Screening (MAMMOGRAM) 1997 COLONOSCOPY 2007 Zoster Recombinant Vaccine (SHINGRIX) (1 of 2) 2007 LUNG CANCER SCREEN: Recommended for age 55-80 with 30 + pack year history 2012 INFLUENZA VACCINE (#1) 2019 documented as of this encounter Upcoming EncountersDateTypeSpecialtyCare TeamDescription 01/2020 [facility] 12/23/2019 Office Visit UrologDamion Larose MD[address] [place] [address] [place] [address] [phone] (Fax) Scheduled OrdersNameTypePriorityAssociated DiagnosesOrder Sc hedule URINE CULTURE LAB Routine Neurogenic bladder Expected: 11/10/2019, Expires: 11/10/2020 [facility] MaintenanceDue DateLast DoneComments HEPATITIS C (HCV) SCREEN 1955 PNEUMOCOCCAL 0-64 YEARS COMBINED SERIES (1 of 1 - PPSV23) 1963 DTaP,Tdap,and Td Vaccines (1 - Tdap) 1968 PAP SMEAR 1978 Breast Cancer Screening (MAMMOGRAM) 1997 COLONOSCOPY 2007 Zoster Recombinant Vaccine (SHINGRIX) (1 of 2) 2007 LUNG CANCER SCREEN: Recommended for age 55-80 with 30 + pack year history 2012 INFLUENZA VACCINE (#1) 2019 documented as of this encounter Upcoming EncountersDateTypeSpecialtyCare TeamDescription 01/2020 [facility] 12/23/2019 Office Visit UrologDamion Larose MD2280 [facility] [address] [place] [address] [phone] (Fax) Scheduled OrdersNameTypePriorityAssociated DiagnosesOrder Sc hedule URINE CULTURE LAB Routine Neurogenic bladder Expected: 11/10/2019, Expires: 11/10/2020 Health MaintenanceDue DateLast DoneComments HEPATITIS C (HCV) SCREEN 1955 PNEUMOCOCCAL 0-64 YEARS COMBINED SERIES (1 of 1 - PPSV23) 1963 DTaP,Tdap,and Td Vaccines (1 - Tdap) 1968 PAP SMEAR 1978 Breast Cancer Screening (MAMMOGRAM) 1997 COLONOSCOPY 2007 Zoster Recombinant Vaccine (SHINGRIX) (1 of 2) 2007 LUNG CANCER SCREEN: Recommended for age 55-80 with 30 + pack year history 2012 INFLUENZA VACCINE (#1) 2019 documented as of this encounter URINE CULTURE 11/10/2019 [facility] LAB Routine Neurogenic bladder Expected: 11/10/2019, Expires: 11/10/2020 Upcoming EncountersDateTypeSpecialtyCare TeamDescription 12/2019 [facility] 11/10/2019 Office Visit Urology Damion Castrejon MD2280 [facility] [address] [place] [address] [phone] (Fax) Health MaintenanceDue DateLast DoneComments HEPATITIS C (HCV) SCREEN 1955 PNEUMOCOCCAL 0-64 YEARS COMBINED SERIES (1 of 1 - PPSV23) 1963 DTaP,Tdap,and Td Vaccines (1 - Tdap) 1968 PAP SMEAR 1978 Breast Cancer Screening (MAMMOGRAM) 1997 COLONOSCOPY 2007 Zoster Recombinant Vaccine (SHINGRIX) (1 of 2) 2007 LUNG CANCER SCREEN: Recommended for age 55-80 with 30 + pack year history 2012 INFLUENZA VACCINE (#1) 2019 documented as of this encounter Upcoming EncountersDateTypeSpecialtyCare TeamDescription 10/2019 [facility] 11/10/2019 Office Visit UrologDamion Larose MD2280 [facility] [address] [place] [address] [phone] (Fax) [facility] MaintenanceDu DateLast DoneComments HEPATITIS C (HCV) SCREEN 1955 PNEUMOCOCCAL 0-64 YEARS COMBINED SERIES (1 of 1 - PPSV23) 1963 DTaP,Tdap,and Td Vaccines (1 - Tdap) 1968 PAP SMEAR 1978 Breast Cancer Screening (MAMMOGRAM) 1997 COLONOSCOPY 2007 Zoster Recombinant Vaccine (SHINGRIX) (1 of 2) 2007 LUNG CANCER SCREEN: Recommended for age 55-80 with 30 + pack year history 2012 INFLUENZA VACCINE (#1) 2019 documented as of this encounter Upcoming EncountersDateTypeSpecialtyCare TeamDescription [facility] 11/05/2019 Office Visit Urology Damion Castrejon MD[address] [place] [address] [place] [address] [phone] (Fax) Scheduled OrdersNameTypePriorityAssociated DiagnosesOrder Sc hedule CT ABDOMEN PELVIS WO CONTRAST IMAGING Routine Urinary incontinence, mixed Expected: 10/20/2019, Expires: 10/20/2020 Health MaintenanceDue DateLast DoneComments HEPATITIS C (HCV) SCREEN 1955 PNEUMOCOCCAL 0-64 YEARS COMBINED SERIES (1 of 1 - PPSV23) 1963 DTaP,Tdap,and Td Vaccines (1 - Tdap) 1968 PAP SMEAR 1978 Breast Cancer Screening (MAMMOGRAM) 1997 COLONOSCOPY 2007 Zoster Recombinant Vaccine (SHINGRIX) (1 of 2) 2007 LUNG CANCER SCREEN: Recommended for age 55-80 with 30 + pack year history 2012 INFLUENZA VACCINE (#1) 2019 documented as of this encounter Upcoming EncountersDateTypeSpecialtyCare TeamDescription [facility] 11/05/2019 Office Visit UrologDamion Larose MD2280 [facility] [address] [place] [address] [phone] (Fax) Scheduled OrdersNameTypePriorityAssociated DiagnosesOrder Sc hedule CT ABDOMEN PELVIS WO CONTRAST IMAGING Routine Urinary incontinence, mixed Expected: 10/20/2019, Expires: 10/20/2020 Health MaintenanceDue DateLast DoneComments HEPATITIS C (HCV) SCREEN 1955 PNEUMOCOCCAL 0-64 YEARS COMBINED SERIES (1 of 1 - PPSV23) 1963 DTaP,Tdap,and Td Vaccines (1 - Tdap) 1968 PAP SMEAR 1978 Breast Cancer Screening (MAMMOGRAM) 1997 COLONOSCOPY 2007 Zoster Recombinant Vaccine (SHINGRIX) (1 of 2) 2007 LUNG CANCER SCREEN: Recommended for age 55-80 with 30 + pack year history 2012 INFLUENZA VACCINE (#1) 2019 documented as of this encounter Upcoming EncountersDateTypeSpecialtyCare TeamDescription [facility] 11/05/2019 Office Visit Urology Damion Castrejon MD2280 [facility] [address] [place] [address] [phone] (Fax) Scheduled OrdersNameTypePriorityAssociated DiagnosesOrder Sc hedule CT ABDOMEN PELVIS WO CONTRAST IMAGING Routine Urinary incontinence, mixed Expected: 10/20/2019, Expires: 10/20/2020 Health MaintenanceDue DateLast DoneComments HEPATITIS C (HCV) SCREEN 1955 PNEUMOCOCCAL 0-64 YEARS COMBINED SERIES (1 of 1 - PPSV23) 1963 DTaP,Tdap,and Td Vaccines (1 - Tdap) 1968 PAP SMEAR 1978 Breast Cancer Screening (MAMMOGRAM) 1997 COLONOSCOPY 2007 Zoster Recombinant Vaccine (SHINGRIX) (1 of 2) 2007 LUNG CANCER SCREEN: Recommended for age 55-80 with 30 + pack year history 2012 INFLUENZA VACCINE (#1) 2019 documented as of this encounter Upcoming EncountersDateTypeSpecialtyCare TeamDescription [facility] 10/20/2019 Office Visit UrologDamion Larose MD2280 [facility] [address] [place] [address] [phone] (Fax) Health MaintenanceDue DateLast DoneComments HEPATITIS C (HCV) SCREEN 1955 PNEUMOCOCCAL 0-64 YEARS COMBINED SERIES (1 of 1 - PPSV23) 1963 DTaP,Tdap,and Td Vaccines (1 - Tdap) 1968 PAP SMEAR 1978 Breast Cancer Screening (MAMMOGRAM) 1997 COLONOSCOPY 2007 Zoster Recombinant Vaccine (SHINGRIX) (1 of 2) 2007 LUNG CANCER SCREEN: Recommended for age 55-80 with 30 + pack year history 2012 INFLUENZA VACCINE (#1) 2019 documented as of this encounter CT ABDOMEN PELVIS WO CONTRAST 10/20/2019 [facility] IMAGING Routine Urinary incontinence, mixed Expected: 10/20/2019, Expires: 10/20/2020 INFLUENZA VACCINE (#1) 2019 [facility] LUNG CANCER SCREEN: Recommended for age 55-[address] [facility] with 30 + pack year history LUNG CANCER SCREEN: Recommended for age 55-[address] [facility] with 30 + pack year history COLONOSCOPY 2007 [facility] Zoster Recombinant Vaccine (SHINGRIX) (1 of 2) 2007 [facility] Breast Cancer Screening (MAMMOGRAM) 1997 [facility] MAMMOGRAM 1997 [facility] PAP SMEAR 1978 [facility] PAP SMEAR 1978 [facility] DTaP,Tdap,and Td Vaccines (1 - Tdap) 1976 [facility] DTaP,Tdap,and Td Vaccines (1 - Tdap) 1968 [facility] Health PNEUMOCOCCAL 0-64 YEARS COMBINED SERIES (1 of [address] [facility] - PPSV23) HEPATITIS C (HCV) SCREEN 1957 [facility] HEPATITIS C (HCV) SCREEN 1957 [facility] Social History Social History Date Source Tobacco UseTypesPacks/DayYears UsedDate 03/24/2020 [facility] Current Every Day Smoker Smokeless Tobacco: Never Used Comments: no smoker x 4 weeks Alcohol UseDrinks/Weekoz/WeekComments Not Currently 1 Standard drinks or equivalent 1.0 Sex Assigned at BirthDate Recorded Not on file Job Start DateOccupationIndustry Not on file Not on file Not on file Travel HistoryTravel StartTravel End No recent travel history available. COVID-19 ExposureResponseDate Recorded In the last month, have you been in cont act with someone who was confirmed or suspected to have Coronavirus / COVID-19? No / Unsure 03/24/2020 11:46 AM CDT documented as of this encounter Family History No Data Provided for This Section Advance Directives No Data Provided for This Section Functional Status No Data Provided for This Section
--- OUTSIDE RECORDS SUMMARY | 2020-04-07 06:31 | XMS REPORT | Summary of Care ---
:1955 Author Organization [facility] Address [address] [place] [address] Care Team Providers Name Role Phone Will Johnson Primary Care Provider Reason for Visit Reason Comments URINARY HESITANCY UDS (Routine) Status Reason Specialty Diagnoses / Procedures Referred By Vasyl harterred To Contact Contact Authorized URO-UROLOGY / Diagnoses Botox 200 Units Damion Castrejon Farhan, Bilal, Urology Procedures CONSULT/REFERRAL UROLOGY OR CYSTOURETHROSCOPY INJ CHEMODENERVATION BLADDER PROCEDURE MD CHADWICK [address] [place] [address] [place] [address] [address] [place] [address] [place] [address] [place] [address] Phone: Fax: Encounter Details Date Type Department Care Team Description 02/09/2020 Office Visit [facility] Urology- Micah Castrejon MD Neurogenic bladder [address] (Primary Dx) [address] [facility] [address] [place] [address] [place] [address] [phone] Allergies Active Allergy Reactions Severity Noted Date Comments Codeine Swelling, Rash 06/05/2017 Penicillins Anaphylaxis, Rash 06/05/2017 Tramadol Nausea and/or Vomiting 08/05/2018 documented as of this encounter (statuses as of 02/09/2020) Medications Medication Sig Dispensed Refills Start Date End Date Status alendronate 70 mg 0 08/01/2018 A ctive tablet citalopram 40 mg citalopram 40 0 Active tablet mg tablet FLUARIX QUAD 0 06/12/2018 Active 0326-8407, PF, 60 mcg (15 mcg x 4)/0.5 [...] tablet by mouth 3 (three) times daily. ASPIRIN-DIPYRIDAMOL Take 1 capsule 60 capsule 2 01/01/2020 Active E 25-200 mg per 12 by mouth twice hr capsule daily LEVETIRACETAM 500 TAKE 1 & 1/2 90 tablet 2 01/01/2020 Active mg tablet (ONE & ONE-HALF) TABLETS BY MOUTH TWICE DAILY solifenacin 5 mg Take 1 tablet 30 tablet 2 02/09/2020 Active tabletIndications: by mouth daily. Neurogenic bladder solifenacin 5 mg Take 1 tablet 30 tablet 0 11/09/2019 02/09/20 2 Discontinued tabletIndications: by mouth daily. 0 Urgency incontinence mirabegron Myrbetriq 50 mg 0 Dis continued (MYRBETRIQ) 50 mg tablet,extended 0 tablet release documented as of this encounter (statuses as of 02/09/2020) Active Problems No known active problemsdocumented as of this encounter (statuses as of 02/09/2020) Social History Tobacco Use Types Packs/Day Years [...] Travel End No recent travel history available. COVID-19 Exposure Response Date Recorded In the last month, have you been in contact with No / Unsure 02/09/2020 9:24 AM CDT someone who was confirmed or suspected to have Coronavirus / COVID-19? documented as of this encounter Last Filed Vital Signs Vital Sign Reading Time Taken Comments Blood Pressure 150/71 02/09/2020 9:25 AM CDT Pulse 94 02/09/2020 9:25 AM CDT Temperature 36.7 C (98 F) 02/09/2020 9:25 AM CDT Respiratory Rate 18 02/09/2020 9:25 AM CDT Oxygen Saturation 95% 02/09/2020 9:25 AM CDT Inhaled Oxygen Concentration - - Weight 87.1 kg (192 lb) 02/09/2020 9:25 AM CDT Height 165.1 cm (5' 5") 02/09/2020 9:25 AM CDT Body Mass Index 31.95 02/09/2020 9:25 AM CDT documented in this encounter Progress Notes Damion Castrejon MD - 02/09/2020 9:00 AM CDTPATIENT: Jennifer Dietrich : 1955 DATE OF SERVICE: 02/09/20 Pre-Procedural Diagnosis: urgency and urgency urinary incontinence Post-Procedural Diagnosis: Impaired bladder sensation, normal capacity, DO at capacity ~ 450 ml. Procedure: Multichannel urodynamics Procedures Performed: 1. Complex uroflowmetry (95518) 2. Complex cystometrogram without measurement of urethral pressure and bladder voiding/flow pressure(72394) 3. EMG with patch measurement (94163) 4. Abdominal pressure measurement (78889) Attending Physician: Damion Castrejon MD INDICATIONS: Jennifer Dietrich is a 64 year old female who has given verbal consent for a telemedicine encounter today. ID was confirmed by Name. Today's telemedicine encounter was conducted via telephone (audio only). Communication with patient was conducted via Telephone due to patient unable to obtain video call option. encounter. This is a 64 year old female who was referred to the urology clinic for evaluation of mixed urinary incontinence. The patient has been complaining from DEEJAY for years. UUI>LOPEZ. Has seen Dr. Wilson at [place] who evaluated her with cystoscopy and CMGwhich showedmultiple DO with leaks, started at 130 ml. [...] the patient underwent indtradetrusor Botox injection 200 U 02/03/2020: the patient reports some improvement in her urinary symptoms for 4 weeks but her symptomsstarted to become worse We recommended that the patient undergo urodynamics further workup. A urine culture was noted to be negative prior to procedure. DESCRIPTION OF PROCEDURE IN DETAIL: A multichannel videourodynamics was performed in the sitting position. The patient was initially catheterized for <10 mL of residual urine. A vaginal catheter was placed for intraabdominal pressure measurements. A separate 7- Japanese dual-lumen catheter was placed in the bladder. Catheters were zeroed and filling was begun with water at 30mL/min. Free uroflow: 20 ml/s and PVR <10 ML( by cath). FILLING: Filling phase of the study revealed a compliant bladder. First sensation was noted at 350 mL. First urge was noted at 400 mL. Strong urge was noted at 450 mL. Detrusor overactivity occurred at 450mL. Detrusor leak pressure was 30 cm H20. The patient tolerated filling to a capacity of 500 mL. EMG was performed using surface perineal electrodes. EMG initially showed normal signals. There was no activity of the EMG during filling. During voiding there was electrical normal. The EMG study was technically normal VOIDING: At a capacity of 450mL, the patient was allowed to void. The patient was able to void in the sitting position with the catheter in place. Maximum detrusor pressure was 30 cm H20. This correlated with a peak flow of 15 mL/sec. Abdominal straining was not necessary for emptying. Post-void residual was 150 mL. . The patient tolerated the procedure well and the catheters were removed without difficulty. ASSESSMENT AND PLAN: This is a 64 year old female who was referred to the urology clinic for evaluation of mixed urinaryincontinence. Hx of stroke DEEJAY: UUI>LOPEZ: unhappy and bothered using diapers 1-3, failed medical therapy, poor respond to Botox 200 U 12/23/2019. Hx of nephrolithiasis urodynamics today showed normal bladder capacity ~500 ml, impaired bladder sensation, there was one DO at capacity ~30 cmH2O ended up with complete urination with PVR 150 ml.. - Neurogenic bladder with DO and impaired sensation Added Trospium 20 mg once a day( do covered with the insurance so I change it to Vesicare 5 mg). Will consider adding mirabegron 50 mg if failed. Damion Castrejon MD Cloth Desizing Range Operator Chief Clinical Professor Female Urology, Voiding dysfunction and Pelvic reconstruction Surgery documented in this encounter Plan of Treatment Date Type Specialty Care Team Description 03/22/2020 Office Visit Urology Damion Castrejon M D [address] [facility] [address] [place] [address] [phone] Health Maintenance Due Date Last Done Comments [...] 08/22/20 12 pack year history INFLUENZA VACCINE (Season Ended) 2020 documented as of this encounter Results Not on filedocumented in this encounter Visit Diagnoses Diagnosis Neurogenic bladder - Primary Neurogenic bladder, NOS documented in this encounter Insurance Payer Benefit Plan / Subscriber ID Effective Phone Address T e Group [facility] [id number] 2019-Pres Medica re HEALTHCARE - HEALTHCARE ent Adv HM O MANAGED DUAL COMPLETE MEDICARE HMO [facility] MEDICAID OF xxxxxxxxx 2017-Pres [phone] [address] [facility] ent [phone] [id number] [place] [address] documented as of this encounter
--- OUTSIDE RECORDS SUMMARY | 2020-04-07 06:31 | XMS REPORT | Summary of Care ---
:1955 Author Organization [facility] Address [address] [place] [address] Care Team Providers Name Role Phone Will Johnson Primary Care Provider Reason for Visit Reason Comments Appointment Encounter Details Date Type Department Care Team Description 02/03/2020 Telemedicine Visit [facility] Cash, Micahal, Neuroge skylar bladder Urology- Caleb CHADWICK (Primary Dx) [address] [place] [address] [phone] Allergies Active Allergy Reactions Severity Noted Date Comments Codeine Swelling, Rash 06/05/2017 Penicillins Anaphylaxis, Rash 06/05/2017 Tramadol Nausea and/or Vomiting 08/05/2018 documented as of this encounter (statuses as of 02/03/2020) Medications Medication Sig Dispensed Refills Start Date End Date Status alendronate 70 mg 0 08/01/2018 A ctive tablet citalopram 40 mg citalopram 40 mg 0 Active tablet tablet FLUARIX QUAD 0 06/12/2018 Active 5686-5352, PF, 60 mcg (15 mcg x 4)/0.5 [...] EVENING clonazePAM 1 mg Take 1 tablet by 90 tablet 0 10/12/2019 Active tablet mouth 3 (three) times daily. solifenacin 5 mg Take 1 tablet by 30 tablet 0 11/09/2019 Active tabletIndications: mouth daily. Urgency incontinence mirabegron Myrbetriq 50 mg 0 Act daren (MYRBETRIQ) 50 mg tablet,extended tablet release ASPIRIN-DIPYRIDAMOLE Take 1 capsule by 60 capsule 2 01/01/2020 Active 25-200 mg per 12 hr mouth twice daily capsule LEVETIRACETAM 500 mg TAKE 1 & 1/2 (ONE 90 tablet 2 01/01/2020 Active tablet & ONE-HALF) TABLETS BY MOUTH TWICE DAILY documented as of this encounter (statuses as of 02/03/2020) Active Problems No known active problemsdocumented as of this encounter (statuses as of 02/03/2020) Social History Tobacco Use Types Packs/Day Years [...] Signs Not on filedocumented in this encounter Progress Notes Damion Castrejon MD - 02/03/2020 1:30 PM CDT IUrology Telemedicine Clinic Note Location of Patient: Home Location or Provider: [facility] Date of Service: 02/03/2020 Chief Complaint: neurogenic bladder s/p stroke HPI: Jennifer Dietrich is a 64 year old [...] years. UUI>LOPEZ. Has seen Dr. Wilson at [place] who evaluated her with cystoscopy and CMGwhich [...] 4 weeks but her symptomsstarted to become worse. ROS: Review of Systems Medications: Current Outpatient Medications Medication Sig Dispense Refill ASPIRIN-DIPYRIDAMOLE 25-200 mg per 12 hr capsule Take 1 capsule by mouth twice daily 60 capsule 2 LEVETIRACETAM 500 mg tablet TAKE 1 & 1/2 (ONE & ONE-HALF) TABLETS BY MOUTH TWICE DAILY 90 tablet 2 mirabegron (MYRBETRIQ) 50 mg tablet Myrbetriq 50 mg tablet,extended release solifenacin 5 mg tablet Take 1 tablet by mouth daily. 30 tablet 0 clonazePAM 1 mg tablet Take 1 tablet by mouth 3 (three) times daily. 90 tablet 0 rOPINIRole 2 mg tablet TAKE 3 TABLETS BY MOUTH IN THE MORNING, THEN TAKE 2 TABLETS BY MOUTH MIDDAY, THEN TAKE 2 TABLETS BY MOUTH IN THE EVENING 210 tablet 3 diclofenac 50 mg tablet Take 1 tablet by mouth 3 (three) times daily. 90 tablet 0 albuterol-ipratropium (COMBIVENT RESPIMAT) 20-100 mcg/actuation inhaler Combivent Respimat 20 mcg-100 mcg/actuation solution for inhalation alendronate 70 mg tablet amitriptyline 50 mg tablet citalopram 40 mg tablet citalopram 40 mg tablet DEXILANT 60 mg capsule FLUARIX QUAD 8950-9347, PF, 60 mcg (15 mcg x 4)/0.5 mL syringe suvorexant (BELSOMRA) 10 mg Tab Belsomra 10 mg tablet TRELEGY ELLIPTA 100-62.5-25 mcg DsDv No current facility-administered medications for this visit. Past Medical Hx: No past medical history on file. Physical Exam: A physical exam was not conducted during this telemedicine encounter, however upon verbal evaluation the following was noted: Constitutional: Alert and in no distress Resp: Breathing comfortably Neuro: answers questions appropriately Psych: mood/ affect normal ASSESSMENT/PLAN Jennifer Dietrich is a 64 year old female with PMH as above presenting with: Refractory neurogenic bladder s/p Botox 200 U 12/2019. Plan: Urodynamics study for re evaulation of her bladder function. There are no diagnoses linked to this encounter. A total of 25 minutes were spent on the telephone. Damion Castrejon MD 02/03/2020 1:18 PM documented in this encounter Plan of Treatment [...] Phone Address T ype Group Dates [facility] [id number] 2019-Pres Medica re HEALTHCARE - HEALTHCARE ent Adv HM O MANAGED DUAL COMPLETE MEDICARE HMO [facility] MEDICAID OF xxxxxxxxx 2017-Pres [phone] [address] [facility] ent [id number] [place] [address] documented as of this encounter
--- OUTSIDE RECORDS SUMMARY | 2020-04-07 06:31 | XMS REPORT | Summary of Care ---
:1955 Author Organization [facility] Address [address] [place] [address] Care Team Providers Name Role Phone Will Johnson Primary Care Provider Reason for Visit Reason Comments URINARY HESITANCY UDS (Routine) Status Reason Specialty Diagnoses / Procedures Referred By Vasyl harterred To Contact Contact Authorized URO-UROLOGY / Diagnoses Botox 200 Units Damion Castrejon Farhan, Bilal, Urology Procedures CONSULT/REFERRAL UROLOGY [place] CYSTOURETHROSCOPY INJ CHEMODENERVATION BLADDER PROCEDURE MD CHADWICK [address] [place] [address] [place] [address] [address] [place] [address] [place] [address] [place] [address] Phone: Fax: Encounter Details Date Type Department Care Team Description 02/09/2020 Office Visit [facility] Urology- Micah Castrejon MD Neurogenic bladder [address] (Primary Dx) [address] [facility] [address] [place] [address] [place] [address] [phone] Allergies Active Allergy Reactions Severity Noted Date Comments Codeine Swelling, Rash 06/05/2017 Penicillins Anaphylaxis, Rash 06/05/2017 Tramadol Nausea and/or Vomiting 08/05/2018 documented as of this encounter (statuses as of 02/09/2020) Medications Medication Sig Dispensed Refills Start Date End Date Status alendronate 70 mg 0 08/01/2018 A ctive tablet citalopram 40 mg citalopram 40 0 Active tablet mg tablet FLUARIX QUAD 0 06/12/2018 Active 0858-2847, PF, 60 mcg (15 mcg x 4)/0.5 [...] Multichannel urodynamics Procedures Performed: 1. Complex uroflowmetry (79643) 2. Complex cystometrogram without measurement of urethral pressure and bladder voiding/flow pressure(96895) 3. EMG with patch measurement (05561) 4. Abdominal pressure measurement (83324) Attending Physician: Damion Castrejon MD INDICATIONS: Jennifer [...] years. UUI>LOPEZ. Has seen Dr. Wilson at [place] who evaluated her with cystoscopy and CMGwhich [...] for intraabdominal pressure measurements. A separate 7- Amharic dual-lumen catheter was placed in the bladder. [...] 50 mg if failed. Damion Castrejon MD Waist Cutter Clinical Professor Female Urology, Voiding dysfunction and Pelvic reconstruction Surgery documented in this encounter Plan of Treatment Date Type Specialty Care Team Description 03/22/2020 Office Visit Urology Damion Castrejon M D [address] [facility] [address] [place] [address] [phone] Health Maintenance Due Date Last Done Comments [...] ID Effective Phone Address T e Group [facility] [id number] 2019-Pres Medica re HEALTHCARE - HEALTHCARE ent Adv HM O MANAGED DUAL COMPLETE MEDICARE HMO [facility] MEDICAID OF xxxxxxxxx 2017-Pres [phone] [address] [facility] ent [phone] [id number] [place] [address] documented as of this encounter
--- OUTSIDE RECORDS SUMMARY | 2020-04-07 06:32 | XMS REPORT | Summary of Care ---
:1955 Author Organization [facility] Address [address] [place] [address] Care Team Providers Name Role Phone Will Johnson Primary Care Provider Reason for Visit Reason Comments Refill Request Encounter Details Date Type Department Care Team Description 02/12/2020 Refill [facility] Frank Frederick MD Refill Request Neurology-[address] [place] [address] [address] [place] [address] [facility] [phone] Allergies Active Allergy Reactions Severity Noted Date Comments Codeine Swelling, Rash 06/05/2017 Penicillins Anaphylaxis, Rash 06/05/2017 Tramadol Nausea and/or Vomiting 08/05/2018 documented as of this encounter (statuses as of 02/12/2020) Medications Medication Sig Dispensed Refills Start Date End Date Status alendronate 70 mg Take 70 mg by 0 08/01/2018 Active tablet mouth weekly. citalopram 40 mg Take 40 mg by 0 Active tablet mouth at bedtime. FLUARIX QUAD 0 06/12/2018 Active 0733-6825, PF, 60 mcg (15 mcg x 4)/0.5 mL syringe albuterol-ipratrop Combivent 0 A ctive ium (COMBIVENT Respimat 20 RESPIMAT) 20-100 mcg-100 mcg/actuation mcg/actuation inhaler solution for inhalation TRELEGY ELLIPTA 0 07/30/2018 Act daren 100-62.5-25 mcg DsDv DEXILANT 60 mg 0 07/09/2018 Acti ve capsule suvorexant Take 1 tablet 0 Activ e (BELSOMRA) 10 mg by mouth daily. Tab amitriptyline 50 Take 50 mg by 0 07/11/2018 Active mg tablet mouth at bedtime. diclofenac 50 mg Take 1 tablet 90 [...] tablet by mouth 3 (three) times daily. LEVETIRACETAM 500 TAKE 1 & 1/2 90 tablet 2 01/01/2020 Active mg tablet (ONE & ONE-HALF) TABLETS BY MOUTH TWICE DAILY mirabegron 50 mg Take 1 tablet 0 Active tablet by mouth daily. ASPIRIN-DIPYRIDAMO TAKE 1 CAPSULE 180 capsule 0 02/12/2020 Active LE 25-200 mg per BY MOUTH TWICE 12 hr capsule DAILY ASPIRIN-DIPYRIDAMO Take 1 capsule 60 capsule 2 01/01/20200 Discontinued LE 25-200 mg per by mouth twice 0 12 hr capsule daily documented as of this encounter (statuses as of 02/12/2020) Active Problems No known active problemsdocumented as of this encounter (statuses as of 02/12/2020) Social History Tobacco Use Types Packs/Day Years [...] Visit Urology Damion Castrejon M D [address] [facility] [address] [place] [address] [phone] Health Maintenance Due Date Last Done Comments [...] Effective Phone Address T e Group Dates [facility] [id number] 2019-Pres Medica HEALTHCARE - HEALTHCARE ent Adv HM O MANAGED DUAL COMPLETE MEDICARE HMO [facility] MEDICAID OF xxxxxxxxx 2017-Pres [phone] [address] [facility] ent [phone] [id number] [place] [address] documented as of this encounter
--- OUTSIDE RECORDS SUMMARY | 2020-04-07 06:32 | XMS REPORT | Summary of Care ---
:1955 Author Organization [facility] Address [address] [place] [address] Care Team Providers Name Role Phone Will Johnson Primary Care Provider Reason for Visit Reason Comments URINARY HESITANCY UDS (Routine) Status Reason Specialty Diagnoses / Procedures Referred By Vasyl harterred To Contact Contact Authorized URO-UROLOGY / Diagnoses Botox 200 Units Damion Castrejon Farhan, Bilal, Urology Procedures CONSULT/REFERRAL UROLOGY [place] CYSTOURETHROSCOPY INJ CHEMODENERVATION BLADDER PROCEDURE MD CHADWICK [address] [place] [address] [place] [address] [address] [place] [address] [place] [address] Phone: Fax: Encounter Details Date Type Department Care Team Description 02/09/2020 Office Visit [facility] Urology- Micah Castrejon MD Neurogenic bladder [address] (Primary Dx) [address] [facility] [address] [place] [address] [place] [address] [phone] Allergies Active Allergy Reactions Severity Noted Date Comments Codeine Swelling, Rash 06/05/2017 Penicillins Anaphylaxis, Rash 06/05/2017 Tramadol Nausea and/or Vomiting 08/05/2018 documented as of this encounter (statuses as of 02/09/2020) Medications Medication Sig Dispensed Refills Start End Date Status Date alendronate 70 mg Take 70 mg by 0 Active tablet mouth weekly. 8 citalopram 40 mg Take 40 mg by 0 Active tablet mouth at bedtime. FLUARIX QUAD 0 Active 9273-7910, PF, 60 8 mcg (15 mcg x 4)/0.5 mL syringe albuterol-ipratrop Combivent 0 A ctive ium (COMBIVENT Respimat 20 RESPIMAT) 20-100 mcg-100 mcg/actuation mcg/actuation inhaler solution for inhalation TRELEGY ELLIPTA 0 Acti ve 100-62.5-25 mcg 8 DsDv DEXILANT 60 mg 0 Activ e capsule 8 suvorexant Take 1 tablet 0 Activ e (BELSOMRA) 10 mg by mouth daily. Tab amitriptyline 50 Take 50 mg by 0 Active mg tablet mouth at 8 bedtime. diclofenac 50 mg Take 1 tablet 90 tablet 0 Active tablet by mouth 3 9 (three) times daily. rOPINIRole 2 mg TAKE 3 TABLETS 210 tablet 3 Active tablet BY MOUTH IN THE 9 MORNING, THEN TAKE 2 TABLETS BY MOUTH MIDDAY, THEN TAKE 2 TABLETS BY MOUTH IN THE EVENING clonazePAM 1 mg Take 1 tablet 90 tablet 0 Active tablet by mouth 3 0 (three) times daily. ASPIRIN-DIPYRIDAMO Take 1 capsule 60 capsule 2 Active LE 25-200 mg per by mouth twice 0 12 hr capsule daily LEVETIRACETAM 500 TAKE 1 & 1/2 90 tablet 2 Active mg tablet (ONE & 0 ONE-HALF) TABLETS BY MOUTH TWICE DAILY mirabegron 50 mg Take 1 tablet 0 Active tablet by mouth daily. solifenacin 5 mg Take 1 tablet 30 tablet 0 02/09/20 Discontinued tabletIndications: by mouth daily. 0 20 Urgency incontinence mirabegron Myrbetriq 50 mg 0 02/09/20 Dis continued (MYRBETRIQ) 50 mg tablet,extended 20 tablet release solifenacin 5 mg Take 1 tablet 30 tablet 2 02/09/20 Discontinued tabletIndications: by mouth daily. 0 20 (Patient Neurogenic bladder P reference) documented as of this encounter (statuses as [...] CDT documented in this encounter Progress Notes Racheal Santillan MA - 02/09/2020 9:00 AM CDTPreoperative Diagnoses: neurogenic bladder Patient has been identified by name and . Timeout performed by SB at 0927. Procedure: Per Dr. Pierre Castrejon's orders, patient was taken to the urodynamic suite and placed in the [facility] chair. Patient underwent a sterile prep and catheterization and PVR was performed with 6 mL. Urine dip was negative. CMG performed with EMG patches. Pressure voiding study with EMG patches was completed. PVR was completed with catheter already in place. Provider present for the procedure. The patient tolerated the procedure well and there were no complications. Damion Costello MD - 02/09/2020 9:00 AM CDTPATIENT: Jennifer Dietrich : 1955 DATE OF SERVICE: 02/09/20 Pre-Procedural Diagnosis: urgency and urgency urinary incontinence Post-Procedural Diagnosis: Impaired bladder sensation, normal capacity, DO at capacity ~ 450 ml. Procedure: Multichannel urodynamics Procedures Performed: 1. Complex uroflowmetry (22452) 2. Complex cystometrogram without measurement of urethral pressure and bladder voiding/flow pressure(18002) 3. EMG with patch measurement (44981) 4. Abdominal pressure measurement (14246) Attending Physician: Damion Castrejon MD INDICATIONS: Jennifer [...] years. UUI>LOPEZ. Has seen Dr. Wilson at [place] who evaluated her with cystoscopy and CMGwhich [...] for intraabdominal pressure measurements. A separate 7- Slovenian dual-lumen catheter was placed in the bladder. [...] 50 mg if failed. Damion Castrejon MD Program Production Specialist Clinical Professor Female Urology, Voiding dysfunction and Pelvic reconstruction Surgery documented in this encounter Plan of Treatment Date Type Specialty Care Team Description 03/22/2020 Office Visit Urology Damion Castrejon M D [address] [facility] [address] [place], [place] 772703 Health Maintenance Due Date Last Done Comments [...] Effective Phone Address T ype Group Dates [facility] [id number] 2019-Pres Medica HEALTHCARE - HEALTHCARE ent Adv HM O MANAGED DUAL COMPLETE MEDICARE HMO [place] MEDICAID OF xxxxxxxxx 2017-Pres [phone] [address] [facility] ent [id number] [place] [address] documented as of this encounter
--- OUTSIDE RECORDS SUMMARY | 2020-04-07 06:33 | XMS REPORT | Summary of Care ---
:1955 Author Organization [facility] Address [address] [place] [address] Care Team Providers Name Role Phone Will Johnson Primary Care Provider Reason for Visit Reason Comments Referral/consult Encounter Details Date Type Department Care Team Description 03/16/2020 Telephone [facility] Interventional Judi Barajas PA-C Referral/consult Radiology [facility] [address] [place] [address] [place], [place] [phone] Allergies Active Allergy Reactions Severity Noted Date Comments Codeine Swelling, Rash 06/05/2017 Penicillins Anaphylaxis, Rash 06/05/2017 Tramadol Nausea and/or Vomiting 08/05/2018 documented as of this encounter (statuses as of 03/16/2020) Medications Medication Sig Dispensed Refills Start Date End Date Status alendronate 70 mg Take 70 mg by 0 08/01/2018 Active tablet mouth weekly. citalopram 40 mg Take 40 mg by 0 Active tablet mouth at bedtime. FLUARIX QUAD 0 06/12/2018 Active 4404-3492, PF, 60 mcg (15 mcg x 4)/0.5 mL syringe albuterol-ipratropium Combivent 0 Active (COMBIVENT RESPIMAT) Respimat 20 20-100 mcg/actuation mcg-100 inhaler mcg/actuation solution for inhalation TRELEGY ELLIPTA 0 07/30/2018 Act daren 100-62.5-25 mcg DsDv DEXILANT 60 mg 0 07/09/2018 Acti ve capsule suvorexant (BELSOMRA) Take 1 tablet by 0 Active 10 mg Tab mouth daily. amitriptyline 50 mg Take 50 mg by 0 07/11/2018 Active tablet mouth at bedtime. diclofenac 50 mg Take 1 tablet by 90 tablet 0 01/16/2019 Active tablet mouth 3 (three) times daily. clonazePAM 1 mg Take 1 tablet by 90 tablet 0 10/12/2019 Active tablet mouth 3 (three) times daily. LEVETIRACETAM 500 mg TAKE 1 & 1/2 (ONE 90 tablet 2 01/01/2020 Active tablet & ONE-HALF) TABLETS BY MOUTH TWICE DAILY mirabegron 50 mg Take 1 tablet by 0 Active tablet mouth daily. ASPIRIN-DIPYRIDAMOLE TAKE 1 CAPSULE BY 180 capsule 0 0 Active 25-200 mg per 12 hr MOUTH TWICE DAILY capsule rOPINIRole 2 mg TAKE 3 TABLETS BY 210 tablet 3 02/15/2020 Active tablet MOUTH EVERY MORNING, 2 TABLETS BY MOUTH AT MIDDAY AND 2 TABLETS BY MOUTH EVERY EVENING documented as of this encounter (statuses as of 03/16/2020) Active Problems No known active problemsdocumented as of this encounter (statuses as of 03/16/2020) Social History Tobacco Use Types Packs/Day Years [...] Office Visit Urology Damion Castrejon M D [address] [facility] [address] [place], [place] [address] Health Maintenance Due Date Last Done Comments HEPATITIS C (HCV) SCREEN 1955 PNEUMOCOCCAL 0-64 YEARS COMBINED SERIES ( of - 1963 PPSV23) DTaP,Tdap,and Td Vaccines (1 - Tdap) 1968 PAP SMEAR 1978 Breast Cancer Screening (MAMMOGRAM) 1997 COLONOSCOPY 2007 Zoster Recombinant Vaccine (SHINGRIX) (1 of 2) 2007 LUNG CANCER SCREEN: Recommended for age 55-80 with 30 2012 + pack year history INFLUENZA VACCINE (Season Ended) 2020 Depression Screening 02/08/2021 02/09/2020 documented as of this encounter Results Not on filedocumented in this encounter Insurance Payer Benefit Plan / Subscriber ID Effective Phone Address T e Group [facility] [id number] 2019-Pres [facility] HEALTHCARE - HEALTHCARE ent Adv HM O MANAGED DUAL COMPLETE MEDICARE HMO [facility] MEDICAID OF xxxxxxxxx 2017-Pres [phone] [address] [facility] ent [id number] [place] [address] documented as of this encounter
--- OUTSIDE RECORDS SUMMARY | 2020-04-07 06:33 | XMS REPORT | Summary of Care ---
:1955 Author Organization [facility] Address [address] [place] [address] Care Team Providers Name Role Phone Will Johnson Primary Care Provider Reason for Visit Reason Comments Refill Request Encounter Details Date Type Department Care Team Description 02/13/2020 Refill [facility] Frank Frederick MD Refill Request Neurology-[address] [place] [id number] [address] [place] [address] [facility] [phone] Allergies Active Allergy Reactions Severity Noted Date Comments Codeine Swelling, Rash 06/05/2017 Penicillins Anaphylaxis, Rash 06/05/2017 Tramadol Nausea and/or Vomiting 08/05/2018 documented as of this encounter (statuses as of 02/15/2020) Medications Medication Sig Dispensed Refills Start Date End Date Status alendronate 70 mg Take 70 mg by 0 08/01/2018 Active tablet mouth weekly. citalopram 40 mg Take 40 mg by 0 Active tablet mouth at bedtime. FLUARIX QUAD 0 06/12/2018 Active [id number], PF, 60 mcg (15 mcg x 4)/0.5 [...] tablet by mouth 3 (three) times daily. clonazePAM 1 mg Take 1 tablet 90 [...] BY MOUTH TWICE 12 hr capsule DAILY rOPINIRole 2 mg TAKE 3 TABLETS 210 tablet 3 02/15/2020 Active tablet BY MOUTH EVERY MORNING, 2 TABLETS BY MOUTH AT MIDDAY AND 2 TABLETS BY MOUTH EVERY EVENING rOPINIRole 2 mg TAKE 3 TABLETS 210 tablet 3 08/04/2019 02 Discontinued tablet BY MOUTH IN THE 0 MORNING, THEN TAKE 2 TABLETS BY MOUTH MIDDAY, THEN TAKE 2 TABLETS BY MOUTH IN THE EVENING documented as of this encounter (statuses as of 02/15/2020) Active Problems No known active problemsdocumented as of this encounter (statuses as of 02/15/2020) Social History Tobacco Use Types Packs/Day Years [...] Visit Urology Damion Castrejon M D [address] [facility] [address] [place] [address] [phone] Health Maintenance Due Date Last Done Comments [...] Effective Phone Address T ype Group Dates [facility] [id number] 2019-Pres [facility] HE[facility] - HEALTHCARE ent Adv HM O MANAGED DUAL COMPLETE MEDICARE HMO [facility] MEDICAID OF xxxxxxxxx 2017-Pres [phone] [address] [facility] ent [phone] [id number] [place] [address] documented as of this encounter
--- OUTSIDE RECORDS SUMMARY | 2020-04-07 06:33 | XMS REPORT | Summary of Care ---
:1955 Author Organization [facility] [[email or web address]] - [facility] Address [address] [place] [address] Care Team Providers Name Role Phone Will Johnson Primary Care Provider Reason for Visit Reason Comments Follow-up neurogenic bladder Encounter Details Date Type Department Care Team Description 03/22/2020 Office Visit [facility] Urology- Micah Castrejon MD Neurogenic bladder [place] [id number] [facility] (Primary Dx) [address] Osm[address] OpheliaAnn [facility] [place] [address] [place] [address] [id number] Allergies Active Allergy Reactions Severity Noted Date Comments Codeine Swelling, Rash 06/05/2017 Penicillins Anaphylaxis, Rash 06/05/2017 Tramadol Nausea and/or Vomiting 08/05/2018 documented as of this encounter (statuses as of 03/22/2020) Medications Medication Sig Dispensed Refills Start End Date Status Date alendronate 70 mg Take 70 mg by 0 Active tablet mouth weekly. 8 citalopram 40 mg Take 40 mg by 0 Active tablet mouth at bedtime. FLUARIX QUAD 0 Active [id number], PF, 60 8 mcg (15 mcg x 4)/0.5 mL syringe albuterol-ipratrop Combivent 0 A ctive ium (COMBIVENT Respimat 20 RESPIMAT) 20-100 mcg-100 mcg/actuation mcg/actuation inhaler solution for inhalation TRELEGY ELLIPTA 0 Acti ve 100-62.5-25 mcg 8 DsDv DEXILANT 60 mg 0 Activ e capsule 8 suvorexant Take 1 tablet 0 Activ e (BELSOMRA) 10 mg by mouth Tab daily. amitriptyline 50 Take 50 mg by 0 Active mg tablet mouth at 8 bedtime. diclofenac 50 mg Take 1 tablet 90 tablet 0 Active tablet by mouth 3 9 (three) times daily. clonazePAM 1 mg Take 1 tablet 90 tablet 0 Active tablet by mouth 3 0 (three) times daily. LEVETIRACETAM 500 TAKE 1 & 1/2 90 tablet 2 Active mg tablet (ONE & 0 ONE-HALF) TABLETS BY MOUTH TWICE DAILY ASPIRIN-DIPYRIDAMO TAKE 1 CAPSULE 180 capsule 0 Active LE 25-200 mg per BY MOUTH TWICE 0 12 hr capsule DAILY rOPINIRole 2 mg TAKE 3 TABLETS 210 tablet 3 Active tablet BY MOUTH EVERY 0 MORNING, 2 TABLETS BY MOUTH AT MIDDAY AND 2 TABLETS BY MOUTH EVERY EVENING SOLIFENACIN 5 mg TAKE 1 TABLET 90 tablet 0 Active tablet BY MOUTH EVERY 0 DAY. mirabegron 50 mg Take 1 tablet 30 tablet 6 Active tabletIndications: by mouth 0 Neurogenic bladder daily. mirabegron 50 mg Take 1 tablet 0 03/22/20 Discontinued tablet by mouth 20 (Reorder) daily. documented as of this encounter (statuses as of 03/22/2020) Active Problems No known active problemsdocumented as of this encounter (statuses as of 03/22/2020) Social History Tobacco Use Types Packs/Day Years Used Date Current Every Day Smoker Smokeless Tobacco: Never Used Tobacco Cessation: Counseling Given: No Comments: no smoker x 4 weeks Alcohol [...] been in contact with No / Unsure 03/22/2020 1:15 PM CDT someone who was confirmed or suspected to have Coronavirus / COVID-19? documented as of this encounter Last Filed Vital Signs Vital Sign Reading Time Taken Comments Blood Pressure 143/81 03/22/2020 1:24 PM CDT Pulse 84 03/22/2020 1:22 PM CDT Temperature - - Respiratory Rate - - Oxygen Saturation - - Inhaled Oxygen Concentration - - Weight 88 kg (193 lb 14.4 oz) 03/22/2020 1:22 PM CDT Height 165.1 cm (5' 5") 03/22/2020 1:22 PM CDT Body Mass Index 32.27 03/22/2020 1:22 PM CDT documented in this encounter Progress Notes Damion Castrejon MD - 03/22/2020 1:15 PM CDT Damion Castrejon MD Tube Repairer of Urology Inter Com Servicer of Female Urology, Voiding Dysfunction and Pelvic Reconstruction [facility] Division of Urology Referring Provider: No referring provider defined for this encounter. REASON FOR REFERRAL/CHIEF COMPLAINT: Mixed urinary incontinence HISTORY OF PRESENT ILLNESS: This is a 64 year old female who was referred to the urology clinic for evaluation of mixed urinary incontinence. The patient has been complaining from DEEJAY for years. UUI>LOPEZ. Has seen Dr. Wilson at [place] who evaluated her with cystoscopy and CMG [...] patient underwent indtradetrusor Botox injection 200 U. 02/09/2020: urodynamics showed normal bladder capacity ~500 ml, impaired bladder sensation, there was one DO at capacity ~30 cmH2O ended up with complete urination with PVR 150 ml. PAST MEDICAL HISTORY: No past medical history on file. PAST SURGICAL HISTORY: No past surgical history on file. MEDICATIONS: Current Outpatient Medications: SOLIFENACIN 5 mg tablet, TAKE 1 TABLET BY MOUTH EVERY DAY., Disp: 90 tablet, Rfl: 0 rOPINIRole 2 mg tablet, TAKE 3 TABLETS BY MOUTH EVERY MORNING, 2 TABLETS BY MOUTH AT MIDDAY AND2 TABLETS BY MOUTH EVERY EVENING, Disp: 210 tablet, Rfl: 3 ASPIRIN-DIPYRIDAMOLE 25-200 mg per 12 hr capsule, TAKE 1 CAPSULE BY MOUTH TWICE DAILY, Disp: 180 capsule, Rfl: 0 mirabegron 50 mg tablet, Take 1 tablet by mouth daily., Disp: , Rfl: LEVETIRACETAM 500 mg tablet, TAKE 1 & 1/2 (ONE & ONE-HALF) TABLETS BY MOUTH TWICE DAILY, Disp: 90 tablet, Rfl: 2 clonazePAM 1 mg tablet, Take 1 tablet by mouth 3 (three) times daily., Disp: 90 tablet, Rfl: 0 diclofenac 50 mg tablet, Take 1 tablet by mouth 3 (three) times daily., Disp: 90 tablet, Rfl: 0 albuterol-ipratropium (COMBIVENT RESPIMAT) 20-100 mcg/actuation inhaler, Combivent Respimat 20 mcg-100 mcg/actuation solution for inhalation, Disp: , Rfl: alendronate 70 mg tablet, Take 70 mg by mouth weekly., Disp: , Rfl: amitriptyline 50 mg tablet, Take 50 mg by mouth at bedtime., Disp: , Rfl: citalopram 40 mg tablet, Take 40 mg by mouth at bedtime., Disp: , Rfl: DEXILANT 60 mg capsule, , Disp: , Rfl: FLUARIX QUAD [id number], PF, 60 mcg (15 mcg x 4)/0.5 mL syringe, , Disp: , Rfl: suvorexant (BELSOMRA) 10 mg Tab, Take 1 tablet by mouth daily., Disp: , Rfl: ISABELA RINGTA 100-62.5-25 mcg DsDv, , Disp: , Rfl: ALLERGIES: Allergies Allergen Reactions Codeine Swelling and [...] or other lesions. PHYSICAL EXAMINATION: BP (!) 143/81 | Pulse 84 | Ht 5' 5" (1.651 m) | Wt 193 lb 14.4 oz (88 kg) | BMI 32.27 kg/m General: Well Developed. No apparent distress. [...] medical therapy Hx of nephrolithiasis Plan: - Mirabegron 50 mg once a day and added vesicare 5 mg. I will increase the dose to 10 mg if there issome improvement. MD Damion Galo MD et Oralia Finney MA - 03/22/2020 1:15 PM CDTPer verbal order by Dr Morton Post Void Residual with bladder scan = 20ml. results reported to provi jessica. Readback performed. documented in this encounter Plan of Treatment Date Type Specialty Care Team Description 03/24/2020 Office Visit Neurology Eusebia Ling MD [address] [place] [address] [phone] 05/05/2020 Office Visit Urology Damion Castrejon M D [address] [facility] [place] [address] [place], [place] 073063 Health Maintenance Due Date Last Done Comments [...] Group Dates [facility] [id number] 2019-Pres [facility] HEALTHCARE - HEALTHCARE ent Adv HM O MANAGED DUAL COMPLETE MEDICARE HMO [facility] MEDICAID OF xxxxxxxxx 2017-Pres [phone] [address] Medi caid [place] ent [phone] [id number] [place] [address] documented as of this encounter
--- OUTSIDE RECORDS SUMMARY | 2020-04-07 06:33 | XMS REPORT | Summary of Care ---
:[address] [facility] - Health Address [address] [place] [address] Care Team Providers Name Role Phone Will Johnson Primary Care Provider Encounter Details Date Type Department Care Team Description 03/22/[address] [facility] Doctor Unassigned, No [address] [facility] Name [place] [id number] [place] [address] Allergies Active Allergy Reactions Severity Noted Date Comments Codeine Swelling, Rash 06/05/2017 Penicillins Anaphylaxis, Rash 06/05/2017 Tramadol Nausea and/or Vomiting 08/05/2018 documented as of this encounter (statuses as of 03/22/2020) Medications Medication Sig Dispensed Refills Start Date End Date Status alendronate 70 mg Take 70 mg by 0 08/01/2018 Active tablet mouth weekly. citalopram 40 mg Take 40 mg by 0 Active tablet mouth at bedtime. FLUARIX QUAD 0 06/12/2018 Active [id number], PF, 60 mcg (15 mcg x 4)/0.5 [...] EVENING SOLIFENACIN 5 mg TAKE 1 TABLET BY 90 tablet 0 03/17/2020 Active tablet MOUTH EVERY DAY. documented as of this encounter (statuses as [...] 03/24/2020 Office Visit Neurology Eusebia Ling MD [facility] [place] [address] Health Maintenance Due Date Last Done Comments [...] 02/08/2021 02/09/2020 documented as of this encounter Procedures Procedure Name Priority Date/Time Associated Diagnosis Comme nts ASSIGNMENT OF BENEFITS Routine 03/22/2020 1:27 PM CDT documented in this encounter Results Not on filedocumented in this encounter Insurance Payer Benefit Plan / Subscriber ID Effective Phone Address T e Group Dates [facility] [id number] 2019-Pres [facility] HE[facility]CARE - HEALTHCARE ent Adv HM O MANAGED DUAL COMPLETE MEDICARE HMO [facility] MEDICAID OF xxxxxxxxx 2017-Pres [phone] [address] Medi caid [place] ent [phone] [id number] [place] [address] documented as of this encounter
--- OUTSIDE RECORDS SUMMARY | 2020-04-07 06:33 | XMS REPORT | Summary of Care ---
:1955 Author Organization [facility] - [facility] Address [address] [place] [address] Care Team Providers Name Role Phone Will Johnson Primary Care Provider Reason for Visit Reason Comments Follow-up neurogenic bladder Encounter Details Date Type Department Care Team Description 03/22/2020 Office Visit [facility] Urology- Micah Castrejon MD Neurogenic bladder [place] [id number] [facility] (Primary Dx) [address] [address] Ophelia[address] [facility] [place] [address] [place] [address] [id number] Allergies Active Allergy Reactions Severity Noted Date [...] mouth at bedtime. FLUARIX QUAD 0 Active [id number], PF, 60 8 mcg (15 mcg x [...] 03/22/2020 1:15 PM CDT Damion Castrejon MD Public Relations Counselor of Urology Payroll Assistant of Female Urology, Voiding Dysfunction and Pelvic Reconstruction [facility] Division of Urology Referring Provider: No referring provider defined for this encounter. REASON FOR REFERRAL/CHIEF COMPLAINT: Mixed urinary incontinence HISTORY OF PRESENT ILLNESS: This is a 64 year old female who was referred to the urology clinic for evaluation of mixed urinary incontinence. The patient has been complaining from DEEJAY for years. UUI>LOPEZ. Has seen Dr. Wilson at [place] who evaluated her with cystoscopy and CMG [...] capsule, , Disp: , Rfl: FLUARIX QUAD [id number], PF, 60 mcg (15 mcg x 4)/0.5 [...] file Gets together: Not on file Attends sabianism service: Not on file Active member of [...] Care Team Description 03/24/2020 Office Visit Neurology Eusebai Ling MD [address] [place] [address] [phone] 05/05/2020 Office Visit Urology Damion Castrejon M D [address] [facility] [place] [address] [place], [place] 164963 Health Maintenance Due Date Last Done Comments [...] ype Group Dates [facility] [id number] 2019-Pres [facility] HE[facility] - HEALTHCARE ent Adv HM O MANAGED DUAL COMPLETE MEDICARE HMO [facility] MEDICAID OF xxxxxxxxx 2017-Pres [phone] [address] Medi caid [place] ent [phone] [id number] [place] [address] documented as of this encounter
--- OUTSIDE RECORDS SUMMARY | 2020-04-07 06:34 | XMS REPORT | Summary of Care ---
:1955 Author Organization [facility] - [facility] Address [address] [place] [address] Care Team Providers Name Role Phone Will Johnson Primary Care Provider Reason for Visit Reason Comments Refill Request Encounter Details Date Type Department Care Team Description 03/17/2020 Refill [facility] Urology- [place] Damion Keenan MD Refill Request [address] [facility] [address] [place] [address] [place], [place] [phone] Allergies Active Allergy Reactions Severity Noted Date Comments Codeine Swelling, Rash 06/05/2017 Penicillins Anaphylaxis, Rash 06/05/2017 Tramadol Nausea and/or Vomiting 08/05/2018 documented as of this encounter (statuses as of 03/17/2020) Medications Medication Sig Dispensed Refills Start Date End Date Status alendronate 70 mg Take 70 mg by 0 08/01/2018 Active tablet mouth weekly. citalopram 40 mg Take 40 mg by 0 Active tablet mouth at bedtime. FLUARIX QUAD 0 06/12/2018 Active [id number], PF, 60 mcg (15 mcg x 4)/0.5 [...] as of this encounter (statuses as of 03/17/2020) Active Problems No known active problemsdocumented as of this encounter (statuses as of 03/17/2020) Social History Tobacco Use Types Packs/Day Years [...] Visit Urology Damion Castrejon M D [address] [facility] [address] [place], [place] 837633 Health Maintenance Due Date Last Done Comments [...] Effective Phone Address T e Group Dates [facility] [id number] 2019-Pres [facility] - HEALTHCARE ent Adv HM O MANAGED DUAL COMPLETE MEDICARE HMO [facility] MEDICAID OF xxxxxxxxx 2017-Pres [phone] [address] [facility] ent [phone] [id number] [place] [address] documented as of this encounter
--- OUTSIDE RECORDS SUMMARY | 2020-04-07 06:34 | XMS REPORT | Summary of Care ---
:1955 Author Organization [facility] Address [address] [place] [id number] Care Team Providers Name Role Phone Will Johnson Primary Care Provider Reason for Referral MRI/CAT Scan (Routine) Status Reason Specialty Diagnoses / Referred By Referred To Procedures Contact Contact New Request Diagnostic Diagnoses Chronic ischemic left MCA stroke Arterial occlusive disease Essential hypertension Hyperlipidemia, unspecified hyperlipidemia type Chronic obstructive pulmonary disease, unspecified COPD type Tremors of nervous system Judi Molina Radiology Procedures CT ANGIOGRAM NECK R, PA-C [address] [place] [address] MRI/CAT Scan (Routine) Status Reason Specialty Diagnoses / Referred By Referred To Procedures Contact Contact New Request Diagnostic Diagnoses Chronic ischemic left MCA stroke Arterial occlusive disease Essential hypertension Hyperlipidemia, unspecified hyperlipidemia type Chronic obstructive pulmonary disease, unspecified COPD type Tremors of nervous system Judi Molina Radiology Procedures CT ANGIOGRAM HEAD R, PA-C [address] [place] [address] MRI/CAT Scan (Routine) Status Reason Specialty Diagnoses / Referred By Referred To Procedures Contact Contact New Request Diagnostic Diagnoses Chronic ischemic left MCA stroke Arterial occlusive disease Essential hypertension Hyperlipidemia, unspecified hyperlipidemia type Chronic obstructive pulmonary disease, unspecified COPD type Tremors of nervous system Judi Molina Radiology Procedures MR BRAIN WO CONTRAST R, PA-C [address] [place] [address] Reason for Visit Reason Comments New Patient (Routine) Status Reason Specialty Diagnoses / Referred By Contact Refe rred To Contact Procedures Closed Neurology Diagnoses Cerebrovascular disease Cerebrovascular accident (CVA) due to thrombosis of left carotid artery Cerebrovascular disease or lesion Frank Frederick, Eusebia Ling, Procedures CONSULT/REFERRAL NEUROLOGY MD CHADWICK [address] [place] [address]. [address] [place] [id number] [place], [place] Phone: [phone] Fax: Encounter Details Date Type Department Care Team Description 03/24/2020 Office Visit [facility] Eusebia Ling, Arterial o cclusive disease (Primary Dx); Neurology, Kirit CHADWICK Chronic ischemic left MCA stroke; [address] Essential hypertension; [address] [place] [address] Hyperlipidemia, unspecified hyperlipidem ia type; [address] [place], [place] Chronic obstructive pulmonar y disease, unspecified COPD type; [place] [address] Conversion disorder; [id number] Tremors of nervous system; [phone] Abnormal findin g of blood chemistry, unspecified (Fax) Allergies Active Allergy Reactions Severity Noted Date Comments Codeine Swelling, Rash 06/05/2017 Penicillins Anaphylaxis, Rash 06/05/2017 Tramadol Nausea and/or Vomiting 08/05/2018 documented as of this encounter (statuses as of 03/24/2020) Medications Medication Sig Dispensed Refills Start Date End Date Status alendronate 70 mg Take 70 mg by 0 08/01/2018 Active tablet mouth weekly. citalopram 40 mg Take 40 mg by 0 Active tablet mouth at bedtime. FLUARIX QUAD 0 06/12/2018 Active [id number], PF, 60 mcg (15 mcg x 4)/0.5 [...] & ONE-HALF) TABLETS BY MOUTH TWICE DAILY ASPIRIN-DIPYRIDAMOLE TAKE 1 CAPSULE BY 180 capsule [...] 0 03/17/2020 Active tablet MOUTH EVERY DAY. mirabegron 50 mg Take 1 tablet by 30 tablet 6 03/22/2020 Active tabletIndications: mouth daily. Neurogenic bladder documented as of this encounter (statuses as of 03/24/2020) Active Problems No known active problemsdocumented as of this encounter (statuses as of 03/24/2020) Social History Tobacco Use Types Packs/Day Years Used Date Current Every Day Smoker Smokeless Tobacco: Never Used Comments: no smoker x 4 weeks Alcohol Use Drinks/Week oz/Week Comments Not Currently 1 Standard drinks or equivalent 1.0 Sex Assigned at Date Recorded Not on file Job Start Date Occupation Industry Not on file Not on file Not on file Travel History Travel Start Travel End No recent travel history available. COVID-19 Exposure Response Date Recorded In the last month, have you been in contact with No / Unsure 03/24/2020 11:46 AM CDT someone who was confirmed or suspected to have Coronavirus / COVID-19? documented as of this encounter Last Filed Vital Signs Vital Sign Reading Time Taken Comments Blood Pressure 153/84 03/24/2020 12:02 PM CDT Pulse 76 03/24/2020 12:02 PM CDT Temperature 37.1 C (98.8 F) 03/24/2020 12:02 PM CDT Respiratory Rate - - Oxygen Saturation 93% 03/24/2020 12:02 PM CDT Inhaled Oxygen Concentration - - Weight 88.1 kg (194 lb 3.2 oz) 03/24/2020 12:02 PM CDT Height 165.1 cm (5' 5") 03/24/2020 12:02 PM CDT Body Mass Index 32.32 03/24/2020 12:02 PM CDT documented in this encounter Progress Notes Eusebia Ling MD - 03/24/2020 12:30 PM CDT NeuroEndovascular/Neurology Clinic Note DATE OF SERVICE: 03/24/2020 12:17 Visit type: New Consult CONSULTING PHYSICIAN: Dr. Frank Frederick REASON FOR CONSULTATION: History of stroke with reported carotid stenosis versus occlusion CHIEF COMPLAINT: History of stroke with reported carotid stenosis versus occlusion HPI Mrs. Jennifer Dietrich is a 64 yr-old right-handed woman with PMH significant for strokex 2 (2007, 11/2019 both with mild residual right sided weakness), reported left carotid artery stenosis vs occlusion, anemia, asthma, HTN, history of HLD, COPD, obesity, and neurogenic bladder who presents as a new consultation for history of stroke and known left ICA occlusive disease. Patient's last stroke was treated at [facility] and we have no imaging studies or records to review at thistime. Stroke resulted in right sided weakness, facial droop and some garbled speech. She reports her strength has markedly improved and only has a bit of residual right sided weakness. She has been having seizures that started after her first stroke, last one was approximately 8 months ago described as a tightening up of her arms and legs; however without loss of consciousness, bowel/bladder incontinence, but possible post ictal confusion. She reports recent diagnosis of parkinson's dementia with UE/LE tremors that started approximately 6months ago. Tremors are worse with rest and do not affect her ability to perform ADLs. This has been addressed by Dr. Frederick. Since her stroke, she denies any recurrence of focal weakness, sensory deficit, visual changes or abnormal speech. She is compliance with her Aggrenox and is still smoking. She reports only occasional alcohol usage. Past Medical History: Diagnosis Date Asthma Esophageal reflux Hyperlipidemia Hypertension Neurogenic bladder seizure last seizure 07/2019 Stroke COPD Obesity ? Past Surgical History: Procedure Laterality Date KNEE ARTHROSCOPY Right TUBAL LIGATION Allergies Allergen Reactions Codeine Swelling and Rash Pcn [Penicillins] Anaphylaxis and Rash Tramadol Nausea and/or Vomiting Family History Problem Relation Age of Onset Stroke Mother High cholesterol Mother Hypertension Mother Stroke Father High cholesterol Father Hypertension Father Family History: Maternal grandfather had a heart and lung disease, mother with lung cancer and father with congestive heart failure. Surgeries: Knee surgery on right, tubal ligation and . 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 She is and she sometimes will drink alcohol. ? Social History Socioeconomic History Marital status: Spouse [...] weeks Substance and Sexual Activity Alcohol use: Not Currently Alcohol/week: 1.0 standard drinks Types: 1 Standard [...] Concern Not on file Social History Narrative Lives in [facility] Dr. Maxim Johnson is PCP in [place] Dr. Pillai (?) mysql dba- [place] Patient's Medications START taking these medications No medications on file CONTINUE taking these medications which have NOT CHANGED ALBUTEROL-IPRATROPIUM (COMBIVENT RESPIMAT) 20-100 MCG/ACTUATION INHALER Combivent Respimat 20 mcg-100 mcg/actuation solution for inhalation ALENDRONATE 70 MG TABLET Take 70 mg by mouth weekly. AMITRIPTYLINE 50 MG TABLET Take 50 mg by mouth at bedtime. ASPIRIN-DIPYRIDAMOLE 25-200 MG PER 12 HR CAPSULE TAKE 1 CAPSULE BY MOUTH TWICE DAILY CITALOPRAM 40 MG TABLET Take 40 mg by mouth at bedtime. CLONAZEPAM 1 MG TABLET Take 1 tablet by mouth 3 (three) times daily. DEXILANT 60 MG CAPSULE DICLOFENAC 50 MG TABLET Take 1 tablet by mouth 3 (three) times daily. FLUARIX QUAD [id number], PF, 60 MCG (15 MCG X 4)/0.5 ML SYRINGE LEVETIRACETAM 500 MG TABLET TAKE 1 & 1/2 (ONE & ONE-HALF) TABLETS BY MOUTH TWICE DAILY MIRABEGRON 50 MG TABLET Take 1 tablet by mouth daily. ROPINIROLE 2 MG TABLET TAKE 3 TABLETS BY MOUTH EVERY MORNING, 2 TABLETS BY MOUTH AT MIDDAY AND 2TABLETS BY MOUTH EVERY EVENING SOLIFENACIN 5 MG TABLET TAKE 1 TABLET BY MOUTH EVERY DAY. SUVOREXANT (BELSOMRA) 10 MG TAB Take 1 tablet by mouth daily. TRELEGY ELLIPTA 100-62.5-25 MCG DSDV START taking Modified Medications as Prescribed No medications on file STOP taking these medications No medications on file Review of Systems General: (-) fever, (-) chills, (-) weight change, (-) dizziness, (-) fatigue, (-) change in appetite Skin: (-) rash, (-) lesion HEENT: (-) headache, (-) change in hearing, (-) change in vision, (-) nasal discharge, (-) sore throat Neck: (-) pain, (-) difficulty swallowing, (-) mass Heme: (-) bleeding disorder Resp: (-) cough, (-) shortness of breath, (-) dyspnea on exertion Cardio: (-) chest pain, (-) palpitations, (-) syncope GI: (-) abdominal pain, (-) nausea, (-) vomiting, (-) diarrhea, (-) constipation, (-) melena, (-) hematochezia, (-) hematemesis : (-) dysuria, (-) hematuria, (-) increased frequency, (-) difficulty urinating, (-) difficulty initiating Endo: (-) heat intolerance, (-) diabetes, (-) cold intolerance, (-) polyuria, (- ) polydipsia, (-) renal insufficiency, (-) thyroid disease Neuro: (-) numbness, (-) tingling, (-) weakness Back: (-) pain, (-)spasms ARLINE: (-) muscle pain, (-) joint pain, (-) claudication Psych: (-) anxiety, (-) depression, (-) psychiatric disorder PHYSICAL EXAM Temp: [37.1 C (98.8 F)] Pulse: [76] BP: (153)/(84) 03/24/20 1202 Weight: 194 lb 3.2 oz (88.1 kg) Height: 5' 5" (1.651 m) Body mass index is 32.32 kg/m. Higher Cortical Functions: Mental Status: alert and oriented x 4 (time, person, place and situation) Speech/ Language: intact to comprehension, fluency Fund of Knowledge: normal fund of knowledge Short term memory: normal oil heaterman memory: normal Attention: normal Concentration: normal Cranial Nerves: I. Not tested. II. Visual acuity grossly normal. FOV full to confrontation. III., IV., . Extraocular movements intact. No ptosis observed, no monocular or binocular diplopia.PERRL. V. Normal sensation in V1-3 distributions VII. No facial asymmetry observed. VIII. Hearing intact bilaterally to finger rubs IX., X. Palatal movements intact XI. Normal Strength of sternocleidomastoid and trapezius muscles bilaterally. XII. Tongue in midline. Motor: Muscle tone: normal, no rigidity, spasticity Muscle bulk: normal no abnormal spontaneous muscle activity; fasciculations: absent Tremor: resting tremors UE/LE MOTOR EXAMINATION: STRENGTH Right Left Deltoid 5 5 Biceps 5 5 Triceps 5 5 Wrist extensors 5 5 Interossei 5 5 Hip flexors 5 5 Knee flexors (hamstring) 5 5 Knee extensors (quadriceps) 5 5 Ankle dorsiflexors 5 5 Ankle plantar flexors 5 5 Reflexes: Deep Tendon Reflex R L Biceps 2+ 2+ Triceps 2+ 2+ Brachioradialis 2+ 2+ Patellar 2+ 2+ Achilles 1+ 1+ Cerebellar: Nystagmus: absent Alternative fine motor movements, clumsy and slow Tremors: absent Sensory: LT: intact Temperature: intact PP: intact Gait and station Standing: normal Posture: normal Romberg: absent Straight:normal On turn: Tandem: normal Walking on toes: normal Walking on heels: normal Arm swing: normal Drift: normal HEENT: oropharynx clear, moist mucous membranes, mild cataract, optic disc visualized bilaterally Lungs: wheezing noted bilaterally Cardio: S1, S2 normal Extremities:no cyanosis, clubbing or edema Neck:supple, no carotid bruit, no JVD Abdomen: soft, non-tender, non-distended LAB DATA No results found for: HGBA1C No results found for: LDL No results found for: CHOL TSH (mIU/L) Date Value 02/24/2019 1.07 CBC BMP PT/INR No results found for: WBC NA (mmol/L) Date Value 02/24/2019 137 No results found for: PT No results found for: RBC K (mmol/L) Date Value 02/24/2019 5.1 (H) No results found for: PTINR No results found for: PLT CALCIUM (mg/dL) Date Value 02/24/2019 9.8 No results found for: HGB CL (mmol/L) Date Value 02/24/2019 103 aPTT No results found for: HCT BUN (mg/dL) Date Value 02/24/2019 4 (L) No results found for: APTTPAT RADIOLOGY/IMAGING No final results containing an impression from the past 30 days were found. ASSESSMENT/ PLAN Mrs. Jennifer Dietrich is a 64 yr-old right-handed woman with multiple strokes risk factors including stroke x 2 (2007, 11/2019), reported left carotid artery stenosis vs occlusion, HTN, HLD, obesity who presents as a new consultation. 1. Chronic ischemic left MCA stroke -- Continue daily aggrenox -- Will re-assess need for statin after return of lipid results -- Recommend BP log to evaluate for anti-hypertensive medications in setting of HTN -- MR BRAIN WO CONTRAST; Future -- CT ANGIOGRAM HEAD; Future -- CT ANGIOGRAM NECK; Future -- LIPID PANEL (25783)(TOTAL CHOLESTEROL, TRIGLYCERIDES, HDL); Future -- GLYCOSYLATED HEMOGLOBIN (A1C); Future -- BASIC METABOLIC PANEL (NA, K, CL, CO2, GLUCOSE, BUN, CREATININE, CA); Future 2. Arterial occlusive disease -- Continue daily aggrenox -- MR BRAIN WO CONTRAST; Future -- CT ANGIOGRAM HEAD; Future -- CT ANGIOGRAM NECK; Future -- LIPID PANEL (31873)(TOTAL CHOLESTEROL, TRIGLYCERIDES, HDL); Future -- GLYCOSYLATED HEMOGLOBIN (A1C); Future -- BASIC METABOLIC PANEL (NA, K, CL, CO2, GLUCOSE, BUN, CREATININE, CA); Future 3. Essential hypertension -- keep BP log to evaluate for blood pressure trend 4. Hyperlipidemia, unspecified hyperlipidemia type -- Will obtain fasting lipid panel and then evaluate for need for statin -- LIPID PANEL (35331)(TOTAL CHOLESTEROL, TRIGLYCERIDES, HDL); Future 5. Chronic obstructive pulmonary disease, unspecified COPD type -- Managed per PCP 7. Tremors of nervous system -- Managed per Neurology/Dr. Frederick # vascular comorbidities: -- Continue daily antiplatelet therapy -- BP meds based on her BP log-book once reviewed -- I have had a very long conversation with the patient regarding their risk factors for stroke: # Supportive Care - Management of any chronic conditions per PCP and other consultants. # Counseling Blood pressure control, LDL < 70, A1C < 6.4 Continue antiplatelet therapy Smoking cessation counseling given Discussed dietary and exercise habits to help with stroke risk reduction # Code Status Not addressed this visit PATIENT EDUCATION: Discussed with the patient that due to their medical history they are at higher risk of complications from COVID-19 infection, hence we recommend the following: - Avoid exposure as much as possible by staying at home - Wash hands with soap and water for at least 20 seconds - Avoid touching eyes, nose and mouth with unwashed hands - Avoid close contact with people who are sick - Clean and disinfect frequently touched surfaces daily The plan was discussed in detail with the patient who is in agreement. All questions were answered to the patient's satisfaction. Patient is to call us with any new questions or concerns and/or present to the nearest Emergency Center for any concerning symptoms including but not limited to fevers greater than 100.5, symptoms of stroke or worsening condition including uncontrolled hypertension, altered mental status, headache, vision changes, focal weakness, abnormal speech or other severe deterioration in condition threatening safety uncontrolled diarrhea/vomiting, spontaneous bleeding, confusion, near syncope, or any other symptom that should concern the patient or family. All of the patient's questions were answered to their satisfaction. They will return to clinic as above after completion of diagnostic studies and laboratory studies After visit summary (AVS ) documentation will be available through [facility] for this encounter. I spent total of at least 60 minutes providing my expert opinion and coordinating care. Eusebia Ling M.D. Sample Taker Operator Outdoor Fitness Trainer, Neuro-Interventional Services Outdoor Fitness Trainer, [facility] Stroke Program Departments of Neurology, Radiology & Neurosurgery documented in this encounter Plan of Treatment Date Type Specialty Care Team Description 05/05/2020 Office Visit Urology Damion Castrejon M D [address] [facility] [address] [place], [place] [id number] Name Type Priority Associated Diagnoses Order S chedule MR BRAIN WO CONTRAST IMAGING Routine Chronic ischemic lef t MCA Expected: stroke 03/24/2020, Arterial occlusive Expires: 03/24/2021 disease Essential hypert ension Hyperlipidemia, unspecified hyperlipidemia t ype Chronic obstructive pulmonary disease, unspecified COPD type Tremors of nervous system CT ANGIOGRAM HEAD IMAGING Routine Chronic ischemic left M CA Expected: stroke 03/24/2020, Arterial occlusive Expires: 03/24/2021 disease Essential hypert ension Hyperlipidemia, unspecified hyperlipidemia t ype Chronic obstructive pulmonary disease, unspecified COPD type Tremors of nervous system CT ANGIOGRAM NECK IMAGING Routine Chronic ischemic left M CA Expected: stroke 03/24/2020, Arterial occlusive Expires: 03/24/2021 disease Essential hypert ension Hyperlipidemia, unspecified hyperlipidemia t ype Chronic obstructive pulmonary disease, unspecified COPD type Tremors of nervous system LIPID PANEL LAB Routine Chronic ischemic left MCA Ex pected: (64780)(TOTAL stroke 03/24/2020, CHOLESTEROL, Arterial occlusive Expires: 03/24/2021 TRIGLYCERIDES, HDL) disease Essential hypert ension Hyperlipidemia, unspecified hyperlipidemia t ype Chronic obstructive pulmonary disease, unspecified COPD type Tremors of nervous system GLYCOSYLATED HEMOGLOBIN LAB Routine Abnormal finding of blood Expected: (A1C) chemistry, unspe cified 03/24/2020, Chronic ischemic left MCA Ex padmaja: 03/24/2021 stroke Arterial occlusive disease Essential hypert ension Hyperlipidemia, unspecified hyperlipidemia t ype Chronic obstructive pulmonary disease, unspecified COPD type Tremors of nervous system BASIC METABOLIC PANEL LAB Routine Chronic ischemic le ft MCA Expected: (NA, K, CL, CO2, stroke 03/24/2020, GLUCOSE, BUN, Arterial occlusive Expires: 03/24/2021 CREATININE, CA) disease Essential hypert ension Hyperlipidemia, unspecified hyperlipidemia t ype Chronic obstructive pulmonary disease, unspecified COPD type Tremors of nervous system Health Maintenance Due Date Last Done Comments [...] filedocumented in this encounter Visit Diagnoses Diagnosis Arterial occlusive disease - Primary Embolism and thrombosis of unspecified a rtery Chronic ischemic left MCA stroke Transient ischemic attack (TIA), and cer ebral infarction without residual deficits Essential hypertension Unspecified essential hypertension Hyperlipidemia, unspecified hyperlipidem ia type Chronic obstructive pulmonary disease, u nspecified COPD type Conversion disorder Tremors of nervous system Abnormal involuntary movements Abnormal finding of blood chemistry, uns pecified documented in this encounter Insurance Payer Benefit Plan / Subscriber ID Effective Phone Address T ype Group Dates [facility] [id number] 2019-Pres [facility] HEALTHCARE ent Adv HM O MANAGED DUAL COMPLETE MEDICARE HMO [facility] MEDICAID OF xxxxxxxxx 2017-Pres [phone] [place] [id number] [place] [address] documented as of this encounter
--- OUTSIDE RECORDS SUMMARY | 2020-04-07 06:35 | XMS REPORT | Summary of Care ---
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 Essential hypertension Hyperlipidemia, unspecified hyperlipidemia type Chronic obstructive pulmonary disease, unspecified COPD type Tremors of nervous system Judi Molina Radiology Procedures CT ANGIOGRAM HEAD R, PA-C [address] [place] [address] MRI/CAT Scan (Routine) Status Reason Specialty Diagnoses / Referred By Referred To Procedures Contact Contact New Request Diagnostic Diagnoses Chronic ischemic left MCA stroke Arterial occlusive disease Essential hypertension Hyperlipidemia, unspecified hyperlipidemia type Chronic obstructive pulmonary disease, unspecified COPD type Tremors of nervous system Judi Molina Radiology Procedures MR BRAIN WO CONTRAST R, PA-C [address] [place] [address] Reason for Visit Reason Comments New Patient (Routine) Status Reason Specialty Diagnoses / Referred By Contact Refe rred To Contact Procedures Closed Neurology Diagnoses Cerebrovascular disease 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 [address] [place] [id number] [place], [place] Phone: [phone] Fax: Encounter Details Date Type Department Care Team Description 03/24/2020 Office Visit [facility] Eusebia Ling, Arterial o cclusive disease (Primary Dx); Neurology, Kirit CHADWICK Chronic ischemic left MCA stroke; [address] Essential hypertension; [address] [place] [address] Hyperlipidemia, unspecified hyperlipidem ia type; [address] [place], [place] Chronic obstructive pulmonar y disease, unspecified COPD type; [place] [address] Conversion disorder; [id number] Tremors of nervous system; [phone] Abnormal findin g of blood chemistry, unspecified [...] at bedtime. FLUARIX QUAD 0 06/12/2018 Active 4231-6530, PF, 60 mcg (15 mcg x 4)/0.5 [...] . 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 She is and [...] file Gets together: Not on file Attends catholic service: Not on file Active member [...] on file Social History Narrative Lives in [facility] Dr. Maxim Johnson is PCP in [place] Dr. Pillai (?) lead teacher- [place] Patient's Medications START taking these medications No [...] mouth 3 (three) times daily. FLUARIX QUAD 9628-7326, PF, 60 MCG (15 MCG X 4)/0.5 [...] fund of knowledge Short term memory: normal intermission coordinator memory: normal Attention: normal Concentration: normal Cranial [...] days were found. ASSESSMENT/ PLAN Mrs. Jennifer Dietirch is a 64 yr-old right-handed woman with [...] CT ANGIOGRAM NECK; Future -- LIPID PANEL (77271)(TOTAL CHOLESTEROL, TRIGLYCERIDES, HDL); Future -- GLYCOSYLATED HEMOGLOBIN (A1C); Future -- BASIC METABOLIC PANEL (NA, K, CL, CO2, GLUCOSE, BUN, CREATININE, CA); Future 2. Arterial occlusive disease -- Continue daily aggrenox -- MR BRAIN WO CONTRAST; Future -- CT ANGIOGRAM HEAD; Future -- CT ANGIOGRAM NECK; Future -- LIPID PANEL (40786)(TOTAL CHOLESTEROL, TRIGLYCERIDES, HDL); Future -- GLYCOSYLATED HEMOGLOBIN (A1C); Future -- BASIC METABOLIC PANEL (NA, K, CL, CO2, GLUCOSE, BUN, CREATININE, CA); Future 3. Essential hypertension -- keep BP log to evaluate for blood pressure trend 4. Hyperlipidemia, unspecified hyperlipidemia type -- Will obtain fasting lipid panel and then evaluate for need for statin -- LIPID PANEL (04310)(TOTAL CHOLESTEROL, TRIGLYCERIDES, HDL); Future 5. Chronic obstructive [...] (AVS ) documentation will be available through [employer] for this encounter. I spent total of at least 60 minutes providing my expert opinion and coordinating care. Eusebia Ling M.D. [employer] Paper Sample Clerk, Neuro-Interventional Services Paper Sample Clerk, [facility] Stroke Program Departments of Neurology, Radiology & Neurosurgery documented in this encounter Plan of Treatment Date Type Specialty Care Team Description 05/05/2020 Office Visit Urology Damion Castrejon M D [address] [facility] [address] [place], [place] [id number] Name Type Priority Associated Diagnoses Order S [...] Routine Chronic ischemic left MCA Ex pected: (40921)(TOTAL stroke 03/24/2020, CHOLESTEROL, Arterial occlusive Expires: 03/24/2021 [...] Effective Phone Address T ype Group Dates [facility] [id number] 2019-Pres [facility] ent Adv HM O MANAGED DUAL COMPLETE MEDICARE HMO [facility] MEDICAID OF xxxxxxxxx 2017-Pres [phone] [address] [place] ent [phone] [place] [address] documented as of this encounter
--- OUTSIDE RECORDS SUMMARY | 2020-04-07 06:38 | XMS REPORT | Continuity of Care Document ---
:1955 Author Organization [facility] t Address [address] [place] [address] Care Team Providers Name Role Phone Vasyl Molina PA-C Attending Clinician Sushil CHADWICK Attending Clinician Cash CHADWICK Attending Clinician Doctor Unassigned, Name Attending Clinician Unavailable Otoniel CHADWICK, Gene Attending Clinician OEI Attending Clinician Unavailable OEI Admitting Clinician Unavailable Payers Payer Name Policy Type Policy Number Effective Date Expiration Date S ource Problems Condition Condition Condition Status Onset Resolution Last Treating Co mments Source Name Details Category Date Date Treatment Clinician Date Recurrent Recurrent Problem Active [facility] Primary Primary Problem Active [facility] osteoarthr osteoarthr Ashley kes - itis, itis, Memoria unspecifie unspecifie l d site d site Outpati ent Clinics Rheumatoid Rheumatoid Problem Active [facility] arthritis arthritis Luke s - involving involving Conrad rosamaria multiple multiple l sites, sites, Outpati unspecifie unspecifie en t d d Clinics rheumatoid rheumatoid factor factor presence presence Hyperlipid Hyperlipid Problem Active [facility] emia emia [facility] Insomnia Insomnia Problem Active [facility] Chronic Chronic Problem Active [facility] back pain back pain Luke s - [facility] GERD GERD Problem Active [facility] (gastroeso (gastroeso Ashley kes - phageal phageal Memoria reflux reflux l disease) disease) Outpat i ent Clinics Obstructiv Obstructiv Problem Active [facility] e sleep e sleep [facility] apnea apnea [facility] Restless Restless Problem Active [facility] leg leg [facility] syndrome syndrome [facility] a [facility] Lung Lung Problem Active [facility] nodule nodule [facility] Overactive Overactive Problem Active [facility] bladder bladder [facility] Depression Depression Problem Active [facility] COPD COPD Problem Active [facility] (chronic (chronic [facility] - obstructiv obstructiv Me moria e e l pulmonary pulmonary Outp ati disease) disease) ent Clinics H/O TIA H/O TIA Problem Active [facility] (transient (transient Ashley kes - ischemic ischemic Memori a attack) attack) l and stroke and stroke Ou tpati ent Clinics Allergic Allergic Problem Active [facility] rhinitis, rhinitis, Luke s - seasonal seasonal Memori a l [facility] Nicotine Nicotine Problem Active [facility] dependence dependence Ashley kes - [facility] Osteopenia Osteopenia Problem Active [facility] Benign Benign Problem Active [facility] essential essential Luke s - HTN HTN [facility] Incontinen Incontinen Problem Active [facility] ce in ce in [facility] female female [facility] Odynophagi Odynophagi Problem Active [facility] Osteoporos Osteoporos Problem Active [facility] is, is, [facility] - unspecifie unspecifie Me moria d d l osteoporos osteoporos Ou tpati is type, is type, ent unspecifie unspecifie Cl inics d d pathologic pathologic al al fracture fracture presence presence Hypomagnes Hypomagnes Problem Active [facility] em[facility] emia [facility]ics Parkinson' Parkinson' Problem Active [facility] s disease s disease [facility]ics Malnutriti Malnutriti Problem Active [facility] on, on, [facility] - unspecifie unspecifie Me moria d type d type l Outpati ent Clinics Depression Depression Problem Active [facility] with with [facility] anxiety anxiety Memoria l [facility]i ent Clinics Type 2 Type [address] [facility] diabetes diabetes [facility] - mellitus mellitus Memori a without without l complicati complicati Ou tpati on, on, ent without without Clinics long-term long-term current current use of use of insulin insulin Stenosis Stenosis Problem Active [facility] of left of left [facility] carotid carotid [facility] artery artery l [facility] Cerebrovas Cerebrovas Problem Active [facility] cular cular [facility] - accident accident Memori a (CVA) due (CVA) due l to to Outpati 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 Clinics posterior posterior cerebral cerebral artery artery Hemiplegia Hemiplegia Problem Active [facility] of right of right [facility] - dominant dominant Memori a side as side as l late late Outpati effect of effect of ent cerebrovas cerebrovas Cl inics cular cular disease, disease, unspecifie unspecifie d d cerebrovas cerebrovas cular cular disease disease type, type, unspecifie unspecifie d d hemiplegia hemiplegia type type Hyponatrem Hyponatrem Problem Active [facility] ia ia [facility] Dementia Dementia Problem Active [facility] in other in other [facility] - diseases diseases Memori a classified classified l elsewhere elsewhere Outp ati without without ent behavioral behavioral Cl inics disturbanc disturbanc e e Urinary Diagnosis Active 2019-12-24 Me moria incontinen 13:55:03 l ce, mixed Urinary Herm hayley incontinen ce, mixed Active 0 [facility] Neurogenic Diagnosis Active 2020-03-22 Memoria bladder 18:54:36 l [place] Neurogenic bladder Active 0 [facility] Paralysis Diagnosis Active 2019-12-28 Memoria agitans 21:25:07 l [place] Paralysis agitans Active 0 [facility] Cerebrovas Diagnosis Active 2020-01-01 Memoria cular 15:09:18 l disease [place] Cerebrovas cular disease Active 0 [facility] Cerebrovas Diagnosis Active 2020-01-01 Memoria cular 15:09:18 l accident [place] (CVA) due 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 Active 0 [facility] Urgency Diagnosis Active 2019-11-09 Me moria incontinen 13:35:07 l ce Urgency [place] incontinen ce Active 11/09/2019 [facility] Chronic Diagnosis Active 2020-03-24 Me moria ischemic 18:40:39 l left MCA Chronic [place] stroke ischemic left MCA stroke Active 0 [facility] Arterial Diagnosis Active 2020-03-24 M emoria occlusive 18:40:39 l disease Arterial [place] occlusive disease Active 0 [facility] Essential Diagnosis Active 2020-03-24 Memoria hypertensi 18:40:39 l on [place] Essential hypertensi on Active 03/24/2020 [facility] Hyperlipid Diagnosis Active 2020-03-24 Memoria emia, 18:40:39 l unspecifie [place] d Hyperlipid hyperlipid emia, emia type unspecifie d hyperlipid emia type Active 0 [facility] Chronic Diagnosis Active 2020-03-24 Me moria obstructiv 18:40:39 l e Chronic [place] pulmonary obstructiv disease, e unspecifie pulmonary d COPD disease, type unspecifie d COPD type Active 0 [facility] Conversion Diagnosis Active 2020-03-24 Memoria disorder 18:40:39 l [place] Conversion disorder Active 0 [facility] Tremors of Diagnosis Active 2020-03-24 Memoria nervous 18:40:39 l system Tremors [place] of nervous system Active 0 [facility] Abnormal Diagnosis Active 2020-03-24 M emoria finding of 18:40:39 l blood Abnormal [place] n chemistry, finding of unspecifie blood d chemistry, unspecifie d Active 03/24/2020 [facility] Allergies, Adverse Reactions, Alerts Allergy Allergy Status Severity Reaction(s) Onset Inactive Treating Comm ents Source Name Type Date Date Clinician Penicill DA Active [facility] 2[facility]28 [place] 00:00: d 00 [facility] codeine DA Active SV 2020-0 [facility] 2-28 [place] 00:00: d 00 [facility] hydrocod DA Active [facility] one 2-28 [place] 00:00: d 00 [facility] Tramadol Tramadol Active Nausea 2017-10 Memori a and/or 0-30 l Vomiting 00:00: [place] 00 penicill Adverse Active Info Not [facility] Reaction Available [facility] Codeine Adverse Active Info Not [facility] Sulfate Reaction Available [place] [facility] Social History Smoking Status Start Date Stop Date Source Tobacco smoking status [facility] 2020-03-24 00:00:[address] [facility] Medications Ordered Filled Start Stop Current Ordering Indication Dosage Frequency Signature Comments Components Source Medication Medication Date Date Medication? Clinician (SIG) Name Name citalopram Yes Take 40 mg M emoria 40 mg 6-18 by mouth l tablet 18:40: at [place] 39 bedtime. albuterol-i Yes Combivent M emoria pratropium 6-18 Respimat l (COMBIVENT 18:40: 20 mcg-100 H ermann RESPIMAT) 39 mcg/actuat 20-100 ion mcg/actuati solution on inhaler for inhalation suvorexant 2019- Yes Take 1 Memor ia (BELSOMRA) 6-18 tablet by l 10 mg Tab 18:40: mouth [place] 39 daily. mirabegron 2019-0 Yes Take 1 Memor ia 50 mg 6-16 tablet by l tablet 18:27: mouth [place] 32 daily. mirabegron 2019-0 Yes Take 1 Memor ia 50 mg 6-16 tablet by l tablet 00:00: mouth [place] 00 daily. SOLIFENACIN 2019-0 Yes TAKE 1 Conrad rosamaria 5 mg tablet 6-11 TABLET BY l 00:00: MOUTH [place] 00 EVERY DAY. rOPINIRole 2019-0 Yes TAKE 3 Memor ia 2 mg tablet 5-11 TABLETS BY l 00:00: MOUTH [place] 00 EVERY MORNING, 2 TABLETS BY MOUTH AT MIDDAY AND 2 TABLETS BY MOUTH EVERY EVENING ASPIRIN-DIP 2019-0 Yes TAKE 1 Conrad rosamaria YRIDAMOLE 5-08 CAPSULE BY l 25-200 mg 00:00: MOUTH [place] per 12 hr 00 TWICE capsule DAILY mirabegron 2019-0 No Myrbetriq Me moria (MYRBETRIQ) 5-05 50 mg l 50 mg 00:00: tablet,ext [place] n tablet 00 ended release solifenacin No Take 1 Conrad rosamaria 5 mg tablet 5-05 tablet by l 00:00: mouth [place] 00 daily. mirabegron 2019- Yes Myrbetriq Me moria (MYRBETRIQ) 4-29 50 mg l 50 mg 18:22: tablet,ext [place] n tablet 40 ended release ASPIRIN-DIP No Take 1 Conrad rosamaria YRIDAMOLE 3-27 capsule by l 25-200 mg 00:00: mouth [place] per 12 hr 00 twice capsule daily LEVETIRACET Yes TAKE 1 & Me moria AM 500 mg 3-27 1/2 (ONE & l tablet 00:00: ONE-HALF) [place] n 00 TABLETS BY MOUTH TWICE DAILY lidocaine No Memoria 2% 3-18 l (XYLOCAINE) 22:00: [place] n 15 mL in 00 NaCl 0.9% (NS) 35 mL clostridium No Memori a botulinum 3-18 l toxin 20:30: [place] (BOTOX) 00 injection 200 Units LEVETIRACET No TAKE 1 & Me moria AM 500 mg 2-17 1/2 (ONE & l tablet 00:00: ONE-HALF) [place] 00 TABLETS BY MOUTH TWICE DAILY ALPRAZolam Yes Take 1 Memor ia (XANAX) 2-04 tablet by l 0.25 mg 00:00: mouth once Herm hayley tablet 00 now for 1 dose. 1 hour prior the Botox injection Nitrofurant Yes Take 1 Conrad rosamaria oin&Nit. 2-04 capsule by l Macrocryst 00:00: mouth 2 Herm hayley (MACROBID) 00 (two) 100 mg times capsule daily for 5 days. Start 2 days prior the Botox solifenacin No Take 1 Conrad rosamaria 5 mg tablet 2-03 tablet by l 00:00: mouth [place] 00 daily. trospium 20 No Take 1 Conrad rosamaria mg tablet 1-14 tablet by l 00:00: mouth [place] 00 daily. clonazePAM Yes Take 1 Memor ia 1 mg tablet 1-06 tablet by l 00:00: mouth 3 [place] 00 (three) times daily. aspirin-dip 2018-10 No Take 1 Conrad rosamaria yridamole 1-22 capsule by l 25-200 mg 00:00: mouth 2 [place] nn per 12 hr 00 (two) capsule times daily. levETIRAcet 2018-10 No TAKE 1 & Me moria am 500 mg 1-22 1/2 (ONE & l tablet 00:00: ONE-HALF) [place] n 00 TABLETS BY MOUTH TWICE DAILY rOPINIRole 2018-10 No TAKE 3 Memor ia 2 mg tablet 0-29 TABLETS BY l 00:00: MOUTH IN [place] 00 THE MORNING, THEN TAKE 2 TABLETS BY MOUTH MIDDAY, THEN TAKE 2 TABLETS BY MOUTH IN THE EVENING aspirin-dip Yes Take 1 Conrad rosamaria yridamole 9-03 capsule by l 25-200 mg 00:00: mouth 2 [place] per 12 hr 00 (two) capsule times daily. LEVETIRACET Yes TAKE 1 & Me moria AM 500 mg 8-20 1/2 (ONE & l tablet 00:00: ONE-HALF) [place] n 00 TABLETS BY MOUTH TWICE DAILY LEVETIRACET No TAKE 1 & Me moria AM 500 mg 7-08 1/2 (ONE & l tablet 00:00: ONE-HALF) [place] n 00 TABLETS BY MOUTH TWICE DAILY clonazePAM Yes 1 PO BID Mem oria 0.5 mg 6-17 as need l tablet 00:00: for anxiety related anti-parki nson drug. aspirin-dip No Take 1 Conrad rosamaria yridamole 5-30 capsule by l 25-200 mg 00:00: mouth 2 [place] per 12 hr 00 (two) capsule times daily. ROPINIROLE Yes TAKE 3 Memor ia 2 mg tablet 5-16 TABLETS BY l 00:00: MOUTH IN [place] 00 THE MORNING, THEN TAKE 2 TABLETS BY MOUTH MIDDAY, THEN TAKE 2 TABLETS BY MOUTH IN THE EVENING diclofenac Yes Take 1 Memor ia 50 mg 4-12 tablet by l tablet 00:00: mouth 3 [place] 00 (three) times daily. alendronate 2017-10 Yes Take 70 mg Memoria 70 mg 0-26 by mouth l tablet 00:00: weekly. TRELEGY 2017-10 Yes Memoria ELLIPTA 0-24 l 100-62.5-25 00:00: [place] n mcg DsDv 00 amitriptyli 2017-10 Yes Take 50 mg Memoria ne 50 mg 0-05 by mouth l tablet 00:00: at [place] 00 bedtime. DEXILANT 60 2017-10 Yes Memori a mg capsule 0-03 l 00:00: [place] 00 FLUARIX Yes Memoria QUAD 9-06 l , 00:00: [place] PF, 60 mcg 00 (15 mcg x 4)/0.5 mL syringe levoFLOXaci No Take 1 Conrad rosamaria n 750 mg 8-30 tablet by l tablet 00:00: mouth [place] 00 every 24 (twenty-fo ur) hours. ondansetron No Take 1 Conrad rosamaria (ZOFRAN 8-30 tablet by l ODT) 4 mg 00:00: mouth [place] disintegrat 00 every 8 ing tablet (eight) hours as needed for Nausea and Vomiting (N/V). Amlodipine Amlodipine Yes Bryson take [address] [facility] Besylate Besylate Johnson tablet by L ukes - mouth once Memoria daily [facility] Calcium + Calcium + Yes Bryson [address] [facility] D3 D3 Johnson with a Lukes - meal Memoria [facility] Citalopram Citalopram Yes Bryson TAKE [address] [facility] Hydrobromid Hydrobromid Johnson TABLET BY [facility]ukes - e e MOUTH Memoria EVERY DAY [facility] Simvastatin Simvastatin Yes Bryson [address] [facility] Johnson in the Lukes - evening Memoria [facility] Gabapentin Gabapentin Yes Bryson 1 1/[address] [facility] Johnson tablet(500 [facility]ukes - MG) Memoria [facility] Citalopram Citalopram Yes Bryson TAKE ONE [facility] Hydrobromid Hydrobromid Johnson TABLET BY [facility]ukes - e e MOUTH ONCE Memoria DAILY [facility] Metoprolol Metoprolol Yes Bryson Take 1/[address] [facility] Tartrate Tartrate Johnson tablet Luke s - with food Memoria [facility] Spironolact Spironolact Yes Bryson [address] [facility] one one Johnson [facility] - Memoria [facility] Alendronate Alendronate Yes Bryson [address] [facility] Sodium Sodium Johnson [facility] - Memoria [facility] Clinics Duloxetine Duloxetine Yes Bryson [address] [facility] HCl HCl Johnson [facility] Ropinirole Ropinirole Yes Bryson TAKE [address] [facility] HCl HCl Johnson TABLETS BY [facility]ukes - MOUTH IN Memoria THE l MORNING Outpati THEN TAKE ent 2 TABLETS Clinics BY MOUTH MIDDAY THEN TAKE 2 TABLETS BY MOUTH IN THE EVENING Belsomra Belsomra Yes Bryson [address] Johnson at bedtime [facility] - as needed [facility]oria l [facility] Zyprexa Zyprexa Yes Bryson [address] [facility] Duloxetine Duloxetine Yes Bryson [address] [facility] HCl HCl Johnson [facility] Klor-Con Klor-Con Yes Bryson [address] M20 M20 Johnson with food [facility]ics Aggrenox Aggrenox Yes Bryson [address] [facility] Johnson [facility] Myrbetriq Myrbetriq Yes Bryson take one [facility] Johnson tablet by [facility]ukes - mouth once Memoria daily l [facility] Duloxetine Duloxetine Yes Bryson [address] [facility] HCl HCl Johnson [facility] Levetiracet Levetiracet Yes Bryson 1 1/[address] [facility] am am Johnson tablet [facility] HydrALAZINE HydrALAZINE Yes Bryson TAKE [address] [facility] HCl HCl Johnson TABLET BY [facility]ukes - MOUTH Memoria THREE l TIMES [facility] DAILY WITH ent FOOD Clinics Dexilant Dexilant Yes Bryson TAKE [address] [facility] Johnson CAPSULE BY [facility]ukes - MOUTH ONCE Memoria DAILY l [facility] Solifenacin Solifenacin Yes Bryson [address] [facility] Succinate Succinate Johnson Luke s - Memoria l [facility] Clonazepam Clonazepam Yes Bryson (Schedule [facility] Johnson IV Drug) [facility]ukes - TAKE 1 Memoria TABLET BY l MOUTH [facility] TWICE ent DAILY Clinics NEEDED FOR ANXIETY Olanzapine Olanzapine Yes Bryson TAKE [address] [facility] Johnson TABLET BY [facility]ukes - MOUTH Memoria EVERY DAY l [facility]ics HydrALAZINE HydrALAZINE Yes Bryson [address] [facility] HCl HCl Johnson with food [facility] Folic Acid Folic Acid Yes Bryson [address] [facility] Trelegy Trelegy Yes Bryson 1 puff [facility] Ellipta Ellipta Johnson [facility] l [facility] Spironolact Spironolact 2020- No Bryson take [address] [facility] one one 07-14 Johnson tablet by [facility] - 00:00 mouth once Memoria :00 daily l [facility] ent Clinics Vital Signs Vital Name Observation Time Observation Value Comments Source Systolic (mm Hg) 2020-03-24 17:02:00 Conrad rial [place] Diastolic (mm Hg) 2020-03-24 17:02:00 Mem orial [place] Heart Rate 2020-03-24 17:02:00 [facility] [place] Temperature Oral (F) 2020-03-24 17:02:00 37.11 Ruthann [facility] [place] Height 2020-03-24 17:02:00 165.1 cm [facility] [place] Weight 2020-03-24 17:02:00 Memorial [place] Systolic (mm Hg) 2020-03-22 18:24:00 Conrad rial [place] Diastolic (mm Hg) 2020-03-22 18:24:00 Mem orial [place] Heart Rate 2020-03-22 18:22:00 [facility] [place] Height 2020-03-22 18:22:00 165.1 cm Memorial [place] Weight 2020-03-22 18:22:00 [facility] [place] Systolic (mm Hg) 2020-02-09 14:25:00 Conrad rial [place] Diastolic (mm Hg) 2020-02-09 14:25:00 Mem orial [place] Heart Rate 2020-02-09 14:25:00 [facility] [place] Temperature Oral (F) 2020-02-09 14:25:00 36.67 Ruthann [facility] [place] Respitory Rate 2020-02-09 14:25:00 Memori al [place] Height 2020-02-09 14:25:00 165.1 cm Memorial [place] Weight 2020-02-09 14:25:00 [facility] [place] Systolic (mm Hg) 2019-12-23 20:13:00 Conrad rial [place] Diastolic (mm Hg) 2019-12-23 20:13:00 Mem orial [place] Heart Rate 2019-12-23 20:13:00 [facility] [place] Temperature Oral (F) 2019-12-23 20:13:00 36.67 Ruthann [facility] [place] Respitory Rate 2019-12-23 20:13:00 Memori al [place] Height 2019-12-23 20:13:00 165.1 cm [facility] [place] Weight 2019-12-23 20:13:00 [facility] [place] Systolic (mm Hg) 2019-12-18 16:49:00 Conrad rial [place] Diastolic (mm Hg) 2019-12-18 16:49:00 Mem orial [place] Heart Rate 2019-12-18 16:49:00 [facility] [place] Temperature Oral (F) 2019-12-18 16:49:00 36.17 Ruthann [facility] [place] Respitory Rate 2019-12-18 16:49:00 Memori al [place] Height 2019-12-18 16:49:00 165.1 cm Memorial [place] Weight 2019-12-18 16:49:00 [facility] [place] Systolic (mm Hg) 2019-11-10 14:25:00 Conrad rial [place] Diastolic (mm Hg) 2019-11-10 14:25:00 Mem orial [place] Heart Rate 2019-11-10 14:25:00 [facility] [place] Respitory Rate 2019-11-10 14:25:00 Memori al [place] Height 2019-11-10 14:25:00 165.1 cm [facility] [place] Weight 2019-11-10 14:25:00 [facility] [place] Systolic (mm Hg) 2019-10-20 14:42:00 Conrad rial [place] Diastolic (mm Hg) 2019-10-20 14:42:00 Mem orial [place] Heart Rate 2019-10-20 14:41:00 [facility] [place] Respitory Rate 2019-10-20 14:41:00 Memori al [place] Height 2019-10-20 14:41:00 165.1 cm [facility] [place] Weight 2019-10-20 14:41:00 [facility] [place] Procedures Procedure Date / Time Performing Clinician Source Performed ASSIGNMENT OF BENEFITS 2020-03-22 23:27:17 Doctor Unassigned, No [facility] [place] Name DME/SUPPLY JUSTIFICATION 2019-12-25 10:01:00 Doctor Unassigned, No [facility] [place] Name REFERRAL- REQUEST/RESPONSE 2019-12-17 10:01:00 Doctor Unassigned , No [facility] [place] Name CT ABDOMEN PELVIS WO 2019-11-07 00:01:16 Cash, Bilal Memoria l [place] CONTRAST NO SHOW OR MISSED 2019-10-20 20:20:59 Doctor Unassigned, No Conrad carver [place] APPOINTMENT POLICY Name ACKNOWLEDGEMENT REQUEST FOR 2019-10-06 12:01:00 Doctor Unassigned, No Jourdanori al [place] CONSULT/REFERRAL FROM Name [facility] Plan of Care Planned Activity Planned Date Details Comments Source Future Scheduled 2021-02-08 Plan of Care [code = Mem orial [place] Test 00:00:00 82875-6] Future Scheduled 2020-06-07 Plan of Care [code = Mem orial [place] Test 00:00:00 51773-9] Future Scheduled 2020-03-24 Plan of Care [code = Mem orial [place] Test 17:46:21 67120-8] Future Scheduled 2020-03-24 MR BRAIN WO CONTRAST Mem orial [place] Test 00:00:00 [code = 18920] Future Scheduled 2020-03-24 CT ANGIOGRAM HEAD Memori al [place] Test 00:00:00 [code = 325] Future Scheduled 2020-03-24 CT ANGIOGRAM NECK Memori al [place] Test 00:00:00 [code = 341] Future Scheduled 2020-03-24 LIPID PANEL [facility] rmann Test 00:00:00 (19432)(TOTAL CHOLESTEROL, TRIGLYCERIDES, HDL) [code = 60728-8] Future Scheduled 2020-03-24 GLYCOSYLATED [facility] rmann Test 00:00:00 HEMOGLOBIN (A1C) [code = 22638-1] Future Scheduled 2020-03-24 [facility] [place]:00 (NA, K, CL, CO2, GLUCOSE, BUN, CREATININE, CA) [code = 15670-4] Future Scheduled 2020-03-22 Plan of Care [code = Mem orial [place] Test 18:44:57 17587-4] Future Scheduled 2020-03-22 Plan of Care [code = Mem orial [place] Test 18:27:22 34670-3] Future Scheduled 2020-03-17 Plan of Care [code = Mem orial [place] Test 18:12:43 37413-5] Future Scheduled 2020-03-16 Plan of Care [code = Mem orial [place] Test 22:35:22 40831-4] Future Scheduled 2020-02-15 Plan of Care [code = Mem orial [place] Test 20:20:48 37429-4] Future Scheduled 2020-02-12 Plan of Care [code = Mem orial [place] Test 20:25:13 07528-0] Future 2020-02-09 Plan of Care [code = Mem orial [place] Test 15:28:41 00349-6] Future 2020-02-09 Plan of Care [code = Mem orial [place] Test 14:48:00 16355-6] Future 2020-01-01 Plan of Care [code = Mem orial [place] Test 15:09:08 95303-7] Future Scheduled 2020-01-01 Plan of Care [code = Mem orial [place] Test 14:39:14 37488-8] Future 2019-12-28 Plan of Care [code = Mem orial [place] Test 15:26:31 76679-6] Future 2019-12-24 Plan of Care [code = Mem orial [place] Test 13:54:53 80706-3] Future Scheduled 2019-12-23 Plan of Care [code = Mem orial [place] Test 23:05:48 24706-0] Future 2019-12-23 Plan of Care [code = Mem orial [place] Test 22:39:57 69360-4] Future 2019-12-21 Plan of Care [code = Mem orial [place] Test 17:30:46 49641-8] Future 2019-12-18 Plan of Care [code = Mem orial [place] Test 17:04:54 87183-3] Future 2019-12-17 Plan of Care [code = Mem orial [place] Test 23:51:37 07694-1] Future 2019-11-23 Plan of Care [code = Mem orial [place] Test 17:28:29 84770-0] Future Scheduled 2019-11-19 Plan of Care [code = Mem orial [place] Test 16:31:55 56271-0] Future Scheduled 2019-11-10 Plan of Care [code = Mem orial [place] Test 15:14:29 18899-2] Future Scheduled 2019-11-10 Plan of Care [code = Mem orial [place] Test 15:08:43 87497-8] Future Scheduled 2019-11-10 URINE CULTURE [code = Me morial [place] Test 00:00:00 630-4] Future Scheduled 2019-11-09 Plan of Care [code = Mem orial [place] Test 13:34:57 25521-5] Future Scheduled 2019-11-07 Plan of Care [code = Mem orial Oleksandr Test 05:59:00 35724-2] Future Scheduled 2019-10-21 Plan of Care [code = Mem orial Oleksandr Test 16:40:48 72515-1] Future Scheduled 2019-10-21 Plan of Care [code = Mem orial Oleksandr Test 00:45:01 70646-2] Future Scheduled 2019-10-20 Plan of Care [code = Mem orial Oleksandr Test 15:18:43 01780-8] Future Scheduled 2019-10-20 Plan of Care [code = Mem orial [place] Test 14:21:02 66611-2] Future Scheduled 2019-10-20 CT ABDOMEN PELVIS WO Mem orial [place] Test 00:00:00 CONTRAST [code = 293] Future Scheduled 2019-06-07 Plan of Care [code = Mem orial Oleksandr Test 00:00:00 68212-4] Future Scheduled 2012 [facility] 00:[facility]00 malignant neoplasm of lung (procedure) [code = 757262157] Future Scheduled 2012 Plan of Care [code = Mem orial [place] Test 00:00:00 05400-6] Future Scheduled 2007 [facility] for [facility] 00:[facility]:00 malignant neoplasm of colon (procedure) [code = 444690189] Future Scheduled 2007 Plan of Care [code = Mem orial [place] Test 00:00:00 97181-3] Future Scheduled 1997 [facility] for [facility] 00:[facility]:00 malignant neoplasm of breast (procedure) [code = 797412805] Future Scheduled 1997 Plan of Care [code = Mem orial [place] Test 00:00:00 18809-2] Future Scheduled 1978 [facility] for [facility] 00:[facility]:00 malignant neoplasm of cervix (procedure) [code = 692237058] Future Scheduled 1978 Plan of Care [code = Mem orial Oleksandr Test 00:00:00 05385-4] Future Scheduled 1976 Plan of Care [code = Mem orial [place] Test 00:00:00 22477-0] Future Scheduled 1968 Plan of Care [code = Mem orial Oleksandr Test 00:00:00 10101-5] Future Scheduled 1963 Plan of Care [code = Mem orial Oleksandr Test 00:00:00 38550-6] Future Scheduled 1957 Hepatitis C screening Sd morial Oleksandr Test 00:00:00 (procedure) [code = 187799389] Future Scheduled 1957 Plan of Care [code = Mem orial Oleksandr Test 00:00:00 25345-8] Encounters Start End Encounter Admission Attending Care Care Encounter Source Date/Time Date/Time Type Type Clinicians Facility Department ID 2020-04-05 2020-04-05 Telephone JAXON Molina 1.2.840.114 [id number] 00:00:00 00:00:00 [facility] 350.1.13.10 [facility] 4.2.7.2.686 [id number] 2020-03-24 2020-03-24 Office [facility] 1.2.135.382 [id number] 11:46:21 12:46:21 Visit [facility] 350.1.13.10 [place] 4.2.7.2.686 [place] [phone] Medical 2 Office Building 2020-03-24 2020-03-24 Office [facility] 1.2.534.343 [id number] 11:46:21 12:46:21 Visit [facility] 350.1.13.10 [place] 4.2.7.2.686 [place] [phone] [place] [id number] Office Building 2020-03-24 2020-03-24 Office [facility] 1.2.922.020 [id number] 11:46:21 12:46:21 Visit [facility] 350.1.13.10 [place] 4.2.7.2.686 [place] [phone] Medical 2 Office Building 2020-03-22 2020-03-22 [facility] 1.2.840.114 [id number] 13:16:42 13:44:57 Visit [facility]ALTH 350.1.13.10 [place] 4.2.7.2.686 [facility] [phone] Primary & 204 Specialty Care 2020-03-22 2020-03-22 Office Cash FLMILTON 1.2.840.114 [id number] 13:16:42 13:44:57 Visit [facility] 350.1.13.10 [place] 4.2.7.2.686 [facility] [phone] Primary & 204 Specialty Care 2020-03-22 2020-03-22 Orders Doctor ANDRÉS 1.2.840.114 [id number] 00:00:00 00:00:00 Only Unassigned, DAVID 350.1.13.10 [facility] 2.7.2.686 [id number] [id number] 2020-03-17 2020-03-17 Refill Cash FLMILTON 1.2.840.114 [id number] 00:00:00 00:00:00 Bilaz HEALTH 350.1.13.10 [place] [address].2.7.2.686 [facility] [id number] Primary & 204 Specialty Care 2020-03-16 2020-03-16 Telephone JAXON Molina 1.2.840.114 [id number] 00:00:00 00:00:[address] [facility] 350.1.13.[address]686 [id number] 803 2020-03-15 2020-03-15 [facility] [id number] 14:57:00 14:57:00 Sticky[facility] Medicine l Medicine Outpati ent Clinics 2020-03-07 2020-03-07 [facility] [id number] 16:12:00 16:12:00 t Stickybits [facility] Family Medicine l Medicine Outpati ent Clinics 2020-03-02 2020-03-02 [facility] [id number] 10:15:00 10:15:00 t Stickybits [facility] Family Medicine l Medicine Outpati ent Clinics 2020-02-25 2020-02-25 [facility] [id number] 10:10:00 10:10:00 [facility] Family Medicine l Medicine Outpati ent Clinics 2020-02-22 2020-02-22 [facility] [id number] 09:28:00 09:28:00 t [facility] s Road [facility] Medicine [facility] 2020-02-19 2020-02-19 Outpatient Gayle Araujot [id number] 11:00:00 11:00:00 t [employer] Estate [employer] [place] s - Drive [facility] Medicine [facility] Clinics 2020-02-17 2020-02-17 Outpatient Gayle Araujot [id number] 16:48:00 16:48:00 [facility] s [facility] Medicine [facility] 2020-02-13 2020-02-13 [facility] 1.2.840.114 [id number] 00:00:00 00:00:00 Frank Colladoton 350.1.13.10 [place] 4.2.7.2.686 Professio [phone] [address] 2020-02-12 2020-02-12 [facility] Otoniel, [facility] 1.2.840.114 [id number] 00:00:00 00:00:00 Frank Francesco Colladoton 350.1.13.10 [place] 4.2.7.2.686 Professio [phone] [address] 2020-02-09 2020-02-09 [facility] 1.2.840.114 [id number] 09:18:00 10:28:41 Visit Bilal SPECIALTY 350.1.13.10 CARE 4.2.7.2.686 CENTER AT [phone] [address] 2020-02-09 2020-02-09 [facility] 1.2.840.114 [id number] 09:18:00 09:48:00 Visit Bilal SPECIALTY 350.1.13.10 CARE 4.2.7.2.686 CENTER AT [phone] [address] 2020-02-09 2020-02-09 [facility] 1.2.840.114 [id number] 09:18:00 09:48:00 Visit Bilal SPECIALTY 350.1.13.10 CARE 4.2.7.2.686 CENTER AT [phone] JULIENNE Rodriguez [facility] 2020-02-05 2020-02-05 [facility] [id number] 10:59:00 10:59:00 t Stickybits [facility] Clin[facility] 2020-02-03 2020-02-[address]840[address]114 [id number] 07:07:57 07:22:57 ne Visit Bilal SPECIALTY 350.1.13.10 [facility] 4.2.7.2.686 CENTER AT [phone] JULIENNE Rodriguez [facility] 2020-01-20 2020-01-20 [facility] [id number] 10:45:00 10:45:00 t Stickybits [facility] Clin[facility] 2020-01-15 2020-01-15 [facility] [id number] 08:06:00 08:06:00 t Stickybits [facility] Outpati ent Clinics 2020-01-12 2020-01-12 [facility] [id number] 11:17:00 11:17:00 t Stickybits [facility] 2020-01-06 2020-01-06 [facility] [id number] 14:55:00 14:55:00 t Stickybits [facility] Clin[facility] 2019-12-31 2019-12-[address]840.114 [id number] 00:00:00 00:00:00 Frank Bethea 350.1.13.10 [place] 4.2.7.2.686 Professio [phone] nal [address] [place] [address] 2019-12-29 2019-12-[address]840[address]114 [id number] 00:00:00 00:00:00 Frank Bethea 350.1.13.10 [place] 4.2.7.2.686 Professio [phone] nal [address] [place] [address] 2019-12-25 2019-12-25 [facility] [id number] 15:01:00 15:01:00 [facility] s [facility] 2019-12-25 2019-12-25 Outpatient Gayle Araujot [id number] 14:58:00 14:58:00 [facility] s [facility] ent [facility] 2019-12-25 2019-12-25 Orders Doctor BOWEN 12.840.114 [id number] 00:00:00 00:00:00 Only Unassigned, DAVID 350.1.13.10 Vera [facility] 4.2.7.2.686 [id number] 2019-12-24 2019-12-24 Outpatient Gayle Araujot [id number] 14:42:00 14:42:00 [facility] mylearnadfriend [place] [facility] ent [facility] 2019-12-23 2019-12-[address] [facility] 12.840.114 [id number] 14:54:07 08:54:53 Visit Bilal SPECIALTY 350.1.13.10 CARE 4.2.7.2.686 CENTER AT [id number] [address] 2019-12-23 2019-12-[address] [facility] 12.840.114 [id number] 14:54:07 18:05:48 Visit Bilal SPECIALTY 350.1.13.10 CARE 4.2.7.2.686 CENTER AT [phone] [address] 2019-12-23 2019-12-[address] [facility] 12.840.114 [id number] 14:54:07 17:39:57 Visit Bilal SPECIALTY 350.1.13.10 CARE 4.2.7.2.686 CENTER AT [id number] [address] 2019-12-23 2019-12-[address]114 [id number] 14:54:07 15:24:07 Visit Bilal SPECIALTY 350.1.13.10 CARE 4.2.7.2.686 CENTER AT [id number] [address] 2019-12-23 2019-12-[address] [facility] 1.2.840.114 [id number] 14:54:07 15:24:07 Visit Bilal SPECIALTY 350.1.13.10 CARE 4.2.7.2.686 CENTER AT [id number] JULIENNE Rodriguez [facility] 2019-12-23 2019-12-[address] [facility] 1.2.840.114 [id number] 14:54:07 15:24:07 Visit Bilal SPECIALTY 350.1.13.10 CARE 4.2.7.2.686 CENTER AT [phone] JULIENNE Rodriguez [facility] 2019-12-23 2019-12-[address] [facility] 1.2.840.114 [id number] 14:54:07 15:24:07 Visit Bilal SPECIALTY 350.1.13.10 CARE 4.2.7.2.686 CENTER AT [id number] [address] 2019-12-18 2019-12-18 Office [facility] 1.2.840.114 [id number] 11:16:13 12:04:54 Visit Frank Bethea 350.1.13.10 [place] 4.2.7.2.686 Professio [phone] [address] 2019-12-18 2019-12-18 Office [facility] 1.2.840.114 [id number] 11:16:13 12:04:54 Visit Frank Bethea 350.1.13.10 [place] 4.2.7.2.686 Professio [phone] [address] 2019-12-17 2019-12-17 [facility] 1.2.879.517 [id number] 00:00:00 00:00:00 Bilal SPECIALTY 350.1.13.10 CARE 4.2.7.2.686 CENTER AT [phone] [address] 2019-12-17 2019-12-17 Orders Doctor BOWEN 1.2.840.114 [id number] 00:00:00 00:00:00 Only Unassigned, DAVID 350.1.13.10 [facility] 4.2.7.2.686 [phone] [facility] 2019-12-16 2019-12-16 [facility] [id number] 13:44:00 13:44:[address] Luke s - Drive [facility] Medicine Outpati ent Clinics 2019-12-15 2019-12-15 [facility] [id number] 13:10:00 13:10:[address] Luke s - Drive [facility] Medicine Outpati ent Clinics 2019-12-09 2019-12-09 [facility] [id number] 14:00:00 14:00:00 t Combes Combes Aunt Bertha LuApplied [employer] s - Drive [facility] Medicine Medicine Outpati ent Clinics 2019-12-08 2019-12-08 [facility] [id number] 08:48:00 08:48:00 t Combes Combes Aunt Bertha Luke s - Drive [facility] Medicine Outpati ent Clinics 2019-12-02 2019-12-02 [facility] [id number] 08:25:00 08:25:00 t Combes Combes Aunt Bertha LuApplied [employer] s - Drive [facility] Medicine Outpati ent Clinics 2019-12-01 2019-12-01 [facility] [id number] 13:15:00 13:15:00 t Combes mylearnadfriend Lu[employer] s - Drive [facility] Medicine Outpati ent Clinics 2019-11-23 2019-11-23 [place] [address].2.840.114 [id number] 00:00:00 00:00:00 Frank Colladoton 350.1.13.10 [place] 4.2.7.2.686 [facility] [phone] [address] 2019-11-10 2019-11-[address]114 [id number] 08:18:14 09:14:29 Visit [facility] 350.1.13.10 [place] 4.2.7.2.686 [facility] [id number] Primary & 204 Specialty Care 2019-11-10 2019-11-[address] [facility] 1.2.840.114 [id number] 08:18:14 09:14:29 Visit [facility] 350.1.13.10 [place] 4.2.7.2.686 [facility] [phone] Primary & 204 Specialty Care 2019-11-10 2019-11-[address] [facility] 1.2.840.114 [id number] 08:18:14 09:08:43 Visit Bilal HEALTH 350.1.13.10 [place] 4.2.7.2.686 [facility] [phone] Primary & 204 Specialty Care 2019-11-08 2019-11-08 [facility] 1.2.840.114 [id number] 00:00:00 00:00:00 Frank Bethea 350.1.13.10 [place] 4.2.7.2.686 [facility] [phone] [address] 2019-11-06 2019-11-06 [facility] 1.2.840.114 [id number] 11:30:00 23:59:00 Encounter Damion Bethea 350.1.13.10 [place] [address].2.7.2.686 [place] [id number] 801 2019-10-27 2019-10-27 [facility] [id number] 13:42:00 13:42:00 Real Estate Direct [facility] Clin[facility] 2019-10-22 2019-10-22 [facility] [id number] 11:00:00 11:00:00 Real Estate Direct [facility] Medicine [facility] Clinics 2019-10-20 2019-10-[address] [facility] 1.2.840.114 [id number] 08:21:48 10:40:48 Visit Bilal HEALTH 350.1.13.10 [place] [address].2.7.2.686 [facility] [id number] Primary & 204 Specialty Care 2019-10-20 2019-10-[address] [facility] 1.2.840.114 [id number] 08:21:48 18:45:01 Visit Bilal HEALTH 350.1.13.10 [place] 4.2.7.2.686 [facility] [phone] Primary & 204 Specialty Care 2019-10-20 2019-10-[address] [facility] 1.2.840.114 [id number] 08:21:48 09:18:43 Visit [facility] HEALTH 350.1.13.[address]2.686 [facility] [phone] Primary & 204 Specialty Care 2019-10-20 2019-10-20 Office Cash [facility] 1.2.840.114 [id number] 08:21:48 09:18:43 Visit [facility] HEALTH 350.1.13.[address]2.686 [facility] [phone] Primary & 204 Specialty Care 2019-10-20 2019-10-20 Orders Doctor ANDRÉS 1.2.840.114 [id number] 00:00:00 00:00:00 Only Unassigned, DAVID 350.1.13.[address]2.686 [id number] 009 2019-10-06 2019-10-06 Orders Doctor ANDRÉS 1.2.840.114 [id number] 00:00:00 00:00:00 Only Unassigned, DAVID 350.1.13.[address]7.2.686 [id number] [id number] 2019-09-23 2019-09-23 [facility] [id number] 16:17:00 16:17:00 t Hobzy [facility] Clin[facility] 2019-09-23 2019-09-23 [facility] [id number] 14:23:00 14:23:00 t Specialty/U Ashley kes - Specialty rology Memori [facility] /Urology [facility] l Clinic [facility] 2019-08-28 2019-08-28 [facility] [id number] 09:27:00 09:27:00 t Hobzy [facility] Clin[facility] 2019-08-24 2019-08-24 [facility] [id number] 14:06:00 14:06:00 t Specialty/U Ashley kes - Specialty rology Memori a /Urology Clinic l Clinic Outpati ent Clinics 2019-08-21 2019-08-21 [facility] [id number] 11:14:00 11:14:00 t LP Amina s - [facility] Clin[facility] 2019-08-03 2019-08-03 [facility] [id number] 13:16:00 13:16:00 t LP Amina s - Drive [facility] Outpati ent Clinics 2019-07-23 2019-07-23 [facility] [id number] 11:15:00 11:15:00 t Combes Ouner s [facility] Outpati ent Clinics 2019-07-21 2019-07-21 [facility] [id number] 10:30:00 10:30:00 t Specialty/U Ashley kes - Specialty rology Memori a /Urology Clinic l Clinic [facility] Clin[facility] 2019-07-13 2019-07-13 [facility] [id number] 13:14:00 13:14:00 t Specialty/U Ashley kes - Specialty rology Memori a /Urology Clinic l Clinic [facility] Clin[facility] 2019-06-09 2019-06-09 [facility] 1.2.840.114 [id number] 00:00:00 00:00:00 Frank Bethea 350.1.13.10 [place] 4.2.7.2.686 Professio [phone] [address] 2019-06-02 2019-06-02 [facility] [id number] 10:29:00 10:29:00 t Kili [place] [facility] Clin[facility] 2019-05-25 2019-05-25 [facility] 1.2.840.114 [id number] 00:00:00 00:00:00 Frank Bethea 350.1.13.10 [place] 4.2.7.2.686 Professio [phone] [address] 2019-05-08 2019-05-08 [facility] [id number] 11:00:00 11:00:00 t Specialty/U Ashley kes - Specialty rology Memori a /Urology Clinic l Clinic [facility] 2019-04-22 2019-04-22 [facility] [id number] 15:30:00 15:30:[address] Luke s - Drive [facility] Medicine Medicine Outpati ent Clinics 2019-04-17 2019-04-17 [facility] [id number] 09:09:00 09:09:00 t Combes Combes Aunt Bertha Luke s - Drive [facility] Medicine Outpati ent Clinics 2019-04-17 2019-04-17 [facility] [id number] 08:59:00 08:59:00 t Combes Combes Aunt Bertha Luke s - Drive [facility] Medicine Outpati ent Clinics 2019-04-14 2019-04-14 [facility] [id number] 10:05:00 10:05:00 t Combes Combes Mape s - Drive [facility] Medicine Outpati ent Clinics 2019-04-03 2019-04-03 [facility] [id number] 11:22:00 11:22:00 t Combes Combes Mape s - Drive [facility] Medicine Medicine Outpati ent Clinics 2019-01-28 2019-01-28 Outpatient [facility] [id number] [facility] 08:34:00 08:34:00 2019-01-26 2019-01-26 [facility] [id number] [facility] 13:15:00 13:15:00 t Combes Combes Mape s - Drive [facility] Medicine Outpati ent Clinics 2018-12-24 2018-12-24 [facility] [id number] 15:22:00 15:22:00 t Specialty/U Ashley kes - Specialty rology Memori a /Urology Clinic l Clinic Outpati ent Clinics 2018-12-24 2018-12-24 [facility] [id number] 11:45:00 11:45:00 t Specialty/U Ashley kes - Specialty rology Memori a /Urology Clinic l Clinic Outpati ent Clinics 2018-12-23 2018-12-23 [facility] [id number] 10:45:00 10:45:00 t Combes Combes Mape s - Drive [facility] Medicine Outpati ent Clinics 2018-12-16 2018-12-16 [facility] [id number] 15:19:00 15:19:00 t Combes Combes Mape s - Drive [facility] Medicine Outpati ent Clinics 2018-11-11 2018-11-11 [facility] [id number] 14:50:00 14:50:00 t Combes Ouner s - Drive [facility] Medicine Medicine Outpati ent Clinics 2018-11-10 2018-11-10 [facility] [id number] 13:00:00 13:00:00 t Specialty/U Ashley kes - Specialty rology Memori a /Urology Clinic l Clinic Outpati ent Clinics 2018-10-14 2018-10-14 [facility] [id number] 10:00:00 10:00:00 t Combes Ouner s - Drive [facility] Medicine Outpati ent Clinics 2018-09-12 2018-09-12 [facility] [id number] 15:28:00 15:28:00 t Combes Ouner s - Drive [facility] Medicine Medicine Outpati ent Clinics 2018-07-14 2018-07-14 [facility] [id number] 10:15:00 10:15:00 t Combes Ouner s - Drive [facility] Medicine Outpati ent Clinics 2018-05-06 2018-05-06 [facility] [id number] 14:55:00 14:55:00 t Combes Ouner s - Drive [facility] Medicine l Medicine Outpati ent Clinics 2018-05-01 2018-05-01 [facility] [id number] 14:30:00 14:30:00 t Specialty/U Ashley kes - Specialty rology Memori a /Urology Clinic l Clinic Outpati ent Clinics 2018-03-25 2018-03-25 [facility] [id number] 13:15:00 13:15:00 t Combes Combes Mape s - Drive [facility] Medicine l Medicine Outpati ent Clinics 2018-01-23 2018-01-23 [facility] [id number] 13:30:00 13:30:00 t Specialty/U Ashley kes - [facility] Outpat[facility] ent Clinics 2017-12-27 2017-12-27 [facility] [id number] 11:30:00 11:30:00 t Specialty/U Ashley kes - Specialty rology [facility] Clinic Outpati ent Clinics 2017-12-23 2017-12-23 Out[facility] [id number] 14:15:00 14:15:00 t Real Estate Direct [place] [facility] Results Test Description Test Time Test Comments Results Result Comments Source GLUCOSE BEDSIDE TESTING 2019-12-07 12:40:00 Test Item Value Reference Range Interpretation Comme nts GLUCOSE BEDSIDE TESTING (test code = GLUBED) 76 mg/dL 70-110 N GLUCOSE BEDSIDE [id number] 07:47:00 Test Item Value Reference Range Interpretation Comments GLUCOSE BEDSIDE TESTING (test code = 91 mg/dL 70-110 N GLUBED) GLUCOSE BEDSIDE [id number] 20:53:00 Test Item Value Reference Range Interpretation Comments GLUCOSE BEDSIDE TESTING (test code 106 mg/dL 70-110 N = GLUBED) GLUCOSE BEDSIDE [id number] 16:40:00 Test Item Value Reference Range Interpretation Comments GLUCOSE BEDSIDE TESTING (test code 122 mg/dL 70-110 H = GLUBED) GLUCOSE BEDSIDE [id number] 12:16:00 Test Item Value Reference Range Interpretation Comments GLUCOSE BEDSIDE TESTING (test code = 77 mg/dL 70-110 N GLUBED) GLUCOSE BEDSIDE [id number] 08:08:00 Test Item Value Reference Range Interpretation Comments GLUCOSE BEDSIDE TESTING (test code = 88 mg/dL 70-110 N GLUBED) CBC W/AUTO [id number] 06:44:00 Test Item Value Reference Range Interpretation Comments WHITE BLOOD CELL (test code = 8.0 K/mm3 3.5-11.0 N WBC) RED BLOOD CELL (test code = RBC) 4.55 M/mm3 4.70-6.10 L HEMOGLOBIN (test code = HGB) 13.9 G/DL 10.4-14.9 N HEMATOCRIT (test code = HCT) 41.2 % 31.5-44.1 N MEAN CELL VOLUME (test code = 90.5 Fl 84.5-98.6 N MCV) MEAN CELL HGB (test code = MCH) 30.5 pg 27.0-34.2 N MEAN CELL HGB CONCETRATION (test 33.7 G/DL 31.5-34.0 N code = MCHC) RED CELL DISTRIBUTION WIDTH (test 13.8 SD 11.5-14.5 N code = RDW) PLATELET COUNT (test code = PLT) 288.0 K/mm3 150-450 N MEAN PLATELET VOLUME (test code = 8.80 fL 7.0-10.5 N MPV) NEUTROPHIL % (test code = NT%) 62.3 % 40-76 N LYMPHOCYTE % (test code = LY%) 22.5 % 20.5-51.1 N MONOCYTE % (test code = MO%) 13.2 % 1.7-9.3 H EOSINOPHIL % (test code = EO%) 1.5 % 0.0-6.0 N BASOPHIL % (test code = BA%) 0.5 % 0.0-2.0 N NEUTROPHIL # (test code = NT#) 4.97 K/mm3 1.8-7.6 N LYMPHOCYTE # (test code = LY#) 1.8 K/mm3 0.6-3.2 N MONOCYTE # (test code = MO#) 1.1 K/mm3 0.3-1.1 N EOSINOPHIL # (test code = EO#) 0.1 K/mm3 0.0-0.4 N BASOPHIL # (test code = BA#) 0.0 K/mm3 0.0-0.1 N MANUAL DIFF REQUIRED (test code = NO DIFF/SCN CRITERIA MDIFF) COMPREHENSIVE METABOLIC [id number] 06:29:00 Test Item Value Reference Range Interpretation Comments SODIUM (test code = NA) 132 mmol/L 134-147 L POTASSIUM (test code = 3.8 mmol/L 3.4-5.0 N K) CHLORIDE (test code = 101 mmol/L 100-108 N CL) CARBON DIOXIDE (test 27 mmol/L 21-32 N code = CO2) ANION GAP (test code = 4.0 GAP calc 4.0-15.0 N GAP) GLUCOSE (test code = 85 MG/DL 70-110 N GLU) BLOOD UREA NITROGEN 7 MG/DL 7-18 N (test code = BUN) GLOMERULAR FILTRATION >=60 max estimate >60 RATE (test code = GFR) estGFR CREATININE (test code = 0.5 MG/DL 0.6-1.0 L CREAT) TOTAL PROTEIN (test code 6.2 G/DL 6.4-8.2 L = PROT) ALBUMIN (test code = 2.8 G/DL 3.4-5.0 L ALB) GLOBULIN (test code = 3.4 GM/dL GLOB) ALBUMIN/GLOBULIN RATIO 0.8 RATIO 1.2-2.2 L (test code = A/G) CALCIUM (test code = CA) 8.5 MG/DL 8.5-10.1 N BILIRUBIN TOTAL (test 0.90 MG/DL 0.2-1.2 N code = BILT) SGOT/AST (test code = 18 Unit/L 15-37 N AST) SGPT/ALT (test code = 21 Unit/L 12-78 N ALT) ALKALINE PHOSPHATASE 96 Unit/L 45-117 N TOTAL (test code = ALKP) [id number] 06:29:00 Test Item Value Reference Range Interpretation Comments MAGNESIUM (test code = MAG) 2.0 MG/DL 1.8-2.4 N COMPREHENSIVE METABOLIC [id number] 06:23:00 Test Item Value Reference Range Interpretation Comments SODIUM (test code = NA) 132 mmol/L 134-147 L POTASSIUM (test code = K) 3.8 mmol/L 3.4-5.0 N CHLORIDE (test code = CL) 101 mmol/L 100-108 N CARBON DIOXIDE (test code = CO2) 27 mmol/L 21-32 N ANION GAP (test code = GAP) 4.0 GAP calc 4.0-15.0 N GLUCOSE (test code = GLU) 85 MG/DL 70-110 N BLOOD UREA NITROGEN (test code = 7 MG/DL 7-18 N BUN) GLOMERULAR FILTRATION RATE (test estGFR >60 code = GFR) CREATININE (test code = CREAT) MG/DL 0.6-1.0 TOTAL PROTEIN (test code = PROT) G/DL 6.4-8.2 ALBUMIN (test code = ALB) G/DL 3.4-5.0 GLOBULIN (test code = GLOB) GM/dL ALBUMIN/GLOBULIN RATIO (test RATIO 1.2-2.2 code = A/G) CALCIUM (test code = CA) 8.5 MG/DL 8.5-10.1 N BILIRUBIN TOTAL (test code = MG/DL 0.2-1.2 BILT) SGOT/AST (test code = AST) Unit/L 15-37 SGPT/ALT (test code = ALT) Unit/L 12-78 ALKALINE PHOSPHATASE TOTAL (test Unit/L 45-117 code = ALKP) [id number] 06:23:00 Test Item Value Reference Range Interpretation Comments MAGNESIUM (test code = MAG) MG/DL 1.8-2.4 GLUCOSE BEDSIDE [id number] 21:47:00 Test Item Value Reference Range Interpretation Comments GLUCOSE BEDSIDE TESTING (test code = 96 mg/dL 70-110 N GLUBED) - MRI BRAIN W/O [id number] 17:12:00 FAX: Mariela Carvajal MD Camps: PM St: ADM FAX: Gilles Santos [phone] Name[facility] : 1955 Age/S: 64/F [address] [facility] Unit #: [id number] Loc: [address] [place] [address] Phys: Gilles Ch MD Acct: [id number] Dis Date: Status: ADM IN PHONE #: [phone] Exam Date: 12/05/2019 1934 FAX #: Reason: stroke EXAMS: CPT: [id number] MRI BRAIN W/O CONTRAST 63542 CLINICAL IN FORMATION: Stroke evaluation. TIA.. Dictation [...] may be helpful. 6. Telephone report to [facility] at 5:00 PM 12/05/2019. FOR INTERNAL CODING PURPOSES ONLY RESULT CODE: CVR PAGE 1 Signed Report (CONTINUED) FAX: Mariela Carvajal MD Camps: PM St: ADM FAX: Gilles Santos [phone] Name: WAYNE BLANCO [facility] : 1955 Age/S: 64/[address] Unit #: [id number] Loc: [address] [place] [address] Phys: Gilles Ch MD Acct: [id number] Dis Date: Status: ADM IN PHONE #: [phone] Exam Date: 12/05/2019 1549 FAX #: Reason: stroke EXAMS: CPT:[id number] MRI BRAIN W/O CONTRAST 75058 <Continued> at 1712 Reported and signed by: Lokesh Blake M.D. CC: Mariela Montague MD; Gilles Ch MD Technologist: RT Westley(R)(MR) Transcribed Date/Time/By: 12/05/2019 (1472) :BhupendraAGV Orig Print D/T: S: 12/05/2019 (0788) PAGE 2 Signed ReportGLUCOSE BEDSIDE [id number] 16:47:00 Test Item Value Reference Range Interpretation Comments GLUCOSE BEDSIDE TESTING (test code = 92 mg/dL 70-110 N GLUBED) GLUCOSE BEDSIDE [id number] 11:40:00 Test Item Value Reference Range Interpretation Comments GLUCOSE BEDSIDE TESTING (test code 103 mg/dL 70-110 N = GLUBED) GLUCOSE BEDSIDE [id number] 07:58:00 Test Item Value Reference Range Interpretation Comments GLUCOSE BEDSIDE TESTING (test code = 84 mg/dL 70-110 N GLUBED) GLYCOSYLATED HEMOGLOBIN [id number] 05:46:00 Test Item Value Reference Range Interpretation Comments GLYCOSYLATED HEMOGLOBIN (HA1C) 5.3 % A1C 0.0-5.7 N (test code = GLYHGB) ESTIMATED AVERAGE GLUCOSE (test 105 MG/DLest code = EAG) COMPREHENSIVE METABOLIC [id number] 05:44:00 Test Item Value Reference Range Interpretation Comments SODIUM (test code = NA) 131 mmol/L 134-147 L POTASSIUM (test code = 3.5 mmol/L 3.4-5.0 N K) CHLORIDE (test code = 100 mmol/L 100-108 N CL) CARBON DIOXIDE (test 25 mmol/L 21-32 N code = CO2) ANION GAP (test code = 6.0 GAP calc 4.0-15.0 N GAP) GLUCOSE (test code = 80 MG/DL 70-110 N GLU) BLOOD UREA NITROGEN 6 MG/DL 7-18 L (test code = BUN) GLOMERULAR FILTRATION >=60 max estimate >60 RATE (test code = GFR) estGFR CREATININE (test code = 0.5 MG/DL 0.6-1.0 L CREAT) TOTAL PROTEIN (test code 6.2 G/DL 6.4-8.2 L = PROT) ALBUMIN (test code = 2.9 G/DL 3.4-5.0 L ALB) GLOBULIN (test code = 3.3 GM/dL GLOB) ALBUMIN/GLOBULIN RATIO 0.9 RATIO 1.2-2.2 L (test code = A/G) CALCIUM (test code = CA) 8.5 MG/DL 8.5-10.1 N BILIRUBIN TOTAL (test 0.50 MG/DL 0.2-1.2 N code = BILT) SGOT/AST (test code = 12 Unit/L 15-37 L AST) SGPT/ALT (test code = 22 Unit/L 12-78 N ALT) ALKALINE PHOSPHATASE 98 Unit/L 45-117 N TOTAL (test code = ALKP) LIPID PROFILE (CORONARY RISK)2019-12-05 05:44:00 Test Item Value Reference Range Interpretation Comments TRIGLYCERIDES (test code = TRIG) 76 MG/DL 0-150 N CHOLESTEROL (test code = CHOL) 141 MG/DL 133-200 N CHOLESTEROL/HDL RATIO (test code = 3.20 RATIO >0 CHOLHDL) HDL CHOLESTEROL (test code = HDL) 44 MG/DL 40-59 N NON-HDL CHOLESTEROL (test code = 97 mg/dL <130 NHDL) LIPOPROTEIN LDL (test code = LDL) 85 MG/DL 0-129 N LDL/HDL (test code = LDL/HDL) 1.93 Ratio 1.48-3.22 Avg N COMPREHENSIVE METABOLIC [id number] 05:38:00 Test Item Value Reference Range Interpretation Comments SODIUM (test code = NA) 131 mmol/L 134-147 L POTASSIUM (test code = K) 3.5 mmol/L 3.4-5.0 N CHLORIDE (test code = CL) 100 mmol/L 100-108 N CARBON DIOXIDE (test code = CO2) 25 mmol/L 21-32 N ANION GAP (test code = GAP) 6.0 GAP calc 4.0-15.0 N GLUCOSE (test code = GLU) 80 MG/DL 70-110 N BLOOD UREA NITROGEN (test code = 6 MG/DL 7-18 L BUN) GLOMERULAR FILTRATION RATE (test estGFR >60 code = GFR) CREATININE (test code = CREAT) MG/DL 0.6-1.0 TOTAL PROTEIN (test code = PROT) G/DL 6.4-8.2 ALBUMIN (test code = ALB) G/DL 3.4-5.0 GLOBULIN (test code = GLOB) GM/dL ALBUMIN/GLOBULIN RATIO (test RATIO 1.2-2.2 code = A/G) CALCIUM (test code = CA) 8.5 MG/DL 8.5-10.1 N BILIRUBIN TOTAL (test code = MG/DL 0.2-1.2 BILT) SGOT/AST (test code = AST) Unit/L 15-37 SGPT/ALT (test code = ALT) Unit/L 12-78 ALKALINE PHOSPHATASE TOTAL (test Unit/L 45-117 code = ALKP) LIPID PROFILE (CORONARY RISK)2019-12-05 05:38:00 Test Item Value Reference Range Interpretation Comments TRIGLYCERIDES (test code = TRIG) MG/DL 0-150 CHOLESTEROL (test code = CHOL) MG/DL 133-200 CHOLESTEROL/HDL RATIO (test code = RATIO >0 CHOLHDL) HDL CHOLESTEROL (test code = HDL) MG/DL 40-59 NON-HDL CHOLESTEROL (test code = NHDL) mg/dL <130 LIPOPROTEIN LDL (test code = LDL) MG/DL 0-129 LDL/HDL (test code = LDL/HDL) Ratio 1.48-3.22 Avg GLUCOSE BEDSIDE [id number] 21:36:00 Test Item Value Reference Range Interpretation Comments GLUCOSE BEDSIDE TESTING (test code = 92 mg/dL 70-110 N GLUBED) GLUCOSE BEDSIDE [id number] 16:53:00 Test Item Value Reference Range Interpretation Comments GLUCOSE BEDSIDE TESTING (test code 100 mg/dL 70-110 N = GLUBED) GLUCOSE BEDSIDE [id number] 13:53:00 Test Item Value Reference Range Interpretation Comments GLUCOSE BEDSIDE TESTING (test code 116 mg/dL 70-110 H = GLUBED) - CT ANGIO [id number] 12:27:00 Name: FRANCISWAYNE [facility] : 1955 Age/S: 64 / F [id number] Unit #: [id number] Loc: [place] [address] Phys: Rima Coronel MD Acct: [id number] Dis Date: Status: ADM IN PHONE #: [phone] Exam Date: 12/04/2019 1041 FAX #: Reason: RUFF, expressive aphasia EXAMS: CPT: [id number] CT ANGIO HEAD [address] CLINICAL INFORMATION: Headaches. Expressive aphasia. TIA. Dictation [...] [place]land : 1955 Age/S: 64 / F [address] [address] Unit #: [id number] Loc: [place] [address] Phys: Rima Coronel MD Acct: [id number] Dis Date: Status: ADM IN PHONE #: [phone] Exam Date: 12/04/2019 1041 FAX #: Reason: RUFF, expressive aphasia EXAMS: CPT: [id number] CT ANGIO HEAD [address] <Continued> its origin estimated at 99%. Threadlike [...] Jayy CTDI: DLP: Trnscb Date/Time: 12/04/2019 (1227) [email or web address] Orig Print D/T: S: 12/04/2019 (1230) PAGE 2 Signed Report- CT ANGIO [id number] 12:27:00 Name: WAYNE BLANCO Howell : 1955 Age/S: 64 / F [address] [address] Unit #: [id number] Loc: [place] [address] Phys: Rima Coronel MD Acct: [id number] Dis Date: Status: ADM IN PHONE #: [phone] Exam Date: 12/04/2019 1044 FAX #: Reason: RUFF, expressive aphasia EXAMS: CPT: [id number] CT ANGIO NECK [address] CLINICAL INFORMATION: Headaches. Expressive aphasia. TIA. Dictation [...] 1 Signed Report (CONTINUED) Name: WAYNE BLANCO Howell : 1955 Age/S: 64 / F [address] [address] Unit #: [id number] Loc: [place] [address] Phys: Rima Coronel MD Acct: [id number] Dis Date: Status: ADM IN PHONE #: [phone] Exam Date: 12/04/2019 1043 FAX #: Reason: RUFF, expressive aphasia EXAMS: CPT: [id number] CT ANGIO NECK [address] <Continued> its origin estimated at 99%. Threadlike [...] Jayy CTDI: DLP: Trnscb Date/Time: 12/04/2019 (1227) [email or web address] Orig Print D/T: S: 12/04/2019 (7132) PAGE 2 Signed ReportURINE CULTURE 2017-06-29 11:48:00 Test Item Value Reference Interpretation Comments Range Isolate 1 (test Escherichia coli A CONFIRMA TORY TEST FOR code = ISO1) THIS ORGANISM INDICATES UNUSU AL RESISTANCE. EXTENDEDSPECTRU M BETA-LACTAMASE PRODUCTION. INFECTIOUS DISE ASE CONSULT SUGGEST ED piperacillin/tazoba ug/mL S ctam (test code = tzp) cefazolin (test ug/mL R code = cz) ceftazidime (test ug/mL R code = agustin) ceftriaxone1 (test ug/mL R code = ctr) cefepime (test code ug/mL R = fep) aztreonam (test ug/mL R code = azm) ertapenem (test ug/mL S code = etp) meropenem (test ug/mL S code = mem) gentamicin (test ug/mL R code = gm) tobramycin (test ug/mL R code = tob) levofloxacin (test ug/mL R code = lev) nitrofurantoin ug/mL S (test code = ftn) trimethoprim/sulfam ug/mL S ethoxazole (test code = sxt) URINALYSIS WITH [id number] 13:54:00 Test Item Value Reference Range Interpretation Comments COLOR (test code = COLU) ORANGE YELLOW A CLARITY (test code = CLA) CLOUDY CLEAR A GLUCOSE UR (test code = UA GLUCOSE) NEGATIVE NEGATIVE BILI UR (test code = BILE) NEGATIVE NEGATIVE KETONES UR (test code = CRISTEL) NEGATIVE NEGATIVE SP GRAVITY (test code = SPGR) 1.014 1.005-1.030 PH UR (test code = PH) 7.0 4.5-8.0 PROTEIN UR (test code = PU) TRACE NEGATIVE A UROBIL UR (test code = UROQ) 1.0 EU/dL 0.2-1.0 NITRITE UR (test code = NITRITE) POSITIVE NEGATIVE A BLOOD UR (test code = UA BLOOD) NEGATIVE NEGATIVE LEUK ES UR (test code = LEUK) 2+ NEGATIVE A WBC UR (test code = UWBC) 15 /HPF 0-5 H RBC UR (test code = URBC) 0 /HPF 0-2 EPITH UR (test code = UEPC) FEW /LPF FEW BACTERIA UR (test code = UBACT) FEW /HPF NONE A CAST UR (test code = CAST) /LPF [...]
--- OUTSIDE RECORDS SUMMARY | 2020-04-07 06:39 | XMS REPORT ---
:1955 Author Organization e[employer] Care Team Providers Name Role Phone Danitza Johnsonh Provider Role Unavailable Allergies, Adverse Reactions, Alerts Substance Reaction Event Type penicillin Info Not Available Drug Allergy Codeine Sulfate Info Not Available Drug Allergy Problems Problem Type Condition Code Onset Dates Condition Statu s Assessment Cerebrovascular accident (CVA) due I63.432 Active to embolism of left posterior cerebral artery Assessment Hemiplegia of right dominant side I69.951 Active as late effect of cerebrovascular disease, unspecified cerebrovascular disease type, unspecified hemiplegia type Assessment Hyponatremia E87.1 Active Assessment Hypomagnesemia E83.42 Active Assessment Osteoporosis, unspecified M81.0 Ac tive osteoporosis type, unspecified pathological fracture presence Problem Benign essential HTN I10 Active Assessment Nicotine dependence F17.200 Active Problem COPD (chronic obstructive pulmonary J44.9 Active disease) Assessment Primary osteoarthritis, unspecified M19.91 Active site Problem Hyperlipidemia E78.5 Active Problem Osteopenia M85.80 Active Problem Depression F32.9 Active Problem Insomnia G47.00 Active Problem Incontinence in female R32 Activ e Problem Osteoporosis, unspecified M81.0 Ac tive osteoporosis type, unspecified pathological fracture presence Problem GERD (gastroesophageal reflux K21.9 Active disease) Problem Odynophagia R13.10 Active Problem Parkinson disease G20 Active Problem Malnutrition, unspecified type E46 Active Problem Hemiplegia of right dominant side I69.951 Active as late effect of cerebrovascular disease, unspecified cerebrovascular disease type, unspecified hemiplegia type Problem Cerebrovascular accident (CVA) due I63.432 Active to embolism of left posterior cerebral artery Problem Lung nodule R91.1 Active Problem Obstructive sleep apnea G47.33 Acti ve Assessment COPD (chronic obstructive pulmonary J44.9 Active disease) Problem Stenosis of left carotid artery I65.22 Active Problem Chronic back pain M54.9 Active Assessment GERD (gastroesophageal reflux K21.9 Active disease) Problem Depression with anxiety F41.8 Acti ve Assessment Overactive bladder N32.81 Active Problem Hypomagnesemia E83.42 Active Assessment Insomnia G47.00 Active Problem Hyponatremia E87.1 Active Assessment Rheumatoid arthritis involving M06.9 Active multiple sites, unspecified rheumatoid factor presence Problem Type 2 diabetes mellitus without E11.9 Active complication, without long-term current use of insulin Assessment Benign essential HTN I10 Active Problem Nicotine dependence F17.200 Active Assessment Stenosis of left carotid artery I65.22 Active Problem H/O TIA (transient ischemic attack) Z86.73 Active and stroke Assessment Parkinson disease G20 Active Problem Restless leg syndrome G25.81 Active Assessment Malnutrition, unspecified type E46 Active Problem Allergic rhinitis, seasonal J30.2 Active Assessment Depression F32.9 Active Problem Overactive bladder N32.81 Active Assessment Hyperlipidemia E78.5 Active Problem Recurrent UTI N39.0 Active Problem Rheumatoid arthritis involving M06.9 Active multiple sites, unspecified rheumatoid factor presence Problem Primary osteoarthritis, unspecified M19.91 Active site Medications Medication Code Code Instructions Start End Status Dosage System Date Date Citalopram [facility] 25855334188 40MG Active TAKE ONE Hydrobromide TABLET BY MOUTH ONCE DAILY Zyprexa [facility] 50444258127 10 MG Orally Inactive 1 tabl et Once a day Spironolactone-HC [facility] 40004077317 25-25 MG Orally Ac tive 1 tablet TZ Once a day Folic Acid [facility] 46309524661 1 MG Orally Active 1 tab let Once a day Klor-Con M20 [facility] 68158115742 20 MEQ Orally Active 1 tablet Once a day with food Myrbetriq [facility] 14625659524 50 MG Orally Active 1 tab let Once a day Aggrenox [facility] 01317964283 25-200 MG Active 1 capsule Orally Twice a day Belsomra [facility] 08932174816 15 MG Orally Active 1 tabl et Once a day at bedtime as needed Dicyclomine HCl [facility] 13160638441 20 MG Orally Active 1 tablet Three times a day Gabapentin ND 25826786182 300 MG Orally Active 1 c apsule Once a day Simvastatin [facility] 21881598566 40 MG Orally Active 1 t ablet Once a day in the evening Citalopram [facility] 80936569349 40MG orally Active TAKE ONE Hydrobromide once daily TABLET B Y MOUTH ONCE DAILY Ropinirole HCl [facility] 73367284682 2 MG Oral Active GULSHAN E 3 TABLETS BY MOUTH IN THE MORNING THEN TAKE 2 TABLETS BY MOUTH MIDDAY THEN TAKE 2 TABLETS BY MOUTH IN THE EVENING Clonazepam [facility] 55079350764 0.5 MG Oral Active (Sche dule IV Drug) TAKE 1 TABLET BY MOUTH TWICE DAILY NEEDED FOR ANXIETY Spironolactone [facility] 08544995464 25 MG Oral Once Maddie Activ e take 1 a day 14, tablet by 2019 mouth once daily Amlodipine ND 55008691481 5 MG Oral Once Active ta ke 1 Besylate a day tablet by mouth once daily Trelegy Ellipta [facility] 93074519999 100-62.5-25 Active 1 puff MCG/INH Inhalation Once a day Alendronate ND 57994277563 70 MG Orally Active 1 t ablet Sodium Once weekly Solifenacin ND 15992195354 5 MG Orally Active 1 ta blet Succinate Once a day Magnesium [facility] 98185734851 300 MG Orally Active 1 ca psule Once a day with a meal Duloxetine HCl ND 44587523207 30 MG Orally Active 1 capsule Once a day Levetiracetam [facility] 43091986702 500 MG Orally Active 1 1/2 Twice a day tablet Dexilant [facility] 16653548471 60 MG Active TAKE 1 CAPSULE BY MOUTH ONCE DAILY Olanzapine ND 06518946278 10 MG Active TAKE 1 TABLET BY MOUTH ONCE DAILY FOR 90 DAYS HydrALAZINE HCl ND 86869184130 50 MG Orally Karen Active 1 tablet Three times a 2019 with food day Myrbetriq ND 04920974943 50 MG Orally Active take one Once a day tablet by mouth once daily Calcium + D3 [facility] 14772121215 600-800 MG-UNIT Active 1 tablet Orally Twice a with a day meal Results No Known Results Summary Purpose [employer]ClinicalWorks Submission
--- OUTSIDE RECORDS SUMMARY | 2020-04-07 06:39 | XMS REPORT ---
:1955 Author Organization [employer] Care Team Providers Name Role Phone Bryson Johnson Provider Role Unavailable Allergies No Known Allergies Problems Problem Type Condition Code Onset Dates Condition Statu s Assessment Parkinson disease G20 Active Assessment Depression F32.9 Active Assessment Overactive bladder N32.81 Active Problem [...] Obstructive sleep apnea G47.33 Acti ve Problem Stenosis of left carotid artery I65.22 Active Problem Chronic back pain M54.9 Active Problem Depression with anxiety F41.8 Acti ve Problem Hypomagnesemia E83.42 Active Problem Hyponatremia E87.1 Active Problem Type 2 diabetes mellitus without E11.9 Active complication, without long-term current use of insulin Problem Nicotine dependence F17.200 Active Problem H/O TIA (transient ischemic attack) Z86.73 Active and stroke Problem Restless leg syndrome G25.81 Active Problem Allergic rhinitis, seasonal J30.2 Active Problem Overactive bladder N32.81 Active Problem Recurrent UTI N39.0 Active Problem Rheumatoid arthritis involving M06.9 Active multiple sites, unspecified rheumatoid factor presence Problem Primary osteoarthritis, unspecified M19.91 Active site Medications Medication Code Code Instructions Start End Status Dosage System Date Date Melanie Barahona [facility] 46011806500 100-62.5-25 Active 1 puff MCG/INH Inhalation Once a day Folic Acid [facility] 63001945620 1 MG Orally Active 1 tab let Once a day Alendronate [facility] 81258513713 70 MG Orally Active 1 t ablet Sodium Once weekly Klor-Con M20 [facility] 46061543456 20 MEQ Orally Active 1 tablet Once a day with food Amlodipine [facility] 77321680741 5 MG Oral Once Active ta ke 1 Besylate a day tablet by mouth once daily Dicyclomine HCl [facility] 52552969816 20 MG Orally Active 1 tablet Three times a day Solifenacin [facility] 86076187546 5 MG Orally Active 1 ta blet Succinate Once a day Myrbetriq [facility] 63954210727 25MG Orally Inactive take one Once a day tablet by mouth once daily Ropinirole HCl [facility] 45420010124 2 MG Oral Active GULSHAN E 3 TABLETS BY MOUTH IN THE MORNING THEN TAKE 2 TABLETS BY MOUTH MIDDAY THEN TAKE 2 TABLETS BY MOUTH IN THE EVENING Olanzapine [facility] 20045703752 10 MG Active TAKE 1 TABLET BY MOUTH ONCE DAILY FOR 90 DAYS Myrbetriq [facility] 97060794704 50 MG Orally Active 1 tab let Once a day Aggrenox [facility] 70992532421 25-200 MG Active 1 capsule Orally Twice a day Magnesium [facility] 60842516946 300 MG Orally Active 1 ca psule Once a day with a meal HydrALAZINE HCl [facility] 90316181148 50 MG Orally Karen Active 1 tablet Three times a 2019 with food day Citalopram [facility] 75502080560 40MG orally Active 1 tab let Hydrobromide Once a day Clonazepam [facility] 73474849158 0.5 MG Oral Active (Sche dule IV Drug) TAKE 1 TABLET BY MOUTH TWICE DAILY NEEDED FOR ANXIETY Citalopram [facility] 59099504386 40MG Active TAKE ONE Hydrobromide TABLET BY MOUTH ONCE DAILY Simvastatin [facility] 26950999568 40 MG Orally Active 1 t ablet Once a day in the evening Calcium + D3 [facility] 37471864259 600-800 MG-UNIT Active 1 tablet Orally Twice a with a day meal Levetiracetam [facility] 22251878156 500 MG Orally Active 1 1/2 Twice a day tablet Belsomra [facility] 65774703984 15 MG Orally Active 1 tabl et Once a day at bedtime as needed Spironolactone [facility] 13820635258 25 MG Oral Once April e take 1 a day 14, tablet by 2020 mouth once daily Gabapentin [facility] 11251680567 300 MG Orally Active 1 c apsule Once a day Duloxetine HCl [facility] 78541127426 30 MG Orally Active 1 capsule Once a day Dexilant [facility] 35190250529 60 MG Active TAKE 1 CAPSULE BY MOUTH ONCE DAILY Results No Known Results Summary Purpose eClinicalWorks Submission
--- OUTSIDE RECORDS SUMMARY | 2020-04-07 06:42 | XMS REPORT ---
:1955 Author Organization [employer] Care Team Providers Name Role Phone Danitza Johnsonh Provider Role Unavailable Allergies, Adverse Reactions, Alerts Substance Reaction Event Type penicillin Info Not Available Drug Allergy Codeine Sulfate Info Not Available Drug Allergy Problems Problem Type Condition Code Onset Dates Condition Statu s Assessment Hyponatremia E87.1 Active Assessment Cerebrovascular accident (CVA) due I63.432 Active to embolism of left posterior cerebral artery Assessment Benign essential HTN I10 Active Assessment Hypomagnesemia E83.42 Active Assessment Osteoporosis, [...] without long-term current use of insulin Assessment Stenosis of left carotid artery I65.22 Active Problem Nicotine dependence F17.200 Active Assessment Hemiplegia of right dominant side I69.951 Active as late effect of cerebrovascular disease, unspecified cerebrovascular disease type, unspecified hemiplegia type Problem H/O TIA (transient ischemic attack) Z86.73 [...] Start End Status Dosage System Date Date Clonazepam [facility] 73002087381 0.5 MG Oral Active (Sche dule IV Drug) TAKE 1 TABLET BY MOUTH TWICE DAILY NEEDED FOR ANXIETY Dexilant [facility] 59374465701 60 MG Active TAKE 1 CAPSULE BY MOUTH ONCE DAILY Klor-Con M20 [facility] 08605290233 20 MEQ Orally Active 1 tablet Once a day with food Ropinirole HCl [facility] 85326352533 2 MG Oral Active GULSHAN E 3 TABLETS BY MOUTH IN THE MORNING THEN TAKE 2 TABLETS BY MOUTH MIDDAY THEN TAKE 2 TABLETS BY MOUTH IN THE EVENING Olanzapine [facility] 90824641753 10 MG Active TAKE 1 TABLET BY MOUTH EVERY DAY Gabapentin [facility] 34678839618 300 MG Orally Active 1 1 /2 Twice a day tablet(50 0 MG) Levetiracetam [facility] 37398108419 500 MG Orally Active 1 1/2 Twice a day tablet Folic Acid [facility] 84554255478 1 MG Orally Active 1 tab let Once a day Calcium + D3 [facility] 85925851004 600-800 Active 1 table t MG-UNIT Orally with a Twice a day meal Duloxetine HCl [facility] 21472156136 30 MG Orally Active 1 capsule Once a day Duloxetine HCl [facility] 78492050766 30 MG Orally Active 1 capsule Once a day Myrbetriq [facility] 97900250061 50 MG Orally Active take one Once a day tablet by mouth once daily Spironolactone [facility] 48281600999 25 MG Oral April Active ta ke 1 Once a day , tablet by 2019 mouth once daily Duloxetine HCl [facility] [address]-31 30 MG Orally Active 1 capsule Once a day Amlodipine [facility] 24055544716 5 MG Oral Once Active ta ke 1 Besylate a day tablet by mouth once daily Trelegy Ellipta [facility] 84136231560 100-62.5-25 Active 1 puff MCG/INH Inhalation Once a day Metoprolol [facility] 41664862356 25 MG Orally February 18, Active Take 1/2 Tartrate Twice a day 2019 tablet with food Solifenacin [facility] 29255044306 5 MG Orally Active 1 ta blet Succinate Once a day Alendronate [facility] 99247257133 70 MG Orally Active 1 t ablet Sodium Once weekly Myrbetriq [facility] 02728411218 50 MG Orally Active 1 tab let Once a day Aggrenox [facility] 29409742793 25-200 MG Active 1 capsule Orally Twice a day Citalopram [facility] 55227477413 40MG Active TAKE ONE Hydrobromide TABLET BY MOUTH ONCE DAILY Citalopram [facility] 26280270068 40 MG Active TAKE 1 Hydrobromide TABLET BY MOUTH EVERY DAY Belsomra [facility] 95772205269 15 MG Orally Active 1 tabl et Once a day at bedtime as needed Simvastatin [facility] 23768977737 40 MG Orally Active 1 t ablet Once a day in the evening HydrALAZINE HCl [facility] 24963856523 50 MG Orally Active TAKE 1 Three times a TABLET BY day MOUTH THREE TIMES DAILY WITH FOOD Zyprexa [facility] 69418757927 10 MG Orally Inactive 1 tabl et Once a day HydrALAZINE HCl [facility] 28733327889 50 MG Orally Active 1 tablet Three times a with food day Spironolactone [facility] 52450835256 25 MG Orally February 18March Active 1 tablet Once a day 2019 Results No Known Results Summary Purpose eClinicalWorks Submission
--- OUTSIDE RECORDS SUMMARY | 2020-04-07 06:42 | XMS REPORT ---
[...] Start End Status Dosage System Date Date Klor-Con M20 [facility] 70130048577 20 MEQ Orally Active 1 tablet Once a day with food Ropinirole HCl [facility] 49574551340 2 MG Oral Active GULSHAN E 3 TABLETS BY MOUTH IN THE MORNING THEN TAKE 2 TABLETS BY MOUTH MIDDAY THEN TAKE 2 TABLETS BY MOUTH IN THE EVENING Alendronate [facility] 27551546920 70 MG Orally Active 1 t ablet Sodium Once weekly Gabapentin [facility] 10192864973 300 MG Orally Active 1 c apsule Once a day Aggrenox [facility] 69160121266 25-200 MG Active 1 capsule Orally Twice a day Belsomra [facility] 23436777856 15 MG Orally Active 1 tabl et Once a day at bedtime as needed Amlodipine [facility] 24064415397 5 MG Oral Once Active ta ke 1 Besylate a day tablet by mouth once daily Simvastatin [facility] 90637990194 40 MG Orally Active 1 t ablet Once a day in the evening Trelegy Ellipta [facility] 25813226732 100-62.5-25 Active 1 puff MCG/INH Inhalation Once a day Citalopram [facility] 45450413108 40 MG Active TAKE 1 Hydrobromide TABLET BY MOUTH EVERY DAY Olanzapine [facility] 68181576881 10 MG Active TAKE 1 TABLET BY MOUTH ONCE DAILY FOR 90 DAYS Olanzapine [facility] 04781923461 10 MG Orally Active 1 ta blet Once a day Duloxetine HCl [facility] 13219361661 30 MG Orally Active 1 capsule Once a day Spironolactone [facility] 02733875409 25 MG Oral Once April Activ e take 1 a day , tablet by 2019 mouth once daily HydrALAZINE HCl [facility] 26623222664 50 MG Orally January Active 1 tablet Three times a 2019 with food day Clonazepam [facility] 12966969462 0.5 MG Oral Active (Sche dule IV Drug) TAKE 1 TABLET BY MOUTH TWICE DAILY NEEDED FOR ANXIETY Calcium + D3 [facility] 25548321156 600-800 MG-UNIT Active 1 tablet Orally Twice a with a day meal Dexilant [facility] 41459151561 60 MG Active TAKE 1 CAPSULE BY MOUTH ONCE DAILY HydrALAZINE HCl [facility] 94974843033 50 MG Orally Active TAKE 1 Three times a TABLET BY day MOUTH THREE TIMES DAILY WITH FOOD Levetiracetam [facility] 96920930956 500 MG Orally Active 1 1/2 Twice a day tablet Folic Acid [facility] 85625575998 1 MG Orally Active 1 tab let Once a day Myrbetriq [facility] 17322593919 50 MG Orally Active 1 tab let Once a day Results No Known Results Summary Purpose [employer]Works Submission
--- OUTSIDE RECORDS SUMMARY | 2020-04-07 06:43 | XMS REPORT ---
[...] Primary osteoarthritis, unspecified M19.91 Active site Medications No Known Medications Results No Known Results Summary Purpose [employer]Works Submission
--- OUTSIDE RECORDS SUMMARY | 2020-04-07 06:43 | XMS REPORT ---
:1955 Author Organization [employer]Works Care Team Providers Name Role Phone Bryson Johnson Provider Role Unavailable Allergies No Known Allergies Problems Problem Type Condition Code Onset Dates Condition Statu s Assessment Benign essential HTN I10 Active Problem [...] Start End Date Status Dosage System Date Amlodipine [facility] 72962002001 5 MG Oral Once a Active take 1 Besylate day tablet by mouth once daily Results No Known Results Summary Purpose [employer]ClinicalWorks Submission
--- OUTSIDE RECORDS SUMMARY | 2020-04-07 06:44 | XMS REPORT ---
:1955 Author Organization eClinicalWorks Care Team Providers Name Role Phone Danitza Johnsonh Provider Role Unavailable Allergies, Adverse Reactions, Alerts Substance Reaction Event Type penicillin Info Not Available Drug Allergy Codeine Sulfate Info Not Available Drug Allergy Problems Problem Type Condition Code Onset Dates Condition Statu s Assessment Benign essential HTN I10 Active Problem COPD (chronic obstructive pulmonary J44.9 Active disease) Problem Benign essential HTN I10 Active Problem Hyperlipidemia E78.5 Active Problem Osteopenia M85.80 Active Problem Depression F32.9 Active Problem Insomnia G47.00 Active Problem GERD (gastroesophageal reflux K21.9 Active disease) Problem Chronic back pain M54.9 Active Problem Obstructive sleep apnea G47.33 Acti ve Problem Nicotine dependence F17.200 Active Problem Restless leg syndrome G25.81 Active Problem Lung nodule R91.1 Active Problem Overactive bladder N32.81 Active Problem Rheumatoid arthritis involving M06.9 Active multiple sites, unspecified rheumatoid factor presence Problem H/O TIA (transient ischemic attack) Z86.73 Active and stroke Problem Allergic rhinitis, seasonal J30.2 Active Problem Incontinence in female R32 Activ e Problem Osteoporosis, unspecified M81.0 Ac tive osteoporosis type, unspecified pathological fracture presence Problem Primary osteoarthritis, unspecified M19.91 Active site Problem Recurrent UTI N39.0 Active Assessment Primary osteoarthritis, unspecified M19.91 Active site Assessment Nicotine dependence F17.200 Active Assessment Osteoporosis, unspecified M81.0 Ac tive osteoporosis type, unspecified pathological fracture presence Assessment Hypomagnesemia E83.42 Active Assessment Insomnia G47.00 Active Assessment Overactive bladder N32.81 Active Assessment GERD (gastroesophageal reflux K21.9 Active disease) Assessment COPD (chronic obstructive pulmonary J44.9 Active disease) Problem Odynophagia R13.10 Active Assessment Rheumatoid arthritis involving M06.9 Active multiple sites, unspecified rheumatoid factor presence Problem Malnutrition, unspecified type E46 Active Problem Parkinson disease G20 Active Problem Depression with anxiety F41.8 Acti ve Problem Hypomagnesemia E83.42 Active Problem Parkinson's disease G20 Active Problem Stenosis of left carotid artery I65.22 Active Problem Dementia in other diseases F02.80 A ctive classified elsewhere without behavioral disturbance Assessment Malnutrition, unspecified type E46 Active Problem Hyponatremia E87.1 Active Assessment Dementia in other diseases F02.80 A ctive classified elsewhere without behavioral disturbance Problem Type 2 diabetes mellitus without E11.9 Active complication, without long-term current use of insulin Assessment Parkinson disease G20 Active Problem Hemiplegia of right dominant side I69.951 Active as late effect of cerebrovascular disease, unspecified cerebrovascular disease type, unspecified hemiplegia type Assessment Hyperlipidemia E78.5 Active Problem Cerebrovascular accident (CVA) due I63.432 Active to embolism of left posterior cerebral artery Assessment Depression F32.9 Active Assessment Hyponatremia E87.1 Active Assessment Need for home health care Z74.2 Ac tive Assessment Cerebrovascular accident (CVA) due I63.432 Active to embolism of left posterior cerebral artery Assessment Health nursing home, active care Z78.9 Active coordination Assessment Stenosis of left carotid artery I65.22 Active Assessment Hemiplegia of right dominant side I69.951 Active as late effect of cerebrovascular disease, unspecified cerebrovascular disease type, unspecified hemiplegia type Medications Medication Code Code Instructions Start End Status Dosage System Date Date Calcium + D3 [facility] 2] 72833120508 600-800 Active 1 table t MG-UNIT Orally with a Twice a day meal Citalopram [facility] 2] 06416233746 40 MG Active TAKE 1 Hydrobromide TABLET BY MOUTH EVERY DAY Simvastatin [facility] 2] 53145241701 40 MG Orally Active 1 t ablet Once a day in the evening Gabapentin [facility] 2] 50970191788 300 MG Orally Active 1 1 /2 Twice a day tablet(50 0 MG) Citalopram [facility] 2] 76093091239 40MG Active TAKE ONE Hydrobromide TABLET BY MOUTH ONCE DAILY Metoprolol [facility] 2] 75445039655 25 MG Orally Active Take 1/2 Tartrate Twice a day tablet with food Spironolactone [facility] 2] 21357286884 25 MG Orally Active 1 tablet Once a day Alendronate [facility] 2] 26198389409 70 MG Orally Active 1 t ablet Sodium Once weekly Duloxetine HCl [facility]NOTE 2] [address]-61 30 MG Orally Active 1 capsule Once a day Ropinirole HCl [facility] 2] 07076378982 2 MG Oral Active GULSHAN E 3 TABLETS BY MOUTH IN THE MORNING THEN TAKE 2 TABLETS BY MOUTH MIDDAY THEN TAKE 2 TABLETS BY MOUTH IN THE EVENING Belsomra [facility] 2] 74703413113 15 MG Orally Active 1 tabl et Once a day at bedtime as needed Zyprexa [facility] 2] 71515014001 10 MG Orally Inactive 1 tabl et Once a day Duloxetine HCl [facility] 2] 41428748159 30 MG Orally Active 1 capsule Once a day Klor-Con M20 [facility] 2] 46627820676 20 MEQ Orally Active 1 tablet Once a day with food Aggrenox [facility] 2] 13676815470 25-200 MG Active 1 capsule Orally Twice a day Myrbetriq [facility] 2] 68571389687 50 MG Orally Active 1 tab let Once a day Duloxetine HCl [facility]NOTE 2] 73670187114 30 MG Orally Active 1 capsule Once a day Myrbetriq [facility]NOTE 2] 11395957089 50 MG Orally Active take one Once a day tablet by mouth once daily Levetiracetam [facility]NOTE 2] 93567425681 500 MG Orally Active 1 1/2 Twice a day tablet Spironolactone [facility]NOTE 2] 74276759060 25 MG Oral Maddie Active ta ke 1 Once a day 14, tablet by 2020 mouth once daily HydrALAZINE HCl [facility] 2] 76508297258 50 MG Orally Active TAKE 1 Three times a TABLET BY day MOUTH THREE TIMES DAILY WITH FOOD Dexilant [facility] 2] 43941390276 60 MG Active TAKE 1 CAPSULE BY MOUTH ONCE DAILY Solifenacin [facility] 2] 01612552648 5 MG Orally Active 1 ta blet Succinate Once a day Clonazepam [facility]NOTE 2] 68170895495 0.5 MG Oral Active (Sche dule IV Drug) TAKE 1 TABLET BY MOUTH TWICE DAILY NEEDED FOR ANXIETY Olanzapine [facility] 2] 05948169772 10 MG Active TAKE 1 TABLET BY MOUTH EVERY DAY HydrALAZINE HCl [facility]NOTE 2] 45502085728 50 MG Orally Active 1 tablet Three times a with food day Folic Acid [facility] 2] 64900702528 1 MG Orally Active 1 tab let Once a day Trelegy Ellipta [facility]NOTE 2] 09469092633 100-62.5-25 Active 1 puff MCG/INH Inhalation Once a day Amlodipine [facility]NOTE 2] 03443587982 5 MG Oral Once Active ta ke 1 Besylate a day tablet by mouth once daily Results No Known Results Summary Purpose eClinicalWorks Submission
--- OUTSIDE RECORDS SUMMARY | 2020-04-07 06:44 | XMS REPORT ---
:1955 Author Organization eClinicalWorks Care Team Providers Name Role Phone Bryson Johnson Provider Role Unavailable Allergies No Known Allergies Problems Problem Type Condition Code Onset Dates Condition Statu s Problem COPD (chronic obstructive pulmonary J44.9 Active disease) Problem Benign essential HTN I10 Active Problem Hyperlipidemia E78.5 Active Problem Osteopenia M85.80 Active Problem Depression F32.9 Active Problem Insomnia G47.00 Active Problem GERD (gastroesophageal reflux K21.9 Active disease) Problem Chronic back pain M54.9 Active Problem Odynophagia R13.10 Active Problem Malnutrition, unspecified type E46 Active Problem Obstructive sleep apnea G47.33 Acti ve Problem Parkinson disease G20 Active Problem Depression with anxiety F41.8 Acti ve Problem Hypomagnesemia E83.42 Active Problem Parkinson's disease G20 Active Problem Stenosis of left carotid artery I65.22 Active Problem Nicotine dependence F17.200 Active Problem Restless leg syndrome G25.81 Active Problem Dementia in other diseases F02.80 A ctive classified elsewhere without behavioral disturbance Problem Lung nodule R91.1 Active Problem Hyponatremia E87.1 Active Problem Type 2 diabetes mellitus without E11.9 Active complication, without long-term current use of insulin Problem Hemiplegia of right dominant side I69.951 Active as late effect of cerebrovascular disease, unspecified cerebrovascular disease type, unspecified hemiplegia type Problem Cerebrovascular accident (CVA) due I63.432 Active to embolism of left posterior cerebral artery Problem Overactive bladder N32.81 Active Problem Rheumatoid [...] Active site Problem Recurrent UTI N39.0 Active Medications No Known Medications Results No Known Results Summary Purpose [employer] Submission
--- OUTSIDE RECORDS SUMMARY | 2020-04-07 06:44 | XMS REPORT ---
[...] Medications Results No Known Results Summary Purpose [employer] Submission
--- OUTSIDE RECORDS SUMMARY | 2020-04-07 06:47 | XMS REPORT | Summary of Care ---
:1955 Author Organization [facility] Address [address] [place] [address] Care Team Providers Name Role Phone Will Johnson Primary Care Provider Reason for Visit Reason Comments LAB WORK Encounter Details Date Type Department Care Team Description 04/05/2020 Telephone [facility] Interventional Judi Barajas PA-C LAB WORK Radiology [facility] [address] [place] [address] [place] [address] [phone] Allergies Active Allergy Reactions Severity Noted Date Comments Codeine Swelling, Rash 06/05/2017 Penicillins Anaphylaxis, Rash 06/05/2017 Tramadol Nausea and/or Vomiting 08/05/2018 documented as of this encounter (statuses as of 04/05/2020) Medications Medication Sig Dispensed Refills Start Date End Date Status alendronate 70 mg Take 70 mg by 0 08/01/2018 Active tablet mouth weekly. citalopram 40 mg Take 40 mg by 0 Active tablet mouth at bedtime. FLUARIX QUAD 0 06/12/2018 Active 7341-2528, PF, 60 mcg (15 mcg x 4)/0.5 [...] as of this encounter (statuses as of 04/05/2020) Active Problems No known active problemsdocumented as of this encounter (statuses as of 04/05/2020) Social History Tobacco Use Types Packs/Day Years [...] been in contact with No / Unsure 03/25/2020 4:55 PM CDT someone who was confirmed or suspected to have Coronavirus / COVID-19? documented as of this encounter Last Filed Vital Signs Not on filedocumented in this encounter Plan of Treatment Date Type Specialty Care Team Description 04/12/2020 Appointment Radiology Judi Molina PA-C [address] [place] [address] [phone] 04/12/2020 Appointment Radiology Judi Molina PA-C [address] [place] [address] [phone] 04/12/2020 Appointment Radiology Judi Molina PA-C [address] [place] [address] [phone] 05/05/2020 Office Visit Urology Damion Castrejon M D [address] [facility] [address] [place], [place] [id number] Health Maintenance Due Date Last Done Comments [...] Effective Phone Address T ype Group Dates [facility] [id number] 2019-Pres [facility] - HEALTHCARE ent Adv HM O MANAGED DUAL COMPLETE MEDICARE HMO TM MEDICAID OF xxxxxxxxx 2017-Pres [phone] [place] [id number] [place] [address] documented as of this encounter
[2020-04-07] MEDS ORDERED: HEPA 1000U/500MLS 1,000 UNIT/500 ML BAG IV ONE (06:50)
[2020-04-07] MEDS ORDERED: LIDOCAINE 1% MPF 30 ML VIAL ONE (06:50)
[2020-04-07] MEDS ORDERED: MIDAZOLAM HCL 2 MG/2 ML INJ ONE ×2 (06:51→07:40)
[2020-04-07] MEDS ORDERED: ATROPINE SULF 1 MG/10 ML SYR IV ONE (06:52)
[2020-04-07] MEDS ORDERED: FENTANYL CITR 100 MCG/2 ML ONE (06:52)
[2020-04-07] MEDS ORDERED: NA CHLORIDE 0.9% 500 ML ONE (07:02)
--- NOTE | 2020-04-07 08:16 | OP ---
Date of Procedure: 04/07/2020 Surgeon: Bartolome Wilder MD Medical Assisting Instructor: Mauri Trivedi. Procedure: Selective bilateral carotid angiogram. Indication: Abnormal carotid Doppler. History Of Present Illness: Ms. Dietrich is a 64-year-old woman, who has had a history of hypertens ion, dyslipidemia, and known cerebrovascular disease. Recent carotid Doppler showed a 99% stenosis o f the left internal carotid. She was scheduled for carotid angiogram as an outpatient. Procedure In Detail: Brought to the laborer drying department, prepped and draped in the routine sterile fashion. Sh e was given Versed for sedation. A 6-Estonian sheath was introduced in the right common femoral artery after 10 cc of xylocaine successfully. Angiography there was normal. StarClose was used to close t he case. A JR4 catheter was used to select the common carotids. First, the left common carotid was cannulated. The left common carotid artery itself was normal. The left internal carotid artery was 100% occluded. The left external carotid artery was normal. On the right side, the catheter was mov ed from the left common carotid to the right common carotid, where she was found to have a very calci fied right internal carotid without any focal stenosis. There was a 70% right external carotid arter y stenosis. The right common carotid artery was normal. There were no complications. The patient t olerated the procedure well. Blood Loss: 5 mL. Postoperative Diagnosis: Severe cerebrovascular disease. Plan: Plan is for medical therapy. The patient will go home today after 2 hours of bedrest and familia balbuena see me in the office in 2 weeks. Anesthesia: Total conscious sedation was 30 minutes. NB/MODL Voice ID: [id number] Report ID: [id number]
[2020-04-07 08:32] VITALS: TEMP 98
[2020-04-07 09:35] VITALS: O2SAT 95
[2020-04-07 10:01] VITALS: BP 116/65
== END 2020-04-07 10:13 | disposition home or self-care (01) ==
LOC: CCL 06:27
DX: I65.23 Occlusion and stenosis of bilateral carotid arteries (principal); I10 Essential (primary) hypertension; E78.5 Hyperlipidemia, unspecified; Z11.59 Encounter for screening for other viral diseases; Z88.0 Allergy status to penicillin; Z88.6 Allergy status to analgesic agent
CPT/HCPCS: 93005; 85025; 80048; 36415; 85610; 85730; 71046; 36222; U0002; C1893; J2250 ×2; J3010; J7040